=== PATIENT | female | born 1940 | race Caucasian/White ===

== ENCOUNTER → 2016-12-10 | Outpatient (CLI) | payer MEDICARE ==
--- NOTE | 2016-12-13 13:27 | MM ---
Reason for exam: screening (asymptomatic). Last mammogram was performed 1 year and 2 months ago. History: Patient is postmenopausal and has history of high-risk lesion on a previous biopsy at age 65. Family history of breast cancer in maternal aunt. Excisional biopsy of the left breast, February 06, 2006. High risk left mammotome panel of the left breast, January 15, 2006. Excisional biopsy of the left breast, April 08, 2000. Benign excisional biopsy of the left breast, 1981. Took estrogen for 4 years beginning at age 59. Took unspecified hormones for 20 years beginning at age 45. Physical Findings: A clinical breast exam by your physician is recommended on an annual basis and results should be correlated with mammographic findings. MG 3D Screening Mammo W/Cad Bilateral CC and MLO view(s) were taken. Prior study comparison: October 23, 2015, bilateral MG screening mammo w CAD. December 20, 2013, bilateral MG screening mammo w CAD. October 05, 2012, bilateral digital screening mammo w/CAD. September 06, 2011, bilateral digital screening mammo w/ CAD. There are scattered fibroglandular densities. There is chronic nodularity in the left breast. Diffuse round and punctate calcifications redemonstrated right greater than left breasts. No significant changes when compared with prior studies. ASSESSMENT: Benign, BI-RAD 2 RECOMMENDATION: Routine screening mammogram of both breasts in 1 year. AISLINN
== END | disposition home or self-care (01) ==
LOC: RADMAMWWP 10:04
PROVIDERS: ATTEND Family Medicine
DX: Z12.31 Encounter for screening mammogram for malignant neoplasm of breast (principal)
CPT/HCPCS: 77063; G0202

== ENCOUNTER → 2018-01-26 | Outpatient (CLI) | payer MEDICARE ==
--- NOTE | 2018-01-26 15:08 | BD ---
EXAMINATION TYPE: Axial Bone Density DATE OF EXAM: 01/26/2018 COMPARISON: NONE CLINICAL HISTORY: Height: 63 Weight: 165.8 FRAX RISK QUESTIONS: Alcohol (3 or more units per day): no Family History (Parent hip fracture): yes/ mother Glucocorticoids (More than 3mos): no (Ex: prednisone, prednisolone, methylprednisolone, dexamethasone, and hydrocortisone). History of Fracture in Adulthood: yes /elbow right/2008 Secondary Osteoporosis: 1. Type 1 Diabetes: no 2. Hyperthyroidism: no 3. Menopause before 45: no 4. Malnutrition: no 5. Chronic liver disease: no Rheumatoid Arthritis: no Current Tobacco Use: no RISK FACTORS HISTORY OF: Family History of Osteoporosis: yes Active: yes Diet low in dairy products/other sources of calcium: no Postmenopausal woman: age 56 Lost more than 2 inches in height since high school: yes Frequent falls: no MEDICATIONS: prevastatin, lisinopril, mirapex, iron, folic acid Additional History: EXAM MEASUREMENTS: Bone mineral densitometry was performed using the [employer] System. Bone mineral density as measured about the Lumbar spine is: ----- L1-L4(G/cm2): 1.117 T Score Values are as follows: ----- L2: -0.4 ----- L3: -0.3 ----- L4: -0.6 ----- L1-L4: -0.5 Bone mineral density has: increased1.5 % since study of: 10.23.2015 Bone mineral density about the R hip (g/cm2): 0.851 Bone mineral density about the L hip (g/cm2): 0.798 T Score values are as follows: -----R Neck: -1.3 -----L Neck: -1.7 -----R Total: -1.6 -----L Total: -2.0 Bone mineral density has: decreased -3.1 % since study of: 10.23.2015 IMPRESSION: Osteopenia (T Score between -2.5 and -1). There is slightly increased risk of fracture and the patient may be considered for treatment. Re-Screen 2-5 years. NOTE: T-SCORE=SD OF THE YOUNG ADULT MEAN.
--- NOTE | 2018-01-27 13:18 | MM ---
Reason for exam: screening (asymptomatic). Last mammogram was performed 1 year and 2 months ago. History: Patient is postmenopausal and has history of high-risk lesion on a previous biopsy at age 65. Family history of breast cancer in maternal aunt. Excisional biopsy of the left breast, February 06, 2006. High risk left mammotome panel of the left breast, January 15, 2006. Excisional biopsy of the left breast, April 08, 2000. Benign excisional biopsy of the left breast, 1981. Took estrogen for 4 years beginning at age 59. Took unspecified hormones for 20 years beginning at age 45. Physical Findings: A clinical breast exam by your physician is recommended on an annual basis and results should be correlated with mammographic findings. MG 3D Screening Mammo W/Cad Bilateral CC and MLO view(s) were taken. Prior study comparison: December 10, 2016, bilateral MG 3d screening mammo w/cad. October 23, 2015, bilateral MG screening mammo w CAD. The breast tissue is heterogeneously dense. This may lower the sensitivity of mammography. Finding #1: Stable architectural distortion in the upper outer quadrant of the left breast consistent with known excisional biopsy. Finding #2: There are typically benign dystrophic, round, regional and diffuse calcifications in both breasts. There is a chronic nodularity in the left breast. There is no discrete abnormality. ASSESSMENT: Benign, BI-RAD 2 RECOMMENDATION: Routine screening mammogram of both breasts in 1 year.
== END | disposition home or self-care (01) ==
LOC: RADMAMWWP 13:30
PROVIDERS: ATTEND Family Medicine
DX: Z12.31 Encounter for screening mammogram for malignant neoplasm of breast (principal); Z13.820 Encounter for screening for osteoporosis; M85.80 Other specified disorders of bone density and structure, unspecified site
CPT/HCPCS: 77063; 77067; 77080

== ENCOUNTER → 2019-01-28 | Outpatient (CLI) | payer MEDICARE ==
--- NOTE | 2019-01-29 09:56 | MM ---
Reason for exam: screening (asymptomatic). Last mammogram was performed 1 year ago. History: Patient is postmenopausal and has history of high-risk lesion on a previous biopsy at age 65. Family history of breast cancer in maternal aunt. Excisional biopsy of the left breast, February 06, 2006. High risk left mammotome panel of the left breast, January 15, 2006. Excisional biopsy of the left breast, April 08, 2000. Benign excisional biopsy of the left breast, 1981. Took estrogen for 4 years beginning at age 59. Took unspecified hormones for 20 years beginning at age 45. Physical Findings: A clinical breast exam by your physician is recommended on an annual basis and results should be correlated with mammographic findings. MG 3D Screening Mammo W/Cad Bilateral CC and MLO view(s) were taken. Prior study comparison: January 26, 2018, bilateral MG 3d screening mammo w/cad. December 10, 2016, bilateral MG 3d screening mammo w/cad. The breast tissue is heterogeneously dense. This may lower the sensitivity of mammography. Stable benign calcifications. There is chronic nodularity bilaterally. There is no dominant lesion. ASSESSMENT: Benign, BI-RAD 2 RECOMMENDATION: Routine screening mammogram of both breasts in 1 year.
== END | disposition home or self-care (01) ==
LOC: RADMAMWWP 13:15
PROVIDERS: ATTEND Family Medicine
DX: Z12.31 Encounter for screening mammogram for malignant neoplasm of breast (principal)
CPT/HCPCS: 77063; 77067

== ENCOUNTER → 2019-05-19 | Outpatient (CLI) | payer MEDICARE ==
[2019-05-19 08:29] LABS: T4, Free (Free Thyroxine) 1.23 ng/dL (0.78-2.19)
--- NOTE | 2019-05-19 09:28 | CT ---
EXAMINATION TYPE: CT orbits wo/w con DATE OF EXAM: 05/19/2019 COMPARISON: None. HISTORY: Double Vision for 2 months with history of thyroid disease. CT DLP: 601.6 mGycm Automated exposure control for dose reduction was used. CONTRAST: Performed without and with IV Contrast, patient injected with 100 mL of Isovue 300. FINDINGS: The orbital floors and michaud are intact. The globes are intact bilaterally. Neither lens well seen an d may be products of underlying cataracts. Rectus muscles show asymmetric enlargement of the left inf erior rectus muscle versus the opposite right side. There appears to be relative sparing of the tendi nous insertion or globe. Intraconal fat is preserved. Postcontrast images show no suspicious enhancem ent. Suprasellar cistern is maintained. Optic chiasm is not effaced. Suspected slight asymmetric left -sided proptosis. Mild diffuse cerebral atrophy and chronic small vessel ischemic changes thought present and visualize d brain parenchyma. Visualized paranasal sinuses are clear. Visualized mastoid air cells show no abno rmal opacification. Level of [place] of [place] there is thought within normal limits. IMPRESSION: Asymmetric thickening of the left inferior rectus muscle with suspected slight asymmetric left-sided proptosis. Differential would include lymphoma, sarcoidosis, thyroid orbitopathy, and pse udotumor although imaging findings and patient's symptoms do not classically fit any of the above. Th yroid would be favored given history but is usually bilateral and more symmetric in appearance.
== END | disposition home or self-care (01) ==
LOC: RADCTMAIN 07:39
PROVIDERS: ATTEND Ophthalmology
DX: H53.2 Diplopia (principal); Z86.39 Personal history of other endocrine, nutritional and metabolic disease
CPT/HCPCS: 84439; 83519; 84481; 82565; 84443; 84520; 70482; 36415; Q9967

== ENCOUNTER → 2020-03-07 | Outpatient (CLI) | payer MEDICARE ==
--- NOTE | 2020-03-13 10:37 | MM ---
Reason for exam: screening (asymptomatic). Last mammogram was performed 1 year and 1 month ago. History: Patient is postmenopausal and has history of high-risk lesion on a previous biopsy at age 65. Family history of breast cancer in maternal aunt. Excisional biopsy of the left breast, February 06, 2006. High risk left mammotome panel of the left breast, January 15, 2006. Excisional biopsy of the left breast, April 08, 2000. Benign excisional biopsy of the left breast, 1981. Took estrogen for 4 years beginning at age 59. Took unspecified hormones for 20 years beginning at age 45. Physical Findings: A clinical breast exam by your physician is recommended on an annual basis and results should be correlated with mammographic findings. MG 3D Screening Mammo W/Cad Bilateral CC and MLO view(s) were taken. Prior study comparison: January 28, 2019, bilateral MG 3d screening mammo w/cad. January 26, 2018, bilateral MG 3d screening mammo w/cad. The breast tissue is heterogeneously dense. This may lower the sensitivity of mammography. There is chronic nodularity bilaterally. No significant changes when compared with prior studies. ASSESSMENT: Benign, BI-RAD 2 RECOMMENDATION: Routine screening mammogram of both breasts in 1 year.
== END | disposition home or self-care (01) ==
LOC: RADMAMWWP 09:52
PROVIDERS: ATTEND Family Medicine
DX: Z12.31 Encounter for screening mammogram for malignant neoplasm of breast (principal)
CPT/HCPCS: 77063; 77067

== ENCOUNTER → 2021-04-13 | Outpatient (CLI) | payer MEDICARE ==
--- NOTE | 2021-04-16 11:17 | MM ---
Reason for exam: screening (asymptomatic). Last mammogram was performed 1 year and 1 month ago. History: Patient is postmenopausal and has history of high-risk lesion on a previous biopsy at age 65. Family history of breast cancer in maternal aunt. Excisional biopsy of the left breast, February 06, 2006. High risk left mammotome panel of the left breast, January 15, 2006. Excisional biopsy of the left breast, April 08, 2000. Benign excisional biopsy of the left breast, 1981. Took estrogen for 4 years beginning at age 59. Took unspecified hormones for 20 years beginning at age 45. Physical Findings: A clinical breast exam by your physician is recommended on an annual basis and results should be correlated with mammographic findings. MG 3D Screening Mammo W/Cad Bilateral CC and MLO view(s) were taken. Prior study comparison: March 07, 2020, bilateral MG 3d screening mammo w/cad. January 28, 2019, bilateral MG 3d screening mammo w/cad. January 26, 2018, bilateral MG 3d screening mammo w/cad. The breast tissue is heterogeneously dense. This may lower the sensitivity of mammography. Finding: There is stable architectural distortion in the upper quadrant of the left breast. There are typically benign round and vascular calcifications bilaterally. There is a chronic nodularity in the left breast. There is no discrete abnormality. ASSESSMENT: Benign, BI-RAD 2 RECOMMENDATION: Routine screening mammogram of both breasts in 1 year.
== END | disposition home or self-care (01) ==
LOC: RADMAMWWP 09:06
PROVIDERS: ATTEND Family Medicine
DX: Z12.31 Encounter for screening mammogram for malignant neoplasm of breast (principal); Z78.0 Asymptomatic menopausal state; Z80.3 Family history of malignant neoplasm of breast
CPT/HCPCS: 77063; 77067

== ENCOUNTER 2021-06-29 17:37 | Emergency (ER) | payer MEDICARE ==
[2021-06-29 18:15] VITALS: TEMP 99.8
[2021-06-29 20:01] VITALS: RESP 16
--- NOTE | 2021-06-29 20:13 | ED ---
General Adult HPI - General Chief complaint: Abdominal Pain Stated complaint: Nausea/dizzy/dehydrated Time Seen by Provider: 06/29/21 19:07 Source: patient Mode of arrival: ambulatory Limitations: no limitations - History of Present Illness Initial comments: Dictation was produced using [employer] dictation software. please excuse any grammatical, word or spelling errors. Chief Complaint: Patient is an 80-year-old female she has past medical history dyslipidemia and hypertension. She states she has history of constipation. She is here for constipation. History of Present Illness:-year-old female states that she has not had a good bowel movement in the last 2 weeks. She saw her primary care doctor a week ago was prescribed MiraLAX. She states that it helped initially but she still feels like she's not having a good bowel movement. She states she's been having these movements were she with past little pellets size stools. Patient has poor appetite. She does have very mild cramping down in her suprapubic area. Denies any fevers. The ROS documented in this emergency department record has been reviewed and confirmed by me. Those systems with pertinent positive or negative responses have been documented in the HPI. All other systems are other negative and/or noncontributory. PHYSICAL EXAM: General Impression: Alert and oriented x3, not in acute distress HEENT: Normocephalic atraumatic, extra-ocular movements intact, pupils equal and reactive to light bilaterally, mucous membranes moist. Cardiovascular: Heart regular rate and rhythm Chest: Able to complete full sentences, no retractions, no tachypnea Abdomen: abdomen soft, non-tender, non-distended, no organomegaly Musculoskeletal: Pulses present and equal in all extremities, no peripheral edema Motor: no focal deficits noted Neurological: CN II-XII grossly intact, no focal motor or sensory deficits noted Skin: Intact with no visualized rashes Psych: Normal affect and mood ED course: Patient is a 80-year-old female presents with crampy abdominal pain is suprapubic area. She has history of constipation and currently being treated by primary care doctor. She tried some MiraLAX at home with no significant improvement. She has been passing a small pellet size stools. Vital signs upon arrival shows findings within acceptable limits. Acute abdominal series shows hiatal hernia. No signs of obstruction or pneumoperitoneum. Physical pattern is normal. Laboratory evaluation. Rectal exam is normal. CBC and metabolic panel is unremarkable. No leukocytosis. White blood cell count of 7.9. Patient was told that she has a hiatal hernia. Given prescription for Protonix. Patient given referral to gastroenterology. - Related Data Previous Rx's Medication Instructions Recorded Pantoprazole [Protonix] 40 mg PO DAILY 24 Days #24 tab 06/29/21 Allergies Allergy/AdvReac Type Severity Reaction Status Date / Time codeine Allergy Itching Verified 06/29/21 18:15 Review of Systems ROS Statement: Those systems with pertinent positive or pertinent negative responses have been documented in the HPI. ROS Other: All systems not noted in ROS Statement are negative. Past Medical History Past Medical History: Hyperlipidemia, Hypertension Additional Past Medical History / Comment(s): Low Iron History of Any Multi-Drug Resistant Organisms: None Reported Past Surgical History: No Surgical Hx Reported Past Psychological History: No Psychological Hx Reported Smoking Status: Never smoker Past Alcohol Use History: Occasional Past Drug Use History: None Reported General Exam Limitations: no limitations Course Vital Signs 06/29/21 06/29/21 06/29/21 18:12 19:15 21:00 Temperature 99.8 F H Pulse Rate 101 H 103 H 91 Respiratory 24 16 16 Rate Blood Pressure 144/71 118/75 136/79 O2 Sat by Pulse 99 94 L 97 Oximetry Medical Decision Making - Lab Data Result diagrams: 06/29/21 20:51 06/29/21 20:51 Lab Results 06/29/21 06/29/21 06/29/21 Range/Units 19:55 20:51 20:51 WBC 7.9 (3.8-10.6) k/uL RBC 3.86 (3.80-5.40) m/uL Hgb 10.6 L (11.4-16.0) gm/dL Hct 32.1 L (34.0-46.0) % MCV 83.2 D (80.0-100.0) fL MCH 27.4 (25.0-35.0) pg MCHC 32.9 (31.0-37.0) g/dL RDW 13.5 (11.5-15.5) % Plt Count 399 (150-450) k/uL MPV 7.4 Neutrophils % 87 % Lymphocytes % 4 % Monocytes % 7 % Eosinophils % 0 % Basophils % 0 % Neutrophils # 6.9 (1.3-7.7) k/uL Lymphocytes # 0.3 L (1.0-4.8) k/uL Monocytes # 0.6 (0-1.0) k/uL Eosinophils # 0.0 (0-0.7) k/uL Basophils # 0.0 (0-0.2) k/uL Sodium 132 L (137-145) mmol/L Potassium 4.1 (3.5-5.1) mmol/L Chloride 96 L (98-107) mmol/L Carbon Dioxide 25 (22-30) mmol/L Anion Gap 11 mmol/L BUN 25 H (7-17) mg/dL Creatinine 0.70 (0.52-1.04) mg/dL Est GFR (CKD-EPI)AfAm >90 (>60 ml/min/1.73 sqM) Est GFR (CKD-EPI)NonAf 82 (>60 ml/min/1.73 sqM) Glucose 129 H (74-99) mg/dL Calcium 9.2 (8.4-10.2) mg/dL Total Bilirubin 0.6 (0.2-1.3) mg/dL AST 20 (14-36) U/L ALT 12 (4-34) U/L Alkaline Phosphatase 103 (38-126) U/L Total Protein 6.9 (6.3-8.2) g/dL Albumin 3.3 L (3.5-5.0) g/dL Coronavirus (PCR) Not Detected (Not Detectd) Disposition Clinical Impression: Hiatal hernia Disposition: HOME SELF-CARE Condition: Fair Instructions (If sedation given, give patient instructions): Constipation (ED), Hiatal Hernia (ED) Prescriptions: Pantoprazole [Protonix] 40 mg PO DAILY 24 Days #24 tab Is patient prescribed a controlled substance at d/c from ED?: No Referrals: Mary Faria DO [Primary Care Provider] - 1-2 days Ella Up MD [STAFF PHYSICIAN] - 1-2 days
--- NOTE | 2021-06-29 20:13 | XR ---
EXAMINATION TYPE: XR abdomen acute w cxr DATE OF EXAM: 06/29/2021 COMPARISON: NONE HISTORY: Constipation TECHNIQUE: 5 views FINDINGS: There is large hiatal hernia. There is no heart failure. There is atelectasis left lower lo be. Right lung is clear. There is no sign of intestinal obstruction or pneumoperitoneum. Fecal pattern is fairly normal. There is mild lumbar levoscoliosis. There is no sign of renal calculus. IMPRESSION: Large hiatal hernia. Nonacute abdomen.
[2021-06-29 21:15] LABS: Basophils % (A) 0 %; Eosinophils % (A) 0 %; HCT 32.1 % (34.0-46.0); HGB 10.6 gm/dL (11.4-16.0); Lymphocytes # (A) 0.3 k/uL (1.0-4.8); Lymphocytes % (A) 4 %; MCH 27.4 pg (25.0-35.0); MCHC 32.9 g/dL (31.0-37.0); Mean Platelet Volume 7.4; Monocytes # (A) 0.6 k/uL (0-1.0); Monocytes % (A) 7 %; Neutrophils # (A) 6.9 k/uL (1.3-7.7); Neutrophils % (A) 87 %; Platelet Count 399 k/uL (150-450); RBC 3.86 m/uL (3.80-5.40); RDW 13.5 % (11.5-15.5); WBC 7.9 k/uL (3.8-10.6)
[2021-06-29 21:30] LABS: MCV 83.2 fL (80.0-100.0)
[2021-06-29 21:34] LABS: ALT 12 U/L (4-34); AST 20 U/L (14-36); African American GFR (CKD) >90 (>60 ml/min/1.73 sqM); Albumin 3.3 g/dL (3.5-5.0); Alkaline Phosphatase 103 U/L (38-126); Anion Gap 11 mmol/L; Blood Urea Nitrogen 25 mg/dL (7-17); Calcium 9.2 mg/dL (8.4-10.2); Carbon Dioxide 25 mmol/L (22-30); Chloride 96 mmol/L (98-107); Glucose 129 mg/dL (74-99); Non-African American GFR(CKD) 82 (>60 ml/min/1.73 sqM); Potassium 4.1 mmol/L (3.5-5.1); Sodium 132 mmol/L (137-145); Total Bilirubin 0.6 mg/dL (0.2-1.3); Total Protein 6.9 g/dL (6.3-8.2)
[2021-06-29 21:56] VITALS: BP 131/73; PULSE 86
== END 2021-06-29 21:56 | disposition home or self-care (01) ==
LOC: EC 17:37
DX: K44.9 Diaphragmatic hernia without obstruction or gangrene (principal); E78.5 Hyperlipidemia, unspecified; I10 Essential (primary) hypertension; Z88.5 Allergy status to narcotic agent
CPT/HCPCS: 36415; 74022; 80053; 85025; 87635; 99284

== ENCOUNTER 2021-07-05 09:31 | Inpatient (IN) | payer MEDICARE ==
[2021-07-05] MEDS ORDERED: ONDANSETRON 4 MG/2 ML VIAL IVP STA (09:55)
[2021-07-05] MEDS ORDERED: SODIUM CHLORIDE 0.9% 1,000 ML IV STA (09:55)
[2021-07-05] MEDS ORDERED: KETOROLAC 30 MG/ML 1 ML VIAL IVP STA (10:13)
[2021-07-05 10:45] LABS: Basophils % (A) 0 %; Eosinophils % (A) 0 %; HCT 32.7 % (34.0-46.0); HGB 10.5 gm/dL (11.4-16.0); Lymphocytes # (A) 0.3 k/uL (1.0-4.8); Lymphocytes % (A) 4 %; MCH 26.9 pg (25.0-35.0); MCHC 32.2 g/dL (31.0-37.0); MCV 83.5 fL (80.0-100.0); Mean Platelet Volume 7.4; Monocytes # (A) 0.4 k/uL (0-1.0); Monocytes % (A) 5 %; Neutrophils # (A) 7.6 k/uL (1.3-7.7); Neutrophils % (A) 90 %; Platelet Count 412 k/uL (150-450); RBC 3.91 m/uL (3.80-5.40); RDW 13.7 % (11.5-15.5); WBC 8.4 k/uL (3.8-10.6)
[2021-07-05 10:54] LABS: Albumin 3.1 g/dL (3.5-5.0); Calcium 9.1 mg/dL (8.4-10.2); Potassium 3.8 mmol/L (3.5-5.1); Total Bilirubin 0.6 mg/dL (0.2-1.3); Total Protein 6.8 g/dL (6.3-8.2)
--- NOTE | 2021-07-05 11:12 | XR ---
EXAMINATION TYPE: XR abdomen 2V DATE OF EXAM: 07/05/2021 COMPARISON: NONE HISTORY: Pain TECHNIQUE: One view abdominal series FINDINGS: The osseous structures are intact. The bowel gas pattern is nonspecific. There is bibasilar consolid ation and small effusion there is a large intra-abdominal hiatal hernia suspected. Scoliosis with deg enerative change of the spine. As the face small bowel loops in the lower pelvis which could been the basis of an enteritis or ileus. Calcifications along the right paraspinal line could be related the right kidney. Diffuse osteopenia. IMPRESSION: 1. Nonspecific abdomen correlate for ileus or enteritis. 2. Possible right renal calculi. 3. Suspect a large hiatal hernia with cardiomegaly and basilar infiltrate correlate clinically.
[2021-07-05 12:28] LABS: Amorphous Sediment,Urine Occasional /hpf; Appearance,Urine Turbid (Clear); Bilirubin,Urine 1+ (Negative); Blood,Urine Moderate (Negative); Color,Urine Dark Yellow; Glucose,Urine (UA) Negative (Negative); Ketones,Urine 2+ (Negative); Leukocyte Esterase,Urine Negative (Negative); Mucus,Urine Many /hpf; Nitrite,Urine Negative (Negative); Protein,Urine 2+ (Negative); RBC,Urine 33 /hpf (0-5); Specific Gravity,Urine 1.034 (1.001-1.035); Squamous Epithelial Cell,Urine 8 /hpf (0-4); WBC,Urine 8 /hpf (0-5)
[2021-07-05] MEDS ORDERED: HYDROmorphone 0.5 MG/0.5 ML SYRINGE IVP STA (12:52)
--- NOTE | 2021-07-05 13:03 | CT ---
EXAMINATION TYPE: CT abdomen pelvis wo con DATE OF EXAM: 07/05/2021 HISTORY: Mid abdominal pain with burning sensation. CT DLP: 775.4 mGycm. Automated Exposure Control for Dose Reduction was Utilized. TECHNIQUE: CT scan of the abdomen and pelvis is performed without oral or IV contrast. COMPARISON: CT urogram November 08, 2010 FINDINGS: Within the limitations of a non-contrast study, the following observations are made. LUNG BASES: There is 12 mm calcified benign calcified nodule or granuloma left lower lobe posteriorly axial image 3 redemonstrated. LIVER/GB: Dependent calcified gallstones within gallbladder redemonstrated. 5. Stable prominent left hepatic lobe measuring upper limits of normal. Liver diffusely low dense con sistent with diffuse fatty infiltration. Few small calcifications in the right hepatic lobe redemonst rated. PANCREAS: No significant abnormality is seen. SPLEEN: No significant abnormality is seen. ADRENALS: No significant abnormality is seen. KIDNEYS: No significant abnormality is seen. BOWEL: Partial visualization of stomach which is poorly distended. No suspicious small or large bowel dilatation. Some scattered colonic diverticula most prominent in the left and sigmoid colon. Redunda nt sigmoid colon is identified. Mild fat stranding in the pelvis the level of the proximal to mid sig moid colon. No free air. No well-formed fluid collection or abscess. GENITAL ORGANS: Uterus surgically absent. LYMPH NODES: No greater than 1cm abdominal or pelvic lymph nodes are appreciated. OSSEOUS STRUCTURES: Marked underlying levoconvex scoliosis at L3 level. [id number] multilevel d isc space narrowing in the upper to mid lumbar spine. OTHER: Redemonstration of large diaphragmatic hernia containing portion of transverse colon and signi ficant portion of stomach along significant mesenteric fat and tiny vessels. IMPRESSION: Colonic diverticulosis with new mild uncomplicated acute diverticulitis proximal mid sigm oid colon in the left pelvis.
[2021-07-05] MEDS ORDERED: NALOXONE 0.4 MG/ML 1 ML VIAL IV PRN (13:30)
[2021-07-05] MEDS ORDERED: ONDANSETRON 4 MG/2 ML VIAL IVP PRN (13:30)
--- NOTE | 2021-07-05 13:30 | ED ---
Abdominal Pain HPI - General Chief Complaint: Abdominal Pain Stated Complaint: Hernia, unable to eat or drink, near syncope Time Seen by Provider: 07/05/21 09:43 Source: patient, RN notes reviewed Mode of arrival: ambulatory Limitations: no limitations - History of Present Illness Initial Comments: Patient is an 80-year-old female that presents to the emergency department complaining of abdominal discomfort. She was recently discharged from the [facility] with a large hiatal hernia and told to follow with GI specialist. Patient notes that since the discharge she's been having trouble eating having increased discomfort and has really or drinking. She was otherwise well-appearing. She denied any other symptoms or complaints. She denied chest pain shortness of breath headache nausea vomiting diarrhea constipation fever fatigue chills. - Related Data Home Medications Medication Instructions Recorded Confirmed Enalapril [Vasotec] 10 mg PO DAILY 07/05/21 07/05/21 Levothyroxine Sodium [Synthroid] 25 mcg PO DAILY 07/05/21 07/05/21 Meloxicam 15 mg PO DAILY 07/05/21 07/05/21 Pramipexole [Mirapex] 1 mg PO HS 07/05/21 07/05/21 Pravastatin Sodium [Pravachol] 80 mg PO HS 07/05/21 07/05/21 Vit C/E/Zn/Coppr/Lutein/Zeaxan 1 cap PO DAILY 07/05/21 07/05/21 [Preservision Areds 2 Softgel] Allergies Allergy/AdvReac Type Severity Reaction Status Date / Time codeine Allergy Itching Verified 07/05/21 10:15 Review of Systems ROS Statement: Those systems with pertinent positive or pertinent negative responses have been documented in the HPI. ROS Other: All systems not noted in ROS Statement are negative. Past Medical History Past Medical History: Hyperlipidemia, Hypertension Additional Past Medical History / Comment(s): Low Iron, Hernia History of Any Multi-Drug Resistant Organisms: None Reported Past Surgical History: No Surgical Hx Reported Past Psychological History: No Psychological Hx Reported Smoking Status: Never smoker Past Alcohol Use History: Occasional Past Drug Use History: None Reported General Exam Limitations: no limitations General appearance: alert, in no apparent distress Head exam: Present: atraumatic, normocephalic, normal inspection Eye exam: Present: normal appearance, PERRL, EOMI. Absent: scleral icterus, conjunctival injection, periorbital swelling ENT exam: Present: normal exam, mucous membranes moist Neck exam: Present: normal inspection Respiratory exam: Present: normal lung sounds bilaterally. Absent: respiratory distress, wheezes, rales, rhonchi, stridor Cardiovascular Exam: Present: regular rate, normal rhythm, normal heart sounds. Absent: systolic murmur, diastolic murmur, rubs, gallop, clicks GI/Abdominal exam: Present: soft, normal bowel sounds. Absent: distended, tenderness, guarding, rebound, rigid Extremities exam: Present: normal inspection, full ROM, normal capillary refill. Absent: tenderness, pedal edema, joint swelling, calf tenderness Neurological exam: Present: alert, oriented X3 Psychiatric exam: Present: normal affect, normal mood Skin exam: Present: warm, dry, intact, normal color. Absent: rash Course Vital Signs 07/05/21 07/05/21 09:32 13:00 Temperature 98.3 F Pulse Rate 103 H 101 H Respiratory 20 17 Rate Blood Pressure 138/70 138/78 O2 Sat by Pulse 100 99 Oximetry Medical Decision Making - Medical Decision Making 80-year-old female with hiatal hernia complaining of increased discomfort and pain. Labs, KUB, 15 mg of Toradol 4 mg of Zofran ordered. Labs unremarkable from previous studies. KUB shows large hiatal hernia. Dr. Caal was consulted and recommended a computed tomography scan Computed tomography scan shows a large hiatal hernia including most of the stomach and part of the transverse colon. 0.5 mg of Dilaudid for continuing pain. Case discussed with Dr. Nieves, patient will be admitted for surgical consult. Dr. Srivastava was consulted and will accept the admit with Dr. Ryan - Lab Data Result diagrams: 07/05/21 10:28 07/05/21 10:28 Lab Results 07/05/21 07/05/21 07/05/21 Range/Units 10:28 10:28 10:28 WBC 8.4 (3.8-10.6) k/uL RBC 3.91 (3.80-5.40) m/uL Hgb 10.5 L (11.4-16.0) gm/dL Hct 32.7 L (34.0-46.0) % MCV 83.5 (80.0-100.0) fL MCH 26.9 (25.0-35.0) pg MCHC 32.2 (31.0-37.0) g/dL RDW 13.7 (11.5-15.5) % Plt Count 412 (150-450) k/uL MPV 7.4 Neutrophils % 90 % Lymphocytes % 4 % Monocytes % 5 % Eosinophils % 0 % Basophils % 0 % Neutrophils # 7.6 (1.3-7.7) k/uL Lymphocytes # 0.3 L (1.0-4.8) k/uL Monocytes # 0.4 (0-1.0) k/uL Eosinophils # 0.0 (0-0.7) k/uL Basophils # 0.0 (0-0.2) k/uL Sodium 137 (137-145) mmol/L Potassium 3.8 (3.5-5.1) mmol/L Chloride 97 L (98-107) mmol/L Carbon Dioxide 30 (22-30) mmol/L Anion Gap 10 mmol/L BUN 28 H (7-17) mg/dL Creatinine 0.77 (0.52-1.04) mg/dL Est GFR (CKD-EPI)AfAm 84 (>60 ml/min/1.73 sqM) Est GFR (CKD-EPI)NonAf 73 (>60 ml/min/1.73 sqM) Glucose 143 H (74-99) mg/dL Calcium 9.1 (8.4-10.2) mg/dL Total Bilirubin 0.6 (0.2-1.3) mg/dL AST 20 (14-36) U/L ALT 15 (4-34) U/L Alkaline Phosphatase 100 (38-126) U/L Total Protein 6.8 (6.3-8.2) g/dL Albumin 3.1 L (3.5-5.0) g/dL Amylase 60 (30-110) U/L Lipase 44 (23-300) U/L Urine Color Dark Yellow Urine Appearance Turbid H (Clear) Urine pH 6.0 (5.0-8.0) Ur Specific Strawberry 1.034 (1.001-1.035) Urine Protein 2+ H (Negative) Urine Glucose (UA) Negative (Negative) Urine Ketones 2+ H (Negative) Urine Blood Moderate H (Negative) Urine Nitrite Negative (Negative) Urine Bilirubin 1+ H (Negative) Urine Urobilinogen 8.0 (<2.0) mg/dL Ur Leukocyte Esterase Negative (Negative) Urine RBC 33 H (0-5) /hpf Urine WBC 8 H (0-5) /hpf Ur Squamous Epith Cells 8 H (0-4) /hpf Amorphous Sediment Occasional H (None) /hpf Urine Mucus Many H (None) /hpf - Radiology Data Radiology results: report reviewed, image reviewed CT of the abdomen and pelvis: Redemonstration of large diaphragmatic hernia containing portion of transverse colon and significant portion of stomach along significant mesenteric fat and tiny vessels. Colonic diverticulosis with new mild uncomplicated acute diverticulitis proximal mid sigmoid colon in the left pelvis. Disposition Clinical Impression: Hiatal hernia Disposition: ADMITTED IP TO THIS HOSP Condition: Stable Is patient prescribed a controlled substance at d/c from ED?: No Referrals: Mary Faria DO [Primary Care Provider] - 1-2 days Time of Disposition: 13:30
[2021-07-05] MEDS: SODIUM CHLORIDE 0.9% 1,000 ML IV SCH (14:41)
[2021-07-05] MEDS: HYDROmorphone 0.5 MG/0.5 ML SYRINGE IVP PRN ×2 (15:39→19:34)
[2021-07-06] MEDS: ACETAMINOPHEN TAB 325 MG TAB PO PRN (00:05)
[2021-07-06] MEDS: SODIUM CHLORIDE 0.9% 1,000 ML IV SCH ×4 (04:40→23:18)
[2021-07-06] MEDS: HYDROmorphone 0.5 MG/0.5 ML SYRINGE IVP PRN ×4 (04:56→12:42)
[2021-07-06 11:56] LABS: Basophils % (A) 0 %; Eosinophils % (A) 0 %; HCT 31.8 % (34.0-46.0); HGB 9.9 gm/dL (11.4-16.0); Hypochromasia Moderate; Lymphocytes # (A) 0.3 k/uL (1.0-4.8); Lymphocytes % (A) 3 %; MCHC 31.2 g/dL (31.0-37.0); MCV 86.3 fL (80.0-100.0); Mean Platelet Volume 7.4; Monocytes # (A) 0.4 k/uL (0-1.0); Monocytes % (A) 4 %; Neutrophils # (A) 8.4 k/uL (1.3-7.7); Neutrophils % (A) 91 %; Platelet Count 379 k/uL (150-450); RBC 3.68 m/uL (3.80-5.40); RDW 13.8 % (11.5-15.5); WBC 9.2 k/uL (3.8-10.6)
[2021-07-06 12:10] LABS: African American GFR (CKD) >90 (>60 ml/min/1.73 sqM); Anion Gap 8 mmol/L; Blood Urea Nitrogen 26 mg/dL (7-17); Calcium 8.4 mg/dL (8.4-10.2); Carbon Dioxide 27 mmol/L (22-30); Chloride 104 mmol/L (98-107); Glucose 96 mg/dL (74-99); Non-African American GFR(CKD) 85 (>60 ml/min/1.73 sqM); Potassium 3.7 mmol/L (3.5-5.1); Sodium 139 mmol/L (137-145)
--- NOTE | 2021-07-06 13:10 | P.HPIM ---
History of Present Illness Patient is an 80-year-old female came in with the complaint of upper abdominal discomfort patient does have history of hernia and the pain is related to be secondary to anemia, Gen. surgery evaluated the patient is planning on doing hemorrhoidal hernia repair/Adis fundoplication on Friday. Patient will be started on Protonix patient was on naproxen at home which will be held. Patient doesn't have any fever chills vomiting diarrhea. Bit nauseous REVIEW OF SYSTEMS: CONSTITUTIONAL: No fever, no malaise, no fatigue. HEENT: No recent visual problems or hearing problems. Denied any sore throat. CARDIOVASCULAR: No chest pain, orthopnea, PND, no palpitations, no syncope. PULMONARY: No shortness of breath, no cough, no hemoptysis. GASTROINTESTINAL: No diarrhea, no vomiting, no abdominal pain. NEUROLOGICAL: No headaches, no weakness, no numbness. HEMATOLOGICAL: Denies any bleeding or petechiae. GENITOURINARY: Denies any burning micturition, frequency, or urgency. MUSCULOSKELETAL/RHEUMATOLOGICAL: Denies any joint pain, swelling, or any muscle pain. ENDOCRINE: Denies any polyuria or polydipsia. The rest of the 14-point review of systems is negative. PHYSICAL EXAMINATION: GENERAL: The patient is alert and oriented x3, not in any acute distress. Well developed, well nourished. HEENT: Pupils are round and equally reacting to light. EOMI. No scleral icterus. No conjunctival pallor. Normocephalic, atraumatic. No pharyngeal erythema. No thyromegaly. CARDIOVASCULAR: S1 and S2 present. No murmurs, rubs, or gallops. PULMONARY: Chest is clear to auscultation, no wheezing or crackles. ABDOMEN: Soft, nontender, nondistended, normoactive bowel sounds. No palpable organomegaly. MUSCULOSKELETAL: No joint swelling or deformity. EXTREMITIES: No cyanosis, clubbing, or pedal edema. NEUROLOGICAL: Gross neurological examination did not reveal any focal deficits. SKIN: No rashes. Assessment and plan -Epigastric abdominal pain: Secondary to gaseous reflux disease, possible peptic ulcer disease secondary to hiatal hernia, patient will undergo Adis fundoplication on Friday patient was started on Protonix hold off on naproxen -Hyperlipidemia: Resumed on statin -Hypertension hold off on anti-was medication patient blood pressure is low normal at -hypothyroidism continue with levothyroxine DVT prophylaxis: Lovenox Past Medical History Past Medical History: Hyperlipidemia, Hypertension, Osteoarthritis (OA), Thyroid Disorder Additional Past Medical History / Comment(s): Large hiatal hernia/was to follow with GI specialist, palpitations, anemia, goiter with radiation, hypothyroid, sinus allergies, diverticular disease. History of Any Multi-Drug Resistant Organisms: None Reported Past Surgical History: Joint Replacement, Tonsillectomy Additional Past Surgical History / Comment(s): Bilateral total knee arthroplasties, several L breast benign biopsies, colonoscopy, D&C. Past Anesthesia/Blood Transfusion Reactions: No Reported Reaction Additional Past Anesthesia/Blood Transfusion Reaction / Comment(s): Pt has clausterphobia. Smoking Status: Never smoker - Past Family History Father Family Medical History: Cancer Additional Family Medical History / Comment(s): Father of lung to brain cancer. Mother Additional Family Medical History / Comment(s): Mother had "heart problems" and was a "pre-diabetic" Medications and Allergies Home Medications Medication Instructions Recorded Confirmed Type Enalapril [Vasotec] 10 mg PO DAILY 07/05/21 07/05/21 History Levothyroxine Sodium [Synthroid] 25 mcg PO DAILY 07/05/21 07/05/21 History Meloxicam 15 mg PO DAILY 07/05/21 07/05/21 History Pramipexole [Mirapex] 1 mg PO HS 07/05/21 07/05/21 History Pravastatin Sodium [Pravachol] 80 mg PO HS 07/05/21 07/05/21 History Vit C/E/Zn/Coppr/Lutein/Zeaxan 1 cap PO DAILY 07/05/21 07/05/21 History [Preservision Areds 2 Softgel] Allergies Allergy/AdvReac Type Severity Reaction Status Date / Time codeine Allergy Itching Verified 07/05/21 10:15 Physical Exam Vitals: Vital Signs Temp Pulse Pulse Resp BP BP BP 07/06/21 04:30 99 F 94 20 110/56 07/05/21 22:50 102.7 F H 98 20 125/73 07/05/21 19:53 07/05/21 19:48 99.5 F 103 H 18 115/50 07/05/21 15:41 86 17 128/68 Pulse Ox 07/06/21 04:30 94 L 07/05/21 22:50 96 07/05/21 19:53 94 L 07/05/21 19:48 91 L 07/05/21 15:41 100 Intake and Output 07/05/21 07/06/21 07/06/21 22:59 06:59 14:59 Intake Total 1030 Balance 1030 Intake: Intake, IV Titration 780 Amount Sodium Chloride 0.9% 1, 780 000 ml @ 130 mls/hr IV . Q7H42M [facility] Rx#:[id number] Oral 250 Other: # Voids 3 # Bowel Movements 2 Weight 72.575 kg 72.575 kg Results CBC & Chem 7: 07/06/21 11:45 07/06/21 11:21 Labs: Abnormal Lab Results - Last 24 Hours (Table) 07/06/21 07/06/21 Range/Units 11:21 11:45 RBC 3.68 L (3.80-5.40) m/uL Hgb 9.9 L (11.4-16.0) gm/dL Hct 31.8 L (34.0-46.0) % Neutrophils # 8.4 H (1.3-7.7) k/uL Lymphocytes # 0.3 L (1.0-4.8) k/uL BUN 26 H (7-17) mg/dL Thrombosis Risk Factor Assmnt - Choose All That Apply Any of the Below Risk Factors Present?: Yes Each Factor Represents 1 point: Obesity (BMI >25) Other Risk Factors: Yes Each Risk Factor Represents 3 Points: Age 75 years or older Other congenital or acquired thrombophilia - If yes, enter type in comment: No Thrombosis Risk Factor Assessment Total Risk Factor Score: 4 Thrombosis Risk Factor Assessment Level: Moderate Risk
--- NOTE | 2021-07-06 13:36 | FL ---
EXAMINATION TYPE: FL UGI w esophagus DATE OF EXAM: 07/06/2021 COMPARISON: CT abdomen and pelvis 07/05/2021 HISTORY: Intrathoracic stomach TECHNIQUE: Double air contrast technique is performed. Examination however is limited due to patient' s debilitated state. The patient was unable to stand for the examination. Best possible exam was perf ormed with the cooperation of the patient. FINDINGS: The esophagus dilates to normal caliber and extends to the level of the diaphragm. On review of the C T examination a large Morgagni Hernia is present. This would account for the apparent elevation of th e diaphragm on the left. Esophagus has a normal caliber. Mild prominence of the distal esophagus may be present. A couple tert iary contractions may be present in the mid esophagus. Others persistence of a fold with a tiny protr usion. Distal esophageal ulceration may be present. Consider direct visualization. There is difficulty spelling contrast through the stomach to the antrum. Duodenal cap and sweep appea r to be in a normal position. Ligament of Treitz appears to be in normal position with elevation of t he stomach into the more getting the hernia. IMPRESSION: 1. 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 The stomach is within the posterio r thoracic cavity. There is elevation of the gastroesophageal junction with preservation of the locat ion of ligament of Treitz. 2. Some soft tissue swelling with central collection of contrast in the distal esophagus right latera l wall may be present. Underlying ulceration could be present. Consider direct visualization. 3. Mild presbyesophagus.
--- NOTE | 2021-07-06 14:24 | P.GSCN ---
History of Present Illness Consult date: 07/06/21 History of present illness: CHIEF COMPLAINT: Abdominal pain HISTORY OF PRESENT ILLNESS: This is a 80-year-old female who presented to the emergency room with complaints of abdominal pain. She reports that she's had pain for about a week and a half. Her pain is in 2 areas the epigastric and left lower quadrant. She reports that she is only able to eat small amount of food in the cause she gets very full. She reports that she feels that the food is sitting in the center of her chest. She has a lot of belching. And nausea. No vomiting. She's also complaining of left lower quadrant pain. And feeling feverish. She's had loose stools. Positive flatus. No blood in the stools. Reports that she had a colonoscopy several years ago with no abnormalities. [place] was febrile through the night with a temp of 102 she has had some mild tachycardia. White count has remained normal. She had a computed tomography scan of the abdomen completed that did reveal mild acute diverticulitis and a large hiatal hernia. She denies any urinary symptoms. Patient denies any prior surgical history. PAST MEDICAL HISTORY: Hyperlipidemia, Hypertension PAST SURGICAL HISTORY: See list. MEDICATIONS: See list. ALLERGIES: See list. SOCIAL HISTORY: No illicit drug use. REVIEW OF SYSTEMS: CONSTITUTIONAL: Denies fever or chills. HEENT: Denies blurred vision, vision changes, or eye pain. Denies hemoptysis CARDIOVASCULAR: Denies chest pain or pressure. RESPIRATORY: No shortness of breath. GASTROINTESTINAL: See HPI for pertinent findings HEMATOLOGIC: Denies bleeding disorders. GENITOURINARY: Denies any blood in urine or increased urinary frequency. SKIN: Denies pruitis. Denies rash. PHYSICAL EXAM: VITAL SIGNS: Reviewed GENERAL: Well-developed in no acute distress. HEENT: No sclera icterus. Extraocular movements grossly intact. Moist buccal mucosa. Head is atraumatic, normocephalic. No nasal drainage. ABDOMEN: Soft. Nondistended. Mild epigastric tenderness to palpation in left lower quadrant tenderness. NEUROLOGIC: Alert and oriented. Cranial nerves II through XII grossly intact. LABORATORY DATA: WBC is 9.2 hemoglobin 9.9 platelets 379 Sodium 139 potassium 3.7 BUN 26 creatinine 0.63 LFTs normal Lipase 44 IMAGING: Computed tomography scan abdomen and pelvis colonic diverticulosis with new mild uncomplicated acute diverticulitis proximal mid sigmoid colon in the left pelvis. Redemonstration of a large diaphragmatic hernia containing portion of transverse colon and significant portion of stomach along significant mesenteric fat and tiny vessels Upper GI findings compatible with a large Morgagni hernia. The stomach is with in the posterior thoracic cavity. There is elevation of the gastroesophageal junction with preservation of the location of the ligament of Treitz. Some soft tissue swelling with central collection of contrast in the distal esophagus right lateral wall may be present. Underlying ulceration could be present. Consider direct visualization. Mild presbyesophagus. ASSESSMENT: 1. Paraesophageal hernia with intermittent obstruction 2. Mild acute diverticulitis of the proximal mid sigmoid colon PLAN: -Patient scheduled for laparoscopic hiatal hernia repair on 07/09/[address] Ryan -Start full liquid diet -Start IV Zosyn for diverticulitis -Continue IV fluids -Continue supportive care -Continue pain medication as needed Thank you for this consultation Physician Vertical Mill Operator note has been reviewed by physician. Signing provider agrees with the documented findings, assessment, and plan of care. Past Medical History Past Medical History: Hyperlipidemia, Hypertension, Osteoarthritis (OA), Thyroid Disorder Additional Past Medical History / Comment(s): Large hiatal hernia/was to follow with GI specialist, palpitations, anemia, goiter with radiation, hypothyroid, sinus allergies, diverticular disease. History of Any Multi-Drug Resistant Organisms: None Reported Past Surgical History: Joint Replacement, Tonsillectomy Additional Past Surgical History / Comment(s): Bilateral total knee arthroplasties, several L breast benign biopsies, colonoscopy, D&C. Past Anesthesia/Blood Transfusion Reactions: No Reported Reaction Additional Past Anesthesia/Blood Transfusion Reaction / Comm: Pt has clausterphobia. Smoking Status: Never smoker - Past Family History Father Family Medical History: Cancer Additional Family Medical History / Comment(s): Father of lung to brain cancer. Mother Additional Family Medical History / Comment(s): Mother had "heart problems" and was a "pre-diabetic" Medications and Allergies Home Medications Medication Instructions Recorded Confirmed Type Enalapril [Vasotec] 10 mg PO DAILY 07/05/21 07/05/21 History Levothyroxine Sodium [Synthroid] 25 mcg PO DAILY 07/05/21 07/05/21 History Meloxicam 15 mg PO DAILY 07/05/21 07/05/21 History Pramipexole [Mirapex] 1 mg PO HS 07/05/21 07/05/21 History Pravastatin Sodium [Pravachol] 80 mg PO HS 07/05/21 07/05/21 History Vit C/E/Zn/Coppr/Lutein/Zeaxan 1 cap PO DAILY 07/05/21 07/05/21 History [Preservision Areds 2 Softgel] Allergies Allergy/AdvReac Type Severity Reaction Status Date / Time codeine Allergy Itching Verified 07/05/21 10:15 Surgical - Exam Vital Signs Temp Pulse Resp BP Pulse Ox 98.3 F 103 H 20 138/70 100 07/05/21 09:32 07/05/21 09:32 07/05/21 09:32 07/05/21 09:32 07/05/21 09:32 Results - Labs 07/06/21 11:45 07/06/21 11:21 Abnormal Lab Results - Last 24 Hours (Table) 07/06/21 07/06/21 Range/Units 11:21 11:45 RBC 3.68 L (3.80-5.40) m/uL Hgb 9.9 L (11.4-16.0) gm/dL Hct 31.8 L (34.0-46.0) % Neutrophils # 8.4 H (1.3-7.7) k/uL Lymphocytes # 0.3 L (1.0-4.8) k/uL BUN 26 H (7-17) mg/dL Diabetes panel 07/06/21 Range/Units 11:21 Sodium 139 (137-145) mmol/L Potassium 3.7 (3.5-5.1) mmol/L Chloride 104 (98-107) mmol/L Carbon Dioxide 27 (22-30) mmol/L BUN 26 H (7-17) mg/dL Creatinine 0.63 (0.52-1.04) mg/dL Glucose 96 (74-99) mg/dL Calcium 8.4 (8.4-10.2) mg/dL Calcium panel 07/06/21 Range/Units 11:21 Calcium 8.4 (8.4-10.2) mg/dL Pituitary panel 07/06/21 Range/Units 11:21 Sodium 139 (137-145) mmol/L Potassium 3.7 (3.5-5.1) mmol/L Chloride 104 (98-107) mmol/L Carbon Dioxide 27 (22-30) mmol/L BUN 26 H (7-17) mg/dL Creatinine 0.63 (0.52-1.04) mg/dL Glucose 96 (74-99) mg/dL Calcium 8.4 (8.4-10.2) mg/dL Adrenal panel 07/06/21 Range/Units 11:21 Sodium 139 (137-145) mmol/L Potassium 3.7 (3.5-5.1) mmol/L Chloride 104 (98-107) mmol/L Carbon Dioxide 27 (22-30) mmol/L BUN 26 H (7-17) mg/dL Creatinine 0.63 (0.52-1.04) mg/dL Glucose 96 (74-99) mg/dL Calcium 8.4 (8.4-10.2) mg/dL
[2021-07-06] MEDS: HYDROcodone/APAP 7.5-325MG 1 EACH TAB PO PRN ×2 (14:57→21:43)
[2021-07-06] MEDS: PIPERACILLIN-TAZOBACTAM 3.375 GM in SODIUM CHLORIDE 0.9% 100 ML IVPB SCH ×2 (16:11→23:24)
[2021-07-06] MEDS: PANTOPRAZOLE 40 MG TABLET PO SCH (20:21)
[2021-07-06] MEDS: PRAMIPEXOLE 1 MG TAB PO SCH (20:22)
[2021-07-06] MEDS: PRAVASTATIN SODIUM 80 MG TAB PO SCH (20:22)
[2021-07-07] MEDS: SODIUM CHLORIDE 0.9% 1,000 ML IV SCH ×3 (00:26→20:53)
[2021-07-07] MEDS: LEVOTHYROXINE 25 MCG TAB PO SCH (06:08)
[2021-07-07] MEDS: HYDROcodone/APAP 7.5-325MG 1 EACH TAB PO PRN ×3 (06:08→20:51)
[2021-07-07] MEDS: PANTOPRAZOLE 40 MG TABLET PO SCH (08:26)
[2021-07-07] MEDS: PIPERACILLIN-TAZOBACTAM 3.375 GM in SODIUM CHLORIDE 0.9% 100 ML IVPB SCH ×2 (08:26→16:40)
[2021-07-07] MEDS: VIT A,C & E-LUTEIN-MINERALS 1 EACH TAB PO SCH (08:26)
--- NOTE | 2021-07-07 09:26 | P.PN ---
Subjective Patient is an 80-year-old female came in with the complaint of upper abdominal discomfort patient does have history of hernia and the pain is related to be secondary to anemia, Gen. surgery evaluated the patient is planning on doing hemorrhoidal hernia repair/Adis fundoplication on Friday. Patient will be started on Protonix patient was on naproxen at home which will be held. Patient doesn't have any fever chills vomiting diarrhea. Bit nauseous 07/07/2021 Patient's abdominal pain significantly improved today. Constitutional: Denied any fatigue denied any fever. Cardio vascular: denied any chest pain, palpitations Gastrointestinal denied any nausea vomiting Pulmonary: Denied any shortness of breath cough Neurologic denied any new focal deficits All inpatient medications were reviewed and appropriate changes in these medications as dictated in the interval history and assessment and plan. PHYSICAL EXAMINATION: GENERAL: The patient is alert and oriented x3, not in any acute distress. Well developed, well nourished. HEENT: Pupils are round and equally reacting to light. EOMI. No scleral icterus. No conjunctival pallor. Normocephalic, atraumatic. No pharyngeal erythema. No thyromegaly. CARDIOVASCULAR: S1 and S2 present. No murmurs, rubs, or gallops. PULMONARY: Chest is clear to auscultation, no wheezing or crackles. ABDOMEN: Soft, nontender, nondistended, normoactive bowel sounds. No palpable organomegaly. MUSCULOSKELETAL: No joint swelling or deformity. EXTREMITIES: No cyanosis, clubbing, or pedal edema. NEUROLOGICAL: Gross neurological examination did not reveal any focal deficits. SKIN: No rashes. Assessment and plan -Epigastric abdominal pain: Secondary to gastoesophageal reflux disease, possibl e peptic ulcer disease secondary to hiatal hernia, patient will undergo Adis fundoplication on Friday patient was started on Protonix hold off on naproxen -Hyperlipidemia: Resumed on statin -Hypertension hold off on anti-was medication patient blood pressure is low normal -hypothyroidism continue with levothyroxine DVT prophylaxis: Lovenox Objective - Vital Signs Vital signs: Vital Signs Temp 98.2 F 07/07/21 05:00 Pulse 91 07/07/21 05:00 Resp 20 07/07/21 05:00 BP 117/61 07/07/21 05:00 Pulse Ox 94 L 07/07/21 05:00 Intake & Output 07/06/21 07/07/21 07/07/21 18:59 06:59 18:59 Intake Total 1060 250 Balance 1060 250 Weight 72.575 kg Intake: Intake, IV Titration 100 Amount Piperacillin-Tazobactam 3 100 .375 gm In Sodium Chloride 0.9% 100 ml @ 25 mls/hr IVPB Q8HR [facility] Rx# :[id number] Oral 960 250 Other: Voiding Method Toilet Toilet # Voids 3 4 1 # Bowel Movements 1 - Labs CBC & Chem 7: 07/06/21 11:45 07/06/21 11:21 Labs: Abnormal Lab Results - Last 24 Hours (Table) 07/06/21 07/06/21 Range/Units 11:21 11:45 RBC 3.68 L (3.80-5.40) m/uL Hgb 9.9 L (11.4-16.0) gm/dL Hct 31.8 L (34.0-46.0) % Neutrophils # 8.4 H (1.3-7.7) k/uL Lymphocytes # 0.3 L (1.0-4.8) k/uL BUN 26 H (7-17) mg/dL
--- NOTE | 2021-07-07 11:08 | P.PN ---
Progress Note - Text Progress Note Date: 07/07/21 Patient is stable. She is tolerating her diet. On exam her vital signs are stable. Abdomen soft. Patient has a large hiatal hernia intrathoracic hiatal hernia. Patient will be scheduled for operative repair on Friday.
[2021-07-07] MEDS: PRAVASTATIN SODIUM 80 MG TAB PO SCH (20:50)
[2021-07-07] MEDS: PRAMIPEXOLE 1 MG TAB PO SCH (20:52)
[2021-07-08] MEDS: PIPERACILLIN-TAZOBACTAM 3.375 GM in SODIUM CHLORIDE 0.9% 100 ML IVPB SCH ×4 (00:38→23:37)
[2021-07-08] MEDS: LEVOTHYROXINE 25 MCG TAB PO SCH (06:32)
[2021-07-08] MEDS: VIT A,C & E-LUTEIN-MINERALS 1 EACH TAB PO SCH (08:33)
[2021-07-08] MEDS: PANTOPRAZOLE 40 MG TABLET PO SCH (08:33)
[2021-07-08] MEDS: SODIUM CHLORIDE 0.9% 1,000 ML IV SCH ×3 (08:34→16:59)
[2021-07-08] MEDS: HYDROcodone/APAP 7.5-325MG 1 EACH TAB PO PRN ×2 (09:09→19:40)
--- NOTE | 2021-07-08 10:55 | P.PN ---
Progress Note - Text Progress Note Date: 07/08/21 Patient has some complaints of dysphagia. On exam vital signs are stable. Abdomen soft. There is no tenderness there is no rebound or guarding. Patient scheduled for repair of large diaphragmatic hernia in the a.m.
[2021-07-08] MEDS: POTASSIUM CHLORIDE ER 10 MEQ TAB.ER.PRT PO SCH ×2 (12:29→20:16)
[2021-07-08] MEDS ORDERED: POTASSIUM CHLORIDE ER 20 MEQ TAB.ER PO STA (16:25)
--- NOTE | 2021-07-08 16:27 | P.PN ---
Subjective Patient is an 80-year-old female came in with the complaint of upper abdominal discomfort patient does have history of hernia and the pain is related to be secondary to anemia, Gen. surgery evaluated the patient is planning on doing hemorrhoidal hernia repair/Adis fundoplication on Friday. Patient will be started on Protonix patient was on naproxen at home which will be held. Patient doesn't have any fever chills vomiting diarrhea. Bit nauseous 07/07/2021 Patient's abdominal pain significantly improved today. 07/08/2021 Patient was having diarrhea which resolved patient's abdominal pain is better. Patient will undergo Adis fundoplication tomorrow. Patient's serum potassium is extremely low because of the IV fluids and diarrhea this will be replaced and we'll repeat basic metabolic profile again tomorrow patient's IV fluids will be cut down to 75 mL per hour. Constitutional: Denied any fatigue denied any fever. Cardio vascular: denied any chest pain, palpitations Gastrointestinal denied any nausea vomiting Pulmonary: Denied any shortness of breath cough Neurologic denied any new focal deficits All inpatient medications were reviewed and appropriate changes in these medications as dictated in the interval history and assessment and plan. PHYSICAL EXAMINATION: GENERAL: The patient is alert and oriented x3, not in any acute distress. Well developed, well nourished. HEENT: Pupils are round and equally reacting to light. EOMI. No scleral icterus. No conjunctival pallor. Normocephalic, atraumatic. No pharyngeal erythema. No thyromegaly. CARDIOVASCULAR: S1 and S2 present. No murmurs, rubs, or gallops. PULMONARY: Chest is clear to auscultation, no wheezing or crackles. ABDOMEN: Soft, nontender, nondistended, normoactive bowel sounds. No palpable organomegaly. MUSCULOSKELETAL: No joint swelling or deformity. EXTREMITIES: No cyanosis, clubbing, or pedal edema. NEUROLOGICAL: Gross neurological examination did not reveal any focal deficits. SKIN: No rashes. Assessment and plan -Epigastric abdominal pain: Secondary to gastoesophageal reflux disease, possible peptic ulcer disease secondary to hiatal hernia, patient will undergo Adis fundoplication on Friday patient was started on Protonix hold off on naproxen -Hyperlipidemia: Resumed on statin -Hypertension hold off on anti-was medication patient blood pressure is low normal -hypothyroidism continue with levothyroxine DVT prophylaxis: Margienox Objective - Vital Signs Vital signs: Vital Signs Temp 97.9 F 07/08/21 11:16 Pulse 73 07/08/21 11:16 Resp 16 07/08/21 11:16 BP 113/66 07/08/21 11:16 Pulse Ox 94 L 07/08/21 11:16 Intake & Output 07/07/21 07/08/21 07/08/21 18:59 06:59 18:59 Intake Total 1660 400 Balance 1660 400 Intake: Intake, IV Titration 1660 Amount Piperacillin-Tazobactam 3 100 .375 gm In Sodium Chloride 0.9% 100 ml @ 25 mls/hr IVPB Q8HR [facility] Rx# :[id number] Sodium Chloride 0.9% 1, 1560 000 ml @ 130 mls/hr IV . [id number] [facility] Rx#:[id number] Oral 400 Other: Voiding Method Toilet # Voids 1 7 # Bowel Movements 1 3 - Labs CBC & Chem 7: 07/06/21 11:45 07/08/21 11:22 Labs: Abnormal Lab Results - Last 24 Hours (Table) 07/08/21 Range/Units 11:22 Potassium 2.8 L (3.5-5.1) mmol/L
[2021-07-08] MEDS ORDERED: DEXAMETHASONE SOD PHOSPHATE 4 MG/ML 1 ML VIAL IV ONE (17:20)
[2021-07-08] MEDS: LACTATED RINGERS 1,000 ML IV SCH (17:37)
[2021-07-08] MEDS: PRAVASTATIN SODIUM 80 MG TAB PO SCH (20:16)
[2021-07-08] MEDS: PRAMIPEXOLE 1 MG TAB PO SCH (20:16)
[2021-07-09] MEDS: HYDROcodone/APAP 7.5-325MG 1 EACH TAB PO PRN (03:37)
[2021-07-09 06:28] LABS: Basophils % (A) 0 %; Eosinophils % (A) 1 %; HCT 32.9 % (34.0-46.0); Hypochromasia Marked; Lymphocytes # (A) 0.4 k/uL (1.0-4.8); Lymphocytes % (A) 6 %; MCH 26.5 pg (25.0-35.0); MCHC 30.3 g/dL (31.0-37.0); MCV 87.2 fL (80.0-100.0); Mean Platelet Volume 7.7; Monocytes # (A) 0.4 k/uL (0-1.0); Monocytes % (A) 5 %; Neutrophils % (A) 87 %; Platelet Count 453 k/uL (150-450); RBC 3.77 m/uL (3.80-5.40); RDW 14.3 % (11.5-15.5); WBC 6.9 k/uL (3.8-10.6)
[2021-07-09 06:37] LABS: African American GFR (CKD) >90 (>60 ml/min/1.73 sqM); Anion Gap 13 mmol/L; Blood Urea Nitrogen 14 mg/dL (7-17); Calcium 8.4 mg/dL (8.4-10.2); Carbon Dioxide 20 mmol/L (22-30); Chloride 110 mmol/L (98-107); Glucose 74 mg/dL (74-99); Non-African American GFR(CKD) 85 (>60 ml/min/1.73 sqM); Potassium 3.5 mmol/L (3.5-5.1); Sodium 143 mmol/L (137-145)
[2021-07-09] MEDS ORDERED: HYDROmorphone 0.5 MG/0.5 ML SYRINGE IVP PRN (07:00)
[2021-07-09] MEDS: PANTOPRAZOLE 40 MG TABLET PO SCH (07:29)
[2021-07-09] MEDS: LEVOTHYROXINE 25 MCG TAB PO SCH (07:30)
[2021-07-09] MEDS: PIPERACILLIN-TAZOBACTAM 3.375 GM in SODIUM CHLORIDE 0.9% 100 ML IVPB SCH ×3 (07:30→22:18)
[2021-07-09] MEDS: POTASSIUM CHLORIDE ER 10 MEQ TAB.ER.PRT PO SCH ×2 (07:31→22:48)
[2021-07-09] MEDS: VIT A,C & E-LUTEIN-MINERALS 1 EACH TAB PO SCH (07:31)
[2021-07-09] MEDS: SODIUM CHLORIDE 0.9% 1,000 ML IV SCH ×2 (07:32→22:49)
--- NOTE | 2021-07-09 13:54 | P.PN ---
Subjective Progress Note Date: 07/09/21 Patient is an 80-year-old female came in with the complaint of upper abdominal discomfort patient does have history of hernia and the pain is related to be secondary to anemia, Gen. surgery evaluated the patient is planning on doing hemorrhoidal hernia repair/Adis fundoplication on Friday. Patient will be started on Protonix patient was on naproxen at home which will be held. Patient doesn't have any fever chills vomiting diarrhea. Bit nauseous 07/07/2021 Patient's abdominal pain significantly improved today. 07/08/2021 Patient was having diarrhea which resolved patient's abdominal pain is better. Patient will undergo Adis fundoplication tomorrow. Patient's serum potassium is extremely low because of the IV fluids and diarrhea this will be replaced and we'll repeat basic metabolic profile again tomorrow patient's IV fluids will be cut down to 75 mL per hour. 07/09/2021 Patient tolerated today resting in bed. She is having ongoing diarrhea, multiple episodes of the evening. Just complains of ever she eats because it clear that Her throat. She is scheduled today for a diaphragmatic hernia repair today. No other complaints, denies any chest pain, cough, shortness of breath. Labs today show white count of 6.9, hemoglobin 10, sodium 143, potassium 3.5, BUN 14, creatinine 0.64, chloride 110, CO2 20. Vital: temp of 97.5, heart rate 89, blood pressure 132/71 and she is 98% on room air. ROS Constitutional: Denied any fatigue denied any fever. Cardio vascular: denied any chest pain, palpitations Gastrointestinal denied any nausea vomiting, reports diarrhea, reports abdominal fullness Pulmonary: Denied any shortness of breath cough Neurologic denied any new focal deficits All inpatient medications were reviewed and appropriate changes in these medications as dictated in the interval history and assessment and plan. PHYSICAL EXAMINATION: GENERAL: The patient is alert and oriented x3, not in any acute distress. Well developed, well nourished. HEENT: Pupils are round and equally reacting to light. EOMI. No scleral icterus. No conjunctival pallor. Normocephalic, atraumatic. No pharyngeal erythema. No thyromegaly. CARDIOVASCULAR: S1 and S2 present. No murmurs, rubs, or gallops. PULMONARY: Chest is clear to auscultation, no wheezing or crackles. ABDOMEN: Soft, nontender, distended, normoactive bowel sounds. No palpable organomegaly. MUSCULOSKELETAL: No joint swelling or deformity. EXTREMITIES: No cyanosis, clubbing, or pedal edema. NEUROLOGICAL: Gross neurological examination did not reveal any focal deficits. SKIN: No rashes. Assessment and plan -Epigastric abdominal pain: Secondary to gastoesophageal reflux disease, possible peptic ulcer disease secondary to hiatal hernia, patient will undergo Adis fundoplication today -diarrhea, probably secondary to large hernia -metabolic acidosis, secondary to above -Hyperlipidemia: Resumed on statin -Hypertension hold off on anti-was medication patient blood pressure is low normal -hypothyroidism continue with levothyroxine DVT prophylaxis: Lovenox Objective - Vital Signs Vital signs: Vital Signs Temp 97.5 F L 07/09/21 12:56 Pulse 89 07/09/21 12:56 Resp 18 07/09/21 12:56 BP 132/71 07/09/21 12:56 Pulse Ox 98 07/09/21 12:56 Intake & Output 07/08/21 07/09/21 07/09/21 18:59 06:59 18:59 Intake Total 200 Balance 200 Intake: Intake, IV Titration 200 Amount Piperacillin-Tazobactam 3 200 .375 gm In Sodium Chloride 0.9% 100 ml @ 25 mls/hr IVPB Q8HR [facility] Rx# :[id number] Other: Voiding Method Toilet # Voids 3 - Labs CBC & Chem 7: 07/09/21 05:24 07/09/21 05:24 Labs: Abnormal Lab Results - Last 24 Hours (Table) 07/09/21 07/09/21 Range/Units 05:24 05:24 RBC 3.77 L (3.80-5.40) m/uL Hgb 10.0 L (11.4-16.0) gm/dL Hct 32.9 L (34.0-46.0) % MCHC 30.3 L (31.0-37.0) g/dL Plt Count 453 H (150-450) k/uL Lymphocytes # 0.4 L (1.0-4.8) k/uL Chloride 110 H (98-107) mmol/L Carbon Dioxide 20 L (22-30) mmol/L
[2021-07-09] MEDS ORDERED: IV FLUID CONTINUATION 1,000 ML IV ONE (15:08)
[2021-07-09 15:24] LABS: Glucose,Whole Blood 69 mg/dL (75-99)
[2021-07-09] MEDS ORDERED: DEXTROSE 50% SYRINGE 50 ML IVP ONE (15:32)
[2021-07-09] MEDS ORDERED: ONDANSETRON 4 MG/2 ML VIAL IVP ONE (15:40)
[2021-07-09] MEDS ORDERED: DEXAMETHASONE SOD PHOSPHATE 4 MG/ML 1 ML VIAL IVP ONE (15:40)
[2021-07-09 15:49] LABS: Glucose,Whole Blood 83 mg/dL (75-99)
[2021-07-09] MEDS ORDERED: HEPARIN SODIUM,PORCINE 5,000 UNIT/ML 1 ML VIAL SQ ONE (16:00)
[2021-07-09] MEDS ORDERED: SODIUM CHLORIDE 0.9% 100 ML BAG ONE (16:01)
[2021-07-09] MEDS ORDERED: ceFAZolin 1,000 MG VIAL ONE (16:01)
[2021-07-09] MEDS ORDERED: PROPOFOL 10 MG/ML 20 ML VIAL IV ONE (16:01)
[2021-07-09] MEDS ORDERED: HEPARIN SODIUM,PORCINE/PF 5,000 UNIT/0.5 ML SYRINGE SQ ONE (16:01)
[2021-07-09] MEDS ORDERED: PHENYLEPHRINE-0.9% NACL SYG 1,000 MCG/10 ML SYRINGE ONE (16:01)
[2021-07-09] MEDS ORDERED: LIDOCAINE 1% INJ 10MG/ML (20 ML MDV) ONE (16:01)
[2021-07-09] MEDS ORDERED: MIDAZOLAM 2 MG/2 ML VIAL ONE (16:01)
[2021-07-09] MEDS ORDERED: ROCURONIUM 10 MG/ML (5 ML VIAL) IV ONE (16:01)
[2021-07-09] MEDS ORDERED: ESMOLOL 100 MG/10 ML VIAL ONE (16:01)
[2021-07-09] MEDS ORDERED: SUGAMMADEX SODIUM 500 MG/5 ML SDV IV ONE (16:01)
[2021-07-09] MEDS ORDERED: NEOSTIGMINE 1 MG/ML 10 ML VIAL ONE (16:01)
[2021-07-09] MEDS ORDERED: SUCCINYLCHOLINE CHLORIDE 100 MG/5 ML SYR IV ONE (16:01)
[2021-07-09] MEDS ORDERED: fentaNYL (PF) 50 MCG/ML 2 ML AMP ONE (16:01)
[2021-07-09] MEDS ORDERED: GLYCOPYRROLATE 0.2 MG/ML 2 ML VIAL ONE (16:01)
[2021-07-09] MEDS ORDERED: BUPIVACAINE (PF) 0.25% 30 ML VIAL SQ ONE ×2 (16:34→16:40)
[2021-07-09] MEDS ORDERED: LACTATED RINGERS 1,000 ML IV ONE (17:00)
[2021-07-09 17:18] LABS: Glucose,Whole Blood 105 mg/dL (75-99)
[2021-07-09] MEDS ORDERED: ONDANSETRON 4 MG/2 ML VIAL IVP PRN (17:51)
--- NOTE | 2021-07-09 17:51 | P.OP ---
Date of Procedure: 07/09/21 Preoperative Diagnosis: Large paraesophageal hernia Postoperative Diagnosis: Large paraesophageal hernia containing colon and small bowel and stomach Procedure(s) Performed: Laparoscopic repair of paraesophageal hernia with mesh Anesthesia: YANNI Surgeon: Js Ryan Estimated Blood Loss (ml): 10 Pathology: none sent Condition: stable Disposition: PACU Description of Procedure: The patient was placed on the operating table in the supine position. The patient received general anesthesia. And was placed in dorsal lithotomy position. The patient was prepped and draped in the usual sterile fashion. The skin incision sites were anesthetized with 1% local Xylocaine. The skin was incised in the left periumbilical area and then using a blade less 5 mm trocar under direct visualization panel cavity was entered. After adequate insufflation the laparoscope was then placed into the peritoneal cavity. Next a 5 mm trochars placed in the right epigastric position. Another 5 millimeter trocar the right lateral position. Another 5 millimeter trocar in the left lat eral position a 5 mm trocar is placed in the left epigastric position. And then the initial 5 mm trocar was exchanged for a 10 mm trocar. The left lateral lobe liver was retracted. The hernia was seen. The hernia was quite large. There was stomach and small bowel and colon within the chest. The bowel contents were reduced. The crural defect was then dissected using the Harmonic scissors device. The hernia sac was reduced. A 360 crural dissection was performed the esophagus stomach was reduced back into the peritoneal Cavity. The crural defect was then closed using 2-0 Ethibond suture. Next the fundus of the stomach was mobilized using the Harmonic scissors device. and then a 58-Kazakh bougie dilator was placed oropharynx passed into the esophagus and stomach . At this point the ezequiel was reapproximated using 2-0 Ethibond suture. The diaphragmatic repair was then buttressed using the [place] [employer] a mesh. This was secured with 2-0 Ethibond.. There was no injury seen to the stomach or esophagus. The dilator was then withdrawn. The abdomen was irrigated there is no bleeding seen. The trochars were then withdrawn and then skin incision sites were closed using 3-0 Monocryl suture Steri-Strips are applied. Patient thought procedure well and sent to recovery room in stable condition.
[2021-07-09 18:39] LABS: Glucose,Whole Blood 110 mg/dL (75-99)
[2021-07-09] MEDS ORDERED: SIMETHICONE 40 MG/0.6 ML DROPS 2,000 MG/30 ML BOTTLE PO ONE (19:05)
[2021-07-09] MEDS ORDERED: ACETAMINOPHEN IV (For NPO) 1,000 MG/100 ML VIAL IVPB ONE (19:52)
[2021-07-09] MEDS: PRAMIPEXOLE 1 MG TAB PO SCH (22:17)
[2021-07-10] MEDS: D5-0.45% NACL WITH KCL 20MEQ/L 1,000 ML IV SCH ×2 (03:20→06:09)
[2021-07-10] MEDS: PRAVASTATIN SODIUM 80 MG TAB PO SCH ×2 (03:48→20:03)
[2021-07-10 05:59] LABS: Glucose,Whole Blood 154 mg/dL (75-99)
[2021-07-10] MEDS: LEVOTHYROXINE 25 MCG TAB PO SCH (06:08)
[2021-07-10] MEDS: SIMETHICONE 80 MG CHEWABLE PO PRN (06:09)
[2021-07-10 06:35] LABS: Calcium 8.2 mg/dL (8.4-10.2)
[2021-07-10 07:14] LABS: HCT 30.4 % (34.0-46.0); HGB 9.4 gm/dL (11.4-16.0); Hypochromasia Marked; MCH 27.1 pg (25.0-35.0); MCHC 30.9 g/dL (31.0-37.0); MCV 87.8 fL (80.0-100.0); Mean Platelet Volume 7.9; Platelet Count 432 k/uL (150-450); Poikilocytosis Slight; RBC 3.46 m/uL (3.80-5.40); RDW 14.8 % (11.5-15.5); WBC 7.4 k/uL (3.8-10.6)
[2021-07-10] MEDS: PIPERACILLIN-TAZOBACTAM 3.375 GM in SODIUM CHLORIDE 0.9% 100 ML IVPB SCH ×3 (07:46→20:03)
--- NOTE | 2021-07-10 09:21 | FL ---
EXAMINATION TYPE: FL esophagus cervic/pharynx DATE OF EXAM: 07/10/2021 ESOPHAGRAM: CLINICAL HISTORY: Hiatal hernia surgical repair performed yesterday. TECHNIQUE: Esophagram is performed utilizing 25 cc of Isovue-370. A total of of 42 seconds of fluoros copic time was utilized during procedure and 57 images obtained. Comparison: CT abdomen and pelvis 5 days ago. Fluoroscopic upper GI study performed 4 days ago. FINDINGS: The patient swallowed contrast without difficulty or delay. Esophageal peristalsis and mo tility are within normal limits. There is moderate delay in flow of contrast along the diaphragmatic hiatus into the stomach which is now been placed below diaphragm. Some contrast eventually passes thr ough the diaphragm without leak. No persistent hiatal hernia is seen. Patient remains asymptomatic. S ome retained contrast in colon from prior upper GI study noted. Delayed imaging shows residual contra st in distal esophagus. Reflux of contrast throughout the esophagus noted during real-time scanning. IMPRESSION: Moderate obstruction status post hiatal hernia repair surgery yesterday but patient remai ns asymptomatic. No fluoroscopic evidence for leak. Successful surgical reduction of the large hiatal hernia noted.
[2021-07-10 09:40] LABS: Band Neutrophils % 2 %; Lymphocytes # (M) 0.22 k/uL (1.0-4.8); Metamyelocytes # (M) 0.07 k/uL (0); Metamyelocytes % 1 %; Monocytes # (M) 0.44 k/uL (0-1.0); Neutrophils % (M) 90 %; Nucleated Red Blood Cells 0 /100 WBC (0-0); Total Cells Counted 200
[2021-07-10 09:44] LABS: Anisocytosis (M) Present
[2021-07-10] MEDS ORDERED: DEXAMETHASONE SOD PHOSPHATE 4 MG/ML 1 ML VIAL IVP PRN (10:31)
[2021-07-10] MEDS: PANTOPRAZOLE 40 MG TABLET PO SCH (11:12)
[2021-07-10] MEDS: VIT A,C & E-LUTEIN-MINERALS 1 EACH TAB PO SCH (11:12)
[2021-07-10] MEDS: POTASSIUM CHLORIDE ER 10 MEQ TAB.ER.PRT PO SCH ×2 (11:12→20:02)
[2021-07-10] MEDS: DEXAMETHASONE SOD PHOSPHATE 4 MG/ML 1 ML VIAL IVP SCH ×3 (11:13→20:03)
[2021-07-10] MEDS: DEXTROSE 5%-0.45% NACL 1,000 ML IV SCH ×2 (11:13→20:02)
[2021-07-10] MEDS: LACTATED RINGERS 1,000 ML IV SCH (11:16)
[2021-07-10] MEDS: HYDROcodone/APAP 7.5-325MG 1 EACH TAB PO PRN ×2 (11:19→22:49)
[2021-07-10 11:42] LABS: Glucose,Whole Blood 329 mg/dL (75-99)
--- NOTE | 2021-07-10 13:14 | P.PN ---
Subjective Progress Note Date: 07/10/21 CHIEF COMPLAINT: Large paraesophageal hernia HISTORY OF PRESENT ILLNESS: Patient is status post laparoscopic repair of paraesophageal hernia with mesh. Postop day #1. Upper GI shows evidence of moderate obstruction status post hiatal hernia repair surgery but remains asymptomatic. No evidence of leak. Successful surgical reduction of large hiatal hernia noted. Patient reports improvement in her swallow. Denies any nausea or vomiting. Her pain is controlled. Denies any flatus or BM. Afebrile. WBC is 7.4 PHYSICAL EXAM: VITAL SIGNS: Reviewed. GENERAL: Well-developed in no acute distress. HEENT: No sclera icterus. Extraocular movements grossly intact. Moist buccal mucosa. Head is atraumatic, normocephalic. ABDOMEN: Soft. Nondistended. Incision sites clean dry and intact minimal d ried blood NEUROLOGIC: Alert and oriented. Cranial nerves II through XII grossly intact. ASSESSMENT: 1. Large paraesophageal hernia containing colon, small bowel and stomach status post laparoscopic repair of paraesophageal hernia with mesh 2. Mild acute diverticulitis of the proximal mid sigmoid colon 3. Moderate obstruction status post hiatal hernia repair PLAN: -Start IV dexamethasone for moderate obstruction noted on upper GI -Start Adis clear liquid diet -Continue IV fluids -Discontinue Diego catheter -Encourage patient to ambulate -Patient can be transferred to a surgical floor. Initially transferred to a cardiac floor after surgery. Patient has been mildly hypoxic and tachycardic. These symptoms have resolved. Physician Webbing Weaver note has been reviewed by physician. Signing provider agrees with the documented findings, assessment, and plan of care. Objective - Vital Signs Vital signs: Vital Signs Temp 97.0 F L 07/10/21 11:35 Pulse 86 07/10/21 11:35 Resp 16 07/10/21 11:35 BP 125/61 07/10/21 11:35 Pulse Ox 96 07/10/21 11:35 Intake & Output 07/09/21 07/10/21 07/10/21 18:59 06:59 18:59 Intake Total 900 100 25 Output Total 160 100 Balance 740 0 25 Weight 72.575 kg 72.575 kg Intake: IV 900 100 Oral 25 Output: Urine 150 100 Estimated Blood Loss 10 Other: Voiding Method Toilet Indwelling Catheter - Labs CBC & Chem 7: 07/10/21 05:10 07/10/21 05:10 Labs: Abnormal Lab Results - Last 24 Hours (Table) 07/09/21 07/09/21 07/09/21 Range/Units 15:23 17:16 18:37 RBC (3.80-5.40) m/uL Hgb (11.4-16.0) gm/dL Hct (34.0-46.0) % MCHC (31.0-37.0) g/dL Lymphocytes # (Manual) (1.0-4.8) k/uL Metamyelocytes # (Man) (0) k/uL Chloride (98-107) mmol/L Carbon Dioxide (22-30) mmol/L Glucose (74-99) mg/dL POC Glucose (mg/dL) 69 L 105 H 110 H (75-99) mg/dL Calcium (8.4-10.2) mg/dL 07/10/21 07/10/21 07/10/21 Range/Units 05:10 05:10 05:57 RBC 3.46 L (3.80-5.40) m/uL Hgb 9.4 L (11.4-16.0) gm/dL Hct 30.4 L (34.0-46.0) % MCHC 30.9 L (31.0-37.0) g/dL Lymphocytes # (Manual) 0.22 L (1.0-4.8) k/uL Metamyelocytes # (Man) 0.07 H (0) k/uL Chloride 111 H (98-107) mmol/L Carbon Dioxide 21 L (22-30) mmol/L Glucose 158 H (74-99) mg/dL POC Glucose (mg/dL) 154 H (75-99) mg/dL Calcium 8.2 L (8.4-10.2) mg/dL 07/10/21 Range/Units 11:30 RBC (3.80-5.40) m/uL Hgb (11.4-16.0) gm/dL Hct (34.0-46.0) % MCHC (31.0-37.0) g/dL Lymphocytes # (Manual) (1.0-4.8) k/uL Metamyelocytes # (Man) (0) k/uL Chloride (98-107) mmol/L Carbon Dioxide (22-30) mmol/L Glucose (74-99) mg/dL POC Glucose (mg/dL) 329 H (75-99) mg/dL Calcium (8.4-10.2) mg/dL
--- NOTE | 2021-07-10 13:25 | P.PN ---
Subjective Progress Note Date: 07/10/21 Patient is an 80-year-old female came in with the complaint of upper abdominal discomfort patient does have history of hernia and the pain is related to be secondary to anemia, Gen. surgery evaluated the patient is planning on doing hemorrhoidal hernia repair/Adis fundoplication on Friday. Patient will be started on Protonix patient was on naproxen at home which will be held. Patient doesn't have any fever chills vomiting diarrhea. Bit nauseous 07/07/2021 Patient's abdominal pain significantly improved today. 07/08/2021 Patient was having diarrhea which resolved patient's abdominal pain is better. Patient will undergo Adis fundoplication tomorrow. Patient's serum potassium is extremely low because of the IV fluids and diarrhea this will be replaced and we'll repeat basic metabolic profile again tomorrow patient's IV fluids will be cut down to 75 mL per hour. 07/09/2021 Patient tolerated today resting in bed. She is having ongoing diarrhea, multiple episodes of the evening. Just complains of ever she eats because it clear that Her throat. She is scheduled today for a diaphragmatic hernia repair today. No other complaints, denies any chest pain, cough, shortness of breath. Labs today show white count of 6.9, hemoglobin 10, sodium 143, potassium 3.5, BUN 14, creatinine 0.64, chloride 110, CO2 20. Vital: temp of 97.5, heart rate 89, blood pressure 132/71 and she is 98% on room air. 07/10/2021 Patient underwent hernia repair yesterday and was transitioned to a high level of care postoperatively. Unsure why although patient states that she was experiencing some dizziness postoperatively. Upper GI today shows moderate obstruction status post hiatal hernia repair surgery yesterday but patient remains asymptomatic. No fluoroscopic evidence for leak. Successful reduction of the large hiatal hernia noted. Patient was evaluated today by surgical group recommended starting on a short course of IV Decadron. Continues on IV Zosyn. Labs today show a hemoglobin of 5.4, sodium 144, potassium 4, chloride 111, CO2 21, sugars are in the 150s. She was advanced to Adis clear liquid diet today. Vitals today; Temp of 97, heart rate 86, blood pressure 125/61, 96% on room air. Patient is experiencing hyperglycemia s/p decadron. ROS Constitutional: Denied any fatigue denied any fever. Cardio vascular: denied any chest pain, palpitations Gastrointestinal denied any nausea vomiting, reports passing gas, reports mild abdominal pain 10/11 Pulmonary: Denied any shortness of breath cough Neurologic denied any new focal deficits All inpatient medications were reviewed and appropriate changes in these medications as dictated in the interval history and assessment and plan. PHYSICAL EXAMINATION: GENERAL: The patient is alert and oriented x3, not in any acute distress. Well developed, well nourished. HEENT: Pupils are round and equally reacting to light. EOMI. No scleral icterus. No conjunctival pallor. Normocephalic, atraumatic. No pharyngeal erythema. No thyromegaly. CARDIOVASCULAR: S1 and S2 present. No murmurs, rubs, or gallops. PULMONARY: Chest is clear to auscultation, no wheezing or crackles. ABDOMEN: Soft, tender, distended, normoactive bowel sounds. No palpable organomegaly. MUSCULOSKELETAL: No joint swelling or deformity. EXTREMITIES: No cyanosis, clubbing, or pedal edema. NEUROLOGICAL: Gross neurological examination did not reveal any focal deficits. SKIN: No rashes. Assessment and plan Assessment -Epigastric abdominal pain: Secondary to gastoesophageal reflux disease, possible peptic ulcer disease secondary to hiatal hernia -POD #1 Adis fundoplication -diarrhea, probably secondary to large hernia, resolving -metabolic acidosis, secondary to above -Hyperlipidemia: Resumed on statin -Hypertension hold off on anti-was medication patient blood pressure is low normal -hypothyroidism continue with levothyroxine -Hyperglycemia due to IV steroids DVT prophylaxis: Lovenox GI Prophylaxis: Protonix FULL CODE Plan Encourage ambulation Encourage incentive spirometry Clear liquid Adis diet per surgical Novolog for glycemic control Labs in AM Objective - Vital Signs Vital signs: Vital Signs Temp 97.5 F L 07/10/21 05:31 Pulse 84 07/10/21 05:31 Resp 18 07/10/21 05:31 BP 123/67 07/10/21 05:31 Pulse Ox 97 07/10/21 05:31 Intake & Output 07/09/21 07/10/21 07/10/21 18:59 06:59 18:59 Intake Total 900 100 0 Output Total 160 100 Balance 740 0 0 Weight 72.575 kg Intake: IV 900 100 Oral 0 Output: Urine 150 100 Estimated Blood Loss 10 Other: Voiding Method Toilet - Labs CBC & Chem 7: 07/10/21 05:10 07/10/21 05:10 Labs: Abnormal Lab Results - Last 24 Hours (Table) 07/09/21 07/09/21 07/09/21 Range/Units 15:23 17:16 18:37 RBC (3.80-5.40) m/uL Hgb (11.4-16.0) gm/dL Hct (34.0-46.0) % MCHC (31.0-37.0) g/dL Chloride (98-107) mmol/L Carbon Dioxide (22-30) mmol/L Glucose (74-99) mg/dL POC Glucose (mg/dL) 69 L 105 H 110 H (75-99) mg/dL Calcium (8.4-10.2) mg/dL 07/10/21 07/10/21 07/10/21 Range/Units 05:10 05:10 05:57 RBC 3.46 L (3.80-5.40) m/uL Hgb 9.4 L (11.4-16.0) gm/dL Hct 30.4 L (34.0-46.0) % MCHC 30.9 L (31.0-37.0) g/dL Chloride 111 H (98-107) mmol/L Carbon Dioxide 21 L (22-30) mmol/L Glucose 158 H (74-99) mg/dL POC Glucose (mg/dL) 154 H (75-99) mg/dL Calcium 8.2 L (8.4-10.2) mg/dL
[2021-07-10 16:48] LABS: Glucose,Whole Blood 271 mg/dL (75-99)
[2021-07-10] MEDS: INSULIN ASPART (NovoLOG) 100 UNIT/ML VIAL SQ SCH ×2 (16:54→20:07)
[2021-07-10] MEDS: PRAMIPEXOLE 1 MG TAB PO SCH (20:03)
[2021-07-10 20:05] LABS: Glucose,Whole Blood 243 mg/dL (75-99)
[2021-07-11] MEDS: DEXTROSE 5%-0.45% NACL 1,000 ML IV SCH ×3 (03:11→21:18)
[2021-07-11 06:11] LABS: Glucose,Whole Blood 154 mg/dL (75-99)
[2021-07-11] MEDS: PANTOPRAZOLE 40 MG TABLET PO SCH (06:16)
[2021-07-11] MEDS: DEXAMETHASONE SOD PHOSPHATE 4 MG/ML 1 ML VIAL IVP SCH ×3 (06:16→16:49)
[2021-07-11] MEDS: LEVOTHYROXINE 25 MCG TAB PO SCH (06:16)
[2021-07-11] MEDS: INSULIN ASPART (NovoLOG) 100 UNIT/ML VIAL SQ SCH ×4 (07:29→21:14)
[2021-07-11] MEDS: VIT A,C & E-LUTEIN-MINERALS 1 EACH TAB PO SCH (07:30)
[2021-07-11] MEDS: PIPERACILLIN-TAZOBACTAM 3.375 GM in SODIUM CHLORIDE 0.9% 100 ML IVPB SCH ×2 (07:30→16:50)
[2021-07-11] MEDS: POTASSIUM CHLORIDE ER 10 MEQ TAB.ER.PRT PO SCH ×2 (07:30→21:15)
[2021-07-11 07:34] LABS: Basophils % (A) 0 %; Eosinophils % (A) 0 %; HCT 30.5 % (34.0-46.0); HGB 9.3 gm/dL (11.4-16.0); Hypochromasia Marked; Lymphocytes # (A) 0.4 k/uL (1.0-4.8); Lymphocytes % (A) 6 %; MCH 27.5 pg (25.0-35.0); MCHC 30.7 g/dL (31.0-37.0); MCV 89.8 fL (80.0-100.0); Mean Platelet Volume 7.8; Monocytes # (A) 0.4 k/uL (0-1.0); Monocytes % (A) 5 %; Neutrophils # (A) 6.3 k/uL (1.3-7.7); Neutrophils % (A) 88 %; Platelet Count 464 k/uL (150-450); RBC 3.39 m/uL (3.80-5.40); WBC 7.2 k/uL (3.8-10.6)
[2021-07-11] MEDS: HYDROcodone/APAP 7.5-325MG 1 EACH TAB PO PRN (07:35)
[2021-07-11 11:51] LABS: Glucose,Whole Blood 180 mg/dL (75-99)
--- NOTE | 2021-07-11 12:47 | P.PN ---
Subjective Progress Note Date: 07/11/21 CHIEF COMPLAINT: Large paraesophageal hernia HISTORY OF PRESENT ILLNESS: Patient is status post laparoscopic repair of paraesophageal hernia with mesh. Postop day #2. Patient reports that she is feeling better each day. She is tolerating bhavana clear liquid diet. She reports that it is easier to swallow today. She'll reports her pain is controlled. Denies any nausea or vomiting. She is having bowel movements and flatus. She refused to work with physical therapy yesterday. They're supposed to be in to see her again today. Patient has not been ambulating. Afebrile. WBC is 7.2 Hgb 9.3 platelets 464 stool for C. diff negative. Diego catheter scheduled to be removed today. Patient's left lower quadrant pain has resolved. PHYSICAL EXAM: VITAL SIGNS: Reviewed. GENERAL: Well-developed in no acute distress. HEENT: No sclera icterus. Extraocular movements grossly intact. Moist buccal mucosa. Head is atraumatic, normocephalic. ABDOMEN: Soft. Nondistended. Incision sites clean dry and intact minimal dried blood NEUROLOGIC: Alert and oriented. Cranial nerves II through XII grossly intact. ASSESSMENT: 1. Large paraesophageal hernia containing colon, small bowel and stomach status post laparoscopic repair of paraesophageal hernia with mesh 2. Mild acute diverticulitis of the proximal mid sigmoid colon improved 3. Moderate obstruction status post hiatal hernia repair PLAN: -Continue IV dexamethasone for moderate obstruction noted on upper GI -Continue Bhavana clear liquid diet -Continue IV fluids -Discontinue Diego catheter -Encouraged and educated patient that she needs to ambulate -Continue to work with PT OT -And DVT prophylaxis subcu heparin -GI prophylaxis Protonix Physician Induction Furnace Operator note has been reviewed by physician. Signing provider agrees with the documented findings, assessment, and plan of care. Objective - Vital Signs Vital signs: Vital Signs Temp 97.4 F L 07/11/21 12:09 Pulse 89 07/11/21 12:09 Resp 18 07/11/21 12:09 BP 100/65 07/11/21 12:09 Pulse Ox 95 07/11/21 12:09 Intake & Output 07/10/21 07/11/21 07/11/21 18:59 06:59 18:59 Intake Total 365 Output Total 250 325 400 Balance 115 -325 -400 Weight 72.575 kg Intake: Oral 365 Output: Urine 250 325 400 Other: Voiding Method Indwelling Catheter Indwelling Catheter Indwelling Catheter # Bowel Movements 1 1 - Labs CBC & Chem 7: 07/11/21 04:57 07/10/21 05:10 Labs: Abnormal Lab Results - Last 24 Hours (Table) 07/10/21 07/10/21 07/11/21 Range/Units 16:34 20:03 04:57 RBC 3.39 L (3.80-5.40) m/uL Hgb 9.3 L (11.4-16.0) gm/dL Hct 30.5 L (34.0-46.0) % MCHC 30.7 L (31.0-37.0) g/dL Plt Count 464 H (150-450) k/uL Lymphocytes # 0.4 L (1.0-4.8) k/uL POC Glucose (mg/dL) 271 H 243 H (75-99) mg/dL 07/11/21 07/11/21 Range/Units 06:10 11:50 RBC (3.80-5.40) m/uL Hgb (11.4-16.0) gm/dL Hct (34.0-46.0) % MCHC (31.0-37.0) g/dL Plt Count (150-450) k/uL Lymphocytes # (1.0-4.8) k/uL POC Glucose (mg/dL) 154 H 180 H (75-99) mg/dL
[2021-07-11] MEDS: HEPARIN SODIUM,PORCINE/PF 5,000 UNIT/0.5 ML SYRINGE SQ SCH ×2 (13:33→21:15)
[2021-07-11 16:14] LABS: Glucose,Whole Blood 146 mg/dL (75-99)
--- NOTE | 2021-07-11 18:36 | P.PN ---
Subjective Progress Note Date: 07/11/21 Principal diagnosis: GERD/hiatal hernia; status post Adis fundoplication; POD #2 Metabolic acidosis Diarrhea related to large hiatal hernia Hyperglycemia related to IV steroids Patient is an 80-year-old female came in with the complaint of upper abdominal discomfort patient does have history of hernia and the pain is related to be secondary to anemia, Gen. surgery evaluated the patient is planning on doing hemorrhoidal hernia repair/Adis fundoplication on Friday. Patient will be started on Protonix patient was on naproxen at home which will be held. Patient doesn't have any fever chills vomiting diarrhea. Bit nauseous 07/11/2021 Patient is seen and evaluated in room at bedside; status post repair of paraesophageal hernia with mesh; POD #2 Patient reports improvement this morning; does complain of pain; tolerating clear liquid diet well Vital signs are reviewed and reveal temperature of 97.4, pulse 89, respiration 18 and blood pressure 100/65 Lab review shows WBC 7.2, hemoglobin 9.3, platelet count of 464, sodium 144, potassium 4.0, BUN/creatinine of 13/0.80 and blood glucose of 158 Surgery on board and recommending to continue with IV dexamethasone for moderate obstruction noted on upper GI; patient will remain on IV fluids and a clear liquid diet Increase activity and PT/OT recommended Objective - Vital Signs Vital signs: Vital Signs Temp 97.5 F L 07/11/21 07:36 Pulse 92 07/11/21 07:39 Resp 18 07/11/21 07:39 BP 117/72 07/11/21 07:36 Pulse Ox 94 L 07/11/21 07:36 Intake & Output 07/10/21 07/11/21 07/11/21 18:59 06:59 18:59 Intake Total 365 Output Total 250 325 400 Balance 115 -325 -400 Weight 72.575 kg Intake: Oral 365 Output: Urine 250 325 400 Other: Voiding Method Indwelling Catheter Indwelling Catheter Indwelling Catheter # Bowel Movements 1 1 - Exam GENERAL: The patient is alert and oriented x3, not in any acute distress. Well developed, well nourished. HEENT: Pupils are round and equally reacting to light. EOMI. No scleral icterus. No conjunctival pallor. Normocephalic, atraumatic. No pharyngeal erythema. No thyromegaly. CARDIOVASCULAR: S1 and S2 present. No murmurs, rubs, or gallops. PULMONARY: Chest is clear to auscultation, no wheezing or crackles. ABDOMEN: Soft, tender, distended, normoactive bowel sounds. No palpable organomegaly. MUSCULOSKELETAL: No joint swelling or deformity. EXTREMITIES: No cyanosis, clubbing, or pedal edema. NEUROLOGICAL: Gross neurological examination did not reveal any focal deficits. SKIN: No rashes. - Labs CBC & Chem 7: 07/11/21 04:57 07/10/21 05:10 Labs: Abnormal Lab Results - Last 24 Hours (Table) 07/10/21 07/10/21 07/11/21 Range/Units 16:34 20:03 04:57 RBC 3.39 L (3.80-5.40) m/uL Hgb 9.3 L (11.4-16.0) gm/dL Hct 30.5 L (34.0-46.0) % MCHC 30.7 L (31.0-37.0) g/dL Plt Count 464 H (150-450) k/uL Lymphocytes # 0.4 L (1.0-4.8) k/uL POC Glucose (mg/dL) 271 H 243 H (75-99) mg/dL 07/11/21 Range/Units 06:10 RBC (3.80-5.40) m/uL Hgb (11.4-16.0) gm/dL Hct (34.0-46.0) % MCHC (31.0-37.0) g/dL Plt Count (150-450) k/uL Lymphocytes # (1.0-4.8) k/uL POC Glucose (mg/dL) 154 H (75-99) mg/dL Assessment and Plan Assessment: Assessment -Epigastric abdominal pain: Secondary to gastoesophageal reflux disease, possible peptic ulcer disease secondary to hiatal hernia -POD #2 Adis fundoplication -diarrhea, probably secondary to large hernia, resolving -metabolic acidosis, secondary to above -Hyperlipidemia: Resumed on statin -Hypertension hold off on anti-was medication patient blood pressure is low normal -hypothyroidism continue with levothyroxine -Hyperglycemia due to IV steroids DVT prophylaxis: Lovenox GI Prophylaxis: Protonix FULL CODE Plan Encourage ambulation Encourage incentive spirometry Clear liquid Adis diet per surgical Novolog for glycemic control Labs in AM
[2021-07-11 19:50] LABS: Glucose,Whole Blood 217 mg/dL (75-99)
[2021-07-11] MEDS: PRAVASTATIN SODIUM 80 MG TAB PO SCH (21:15)
[2021-07-11] MEDS: PRAMIPEXOLE 1 MG TAB PO SCH (21:16)
[2021-07-12] MEDS: DEXAMETHASONE SOD PHOSPHATE 4 MG/ML 1 ML VIAL IVP SCH ×5 (01:47→22:51)
[2021-07-12] MEDS: PIPERACILLIN-TAZOBACTAM 3.375 GM in SODIUM CHLORIDE 0.9% 100 ML IVPB SCH ×3 (01:48→16:59)
[2021-07-12] MEDS: HYDROcodone/APAP 7.5-325MG 1 EACH TAB PO PRN (03:21)
[2021-07-12 06:21] LABS: Glucose,Whole Blood 164 mg/dL (75-99)
[2021-07-12] MEDS: DEXTROSE 5%-0.45% NACL 1,000 ML IV SCH ×2 (06:30→17:01)
[2021-07-12] MEDS: PANTOPRAZOLE 40 MG TABLET PO SCH (06:33)
[2021-07-12] MEDS: LEVOTHYROXINE 25 MCG TAB PO SCH (06:33)
[2021-07-12] MEDS: INSULIN ASPART (NovoLOG) 100 UNIT/ML VIAL SQ SCH ×4 (06:33→22:50)
[2021-07-12] MEDS: VIT A,C & E-LUTEIN-MINERALS 1 EACH TAB PO SCH (08:22)
[2021-07-12] MEDS: HEPARIN SODIUM,PORCINE/PF 5,000 UNIT/0.5 ML SYRINGE SQ SCH ×2 (08:22→22:50)
[2021-07-12] MEDS: POTASSIUM CHLORIDE ER 10 MEQ TAB.ER.PRT PO SCH ×2 (08:22→22:52)
[2021-07-12 11:42] LABS: Glucose,Whole Blood 170 mg/dL (75-99)
--- NOTE | 2021-07-12 13:48 | P.PN ---
Subjective Progress Note Date: 07/12/21 CHIEF COMPLAINT: Large paraesophageal hernia HISTORY OF PRESENT ILLNESS: Patient is status post laparoscopic repair of paraesophageal hernia with mesh. Postop day #3. Patient is tolerating full liquid diet. Her pain is controlled. Denies any nausea or vomiting. She is having bowel movements and flatus. Apparently this morning she was getting up to ambulate to the bathroom and became dizzy and her legs gave out. Patient reports that the nursing staff helped bring her to the floor. She denies i njuring herself. Denies any loss service. Denies any chest pain or shortness of breath. Afebrile. PHYSICAL EXAM: VITAL SIGNS: Reviewed. GENERAL: Well-developed in no acute distress. HEENT: No sclera icterus. Extraocular movements grossly intact. Moist buccal mucosa. Head is atraumatic, normocephalic. ABDOMEN: Soft. Nondistended. Incision sites clean dry and intact minimal dried blood NEUROLOGIC: Alert and oriented. Cranial nerves II through XII grossly intact. ASSESSMENT: 1. Large paraesophageal hernia containing colon, small bowel and stomach status post laparoscopic repair of paraesophageal hernia with mesh 2. Mild acute diverticulitis of the proximal mid sigmoid colon improved 3. Moderate obstruction status post hiatal hernia repair PLAN: -Patient can be discharge from surgical standpoint when medically cleared -Continue IV dexamethasone for moderate obstruction noted on upper GI while hospitalized -Continue full liquids -Encouraged patient to ambulate -Encouraged patient to use incentive spirometer -GI prophylaxis Protonix and DVT prophylaxis subcu heparin Physician Claims Consultant note has been reviewed by physician. Signing provider agrees with the documented findings, assessment, and plan of care. Objective - Vital Signs Vital signs: Vital Signs Temp 97.5 F L 07/12/21 13:00 Pulse 88 07/12/21 13:00 Resp 28 H 07/12/21 13:00 BP 117/61 07/12/21 13:00 Pulse Ox 96 07/12/21 13:00 Intake & Output 07/11/21 07/12/21 07/12/21 18:59 06:59 18:59 Intake Total 236 480 Output Total 400 Balance -164 480 Weight 72.575 kg Intake: Oral 236 480 Output: Urine 400 Other: Voiding Method Indwelling Catheter Toilet # Voids 1 # Bowel Movements 1 3 - Labs CBC & Chem 7: 07/11/21 04:57 07/10/21 05:10 Labs: Abnormal Lab Results - Last 24 Hours (Table) 07/11/21 07/11/21 07/12/21 Range/Units 16:13 19:47 06:20 POC Glucose (mg/dL) 146 H 217 H 164 H (75-99) mg/dL 07/12/21 Range/Units 11:41 POC Glucose (mg/dL) 170 H (75-99) mg/dL
--- NOTE | 2021-07-12 16:06 | P.PN ---
Subjective Progress Note Date: 07/12/21 Principal diagnosis: GERD/hiatal hernia; status post Adis fundoplication; POD #2 Metabolic acidosis Diarrhea related to large hiatal hernia Hyperglycemia related to IV steroids Patient is an 80-year-old female came in with the complaint of upper abdominal discomfort patient does have history of hernia and the pain is related to be secondary to anemia, Gen. surgery evaluated the patient is planning on doing hemorrhoidal hernia repair/Adis fundoplication on Friday. Patient will be started on Protonix patient was on naproxen at home which will be held. Patient doesn't have any fever chills vomiting diarrhea. Bit nauseous 07/11/2021 Patient is seen and evaluated in room at bedside; status post repair of paraesophageal hernia with mesh; POD #2 Patient reports improvement this morning; does complain of pain; tolerating clear liquid diet well Vital signs are reviewed and reveal temperature of 97.4, pulse 89, respiration 18 and blood pressure 100/65 Lab review shows WBC 7.2, hemoglobin 9.3, platelet count of 464, sodium 144, potassium 4.0, BUN/creatinine of 13/0.80 and blood glucose of 158 Surgery on board and recommending to continue with IV dexamethasone for moderate obstruction noted on upper GI; patient will remain on IV fluids and a clear liquid diet Increase activity and PT/OT recommended 07/12/2021 Patient is seen and evaluated sitting up in bed; patient reports shortness of breath earlier in the day; was placed on O2 2-3 L per nasal cannula which improved breathing Does complain of chest congestion; we will hold off on IV fluids and order Lasix 40 mg IV 1 and order a chest x-ray We will signs are reviewed and reveal temperature of 97.5, pulse 88, respiration 28 and blood pressure 117/61. O2 saturation 96% on 2 L Patient is tolerating clear liquid diet fairly well and has been advanced to a full liquid diet; remains on IV dexamethasone for moderate obstruction on upper GI Objective - Vital Signs Vital signs: Vital Signs Temp 97.6 F 07/12/21 08:21 Pulse 95 07/12/21 08:21 Resp 18 07/12/21 08:21 BP 122/56 07/12/21 08:21 Pulse Ox 97 07/12/21 08:21 Intake & Output 07/11/21 07/12/21 07/12/21 18:59 06:59 18:59 Intake Total 236 240 Output Total 400 Balance -164 240 Weight 72.575 kg Intake: Oral 236 240 Output: Urine 400 Other: Voiding Method Indwelling Catheter Toilet # Voids 1 # Bowel Movements 1 3 - Exam GENERAL: The patient is alert and oriented x3, not in any acute distress. Well developed, well nourished. HEENT: Pupils are round and equally reacting to light. EOMI. No scleral icterus. No conjunctival pallor. Normocephalic, atraumatic. No pharyngeal erythema. No thyromegaly. CARDIOVASCULAR: S1 and S2 present. No murmurs, rubs, or gallops. PULMONARY: Chest is clear to auscultation, no wheezing or crackles. ABDOMEN: Soft, tender, distended, normoactive bowel sounds. No palpable organomegaly. MUSCULOSKELETAL: No joint swelling or deformity. EXTREMITIES: No cyanosis, clubbing, or pedal edema. NEUROLOGICAL: Gross neurological examination did not reveal any focal deficits. SKIN: No rashes. - Labs CBC & Chem 7: 07/11/21 04:57 07/10/21 05:10 Labs: Abnormal Lab Results - Last 24 Hours (Table) 07/11/21 07/11/21 07/12/21 Range/Units 16:13 19:47 06:20 POC Glucose (mg/dL) 146 H 217 H 164 H (75-99) mg/dL 07/12/21 Range/Units 11:41 POC Glucose (mg/dL) 170 H (75-99) mg/dL Assessment and Plan Assessment: Assessment -Epigastric abdominal pain: Secondary to gastoesophageal reflux disease, possible peptic ulcer disease secondary to hiatal hernia -POD #2 Adis fundoplication -diarrhea, probably secondary to large hernia, resolving -metabolic acidosis, secondary to above -Hyperlipidemia: Resumed on statin -Hypertension hold off on anti-was medication patient blood pressure is low normal -hypothyroidism continue with levothyroxine -Hyperglycemia due to IV steroids DVT prophylaxis: Lovenox GI Prophylaxis: Protonix FULL CODE Plan Encourage ambulation Encourage incentive spirometry Clear liquid Adis diet per surgical Novolog for glycemic control Labs in AM
--- NOTE | 2021-07-12 16:33 | XR ---
EXAMINATION TYPE: XR chest 1V DATE OF EXAM: 07/12/2021 COMPARISON: Exam 06/29/2021 HISTORY: Constipation TECHNIQUE: Single frontal view of the chest is obtained. FINDINGS: Bibasilar increased attenuation is present, the hemidiaphragms are obscured. Heart is thou ght likely to be enlarged but is obscured. Patient is rotated, there is no evident pneumothorax. Thor acic spondylosis is present. There is high density material within the colon likely due to prior GI e xam. There is marked arthropathy noted shoulders. Aorta is dense. Large hiatal hernia seen on prior e xams is no longer seen IMPRESSION: Suspect cardiomegaly with basilar effusions and associated atelectasis. Correlate for co ngestive heart failure, pneumonia or edema
[2021-07-12 17:01] LABS: Glucose,Whole Blood 184 mg/dL (75-99)
[2021-07-12] MEDS ORDERED: FUROSEMIDE 10 MG/ML 2 ML VIAL IV ONE (20:53)
[2021-07-12 21:19] LABS: Glucose,Whole Blood 154 mg/dL (75-99)
[2021-07-12] MEDS: PRAMIPEXOLE 1 MG TAB PO SCH (22:54)
[2021-07-13] MEDS: PIPERACILLIN-TAZOBACTAM 3.375 GM in SODIUM CHLORIDE 0.9% 100 ML IVPB SCH ×3 (00:15→16:40)
[2021-07-13 05:59] LABS: Glucose,Whole Blood 171 mg/dL (75-99)
[2021-07-13] MEDS: DEXAMETHASONE SOD PHOSPHATE 4 MG/ML 1 ML VIAL IVP SCH ×4 (06:37→23:44)
[2021-07-13] MEDS: LEVOTHYROXINE 25 MCG TAB PO SCH (06:38)
[2021-07-13] MEDS: PANTOPRAZOLE 40 MG TABLET PO SCH (06:38)
[2021-07-13] MEDS: INSULIN ASPART (NovoLOG) 100 UNIT/ML VIAL SQ SCH ×4 (06:39→20:43)
[2021-07-13 07:54] LABS: Anion Gap 4 mmol/L; Blood Urea Nitrogen 21 mg/dL (7-17); Calcium 7.8 mg/dL (8.4-10.2); Carbon Dioxide 25 mmol/L (22-30); Chloride 107 mmol/L (98-107); Glucose 148 mg/dL (74-99); Sodium 136 mmol/L (137-145)
[2021-07-13 07:55] LABS: African American GFR (CKD) >90 (>60 ml/min/1.73 sqM); Non-African American GFR(CKD) 86 (>60 ml/min/1.73 sqM)
[2021-07-13] MEDS: FUROSEMIDE 10 MG/ML 2 ML VIAL IV SCH (08:27)
[2021-07-13] MEDS: POTASSIUM CHLORIDE ER 10 MEQ TAB.ER.PRT PO SCH ×2 (08:27→20:44)
[2021-07-13] MEDS: VIT A,C & E-LUTEIN-MINERALS 1 EACH TAB PO SCH (08:28)
[2021-07-13] MEDS: HEPARIN SODIUM,PORCINE/PF 5,000 UNIT/0.5 ML SYRINGE SQ SCH (08:28)
[2021-07-13 08:38] LABS: HCT 24.9 % (34.0-46.0); Hypochromasia Marked; MCH 26.9 pg (25.0-35.0); MCHC 30.6 g/dL (31.0-37.0); MCV 87.8 fL (80.0-100.0); Mean Platelet Volume 8.1; Platelet Count 461 k/uL (150-450); RBC 2.84 m/uL (3.80-5.40); WBC 13.7 k/uL (3.8-10.6)
[2021-07-13 08:44] LABS: HGB 7.6 gm/dL (11.4-16.0)
[2021-07-13] MEDS: HYDROcodone/APAP 7.5-325MG 1 EACH TAB PO PRN ×3 (10:17→23:10)
--- NOTE | 2021-07-13 11:02 | P.PN ---
<Ginny Kay - Last Filed: 07/13/21 10:56> Subjective Progress Note Date: 07/13/21 CHIEF COMPLAINT: Large paraesophageal hernia HISTORY OF PRESENT ILLNESS: Patient is status post laparoscopic repair of paraesophageal hernia with mesh. Postop day #4. Patient had watery maroon- colored stools through the night. There was a drop of hemoglobin from 9.3-7.6. Last night she was having some abdominal cramping. This has resolved. She did require dose of IV Lasix for some fluid overload. And IV fluids were hep-lock ed. Stool this morning is loose but appeared brown in color. Her heparin is currently on hold. Repeat CBCs ordered for noon. Afebrile. Heart rate 90 respiratory rate 28 on 2 L satting at 96% BP 101/68 PHYSICAL EXAM: VITAL SIGNS: Reviewed. GENERAL: Well-developed in no acute distress. HEENT: No sclera icterus. Extraocular movements grossly intact. Moist buccal mucosa. Head is atraumatic, normocephalic. ABDOMEN: Soft. Nondistended. Incision sites clean dry and intact minimal dried blood NEUROLOGIC: Alert and oriented. Cranial nerves II through XII grossly intact. ASSESSMENT: 1. Large paraesophageal hernia containing colon, small bowel and stomach status post laparoscopic repair of paraesophageal hernia with mesh 2. Mild acute diverticulitis of the proximal mid sigmoid colon improved 3. Moderate obstruction status post hiatal hernia repair 4. Anemia and maroon-colored stools PLAN: -Repeat CBC at noon -Continue to monitor for signs or symptoms of bleeding -Check stool for occult blood -Hold subcu heparin -Continue IV dexamethasone for moderate obstruction noted on upper GI while hospitalized -Continue full liquids -Encouraged patient to ambulate -Encouraged patient to use incentive spirometer -GI prophylaxis Protonix and DVT prophylaxis subcu heparin Physician Fisher note has been reviewed by physician. Signing provider agrees with the documented findings, assessment, and plan of care. Objective - Vital Signs Vital signs: Vital Signs Temp 97.5 F L 07/13/21 08:24 Pulse 90 07/13/21 08:24 Resp 28 H 07/13/21 08:24 BP 101/68 07/13/21 08:24 Pulse Ox 96 07/13/21 08:24 Intake & Output 07/12/21 07/13/21 07/13/21 18:59 06:59 18:59 Intake Total 480 240 Output Total 1000 Balance 480 -1000 240 Weight 72.575 kg Intake: Oral 480 240 Output: Urine 1000 Other: Voiding Method Toilet # Voids 2 1 # Bowel Movements 3 - Labs CBC & Chem 7: 07/13/21 07:37 07/13/21 07:29 Labs: Abnormal Lab Results - Last 24 Hours (Table) 07/12/21 07/12/21 07/12/21 Range/Units 11:41 16:59 21:18 WBC (3.8-10.6) k/uL RBC (3.80-5.40) m/uL Hgb (11.4-16.0) gm/dL Hct (34.0-46.0) % MCHC (31.0-37.0) g/dL Plt Count (150-450) k/uL Sodium (137-145) mmol/L BUN (7-17) mg/dL Glucose (74-99) mg/dL POC Glucose (mg/dL) 170 H 184 H 154 H (75-99) mg/dL Calcium (8.4-10.2) mg/dL 07/13/21 07/13/21 07/13/21 Range/Units 05:48 07:29 07:37 WBC 13.7 H (3.8-10.6) k/uL RBC 2.84 L (3.80-5.40) m/uL Hgb 7.6 L D (11.4-16.0) gm/dL Hct 24.9 L (34.0-46.0) % MCHC 30.6 L (31.0-37.0) g/dL Plt Count 461 H (150-450) k/uL Sodium 136 L (137-145) mmol/L BUN 21 H (7-17) mg/dL Glucose 148 H (74-99) mg/dL POC Glucose (mg/dL) 171 H (75-99) mg/dL Calcium 7.8 L (8.4-10.2) mg/dL <Mahad Quiros - Last Filed: 07/13/21 15:02> Subjective As above. Patient with maroon colored stools with clots today. Patient was hypotensive and tachycardic. We'll proceed with EGD at this time. Objective - Vital Signs Vital signs: Vital Signs Temp 97.6 F 07/13/21 11:45 Pulse 100 07/13/21 11:45 Resp 26 H 07/13/21 11:45 BP 93/62 07/13/21 11:45 Pulse Ox 96 07/13/21 11:45 Intake & Output 07/12/21 07/13/21 07/13/21 18:59 06:59 18:59 Intake Total 480 440 Output Total 1000 Balance 480 -1000 440 Weight 72.575 kg Intake: IV 200 Oral 480 240 Output: Urine 1000 Other: Voiding Method Toilet # Voids 2 1 # Bowel Movements 3 - Labs CBC & Chem 7: 07/13/21 11:34 07/13/21 07:29 Labs: Abnormal Lab Results - Last 24 Hours (Table) 07/12/21 07/12/21 07/13/21 Range/Units 16:59 21:18 05:48 WBC (3.8-10.6) k/uL RBC (3.80-5.40) m/uL Hgb (11.4-16.0) gm/dL Hct (34.0-46.0) % MCHC (31.0-37.0) g/dL Plt Count (150-450) k/uL Sodium (137-145) mmol/L BUN (7-17) mg/dL Glucose (74-99) mg/dL POC Glucose (mg/dL) 184 H 154 H 171 H (75-99) mg/dL Calcium (8.4-10.2) mg/dL Stool Occult Blood (Negative) Crossmatch 07/13/21 07/13/21 07/13/21 Range/Units 07:29 07:37 11:34 WBC 13.7 H 11.7 H (3.8-10.6) k/uL RBC 2.84 L 2.78 L (3.80-5.40) m/uL Hgb 7.6 L D 7.5 L (11.4-16.0) gm/dL Hct 24.9 L 24.3 L (34.0-46.0) % MCHC 30.6 L 30.9 L (31.0-37.0) g/dL Plt Count 461 H 458 H (150-450) k/uL Sodium 136 L (137-145) mmol/L BUN 21 H (7-17) mg/dL Glucose 148 H (74-99) mg/dL POC Glucose (mg/dL) (75-99) mg/dL Calcium 7.8 L (8.4-10.2) mg/dL Stool Occult Blood (Negative) Crossmatch 07/13/21 07/13/21 07/13/21 Range/Units 11:41 12:30 13:21 WBC (3.8-10.6) k/uL RBC (3.80-5.40) m/uL Hgb (11.4-16.0) gm/dL Hct (34.0-46.0) % MCHC (31.0-37.0) g/dL Plt Count (150-450) k/uL Sodium (137-145) mmol/L BUN (7-17) mg/dL Glucose (74-99) mg/dL POC Glucose (mg/dL) 167 H (75-99) mg/dL Calcium (8.4-10.2) mg/dL Stool Occult Blood Positive H (Negative) Crossmatch See Detail
[2021-07-13 11:43] LABS: Glucose,Whole Blood 167 mg/dL (75-99)
[2021-07-13 13:02] LABS: HCT 24.3 % (34.0-46.0); HGB 7.5 gm/dL (11.4-16.0); Hypochromasia Marked; MCHC 30.9 g/dL (31.0-37.0); MCV 87.4 fL (80.0-100.0); Mean Platelet Volume 8.2; Platelet Count 458 k/uL (150-450); RBC 2.78 m/uL (3.80-5.40); RDW 15.1 % (11.5-15.5); WBC 11.7 k/uL (3.8-10.6)
[2021-07-13] MEDS ORDERED: SODIUM CHLORIDE 0.9% 1,000 ML IV ONE (14:00)
[2021-07-13] MEDS ORDERED: PROPOFOL 10 MG/ML 20 ML VIAL IV ONE (14:03)
[2021-07-13] MEDS ORDERED: PHENYLEPHRINE-0.9% NACL SYG 1,000 MCG/10 ML SYRINGE ONE (14:03)
[2021-07-13] MEDS ORDERED: LIDOCAINE 1% INJ 10MG/ML (20 ML MDV) ONE (14:03)
--- NOTE | 2021-07-13 15:05 | P.PCN ---
Date of Procedure: 07/13/21 Procedure(s) Performed: Preoperative Dx: GI bleed Postoperative Dx: Mild gastritis, some retained food within stomach, small hiatal hernia Procedure: EGD Anesthesia: Sedation Endoscopist: Dr. Quiros Specimens: None Endoscopic Procedure: The patient was on the endoscopy table in the left decubitus position. The Olympus gastroscope was inserted into the oropharynx and passed under direct visualization to the region of the third portion of the duodenum. From that point the scope was slowly withdrawn inspecting all surfaces carefully. There were no neoplastic inflammatory or polypoid lesions throughout the duodenum. The pylorus was widely patent. The stomach was carefully inspected. There was mild gastritis present. The patient had retained food within the stomach. Overall volume relatively light. Patient did have evidence of persistent hiatal hernia that was small in size. Certainly not nilesh like the previous CAT scan reports. The esophagus was then carefully examined. There were no neoplastic inflammatory or polypoid lesions throughout the visualized esophagus. Again no bleeding seen throughout the upper GI tract. The patient was then taken to the recovery room in stable condition per anesthesia guidelines. Recommendations: Suspect lower GI bleed or small bowel bleeding. Begin clear liquid diet. Recheck labs tomorrow. Proceed with 1 unit transfusion as previously ordered. Case discussed with the patient's daughter Yoly by phone.
[2021-07-13 16:41] LABS: Glucose,Whole Blood 157 mg/dL (75-99)
[2021-07-13] MEDS: SIMETHICONE 80 MG CHEWABLE PO PRN (17:59)
[2021-07-13 20:34] LABS: Glucose,Whole Blood 152 mg/dL (75-99)
[2021-07-13] MEDS: PRAVASTATIN SODIUM 40 MG TAB PO SCH (20:43)
[2021-07-13] MEDS: PRAMIPEXOLE 1 MG TAB PO SCH (20:44)
[2021-07-14 00:51] LABS: HGB 8.5 gm/dL (11.4-16.0); Hypochromasia Slight; MCH 29.4 pg (25.0-35.0); MCHC 32.9 g/dL (31.0-37.0); MCV 89.5 fL (80.0-100.0); Platelet Count 400 k/uL (150-450); Poikilocytosis Slight; RBC 2.91 m/uL (3.80-5.40); RDW 15.7 % (11.5-15.5); WBC 21.7 k/uL (3.8-10.6)
[2021-07-14 05:59] LABS: Glucose,Whole Blood 132 mg/dL (75-99)
[2021-07-14] MEDS: PANTOPRAZOLE 40 MG TABLET PO SCH (06:22)
[2021-07-14] MEDS: HYDROcodone/APAP 7.5-325MG 1 EACH TAB PO PRN ×2 (06:23→23:02)
[2021-07-14] MEDS: DEXAMETHASONE SOD PHOSPHATE 4 MG/ML 1 ML VIAL IVP SCH ×3 (06:24→17:21)
[2021-07-14] MEDS: LEVOTHYROXINE 25 MCG TAB PO SCH (06:24)
[2021-07-14] MEDS: INSULIN ASPART (NovoLOG) 100 UNIT/ML VIAL SQ SCH ×4 (06:25→23:03)
[2021-07-14] MEDS: PIPERACILLIN-TAZOBACTAM 3.375 GM in SODIUM CHLORIDE 0.9% 100 ML IVPB SCH ×3 (07:33→17:21)
[2021-07-14] MEDS: POTASSIUM CHLORIDE ER 10 MEQ TAB.ER.PRT PO SCH ×2 (08:15→23:01)
[2021-07-14] MEDS: FUROSEMIDE 10 MG/ML 2 ML VIAL IV SCH (08:15)
[2021-07-14] MEDS: VIT A,C & E-LUTEIN-MINERALS 1 EACH TAB PO SCH (08:15)
[2021-07-14 11:48] LABS: Glucose,Whole Blood 130 mg/dL (75-99)
[2021-07-14] MEDS ORDERED: IOPAMIDOL CONTRAST (ORAL USE) VIAL PO PRN (12:02)
--- NOTE | 2021-07-14 12:04 | P.PN ---
Subjective Progress Note Date: 07/14/21 Principal diagnosis: Hiatal hernia Patient apparently having increased abdominal pain today compared to yesterday. Describes the pain as being diffuse. Yesterday was primarily on the left side. She has had no further bloody stools. Hemodynamically she appears stable. White blood cell count however increased significantly at 21,000 today. She is afebrile. No nausea or vomiting. Objective - Vital Signs Vital signs: Vital Signs Temp 97.7 F 07/14/21 05:00 Pulse 85 07/14/21 05:00 Resp 22 07/14/21 05:00 BP 111/67 07/14/21 05:00 Pulse Ox 95 07/14/21 05:00 Intake & Output 07/13/21 07/14/21 07/14/21 18:59 06:59 18:59 Intake Total 440 310 118 Balance 440 310 118 Intake: IV 200 Oral 240 118 Blood Product 0 310 Rc As-1 Unit 0 310 [id number] Other: Voiding Method Toilet # Voids 1 1 - Exam Abdomen: Soft, mild distention, mild to moderate diffuse tenderness, incisions clean and dry - Labs CBC & Chem 7: 07/13/21 23:40 07/13/21 07:29 Labs: Abnormal Lab Results - Last 24 Hours (Table) 07/13/21 07/13/21 07/13/21 Range/Units 11:34 12:30 13:21 WBC 11.7 H (3.8-10.6) k/uL RBC 2.78 L (3.80-5.40) m/uL Hgb 7.5 L (11.4-16.0) gm/dL Hct 24.3 L (34.0-46.0) % MCHC 30.9 L (31.0-37.0) g/dL RDW (11.5-15.5) % Plt Count 458 H (150-450) k/uL POC Glucose (mg/dL) (75-99) mg/dL Stool Occult Blood Positive H (Negative) Crossmatch See Detail 07/13/21 07/13/21 07/13/21 Range/Units 16:39 20:33 23:40 WBC 21.7 H (3.8-10.6) k/uL RBC 2.91 L (3.80-5.40) m/uL Hgb 8.5 L (11.4-16.0) gm/dL Hct 26.0 L (34.0-46.0) % MCHC (31.0-37.0) g/dL RDW 15.7 H (11.5-15.5) % Plt Count (150-450) k/uL POC Glucose (mg/dL) 157 H 152 H (75-99) mg/dL Stool Occult Blood (Negative) Crossmatch 07/14/21 07/14/21 Range/Units 05:49 11:47 WBC (3.8-10.6) k/uL RBC (3.80-5.40) m/uL Hgb (11.4-16.0) gm/dL Hct (34.0-46.0) % MCHC (31.0-37.0) g/dL RDW (11.5-15.5) % Plt Count (150-450) k/uL POC Glucose (mg/dL) 132 H 130 H (75-99) mg/dL Stool Occult Blood (Negative) Crossmatch Assessment and Plan (1) Abdominal pain Narrative/Plan: 80-year-old female with increased abdominal pain with leukocytosis today. Keep nothing by mouth for now. Will check CT abdomen and pelvis. Current Visit: Yes Status: Acute Code(s): R10.9 - UNSPECIFIED ABDOMINAL PAIN SNOMED Code(s): 86403715
[2021-07-14] MEDS: PRAVASTATIN SODIUM 80 MG TAB PO SCH (13:00)
[2021-07-14] MEDS: MORPHINE SULFATE 4 MG/ML SYRINGE IVP PRN (14:01)
[2021-07-14 16:24] LABS: Glucose,Whole Blood 169 mg/dL (75-99)
--- NOTE | 2021-07-14 17:45 | CT ---
EXAMINATION TYPE: CT abdomen pelvis w con DATE OF EXAM: 07/14/2021 COMPARISON: 07/05/2021 HISTORY: hiatal hernia CT DLP: 1421.4 mGycm Automated exposure control for dose reduction was used. CONTRAST: Performed with IV Contrast, patient injected with 100 mL of Isovue 300. Images obtained from the diaphragm to the floor the pelvis with oral and IV contrast. There are moderately large bilateral pleural effusions. There is lower lobe pulmonary infiltrate and atelectasis. Liver has normal size. Spleen is intact. There is some free air in the anterior peritoneal cavity. Th ere is also air on the anterior aspect of the gastric fundus and possible full-thickness defect in th e anterior wall of the gastric fundus. There is no oral contrast extravasation identified. There is o ral contrast seen in the small bowel and large bowel down to the rectum. There is no adrenal mass. Kidneys show satisfactory contrast opacification. There is no hydronephrosi s. There are bilateral renal parapelvic cysts. There are renal cortical cysts. There is no retroperit dias adenopathy. The bile ducts are not dilated. Gallbladder is dilated and measures 6 cm. There are calcified gallsto juliane. Bladder distends smoothly. There are numerous sigmoid diverticula. There is some presacral edema. The lumbar spine is intact. There is degenerative disc space narrowing. There is no compression fracture . The bony pelvis is intact. There is mild lumbar levoscoliosis. IMPRESSION: Large pneumoperitoneum appears new compared to old exam. Possible anterior gastric fundal defect. Air collection anterior to the gastric fundus suspicious for source of a leak. This exam was discussed w seth Quiros at 5:45 PM. Size of the pneumoperitoneum is larger than I would expect for a patient 1 week postop. Extensive bilateral pleural effusions and basilar infiltrate and atelectasis appear new compared to p reoperative exam. There is reduction of the large hiatal hernia compared to previous exam. Dilated gallbladder suggestive of gallbladder dysfunction. Cholelithiasis.
[2021-07-14] MEDS ORDERED: SUGAMMADEX SODIUM 500 MG/5 ML SDV IV ONE (19:01)
[2021-07-14] MEDS ORDERED: SUCCINYLCHOLINE CHLORIDE 100 MG/5 ML SYR IV ONE (19:01)
[2021-07-14] MEDS ORDERED: GLYCOPYRROLATE 0.2 MG/ML 2 ML VIAL ONE (19:01)
[2021-07-14] MEDS ORDERED: PROPOFOL 10 MG/ML 20 ML VIAL IV ONE (19:01)
[2021-07-14] MEDS ORDERED: NEOSTIGMINE 1 MG/ML 10 ML VIAL ONE (19:01)
[2021-07-14] MEDS ORDERED: fentaNYL (PF) 50 MCG/ML 2 ML AMP ONE (19:01)
[2021-07-14] MEDS ORDERED: LACTATED RINGERS 1,000 ML IV ONE (19:01)
[2021-07-14] MEDS ORDERED: ROCURONIUM 10 MG/ML (5 ML VIAL) IV ONE (19:01)
[2021-07-14] MEDS ORDERED: LIDOCAINE 1% INJ 10MG/ML (20 ML MDV) ONE (19:01)
--- NOTE | 2021-07-14 19:05 | P.PN ---
Progress Note - Text Progress Note Date: 07/14/21 Patient's CAT scan was reviewed shortly after was performed. The case was discussed with the radiologist and also Dr. Ryan. The patient has an impressive volume of pneumoperitoneum. There is no evidence of contrast extravasation however. There are 2 suspicious areas one involving the anterior wall of the lesser curvature of the body of the stomach and the other area involves some air bubbles seen emanating from the sigmoid colon. Difficult to say at this time which site is responsible for the pneumoperitoneum, abdominal pain, and leukocytosis. Case discussed with the patient and her daughter. We'll proceed with exploratory laparotomy. They understand that bowel resection and/or ostomy may be needed. Risks of bleeding, infection, hernia, abscess, persistent leak, inability to identify perforation site, progressive sepsis, possible need for additional procedures, respiratory failure, AL, DVT, were discussed with them. They understand and wish to proceed.
[2021-07-14] MEDS ORDERED: SODIUM CHLORIDE 0.9% 50 ML with ceFAZolin 2,000 MG IV ONE ×2 (19:29)
--- NOTE | 2021-07-14 20:58 | P.OP ---
Date of Procedure: 07/14/21 Procedure(s) Performed: PREOPERATIVE DIAGNOSIS: Pneumoperitoneum POSTOPERATIVE DIAGNOSIS: Perforated sigmoid diverticulitis PROCEDURE: Sigmoid colectomy with end colostomy SURGEON: Chula EBL: 50 mL ANESTHESIA: General COMPLICATIONS: None OPERATIVE PROCEDURE: Patient place in the operative table in the supine position. The patient was placed under general anesthesia. The abdomen was prepped and draped in usual sterile fashion. A vertical incision was made from the infraumbilical to supraumbilical location. This was later lengthened inferiorly. The fascia was divided as well. Upon entrance into the peritoneal cavity purulent fluid was identified. Cultures were taken. The Fenton retractor was utilized. As I mobilized the small bowel superiorly I immediately identified stool present adjacent to the sigmoid colon. There was a 1 cm perforation seen along the mesenteric border of the sigmoid colon with surrounding inflammation. I was able to visualize the stomach and what I could see of the stomach and palpated of the stomach no abnormalities were noted. The proximal colon was significantly distended with air but there was no evidence of ischemia. I divided the sigmoid colon proximal to the site of perforation using a linear 75 stapler. The mesentery was divided at that time using the LigaSure device. Beyond the inflamed segment I divided the distal sigmoid colon using a additional 75 stapler. The sigmoid colon was then mobilized further by dividing a portion of mesentery proximally and also dividing the white line of [place]. Once I had enough length on the colon the abdomen was copiously irrigated with 3 L of saline. No further purulence was encountered at that time. A circular incision was made in the left midabdomen. Dissection through the subcutaneous fat and fascia took place using electrocautery. I bluntly entered the perineal cavity and this was further bluntly opened. The bowel was brought out through this defect in the left midabdomen. The midline fascia was then reapproximated using 2 separate double-stranded #1 PDS sutures. The saphenous tissues were irrigated. The subcutaneous tissues were closed using 3-0 Vicryl sutures. The skin was then closed using era. 3 separate sites were left open along the midline incision for Aquacel silver wick placement. The ostomy was then addressed. A portion of the pericolonic fat was removed using the LigaSure device. The staple line was then removed using electrocautery. The ostomy was then matured in a sleetmute fashion using interrupted 3-0 Vicryl sutures. An ostomy appliance was then applied. Sterile dressings were then applied to the midline incision. DISPOSITION: Stable to recovery room
[2021-07-14] MEDS ORDERED: KETOROLAC 30 MG/ML 1 ML VIAL ONE (21:06)
[2021-07-14] MEDS ORDERED: KETOROLAC 15 MG/ML 1 ML VIAL IVP ONE (21:08)
[2021-07-14] MEDS ORDERED: ONDANSETRON 4 MG/2 ML VIAL IVP ONE (21:14)
[2021-07-14] MEDS ORDERED: HYDROmorphone 0.5 MG/0.5 ML SYRINGE IVP ONE (21:26)
[2021-07-14 22:45] LABS: Glucose,Whole Blood 151 mg/dL (75-99)
[2021-07-14] MEDS: FLUCONAZOLE IN NACL,ISO-OSM 100 MG in SALINE 1 50ML.BAG IVPB SCH (23:01)
[2021-07-14] MEDS: PRAVASTATIN SODIUM 40 MG TAB PO SCH (23:02)
[2021-07-14] MEDS: PRAMIPEXOLE 1 MG TAB PO SCH (23:03)
[2021-07-15] MEDS: DEXAMETHASONE SOD PHOSPHATE 4 MG/ML 1 ML VIAL IVP SCH ×4 (01:02→16:51)
[2021-07-15] MEDS: metroNIDAZOLE-NS PMX 500 MG in SALINE 1 100ML.BAG IVPB SCH ×3 (01:29→15:14)
[2021-07-15] MEDS: PIPERACILLIN-TAZOBACTAM 3.375 GM in SODIUM CHLORIDE 0.9% 100 ML IVPB SCH ×3 (01:40→16:12)
[2021-07-15 06:04] LABS: Glucose,Whole Blood 129 mg/dL (75-99)
[2021-07-15] MEDS: INSULIN ASPART (NovoLOG) 100 UNIT/ML VIAL SQ SCH ×4 (06:34→20:34)
[2021-07-15] MEDS: LEVOTHYROXINE 25 MCG TAB PO SCH (06:35)
[2021-07-15] MEDS: PANTOPRAZOLE 40 MG TABLET PO SCH (06:35)
[2021-07-15 07:46] LABS: Albumin 1.9 g/dL (3.5-5.0); Calcium 7.6 mg/dL (8.4-10.2); Potassium 5.4 mmol/L (3.5-5.1); Total Bilirubin 0.4 mg/dL (0.2-1.3); Total Protein 4.3 g/dL (6.3-8.2)
[2021-07-15] MEDS: FUROSEMIDE 10 MG/ML 2 ML VIAL IV SCH (08:04)
[2021-07-15] MEDS: POTASSIUM CHLORIDE ER 10 MEQ TAB.ER.PRT PO SCH (08:04)
[2021-07-15] MEDS: VIT A,C & E-LUTEIN-MINERALS 1 EACH TAB PO SCH (08:05)
[2021-07-15] MEDS: HYDROcodone/APAP 7.5-325MG 1 EACH TAB PO PRN ×3 (08:05→23:30)
[2021-07-15 08:19] LABS: Anisocytosis Slight; Basophils # (A) 0.1 k/uL (0-0.2); Basophils % (A) 0 %; Eosinophils % (A) 0 %; HCT 27.1 % (34.0-46.0); HGB 8.4 gm/dL (11.4-16.0); Hypochromasia Marked; Lymphocytes # (A) 0.3 k/uL (1.0-4.8); Lymphocytes % (A) 1 %; MCH 29.1 pg (25.0-35.0); MCHC 30.9 g/dL (31.0-37.0); MCV 94.2 fL (80.0-100.0); Mean Platelet Volume 8.6; Monocytes # (A) 0.5 k/uL (0-1.0); Monocytes % (A) 2 %; Neutrophils # (A) 26.7 k/uL (1.3-7.7); Neutrophils % (A) 96 %; Platelet Count 369 k/uL (150-450); Poikilocytosis Slight; RBC 2.87 m/uL (3.80-5.40); RDW 16.9 % (11.5-15.5)
[2021-07-15 08:20] LABS: WBC 27.7 k/uL (3.8-10.6)
[2021-07-15] MEDS: FLUCONAZOLE IN NACL,ISO-OSM 100 MG in SALINE 1 50ML.BAG IVPB SCH (09:08)
[2021-07-15 09:09] LABS: Polychromasia Present
--- NOTE | 2021-07-15 10:05 | P.CONS ---
History of Present Illness - Reason for Consult Consult date: 07/14/21 elevated WBC Requesting physician: René Guerrero - Chief Complaint abd pain x few days - History of Present Illness History of present illness : Patient is 80-year-old female who is in hospital for almost 10 days, presented to the hospital abdominal discomfort pa kristofer complaining of difficulty eating and increased discomfort patient did have a CT of abdominal pelvis which was colonic diverticulosis with new mild uncomplicated acute diverticulitis proximal and mid sigmoid colon in the left pelvis patient has been treated by general surgery and medical services with IV Zosyn patient was also noticed to have a large morganii hernia, and this patient who is status post laparoscopic repair of the paraesophageal hernia with mesh that was done on 07/09/2021 by surgery's patient did have a fever on admission of 112 F however the patient has been afebrile since then patient did have worsening of the white count over the last 3 days and is up to 21.7, that has prompted this infectious disease consultation patient be complaining of abdominal discomfort currently more of a sharp pain to dull aching 6-7 out of 10 patient complain of some nausea but no vomiting and denies having any diarrhea infectious disease was consulted because of worsening white count, patient denies having any chest pain or shortness of breath or cough no urinary symptoms Review of system: CONSTITUTIONAL: Positive for weakness no fever since admission EYES: No complaint. ENT: No complaint. RESPIRATORY: No complaint. CARDIOVASCULAR: No complaint. GENITOURINARY: No complaint. GASTROINTESTINAL: As per history of present illness. MUSCULOSKELETAL: No complaint. INTEGUMENTARY: No complaint. PSYCHOLOGIC: No complaint. ENDOCRINE: No complaint. NEUROLOGIC: No complaint. Past medical history : Reviewed, documented below Past surgical history : Reviewed, documented below Social history: Reviewed, documented below Medications: Reviewed, as documented below EXAMINATION: Vital sigans= Reviewed and documented below GENERAL DESCRIPTION: Elderly female lying in bed, no distress. No tachypnea or accessory muscle of respiration use. HEENT: Shows Pallor , no scleral icterus. Oral mucous membrane is dry. NECK: Trachea central, no thyromegaly. LUNGS: Unlabored breathing. Clear to auscultation anteriorly. No wheeze or crackle. HEART: S1, S2, regular rate and rhythm. ABDOMEN: Soft, mild distention and tenderness , no guarding or rigidity EXTREMITIES: No edema of feet. SKIN: No rash, no masses palpable. NEUROLOGICAL: The patient is awake, alert, oriented x3, mood and affect normal. LABS AND RADIOLOGY: Reviewed results see below Assessment : Patient with worsening white count in this patient admitted to hospital about 10 days ago for abdominal pain she did have a mild diverticulitis and did have evidence of paraesophageal hernia status post repair of that hernia now the patient is complaining of abdominal pain with worsening white count likely abdominal source with a question of possible worsening diverticulitis or related to esophageal site Plan: 1-we will wait for the CT abdominal pelvis that has been ordered for this evening 2-continue with Zosyn and Diflucan has been added 3-gentle IV fluid We will follow on clinical condition and cultures to further adjust medication if needed Thank you for this consultation we will follow the patient along with you Past Medical History Past Medical History: Hyperlipidemia, Hypertension, Osteoarthritis (OA), Thyroid Disorder Additional Past Medical History / Comment(s): Large hiatal hernia/was to follow with GI specialist, palpitations, anemia, goiter with radiation, hypothyroid, sinus allergies, diverticular disease. History of Any Multi-Drug Resistant Organisms: None Reported Past Surgical History: Joint Replacement, Tonsillectomy Additional Past Surgical History / Comment(s): Bilateral total knee arthroplasties, several L breast benign biopsies, colonoscopy, D&C. Past Anesthesia/Blood Transfusion Reactions: No Reported Reaction Additional Past Anesthesia/Blood Transfusion Reaction / Comm: Pt has ora terphobia. Smoking Status: Never smoker - Past Family History Father Family Medical History: Cancer Additional Family Medical History / Comment(s): Father of lung to brain cancer. Mother Additional Family Medical History / Comment(s): Mother had "heart problems" and was a "pre-diabetic" Medications and Allergies Home Medications Medication Instructions Recorded Confirmed Type Enalapril [Vasotec] 10 mg PO DAILY 07/05/21 07/05/21 History Levothyroxine Sodium [Synthroid] 25 mcg PO DAILY 07/05/21 07/05/21 History Meloxicam 15 mg PO DAILY 07/05/21 07/05/21 History Pramipexole [Mirapex] 1 mg PO HS 07/05/21 07/05/21 History Pravastatin Sodium [Pravachol] 80 mg PO HS 07/05/21 07/05/21 History Vit C/E/Zn/Coppr/Lutein/Zeaxan 1 cap PO DAILY 07/05/21 07/05/21 History [Preservision Areds 2 Softgel] Allergies Allergy/AdvReac Type Severity Reaction Status Date / Time codeine Allergy Itching Verified 07/09/21 15:45 Physical Exam Vitals: Vital Signs Temp Pulse Pulse Pulse Resp BP BP 07/14/21 16:01 98.2 F 99 29 H 97/50 07/14/21 12:32 98 F 105 H 20 102/58 07/14/21 05:00 97.7 F 85 22 111/67 07/13/21 21:45 97.6 F 85 22 113/72 07/13/21 21:00 97.9 F 82 22 95/61 07/13/21 20:00 82 24 07/13/21 19:01 97.7 F 89 26 H 119/72 07/13/21 18:48 97.7 F 91 18 105/68 07/13/21 18:31 97.9 F 95 16 99/66 07/13/21 18:21 97.7 F 93 16 94/64 07/13/21 16:47 97.9 F 88 26 H 108/66 Pulse Ox 07/14/21 16:01 93 L 07/14/21 12:32 96 07/14/21 05:00 95 07/13/21 21:45 07/13/21 21:00 98 07/13/21 20:00 07/13/21 19:01 98 07/13/21 18:48 98 07/13/21 18:31 98 07/13/21 18:21 96 07/13/21 16:47 98 Intake and Output 07/14/21 07/14/21 07/14/21 06:59 14:59 22:59 Intake Total 118 Balance 118 Intake: Oral 118 Other: # Voids 1 Results CBC & Chem 7: 07/15/21 06:16 07/15/21 06:16 Labs: Abnormal Lab Results - Last 24 Hours (Table) 07/13/21 07/13/21 07/13/21 Range/Units 13:21 16:39 20:33 WBC (3.8-10.6) k/uL RBC (3.80-5.40) m/uL Hgb (11.4-16.0) gm/dL Hct (34.0-46.0) % RDW (11.5-15.5) % POC Glucose (mg/dL) 157 H 152 H (75-99) mg/dL Crossmatch See Detail 07/13/21 07/14/21 07/14/21 Range/Units 23:40 05:49 11:47 WBC 21.7 H (3.8-10.6) k/uL RBC 2.91 L (3.80-5.40) m/uL Hgb 8.5 L (11.4-16.0) gm/dL Hct 26.0 L (34.0-46.0) % RDW 15.7 H (11.5-15.5) % POC Glucose (mg/dL) 132 H 130 H (75-99) mg/dL Crossmatch 07/14/21 Range/Units 16:23 WBC (3.8-10.6) k/uL RBC (3.80-5.40) m/uL Hgb (11.4-16.0) gm/dL Hct (34.0-46.0) % RDW (11.5-15.5) % POC Glucose (mg/dL) 169 H (75-99) mg/dL Crossmatch
[2021-07-15] MEDS: SODIUM CHLORIDE 0.9% 1,000 ML IV SCH ×2 (10:11→20:50)
--- NOTE | 2021-07-15 10:19 | P.PN ---
Subjective Progress Note Date: 07/15/21 Principal diagnosis: Hiatal hernia Patient says her pain is improved today. Surprisingly her pain is fairly well controlled with [place]. No nausea or vomiting. No ostomy function thus far. White blood cell count 27.7, hemoglobin 8.4. Patient's potassium 5.4 today. Objective - Vital Signs Vital signs: Vital Signs Temp 98.1 F 07/15/21 04:55 Pulse 72 07/15/21 04:55 Resp 20 07/15/21 04:55 BP 111/71 07/15/21 04:55 Pulse Ox 93 L 07/15/21 08:35 Intake & Output 07/14/21 07/15/21 07/15/21 18:59 06:59 18:59 Intake Total 118 780 Output Total 450 200 Balance 118 330 -200 Weight 78.5 kg Intake: IV 750 Oral 118 30 Output: Urine 400 200 Estimated Blood Loss 50 Other: Voiding Method Toilet Indwelling Catheter # Bowel Movements 0 - Exam Abdomen: Soft, mild distention, dressing clean and dry, ostomy pink - Labs CBC & Chem 7: 07/15/21 06:16 07/15/21 06:16 Labs: Abnormal Lab Results - Last 24 Hours (Table) 07/14/21 07/14/21 07/14/21 Range/Units 11:47 16:23 22:43 WBC (3.8-10.6) k/uL RBC (3.80-5.40) m/uL Hgb (11.4-16.0) gm/dL Hct (34.0-46.0) % MCHC (31.0-37.0) g/dL RDW (11.5-15.5) % Neutrophils # (1.3-7.7) k/uL Lymphocytes # (1.0-4.8) k/uL Sodium (137-145) mmol/L Potassium (3.5-5.1) mmol/L BUN (7-17) mg/dL Glucose (74-99) mg/dL POC Glucose (mg/dL) 130 H 169 H 151 H (75-99) mg/dL Calcium (8.4-10.2) mg/dL Total Protein (6.3-8.2) g/dL Albumin (3.5-5.0) g/dL 12/07/2407/15/21 07/15/21 Range/Units 06:02 06:16 06:16 WBC 27.7 H (3.8-10.6) k/uL RBC 2.87 L (3.80-5.40) m/uL Hgb 8.4 L (11.4-16.0) gm/dL Hct 27.1 L (34.0-46.0) % MCHC 30.9 L (31.0-37.0) g/dL RDW 16.9 H (11.5-15.5) % Neutrophils # 26.7 H (1.3-7.7) k/uL Lymphocytes # 0.3 L (1.0-4.8) k/uL Sodium 136 L (137-145) mmol/L Potassium 5.4 H (3.5-5.1) mmol/L BUN 46 H (7-17) mg/dL Glucose 107 H (74-99) mg/dL POC Glucose (mg/dL) 129 H (75-99) mg/dL Calcium 7.6 L (8.4-10.2) mg/dL Total Protein 4.3 L (6.3-8.2) g/dL Albumin 1.9 L (3.5-5.0) g/dL Assessment and Plan (1) Abdominal pain Narrative/Plan: Patient doing better than expected after yesterday's Oscar's procedure for perforated sigmoid diverticulitis. Continue nothing by mouth except for ice chips and oral medication sparingly. Keep Diego in place today. Monitor hyperkalemia and leukocytosis. Continue [place] for pain. Continue antibiotics. Current Visit: Yes Status: Acute Code(s): R10.9 - UNSPECIFIED ABDOMINAL PAIN SNOMED Code(s): 52584632
[2021-07-15 11:25] LABS: Glucose,Whole Blood 154 mg/dL (75-99)
[2021-07-15 16:32] LABS: Glucose,Whole Blood 140 mg/dL (75-99)
--- NOTE | 2021-07-15 19:15 | P.PN ---
Subjective Progress Note Date: 07/13/21 Principal diagnosis: GERD/hiatal hernia; status post Adis fundoplication; POD #2 Metabolic acidosis Diarrhea related to large hiatal hernia Hyperglycemia related to IV steroids Patient is an 80-year-old female came in with the complaint of upper abdominal discomfort patient does have history of hernia and the pain is related to be secondary to anemia, Gen. surgery evaluated the patient is planning on doing hemorrhoidal hernia repair/Adis fundoplication on Friday. Patient will be started on Protonix patient was on naproxen at home which will be held. Patient doesn't have any fever chills vomiting diarrhea. Bit nauseous 07/11/2021 Patient is seen and evaluated in room at bedside; status post repair of paraesophageal hernia with mesh; POD #2 Patient reports improvement this morning; does complain of pain; tolerating clear liquid diet well Vital signs are reviewed and reveal temperature of 97.4, pulse 89, respiration 18 and blood pressure 100/65 Lab review shows WBC 7.2, hemoglobin 9.3, platelet count of 464, sodium 144, potassium 4.0, BUN/creatinine of 13/0.80 and blood glucose of 158 Surgery on board and recommending to continue with IV dexamethasone for moderate obstruction noted on upper GI; patient will remain on IV fluids and a clear liquid diet Increase activity and PT/OT recommended 07/12/2021 Patient is seen and evaluated sitting up in bed; patient reports shortness of breath earlier in the day; was placed on O2 2-3 L per nasal cannula which improved breathing Does complain of chest congestion; we will hold off on IV fluids and order Lasix 40 mg IV 1 and order a chest x-ray We will signs are reviewed and reveal temperature of 97.5, pulse 88, respiration 28 and blood pressure 117/61. O2 saturation 96% on 2 L Patient is tolerating clear liquid diet fairly well and has been advanced to a full liquid diet; remains on IV dexamethasone for moderate obstruction on upper GI 07/13/2021 Patient is seen and evaluated; lying in bed; patient is status post laparoscopic repair of paraesophageal hernia with mesh; POD #4; episode of maroon-colored stool at night Vital signs reviewed reveal patient to be afebrile, blood pressure of 101/68, respiration 18 and heart rate of 19 with O2 saturation of 96% on 2 L Laboratory review shows a drop in hemoglobin from 9.3 down to 7.6 this morning; patient underwent EGD which reveals mild gastritis; no active bleeding; general surgery on board and recommending to continue to monitor labs closely. Possibility of colonoscopy if hemoglobin continues to drop; patient is status post transfusion with 1 unit of packed RBCs Objective - Vital Signs Vital signs: Vital Signs Temp 97.6 F 07/13/21 11:45 Pulse 100 07/13/21 11:45 Resp 26 H 07/13/21 11:45 BP 93/62 07/13/21 11:45 Pulse Ox 96 07/13/21 11:45 Intake & Output 07/12/21 07/13/21 07/13/21 18:59 06:59 18:59 Intake Total 480 440 Output Total 1000 Balance 480 -1000 440 Weight 72.575 kg Intake: IV 200 Oral 480 240 Output: Urine 1000 Other: Voiding Method Toilet # Voids 2 1 # Bowel Movements 3 - Exam GENERAL: The patient is alert and oriented x3, not in any acute distress. Well developed, well nourished. HEENT: Pupils are round and equally reacting to light. EOMI. No scleral icterus. No conjunctival pallor. Normocephalic, atraumatic. No pharyngeal erythema. No thyromegaly. CARDIOVASCULAR: S1 and S2 present. No murmurs, rubs, or gallops. PULMONARY: Chest is clear to auscultation, no wheezing or crackles. ABDOMEN: Soft, tender, distended, normoactive bowel sounds. No palpable organomegaly. MUSCULOSKELETAL: No joint swelling or deformity. EXTREMITIES: No cyanosis, clubbing, or pedal edema. NEUROLOGICAL: Gross neurological examination did not reveal any focal deficits. SKIN: No rashes. - Labs CBC & Chem 7: 07/15/21 06:16 07/15/21 06:16 Labs: Abnormal Lab Results - Last 24 Hours (Table) 07/12/21 07/12/21 07/13/21 Range/Units 16:59 21:18 05:48 WBC (3.8-10.6) k/uL RBC (3.80-5.40) m/uL Hgb (11.4-16.0) gm/dL Hct (34.0-46.0) % MCHC (31.0-37.0) g/dL Plt Count (150-450) k/uL Sodium (137-145) mmol/L BUN (7-17) mg/dL Glucose (74-99) mg/dL POC Glucose (mg/dL) 184 H 154 H 171 H (75-99) mg/dL Calcium (8.4-10.2) mg/dL Stool Occult Blood (Negative) Crossmatch 07/13/21 07/13/21 07/13/21 Range/Units 07:29 07:37 11:34 WBC 13.7 H 11.7 H (3.8-10.6) k/uL RBC 2.84 L 2.78 L (3.80-5.40) m/uL Hgb 7.6 L D 7.5 L (11.4-16.0) gm/dL Hct 24.9 L 24.3 L (34.0-46.0) % MCHC 30.6 L 30.9 L (31.0-37.0) g/dL Plt Count 461 H 458 H (150-450) k/uL Sodium 136 L (137-145) mmol/L BUN 21 H (7-17) mg/dL Glucose 148 H (74-99) mg/dL POC Glucose (mg/dL) (75-99) mg/dL Calcium 7.8 L (8.4-10.2) mg/dL Stool Occult Blood (Negative) Crossmatch 07/13/21 07/13/21 07/13/21 Range/Units 11:41 12:30 13:21 WBC (3.8-10.6) k/uL RBC (3.80-5.40) m/uL Hgb (11.4-16.0) gm/dL Hct (34.0-46.0) % MCHC (31.0-37.0) g/dL Plt Count (150-450) k/uL Sodium (137-145) mmol/L BUN (7-17) mg/dL Glucose (74-99) mg/dL POC Glucose (mg/dL) 167 H (75-99) mg/dL Calcium (8.4-10.2) mg/dL Stool Occult Blood Positive H (Negative) Crossmatch See Detail Assessment and Plan Assessment: Assessment -Epigastric abdominal pain: Secondary to gastoesophageal reflux disease, possible peptic ulcer disease secondary to hiatal hernia -POD #2 Adis fundoplication -diarrhea, probably secondary to large hernia, resolving -metabolic acidosis, secondary to above -Hyperlipidemia: Resumed on statin -Hypertension hold off on anti-was medication patient blood pressure is low normal -hypothyroidism continue with levothyroxine -Hyperglycemia due to IV steroids DVT prophylaxis: Lovenox GI Prophylaxis: Protonix FULL CODE Plan Encourage ambulation Encourage incentive spirometry Clear liquid Adis diet per surgical Novolog for glycemic control Labs in AM
--- NOTE | 2021-07-15 19:20 | P.PN ---
Subjective Progress Note Date: 07/14/21 Principal diagnosis: GERD/hiatal hernia; status post Adis fundoplication; POD #2 Metabolic acidosis Diarrhea related to large hiatal hernia Hyperglycemia related to IV steroids Patient is an 80-year-old female came in with the complaint of upper abdominal discomfort patient does have history of hernia and the pain is related to be secondary to anemia, Gen. surgery evaluated the patient is planning on doing hemorrhoidal hernia repair/Adis fundoplication on Friday. Patient will be started on Protonix patient was on naproxen at home which will be held. Patient doesn't have any fever chills vomiting diarrhea. Bit nauseous 07/11/2021 Patient is seen and evaluated in room at bedside; status post repair of paraesophageal hernia with mesh; POD #2 Patient reports improvement this morning; does complain of pain; tolerating clear liquid diet well Vital signs are reviewed and reveal temperature of 97.4, pulse 89, respiration 18 and blood pressure 100/65 Lab review shows WBC 7.2, hemoglobin 9.3, platelet count of 464, sodium 144, potassium 4.0, BUN/creatinine of 13/0.80 and blood glucose of 158 Surgery on board and recommending to continue with IV dexamethasone for moderate obstruction noted on upper GI; patient will remain on IV fluids and a clear liquid diet Increase activity and PT/OT recommended 07/12/2021 Patient is seen and evaluated sitting up in bed; patient reports shortness of breath earlier in the day; was placed on O2 2-3 L per nasal cannula which improved breathing Does complain of chest congestion; we will hold off on IV fluids and order Lasix 40 mg IV 1 and order a chest x-ray We will signs are reviewed and reveal temperature of 97.5, pulse 88, respiration 28 and blood pressure 117/61. O2 saturation 96% on 2 L Patient is tolerating clear liquid diet fairly well and has been advanced to a full liquid diet; remains on IV dexamethasone for moderate obstruction on upper GI 07/13/2021 Patient is seen and evaluated; lying in bed; patient is status post laparoscopic repair of paraesophageal hernia with mesh; POD #4; episode of maroon-colored stool at night Vital signs reviewed reveal patient to be afebrile, blood pressure of 101/68, respiration 18 and heart rate of 19 with O2 saturation of 96% on 2 L Laboratory review shows a drop in hemoglobin from 9.3 down to 7.6 this morning; patient underwent EGD which reveals mild gastritis; no active bleeding; general surgery on board and recommending to continue to monitor labs closely. Possibility of colonoscopy if hemoglobin continues to drop; patient is status post transfusion with 1 unit of packed RBCs 07/14/2021 Patient is seen and evaluated; reports increasing abdominal pain; has been evaluated by surgery and is recommended CT of abdomen for further evaluation Vital signs temperature 97.7, pulse 85, respiration 22 and blood pressure 110/67 Lab review reveals an elevated white blood count of 21.7, hemoglobin of 8.5, platelets of 400, sodium 136, potassium 5.0, BUN/creatinine of 21/0.61 Patient is currently on IV antibiotics in form of Zosyn 3.375 g IV every 8 hours along with metronidazole 500 mg every 8 hours We will proceed with stat CT of the abdomen and consult ID for further recommendations Objective - Vital Signs Vital signs: Vital Signs Temp 98.2 F 07/14/21 16:01 Pulse 99 07/14/21 16:01 Resp 29 H 07/14/21 16:01 BP 97/50 07/14/21 16:01 Pulse Ox 93 L 07/14/21 16:01 Intake & Output 07/13/21 07/14/21 07/14/21 18:59 06:59 18:59 Intake Total 440 310 118 Balance 440 310 118 Intake: IV 200 Oral 240 118 Blood Product 0 310 Rc As-1 Unit 0 310 [id number] Other: Voiding Method Toilet # Voids 1 1 - Exam GENERAL: The patient is alert and oriented x3, not in any acute distress. Well developed, well nourished. HEENT: Pupils are round and equally reacting to light. EOMI. No scleral icterus. No conjunctival pallor. Normocephalic, atraumatic. No pharyngeal erythema. No thyromegaly. CARDIOVASCULAR: S1 and S2 present. No murmurs, rubs, or gallops. PULMONARY: Chest is clear to auscultation, no wheezing or crackles. ABDOMEN: Soft, tender, distended, normoactive bowel sounds. No palpable organomegaly. MUSCULOSKELETAL: No joint swelling or deformity. EXTREMITIES: No cyanosis, clubbing, or pedal edema. NEUROLOGICAL: Gross neurological examination did not reveal any focal deficits. SKIN: No rashes. - Labs CBC & Chem 7: 07/15/21 06:16 07/15/21 06:16 Labs: Abnormal Lab Results - Last 24 Hours (Table) 07/13/21 07/13/21 07/13/21 Range/Units 13:21 16:39 20:33 WBC (3.8-10.6) k/uL RBC (3.80-5.40) m/uL Hgb (11.4-16.0) gm/dL Hct (34.0-46.0) % RDW (11.5-15.5) % POC Glucose (mg/dL) 157 H 152 H (75-99) mg/dL Crossmatch See Detail 07/13/21 07/14/21 07/14/21 Range/Units 23:40 05:49 11:47 WBC 21.7 H (3.8-10.6) k/uL RBC 2.91 L (3.80-5.40) m/uL Hgb 8.5 L (11.4-16.0) gm/dL Hct 26.0 L (34.0-46.0) % RDW 15.7 H (11.5-15.5) % POC Glucose (mg/dL) 132 H 130 H (75-99) mg/dL Crossmatch 07/14/21 Range/Units 16:23 WBC (3.8-10.6) k/uL RBC (3.80-5.40) m/uL Hgb (11.4-16.0) gm/dL Hct (34.0-46.0) % RDW (11.5-15.5) % POC Glucose (mg/dL) 169 H (75-99) mg/dL Crossmatch Assessment and Plan Assessment: Assessment -Epigastric abdominal pain: Secondary to gastoesophageal reflux disease, possible peptic ulcer disease secondary to hiatal hernia -POD #2 Adis fundoplication -diarrhea, probably secondary to large hernia, resolving -metabolic acidosis, secondary to above -Hyperlipidemia: Resumed on statin -Hypertension hold off on anti-was medication patient blood pressure is low nor mal -hypothyroidism continue with levothyroxine -Hyperglycemia due to IV steroids DVT prophylaxis: Lovenox GI Prophylaxis: Protonix FULL CODE Plan Encourage ambulation Encourage incentive spirometry Clear liquid Adis diet per surgical Novolog for glycemic control Labs in AM
--- NOTE | 2021-07-15 19:22 | P.PN ---
Subjective Progress Note Date: 07/15/21 Principal diagnosis: GERD/hiatal hernia; status post Adis fundoplication; POD #2 Metabolic acidosis Diarrhea related to large hiatal hernia Hyperglycemia related to IV steroids Patient is an 80-year-old female came in with the complaint of upper abdominal discomfort patient does have history of hernia and the pain is related to be secondary to anemia, Gen. surgery evaluated the patient is planning on doing hemorrhoidal hernia repair/Adis fundoplication on Friday. Patient will be started on Protonix patient was on naproxen at home which will be held. Patient doesn't have any fever chills vomiting diarrhea. Bit nauseous 07/11/2021 Patient is seen and evaluated in room at bedside; status post repair of paraesophageal hernia with mesh; POD #2 Patient reports improvement this morning; does complain of pain; tolerating clear liquid diet well Vital signs are reviewed and reveal temperature of 97.4, pulse 89, respiration 18 and blood pressure 100/65 Lab review shows WBC 7.2, hemoglobin 9.3, platelet count of 464, sodium 144, potassium 4.0, BUN/creatinine of 13/0.80 and blood glucose of 158 Surgery on board and recommending to continue with IV dexamethasone for moderate obstruction noted on upper GI; patient will remain on IV fluids and a clear liquid diet Increase activity and PT/OT recommended 07/12/2021 Patient is seen and evaluated sitting up in bed; patient reports shortness of breath earlier in the day; was placed on O2 2-3 L per nasal cannula which improved breathing Does complain of chest congestion; we will hold off on IV fluids and order Lasix 40 mg IV 1 and order a chest x-ray We will signs are reviewed and reveal temperature of 97.5, pulse 88, respiration 28 and blood pressure 117/61. O2 saturation 96% on 2 L Patient is tolerating clear liquid diet fairly well and has been advanced to a full liquid diet; remains on IV dexamethasone for moderate obstruction on upper GI 07/13/2021 Patient is seen and evaluated; lying in bed; patient is status post laparoscopic repair of paraesophageal hernia with mesh; POD #4; episode of maroon-colored stool at night Vital signs reviewed reveal patient to be afebrile, blood pressure of 101/68, respiration 18 and heart rate of 19 with O2 saturation of 96% on 2 L Laboratory review shows a drop in hemoglobin from 9.3 down to 7.6 this morning; patient underwent EGD which reveals mild gastritis; no active bleeding; general surgery on board and recommending to continue to monitor labs closely. Possibility of colonoscopy if hemoglobin continues to drop; patient is status post transfusion with 1 unit of packed RBCs 07/14/2021 Patient is seen and evaluated; reports increasing abdominal pain; has been evaluated by surgery and is recommended CT of abdomen for further evaluation Vital signs temperature 97.7, pulse 85, respiration 22 and blood pressure 110/67 Lab review reveals an elevated white blood count of 21.7, hemoglobin of 8.5, platelets of 400, sodium 136, potassium 5.0, BUN/creatinine of 21/0.61 Patient is currently on IV antibiotics in form of Zosyn 3.375 g IV every 8 hours along with metronidazole 500 mg every 8 hours We will proceed with stat CT of the abdomen and consult ID for further recommendations Objective - Vital Signs Vital signs: Vital Signs Temp 98.1 F 07/15/21 18:13 Pulse 92 07/15/21 18:13 Resp 19 07/15/21 18:13 BP 132/68 07/15/21 18:13 Pulse Ox 93 L 07/15/21 18:13 Intake & Output 07/15/21 07/15/21 07/16/21 06:59 18:59 06:59 Intake Total 780 Output Total 450 1050 Balance 330 -1050 Weight 78.5 kg Intake: IV 750 Oral 30 Output: Urine 400 1050 Estimated Blood Loss 50 Other: Voiding Method Toilet Indwelling Catheter # Bowel Movements 0 - Exam GENERAL: The patient is alert and oriented x3, not in any acute distress. Well developed, well nourished. HEENT: Pupils are round and equally reacting to light. EOMI. No scleral icterus. No conjunctival pallor. Normocephalic, atraumatic. No pharyngeal erythema. No thyromegaly. CARDIOVASCULAR: S1 and S2 present. No murmurs, rubs, or gallops. PULMONARY: Chest is clear to auscultation, no wheezing or crackles. ABDOMEN: Soft, tender, distended, normoactive bowel sounds. No palpable organom egaly. MUSCULOSKELETAL: No joint swelling or deformity. EXTREMITIES: No cyanosis, clubbing, or pedal edema. NEUROLOGICAL: Gross neurological examination did not reveal any focal deficits. SKIN: No rashes. - Labs CBC & Chem 7: 07/15/21 06:16 07/15/21 06:16 Labs: Abnormal Lab Results - Last 24 Hours (Table) 07/14/21 07/15/21 07/15/21 Range/Units 22:43 06:02 06:16 WBC 27.7 H (3.8-10.6) k/uL RBC 2.87 L (3.80-5.40) m/uL Hgb 8.4 L (11.4-16.0) gm/dL Hct 27.1 L (34.0-46.0) % MCHC 30.9 L (31.0-37.0) g/dL RDW 16.9 H (11.5-15.5) % Neutrophils # 26.7 H (1.3-7.7) k/uL Lymphocytes # 0.3 L (1.0-4.8) k/uL Sodium (137-145) mmol/L Potassium (3.5-5.1) mmol/L BUN (7-17) mg/dL Glucose (74-99) mg/dL POC Glucose (mg/dL) 151 H 129 H (75-99) mg/dL Calcium (8.4-10.2) mg/dL Total Protein (6.3-8.2) g/dL Albumin (3.5-5.0) g/dL 07/15/21 07/15/21 07/15/21 Range/Units 06:16 11:25 16:31 WBC (3.8-10.6) k/uL RBC (3.80-5.40) m/uL Hgb (11.4-16.0) gm/dL Hct (34.0-46.0) % MCHC (31.0-37.0) g/dL RDW (11.5-15.5) % Neutrophils # (1.3-7.7) k/uL Lymphocytes # (1.0-4.8) k/uL Sodium 136 L (137-145) mmol/L Potassium 5.4 H (3.5-5.1) mmol/L BUN 46 H (7-17) mg/dL Glucose 107 H (74-99) mg/dL POC Glucose (mg/dL) 154 H 140 H (75-99) mg/dL Calcium 7.6 L (8.4-10.2) mg/dL Total Protein 4.3 L (6.3-8.2) g/dL Albumin 1.9 L (3.5-5.0) g/dL Microbiology - Last 24 Hours (Table) 07/14/21 20:50 Anaerobic Culture - Preliminary Other - Other 07/14/21 20:50 Wound Culture - Preliminary Other - Other Assessment and Plan Assessment: Assessment -Epigastric abdominal pain: Secondary to gastoesophageal reflux disease, possible peptic ulcer disease secondary to hiatal hernia -POD #2 Adis fundoplication -diarrhea, probably secondary to large hernia, resolving -metabolic acidosis, secondary to above -Hyperlipidemia: Resumed on statin -Hypertension hold off on anti-was medication patient blood pressure is low normal -hypothyroidism continue with levothyroxine -Hyperglycemia due to IV steroids DVT prophylaxis: Lovenox GI Prophylaxis: Protonix FULL CODE Plan Encourage ambulation Encourage incentive spirometry Clear liquid Adis diet per surgical Novolog for glycemic control Labs in AM
[2021-07-15 19:51] LABS: Glucose,Whole Blood 137 mg/dL (75-99)
[2021-07-15] MEDS: PRAMIPEXOLE 1 MG TAB PO SCH (20:53)
[2021-07-15] MEDS: PRAVASTATIN SODIUM 40 MG TAB PO SCH (21:01)
--- NOTE | 2021-07-15 23:40 | PN ---
PROGRESS NOTE DATE OF SERVICE: 07/15/2021 REASON FOR FOLLOWUP: Leukocytosis from perforated sigmoid diverticulitis. INTERVAL HISTORY: The patient is afebrile. The patient is currently breathing comfortably. The patient did mention abdominal pain has slightly decreased in intensity. No chest pain, shortness of breath or cough. No nausea or vomiting. PHYSICAL EXAMINATION: Blood pressure 91/55 with a pulse of 53, temperature 97.8. She is 91% on 3 L nasal cannula. General description is an elderly female lying in bed in no distress. Respiratory system: Unlabored breathing, clear to auscultation anteriorly. Heart S1, S2. Regular rate and rhythm. Abdomen soft. No guarding or rigidity. LABS: Hemoglobin 8.4, white count 7.7, creatinine 0.85. DIAGNOSTIC IMPRESSION AND PLAN: Patient with leukocytosis, likely related to perforated diverticulitis in this patient status post diverting colostomy. Abdominal culture pending. Patient is covered with Diflucan and Zosyn; to continue, adjusting it further on the basis of the culture report. Continue supportive care. MMODL / IJN: [id number] /
[2021-07-16] MEDS: metroNIDAZOLE-NS PMX 500 MG in SALINE 1 100ML.BAG IVPB SCH ×4 (00:03→23:40)
[2021-07-16] MEDS: DEXAMETHASONE SOD PHOSPHATE 4 MG/ML 1 ML VIAL IVP SCH ×5 (00:03→23:40)
[2021-07-16] MEDS: PIPERACILLIN-TAZOBACTAM 3.375 GM in SODIUM CHLORIDE 0.9% 100 ML IVPB SCH ×3 (00:03→18:12)
[2021-07-16] MEDS: LEVOTHYROXINE 25 MCG TAB PO SCH (05:09)
[2021-07-16] MEDS: HYDROcodone/APAP 7.5-325MG 1 EACH TAB PO PRN (05:09)
[2021-07-16] MEDS: SODIUM CHLORIDE 0.9% 1,000 ML IV SCH ×2 (05:13→18:12)
[2021-07-16 06:48] LABS: Anisocytosis Slight; Basophils % (A) 0 %; Eosinophils % (A) 0 %; HCT 24.6 % (34.0-46.0); HGB 7.4 gm/dL (11.4-16.0); Hypochromasia Marked; Lymphocytes # (A) 0.3 k/uL (1.0-4.8); Lymphocytes % (A) 2 %; MCH 28.8 pg (25.0-35.0); MCHC 30.2 g/dL (31.0-37.0); MCV 95.2 fL (80.0-100.0); Mean Platelet Volume 8.1; Monocytes # (A) 0.3 k/uL (0-1.0); Monocytes % (A) 2 %; Neutrophils # (A) 16.1 k/uL (1.3-7.7); Neutrophils % (A) 96 %; Platelet Count 364 k/uL (150-450); RBC 2.58 m/uL (3.80-5.40); RDW 17.3 % (11.5-15.5); WBC 16.8 k/uL (3.8-10.6)
[2021-07-16 07:22] LABS: Glucose,Whole Blood 144 mg/dL (75-99)
[2021-07-16] MEDS: INSULIN ASPART (NovoLOG) 100 UNIT/ML VIAL SQ SCH ×4 (08:34→22:43)
[2021-07-16] MEDS: FLUCONAZOLE IN NACL,ISO-OSM 100 MG in SALINE 1 50ML.BAG IVPB SCH (08:35)
[2021-07-16] MEDS: FUROSEMIDE 10 MG/ML 2 ML VIAL IV SCH (08:39)
[2021-07-16] MEDS: VIT A,C & E-LUTEIN-MINERALS 1 EACH TAB PO SCH (08:39)
[2021-07-16] MEDS: PANTOPRAZOLE 40 MG TABLET PO SCH (08:39)
[2021-07-16 09:23] LABS: African American GFR (CKD) 94.8 (60.0-200.0); Anion Gap 11.8 mmol/L (10.00-18.00); BUN/Creat Ratio 53.71 Ratio (12.00-20.00); Blood Urea Nitrogen 37.6 mg/dL (9.0-27.0); Calcium 7.5 mg/dL (8.7-10.3); Carbon Dioxide 21.2 mmol/L (20.0-27.5); Non-African American GFR(CKD) 81.8 (60.0-200.0); Potassium 5.7 mmol/L (3.5-5.5)
--- NOTE | 2021-07-16 11:26 | P.PN ---
<Ginny Kay - Last Filed: 07/16/21 11:21> Subjective Progress Note Date: 07/16/21 CHIEF COMPLAINT: Large paraesophageal hernia HISTORY OF PRESENT ILLNESS: Patient is postop day #2 status post sigmoid colectomy with end colostomy for perforated sigmoid diverticulitis. She is status post laparoscopic repair of paraesophageal hernia with mesh on 07/09/21. Patient reports that her her pain is controlled. Denies any nausea or vomiting. Her ostomy is beginning to function. She's had some air in her bag as well as a liquidy brown stool. Afebrile. WBC is trending downwards to 16.8 hemoglobin 7.4 patient is emotional today after going through 2 surgeries. PHYSICAL EXAM: VITAL SIGNS: Reviewed. GENERAL: Well-developed in no acute distress. HEENT: No sclera icterus. Extraocular movements grossly intact. Moist buccal mucosa. Head is atraumatic, normocephalic. ABDOMEN: Soft. Nondistended. Incisional dressing clean dry and intact. Ostomy bag on the left with small amount of liquidy stool and air NEUROLOGIC: Alert and oriented. Cranial nerves II through XII grossly intact. ASSESSMENT: 1. Perforated sigmoid diverticulitis status post sigmoid colectomy with end colostomy 2. Large paraesophageal hernia containing colon, small bowel and stomach status post laparoscopic repair of paraesophageal hernia with mesh 3. Moderate obstruction status post hiatal hernia repair PLAN: -Advance diet to clear liquids -Continue supportive care -Encouraged patient to ambulate -Encouraged patient to use incentive spirometer -Continue antibiotics -Continue pain medication as needed Physician Spray Dyer note has been reviewed by physician. Signing provider agrees with the documented findings, assessment, and plan of care. Objective - Vital Signs Vital signs: Vital Signs Temp 97.5 F L 07/16/21 05:00 Pulse 72 07/16/21 08:44 Resp 18 07/16/21 05:00 BP 114/68 07/16/21 08:44 Pulse Ox 94 L 07/16/21 08:44 Intake & Output 07/15/21 07/16/21 07/16/21 18:59 06:59 18:59 Output Total 1050 600 Balance -1050 -600 Weight 80 kg Output: Urine 1050 600 Other: Voiding Method Indwelling Catheter Indwelling Catheter # Bowel Movements 0 0 - Labs CBC & Chem 7: 07/16/21 05:56 12/13/21 05:49 Labs: Abnormal Lab Results - Last 24 Hours (Table) 07/15/21 07/15/21 07/15/21 Range/Units 11:25 16:31 19:50 WBC (3.8-10.6) k/uL RBC (3.80-5.40) m/uL Hgb (11.4-16.0) gm/dL Hct (34.0-46.0) % MCHC (31.0-37.0) g/dL RDW (11.5-15.5) % Neutrophils # (1.3-7.7) k/uL Lymphocytes # (1.0-4.8) k/uL Potassium (3.5-5.5) mmol/L BUN (9.0-27.0) mg/dL BUN/Creatinine Ratio (12.00-20.00) Ratio Glucose (70-110) mg/dL POC Glucose (mg/dL) 154 H 140 H 137 H (75-99) mg/dL Calcium (8.7-10.3) mg/dL 07/16/21 07/16/21 07/16/21 Range/Units 05:49 05:56 07:12 WBC 16.8 H (3.8-10.6) k/uL RBC 2.58 L (3.80-5.40) m/uL Hgb 7.4 L (11.4-16.0) gm/dL Hct 24.6 L (34.0-46.0) % MCHC 30.2 L (31.0-37.0) g/dL RDW 17.3 H (11.5-15.5) % Neutrophils # 16.1 H (1.3-7.7) k/uL Lymphocytes # 0.3 L (1.0-4.8) k/uL Potassium 5.7 H (3.5-5.5) mmol/L BUN 37.6 H (9.0-27.0) mg/dL BUN/Creatinine Ratio 53.71 H (12.00-20.00) Ratio Glucose 121 H (70-110) mg/dL POC Glucose (mg/dL) 144 H (75-99) mg/dL Calcium 7.5 L (8.7-10.3) mg/dL Microbiology - Last 24 Hours (Table) 07/14/21 20:50 Gram Stain - Preliminary Other - Other Wound Culture - Preliminary Gram Neg Bacilli 07/14/21 23:20 Blood Culture - Preliminary Blood No Growth after 24 hours 07/14/21 20:50 Anaerobic Culture - Preliminary Other - Other <Mahad Quiros - Last Filed: 07/16/21 18:03> Subjective As above. Patient seems to be doing better than this morning. Denies pain. Tolerating liquid diet thus far. Gradually increase activity as tolerated. Continue broad-spectrum antibiotics. Begin wick dressing changes tomorrow. Objective - Vital Signs Vital signs: Vital Signs Temp 97.9 F 07/16/21 11:23 Pulse 79 07/16/21 11:23 Resp 16 07/16/21 11:23 BP 120/76 07/16/21 11:23 Pulse Ox 95 07/16/21 11:23 Intake & Output 07/15/21 07/16/21 07/16/21 18:59 06:59 18:59 Output Total 2411 488 5195 Balance -1050 -600 -1700 Weight 80 kg Output: Urine 8163 849 8623 Stool 100 Other: Voiding Method Indwelling Catheter Indwelling Catheter Indwelling Catheter # Bowel Movements 0 0 - Labs CBC & Chem 7: 07/16/21 05:56 07/16/21 05:49 Labs: Abnormal Lab Results - Last 24 Hours (Table) 07/15/21 07/16/21 07/16/21 Range/Units 19:50 05:49 05:56 WBC 16.8 H (3.8-10.6) k/uL RBC 2.58 L (3.80-5.40) m/uL Hgb 7.4 L (11.4-16.0) gm/dL Hct 24.6 L (34.0-46.0) % MCHC 30.2 L (31.0-37.0) g/dL RDW 17.3 H (11.5-15.5) % Neutrophils # 16.1 H (1.3-7.7) k/uL Lymphocytes # 0.3 L (1.0-4.8) k/uL Potassium 5.7 H (3.5-5.5) mmol/L BUN 37.6 H (9.0-27.0) mg/dL BUN/Creatinine Ratio 53.71 H (12.00-20.00) Ratio Glucose 121 H (70-110) mg/dL POC Glucose (mg/dL) 137 H (75-99) mg/dL Calcium 7.5 L (8.7-10.3) mg/dL 07/16/21 07/16/21 07/16/21 Range/Units 07:12 11:26 17:01 WBC (3.8-10.6) k/uL RBC (3.80-5.40) m/uL Hgb (11.4-16.0) gm/dL Hct (34.0-46.0) % MCHC (31.0-37.0) g/dL RDW (11.5-15.5) % Neutrophils # (1.3-7.7) k/uL Lymphocytes # (1.0-4.8) k/uL Potassium (3.5-5.5) mmol/L BUN (9.0-27.0) mg/dL BUN/Creatinine Ratio (12.00-20.00) Ratio Glucose (70-110) mg/dL POC Glucose (mg/dL) 144 H 141 H 197 H (75-99) mg/dL Calcium (8.7-10.3) mg/dL Microbiology - Last 24 Hours (Table) 07/14/21 20:50 Gram Stain - Preliminary Other - Other Wound Culture - Preliminary Gram Neg Bacilli 07/14/21 23:20 Blood Culture - Preliminary Blood No Growth after 24 hours Assessment and Plan (1) Abdominal pain Current Visit: Yes Status: Acute Code(s): R10.9 - UNSPECIFIED ABDOMINAL PAIN SNOMED Code(s): 54047600
[2021-07-16 11:36] LABS: Glucose,Whole Blood 141 mg/dL (75-99)
[2021-07-16] MEDS ORDERED: INSULIN REGULAR 100 UNIT/ML VIAL (IV) IV ONE (12:00)
[2021-07-16] MEDS ORDERED: DEXTROSE 50% SYRINGE 50 ML IVP STA (12:00)
[2021-07-16 17:04] LABS: Glucose,Whole Blood 197 mg/dL (75-99)
[2021-07-16 20:49] LABS: Glucose,Whole Blood 228 mg/dL (75-99)
--- NOTE | 2021-07-16 22:23 | PN ---
PROGRESS NOTE DATE OF SERVICE: 07/16/2021 REASON FOR FOLLOW UP: Secondary peritonitis from perforated diverticulitis. INTERVAL HISTORY: Patient is afebrile. The patient is breathing comfortably. Patient denies having any chest pain, shortness of breath or cough. Abdominal pain has decreased in intensity. No vomiting or diarrhea. PHYSICAL EXAMINATION: Blood pressure is 126/62, pulse of 74, temperature is 98.7. She is 94% on room air. General description is an elderly female lying in bed in no distress. Respiratory system: Unlabored breathing, coarse breath sounds bilaterally. No wheeze. Heart S1, S2. Regular rate and rhythm. Abdomen soft, no tenderness. LABS: Hemoglobin 7.4, white count 16.8, creatinine 0.71. Abdominal cultures with Gram- negative bacilli. DIAGNOSTIC IMPRESSION AND PLAN: Patient with secondary peritonitis from a perforated diverticulitis status post diverting colostomy and drainage of the abscess. Patient is covered with Zosyn and Diflucan that will be continued. Antibiotic adjusted further on the basis of the culture report. Continue supportive care. MMODL / IJN: [id number] /
[2021-07-16] MEDS: PRAMIPEXOLE 1 MG TAB PO SCH (22:43)
[2021-07-16] MEDS: ACETAMINOPHEN TAB 325 MG TAB PO PRN (22:43)
[2021-07-16] MEDS: PRAVASTATIN SODIUM 40 MG TAB PO SCH (23:39)
[2021-07-17] MEDS: PIPERACILLIN-TAZOBACTAM 3.375 GM in SODIUM CHLORIDE 0.9% 100 ML IVPB SCH ×4 (00:07→23:33)
[2021-07-17] MEDS: SODIUM CHLORIDE 0.9% 1,000 ML IV SCH ×2 (06:20→09:26)
[2021-07-17] MEDS: LEVOTHYROXINE 25 MCG TAB PO SCH (06:24)
[2021-07-17] MEDS: DEXAMETHASONE SOD PHOSPHATE 4 MG/ML 1 ML VIAL IVP SCH ×2 (06:24→11:15)
[2021-07-17 07:07] LABS: Glucose,Whole Blood 197 mg/dL (75-99)
[2021-07-17] MEDS: INSULIN ASPART (NovoLOG) 100 UNIT/ML VIAL SQ SCH ×4 (07:45→21:44)
[2021-07-17] MEDS: metroNIDAZOLE-NS PMX 500 MG in SALINE 1 100ML.BAG IVPB SCH ×3 (07:45→23:33)
[2021-07-17] MEDS: PANTOPRAZOLE 40 MG TABLET PO SCH (07:45)
[2021-07-17] MEDS: FUROSEMIDE 10 MG/ML 2 ML VIAL IV SCH (08:04)
[2021-07-17] MEDS: VIT A,C & E-LUTEIN-MINERALS 1 EACH TAB PO SCH (08:04)
--- NOTE | 2021-07-17 08:26 | P.PN ---
Subjective Progress Note Date: 07/16/21 Patient is an 80-year-old female came in with the complaint of upper abdominal discomfort patient does have history of hernia and the pain is related to be secondary to anemia, Gen. surgery evaluated the patient is planning on doing hemorrhoidal hernia repair/Adis fundoplication on Friday. Patient will be started on Protonix patient was on naproxen at home which will be held. Patient doesn't have any fever chills vomiting diarrhea. Bit nauseous 07/11/2021 Patient is seen and evaluated in room at bedside; status post repair of paraesophageal hernia with mesh; POD #2 Patient reports improvement this morning; does complain of pain; tolerating clear liquid diet well Vital signs are reviewed and reveal temperature of 97.4, pulse 89, respiration 18 and blood pressure 100/65 Lab review shows WBC 7.2, hemoglobin 9.3, platelet count of 464, sodium 144, potassium 4.0, BUN/creatinine of 13/0.80 and blood glucose of 158 Surgery on board and recommending to continue with IV dexamethasone for moderate obstruction noted on upper GI; patient will remain on IV fluids and a clear liquid diet Increase activity and PT/OT recommended 07/12/2021 Patient is seen and evaluated sitting up in bed; patient reports shortness of breath earlier in the day; was placed on O2 2-3 L per nasal cannula which improved breathing Does complain of chest congestion; we will hold off on IV fluids and order Lasix 40 mg IV 1 and order a chest x-ray We will signs are reviewed and reveal temperature of 97.5, pulse 88, respiration 28 and blood pressure 117/61. O2 saturation 96% on 2 L Patient is tolerating clear liquid diet fairly well and has been advanced to a full liquid diet; remains on IV dexamethasone for moderate obstruction on upper GI 07/13/2021 Patient is seen and evaluated; lying in bed; patient is status post laparoscopic repair of paraesophageal hernia with mesh; POD #4; episode of maroon-colored stool at night Vital signs reviewed reveal patient to be afebrile, blood pressure of 101/68, respiration 18 and heart rate of 19 with O2 saturation of 96% on 2 L Laboratory review shows a drop in hemoglobin from 9.3 down to 7.6 this morning; patient underwent EGD which reveals mild gastritis; no active bleeding; general surgery on board and recommending to continue to monitor labs closely. Possibility of colonoscopy if hemoglobin continues to drop; patient is status post transfusion with 1 unit of packed RBCs 07/14/2021 Patient is seen and evaluated; reports increasing abdominal pain; has been evaluated by surgery and is recommended CT of abdomen for further evaluation Vital signs temperature 97.7, pulse 85, respiration 22 and blood pressure 110/67 Lab review reveals an elevated white blood count of 21.7, hemoglobin of 8.5, platelets of 400, sodium 136, potassium 5.0, BUN/creatinine of 21/0.61 Patient is currently on IV antibiotics in form of Zosyn 3.375 g IV every 8 hours along with metronidazole 500 mg every 8 hours We will proceed with stat CT of the abdomen and consult ID for further recommendations 07/15/2021 Patient is seen and evaluated resting in bed; reports improved abdominal pain with oral [place] Vital signs are reviewed and stable with temperature of 98, pulse 72, respiration 20 and blood pressure 111/71 Lab review reveals WBC that remains elevated at 27.7, hemoglobin of 8.4 and platelet count of 369, sodium 136, potassium 5.4, BUN/creatinine of 46/0.85 CT of the abdomen completed reveals normal. Continue related to perforated si gmoid diverticulitis; patient underwent sigmoid colectomy with end colostomy; POD #1 Patient remains nothing by mouth or surgery recommendations; potassium elevated at 5.4; we will repeat stat potassium level and treat as needed; continue with IV antibiotics as ordered We will monitor CBC, CRP and pro-calcitonin 07/16/2021 Patient is seen in follow up this morning with family at the bedside. Ostomy nurse at the bedside educating as well. Patient reports to passing gas in the ostomy and general surgery following closely. Patient diet is being advanced as tolerated. Patient has some generalized pain although reports to feeling nauseated and dizzy with narcotics. Will continue with tylenol and lower dose of norco and discuss with nursing staff of avoiding narcotics if possible. PT/OT to evaluate as patient will likely need rehab for strength and mobility. social wo rk consulted for possible placement. Patient is continued on flagyl and Zosyn with infectious disease also following closely. Diflucan as well. Potassium elevated and will correct and repeat am labs. Encouraged increased activity as tolerated. Labs: WBC is 16.8, hemoglobin is 7.4, platelets are 364, sodium is 140, potassium 5.7, creatinine 0.7, calcium 7.5 Review of systems: Constitutional: No reports of fatigue, fever, or chills Cardiovascular: No reports of chest pain or palpitations Respiratory: No reports of shortness of breath or cough GI: No reports of nausea, vomiting, reports gas in ostomy, no stool yet : No reports of dysuria or retention, currently indwelling thapa catheter Neurovascular: reports of generalized weakness Physical exam: GENERAL: The patient is alert and oriented x3, Well developed, well nourished. Temp is 97.5F, pulse is 68, respirations are 18, blood pressure is 107/67, oxygen saturation is 91% on 2 L via nasal cannula HEENT: Pupils are round and equally reacting to light. EOMI. No scleral icterus. No conjunctival pallor. Normocephalic, atraumatic. No pharyngeal erythema. No thyromegaly. CARDIOVASCULAR: S1 and S2 muffled PULMONARY: Diminished breath sounds bilaterally with no wheezing or crackles. ABDOMEN: Soft, tender, normoactive bowel sounds. No palpable organomegaly. Ostomy noted MUSCULOSKELETAL: No joint swelling or deformity. EXTREMITIES: No cyanosis, clubbing, or pedal edema. NEUROLOGICAL: Gross neurological examination did not reveal any focal deficits. Diffuse weakness SKIN: No rashes. Assessment: -Epigastric abdominal pain: Secondary to gastoesophageal reflux disease, possible peptic ulcer disease secondary to hiatal hernia -Status post sigmoid colectomy with end colostomy secondary to perforated sigmoid diverticulitis -Status post laparoscopic repair of paraesophageal hernia with mesh -diarrhea, probably secondary to large hernia, resolving -metabolic acidosis, secondary to above -hyperkalemia -Hyperlipidemia -Hypertension -hypothyroidism -Hyperglycemia due to IV steroids -DVT prophylaxis -GI Prophylaxis -FULL CODE Plan: Recommend to continue with current medications and management. Surgery and i nfectious disease following closely secondary to peritonitis from a perforated diverticulitis resulting in diverting colostomy. Patient continues on IV Zosyn and Diflucan and awaiting for finalized cultures. Preliminary culture showing gram-negative bacilli. Encouraged increase activity as tolerated and will have PT evaluate the patient for possible ECF. Social work is consulted and family is at the bedside with questions and concerns answered. Patient is receiving ostomy education and care. Patient reports to having gas in the ostomy with no stool as of yet. Diet is being advanced per surgical recommendations. White blood count was trending down and patient is afebrile and will repeat labs. Recommend discontinuing indwelling Thapa catheter monitor for retention. Recommend continue Accu-Cheks before meals and at bedtime. Due to multiple complex medical issues, prognosis is guarded. Further recommendations to follow based on the clinical course of the patient. Objective - Vital Signs Vital signs: Vital Signs Temp 97.9 F 07/16/21 11:23 Pulse 79 07/16/21 11:23 Resp 16 07/16/21 11:23 BP 120/76 07/16/21 11:23 Pulse Ox 95 07/16/21 11:23 Intake & Output 07/15/21 07/16/21 07/16/21 18:59 06:59 18:59 Output Total 8387 820 1860 Balance -1050 -600 -1300 Weight 80 kg Output: Urine 4443 541 0244 Other: Voiding Method Indwelling Catheter Indwelling Catheter Indwelling Catheter # Bowel Movements 0 0 - Labs CBC & Chem 7: 07/16/21 05:56 07/16/21 05:49 Labs: Abnormal Lab Results - Last 24 Hours (Table) 07/15/21 07/15/21 07/16/21 Range/Units 16:31 19:50 05:49 WBC (3.8-10.6) k/uL RBC (3.80-5.40) m/uL Hgb (11.4-16.0) gm/dL Hct (34.0-46.0) % MCHC (31.0-37.0) g/dL RDW (11.5-15.5) % Neutrophils # (1.3-7.7) k/uL Lymphocytes # (1.0-4.8) k/uL Potassium 5.7 H (3.5-5.5) mmol/L BUN 37.6 H (9.0-27.0) mg/dL BUN/Creatinine Ratio 53.71 H (12.00-20.00) Ratio Glucose 121 H (70-110) mg/dL POC Glucose (mg/dL) 140 H 137 H (75-99) mg/dL Calcium 7.5 L (8.7-10.3) mg/dL 07/16/21 07/16/21 07/16/21 Range/Units 05:56 07:12 11:26 WBC 16.8 H (3.8-10.6) k/uL RBC 2.58 L (3.80-5.40) m/uL Hgb 7.4 L (11.4-16.0) gm/dL Hct 24.6 L (34.0-46.0) % MCHC 30.2 L (31.0-37.0) g/dL RDW 17.3 H (11.5-15.5) % Neutrophils # 16.1 H (1.3-7.7) k/uL Lymphocytes # 0.3 L (1.0-4.8) k/uL Potassium (3.5-5.5) mmol/L BUN (9.0-27.0) mg/dL BUN/Creatinine Ratio (12.00-20.00) Ratio Glucose (70-110) mg/dL POC Glucose (mg/dL) 144 H 141 H (75-99) mg/dL Calcium (8.7-10.3) mg/dL Microbiology - Last 24 Hours (Table) 07/14/21 20:50 Gram Stain - Preliminary Other - Other Wound Culture - Preliminary Gram Neg Bacilli 07/14/21 23:20 Blood Culture - Preliminary Blood No Growth after 24 hours 07/14/21 20:50 Anaerobic Culture - Preliminary Other - Other
[2021-07-17 09:03] LABS: Anisocytosis Slight; Basophils % (A) 0 %; Eosinophils % (A) 0 %; HCT 21.9 % (34.0-46.0); Hypochromasia Marked; Lymphocytes # (A) 0.3 k/uL (1.0-4.8); Lymphocytes % (A) 2 %; MCH 28.6 pg (25.0-35.0); MCHC 30.5 g/dL (31.0-37.0); MCV 93.6 fL (80.0-100.0); Macrocytosis Slight; Mean Platelet Volume 7.8; Monocytes # (A) 0.4 k/uL (0-1.0); Monocytes % (A) 3 %; Neutrophils # (A) 16.1 k/uL (1.3-7.7); Neutrophils % (A) 95 %; Platelet Count 451 k/uL (150-450); Poikilocytosis Slight; RBC 2.34 m/uL (3.80-5.40); RDW 19.1 % (11.5-15.5); WBC 16.9 k/uL (3.8-10.6)
[2021-07-17 09:07] LABS: HGB 6.7 gm/dL (11.4-16.0)
[2021-07-17 09:15] LABS: African American GFR (CKD) >90 (>60 ml/min/1.73 sqM); Anion Gap 4 mmol/L; Blood Urea Nitrogen 34 mg/dL (7-17); Calcium 7.6 mg/dL (8.4-10.2); Carbon Dioxide 28 mmol/L (22-30); Chloride 106 mmol/L (98-107); Glucose 183 mg/dL (74-99); Non-African American GFR(CKD) 85 (>60 ml/min/1.73 sqM); Potassium 4.4 mmol/L (3.5-5.1); Sodium 138 mmol/L (137-145)
[2021-07-17] MEDS: FLUCONAZOLE IN NACL,ISO-OSM 100 MG in SALINE 1 50ML.BAG IVPB SCH (09:22)
[2021-07-17] MEDS: TAMSULOSIN 0.4 MG CAP.ER.24H PO SCH (09:22)
[2021-07-17] MEDS: METOCLOPRAMIDE 5 MG/ML 2 ML VIAL IVP PRN (10:58)
[2021-07-17] MEDS: MORPHINE SULFATE 4 MG/ML SYRINGE IVP PRN (11:13)
[2021-07-17 11:40] LABS: Glucose,Whole Blood 231 mg/dL (75-99)
--- NOTE | 2021-07-17 12:19 | P.PN ---
<Ginny Kay - Last Filed: 07/17/21 12:13> Subjective Progress Note Date: 07/17/21 CHIEF COMPLAINT: Large paraesophageal hernia HISTORY OF PRESENT ILLNESS: Patient is postop day #3 status post sigmoid colectomy with end colostomy for perforated sigmoid diverticulitis. She is status post laparoscopic repair of paraesophageal hernia with mesh on 07/09/21. Patient reports that her her pain is controlled with Tylenol. [place] made her feel ill. She denies any nausea or vomiting. She is tolerating a clear liquid diet. She wants to move more today. Her ostomy is functioning with stool and air. Afebrile. Hemoglobin did drop to 6.7 and she is going to receive a unit of blood today. WBC 16.9 potassium down from 5.7-4.40 PHYSICAL EXAM: VITAL SIGNS: Reviewed. GENERAL: Well-developed in no acute distress. HEENT: No sclera icterus. Extraocular movements grossly intact. Moist buccal mucosa. Head is atraumatic, normocephalic. ABDOMEN: Soft. Nondistended. Incisional dressing clean dry and intact. Os yony bag on the left with small amount of liquidy stool and air NEUROLOGIC: Alert and oriented. Cranial nerves II through XII grossly intact. ASSESSMENT: 1. Perforated sigmoid diverticulitis status post sigmoid colectomy with end colostomy 2. Large paraesophageal hernia containing colon, small bowel and stomach status post laparoscopic repair of paraesophageal hernia with mesh 3. Moderate obstruction status post hiatal hernia repair PLAN: -Patient receiving 1 unit of blood today -Continue clear liquids -add ultram for pain -Continue supportive care -Encouraged patient to ambulate -Encouraged patient to use incentive spirometer -Continue antibiotics Physician Supplier Relationship Director note has been reviewed by physician. Signing provider agrees with the documented findings, assessment, and plan of care. Objective - Vital Signs Vital signs: Vital Signs Temp 97.8 F 07/17/21 11:04 Pulse 118 H 07/17/21 11:04 Resp 18 07/17/21 11:04 BP 125/74 07/17/21 11:04 Pulse Ox 97 07/17/21 11:04 Intake & Output 07/16/21 07/17/21 07/17/21 18:59 06:59 18:59 Output Total 6686 743 8770 Balance -1700 -600 -1200 Weight 81.5 kg Output: Urine 7018 283 5941 Uretheral (Diego) 600 Stool 100 200 Other: Voiding Method Indwelling Catheter Indwelling Catheter Indwelling Catheter - Labs CBC & Chem 7: 07/17/21 08:38 07/17/21 08:38 Labs: Abnormal Lab Results - Last 24 Hours (Table) 07/16/21 07/16/21 07/17/21 Range/Units 17:01 20:48 07:03 WBC (3.8-10.6) k/uL RBC (3.80-5.40) m/uL Hgb (11.4-16.0) gm/dL Hct (34.0-46.0) % MCHC (31.0-37.0) g/dL RDW (11.5-15.5) % Plt Count (150-450) k/uL Neutrophils # (1.3-7.7) k/uL Lymphocytes # (1.0-4.8) k/uL BUN (7-17) mg/dL Glucose (74-99) mg/dL POC Glucose (mg/dL) 197 H 228 H 197 H (75-99) mg/dL Calcium (8.4-10.2) mg/dL Crossmatch 07/17/21 07/17/21 07/17/21 Range/Units 08:38 08:38 09:41 WBC 16.9 H (3.8-10.6) k/uL RBC 2.34 L (3.80-5.40) m/uL Hgb 6.7 L* (11.4-16.0) gm/dL Hct 21.9 L (34.0-46.0) % MCHC 30.5 L (31.0-37.0) g/dL RDW 19.1 H (11.5-15.5) % Plt Count 451 H (150-450) k/uL Neutrophils # 16.1 H (1.3-7.7) k/uL Lymphocytes # 0.3 L (1.0-4.8) k/uL BUN 34 H (7-17) mg/dL Glucose 183 H (74-99) mg/dL POC Glucose (mg/dL) (75-99) mg/dL Calcium 7.6 L (8.4-10.2) mg/dL Crossmatch See Detail 07/17/21 Range/Units 11:38 WBC (3.8-10.6) k/uL RBC (3.80-5.40) m/uL Hgb (11.4-16.0) gm/dL Hct (34.0-46.0) % MCHC (31.0-37.0) g/dL RDW (11.5-15.5) % Plt Count (150-450) k/uL Neutrophils # (1.3-7.7) k/uL Lymphocytes # (1.0-4.8) k/uL BUN (7-17) mg/dL Glucose (74-99) mg/dL POC Glucose (mg/dL) 231 H (75-99) mg/dL Calcium (8.4-10.2) mg/dL Crossmatch Microbiology - Last 24 Hours (Table) 07/14/21 23:20 Blood Culture - Preliminary Blood No Growth after 48 hours 07/14/21 20:50 Gram Stain - Preliminary Other - Other Wound Culture - Preliminary Gram Neg Bacilli <Mahad Quiros - Last Filed: 07/17/21 16:09> Subjective patient had some anxiety earlier today. Hemoglobin 6.7. Having improved bowel function. Advance diet to full liquids. Ambulate. Objective - Vital Signs Vital signs: Vital Signs Temp 97.5 F L 07/17/21 15:34 Pulse 103 H 07/17/21 15:34 Resp 18 07/17/21 15:34 BP 112/73 07/17/21 15:34 Pulse Ox 96 07/17/21 15:34 Intake & Output 07/16/21 07/17/21 07/17/21 18:59 06:59 18:59 Intake Total 310 Output Total 4158 847 4164 Balance -1700 -600 -890 Weight 81.5 kg Intake: Blood Product 310 Rc As-1 Unit 310 [id number] Output: Urine 9916 500 5682 Uretheral (Diego) 600 Stool 100 200 Other: Voiding Method Indwelling Catheter Indwelling Catheter Indwelling Catheter - Labs CBC & Chem 7: 07/17/21 08:38 07/17/21 08:38 Labs: Abnormal Lab Results - Last 24 Hours (Table) 07/16/21 07/16/21 07/17/21 Range/Units 17:01 20:48 07:03 WBC (3.8-10.6) k/uL RBC (3.80-5.40) m/uL Hgb (11.4-16.0) gm/dL Hct (34.0-46.0) % MCHC (31.0-37.0) g/dL RDW (11.5-15.5) % Plt Count (150-450) k/uL Neutrophils # (1.3-7.7) k/uL Lymphocytes # (1.0-4.8) k/uL BUN (7-17) mg/dL Glucose (74-99) mg/dL POC Glucose (mg/dL) 197 H 228 H 197 H (75-99) mg/dL Calcium (8.4-10.2) mg/dL Crossmatch 07/17/21 07/17/21 07/17/21 Range/Units 08:38 08:38 09:41 WBC 16.9 H (3.8-10.6) k/uL RBC 2.34 L (3.80-5.40) m/uL Hgb 6.7 L* (11.4-16.0) gm/dL Hct 21.9 L (34.0-46.0) % MCHC 30.5 L (31.0-37.0) g/dL RDW 19.1 H (11.5-15.5) % Plt Count 451 H (150-450) k/uL Neutrophils # 16.1 H (1.3-7.7) k/uL Lymphocytes # 0.3 L (1.0-4.8) k/uL BUN 34 H (7-17) mg/dL Glucose 183 H (74-99) mg/dL POC Glucose (mg/dL) (75-99) mg/dL Calcium 7.6 L (8.4-10.2) mg/dL Crossmatch See Detail 07/17/21 Range/Units 11:38 WBC (3.8-10.6) k/uL RBC (3.80-5.40) m/uL Hgb (11.4-16.0) gm/dL Hct (34.0-46.0) % MCHC (31.0-37.0) g/dL RDW (11.5-15.5) % Plt Count (150-450) k/uL Neutrophils # (1.3-7.7) k/uL Lymphocytes # (1.0-4.8) k/uL BUN (7-17) mg/dL Glucose (74-99) mg/dL POC Glucose (mg/dL) 231 H (75-99) mg/dL Calcium (8.4-10.2) mg/dL Crossmatch Microbiology - Last 24 Hours (Table) 07/14/21 20:50 Gram Stain - Preliminary Other - Other Wound Culture - Preliminary Escherichia coli Gram Neg Bacilli 07/14/21 23:20 Blood Culture - Preliminary Blood No Growth after 48 hours Assessment and Plan (1) Abdominal pain Current Visit: Yes Status: Acute Code(s): R10.9 - UNSPECIFIED ABDOMINAL PAIN SNOMED Code(s): 17211942
--- NOTE | 2021-07-17 12:38 | XR ---
EXAMINATION TYPE: XR chest 1V portable DATE OF EXAM: 07/17/2021 COMPARISON: Chest x-ray 07/12/2021, CT 07/14/2021 HISTORY: Shortness of breath TECHNIQUE: Single frontal view of the chest is obtained. FINDINGS: Patient is rotated. There is no evident pneumothorax. Bibasilar attenuation is increased, the hemidiaphragms are obscured similar to prior exam, the heart is obscured. Arthropathy is present within the shoulders. IMPRESSION: Findings similar to prior exam, correlate for basilar effusions and associated atelectas is versus pneumonia, heart is obscured.
[2021-07-17] MEDS: traMADol 50 MG TAB PO PRN (12:48)
[2021-07-17] MEDS ORDERED: FUROSEMIDE 10 MG/ML 2 ML VIAL IV ONE (13:00)
--- NOTE | 2021-07-17 13:24 | PN ---
PROGRESS NOTE DATE OF SERVICE: 07/17/2021. REASON FOR FOLLOWUP: Secondary peritonitis from perforated diverticulitis. INTERVAL HISTORY: The patient is afebrile. The patient mentioned not feeling well. Still complaining of nausea and some reflux. No shortness of breath. No chest pain or cough. PHYSICAL EXAMINATION: Her blood pressure is 125/74 with a pulse of 118, temperature 97.8. She is 97% on 3 L nasal cannula. General description is an elderly female up in the bed in no distress. Respiratory system: Unlabored breathing, decreased intensity of breath sounds. No wheeze. Heart S1, S2. Regular rate and rhythm. Abdomen soft, mildly distended. No guarding or rigidity. LABS: Hemoglobin is 6, white count 16.9, creatinine 0.64. Abdominal cultures with a Gram- negative with ID and sensitivities pending. DIAGNOSTIC IMPRESSION AND PLAN: Patient with secondary peritonitis from perforated diverticulitis, status post diverting colostomy. Abdominal culture showing Gram-negative. The patient is covered with . Antibiotic will be adjusted further based on the culture. Continue supportive care. MMODL / IJN: [id number] /
[2021-07-17 16:51] LABS: Glucose,Whole Blood 227 mg/dL (75-99)
[2021-07-17 20:15] LABS: Glucose,Whole Blood 221 mg/dL (75-99)
[2021-07-17] MEDS: PRAVASTATIN SODIUM 40 MG TAB PO SCH (21:44)
[2021-07-17] MEDS: PRAMIPEXOLE 1 MG TAB PO SCH (21:44)
[2021-07-17] MEDS: HYDROcodone/APAP 5-325MG 1 EACH TAB PO PRN (21:46)
--- NOTE | 2021-07-18 01:46 | P.PN ---
Subjective Progress Note Date: 07/17/21 Patient is an 80-year-old female came in with the complaint of upper abdominal discomfort patient does have history of hernia and the pain is related to be secondary to anemia, Gen. surgery evaluated the patient is planning on doing hemorrhoidal hernia repair/Adis fundoplication on Friday. Patient will be started on Protonix patient was on naproxen at home which will be held. Patient doesn't have any fever chills vomiting diarrhea. Bit nauseous 07/11/2021 Patient is seen and evaluated in room at bedside; status post repair of paraesophageal hernia with mesh; POD #2 Patient reports improvement this morning; does complain of pain; tolerating clear liquid diet well Vital signs are reviewed and reveal temperature of 97.4, pulse 89, respiration 18 and blood pressure 100/65 Lab review shows WBC 7.2, hemoglobin 9.3, platelet count of 464, sodium 144, potassium 4.0, BUN/creatinine of 13/0.80 and blood glucose of 158 Surgery on board and recommending to continue with IV dexamethasone for moderate obstruction noted on upper GI; patient will remain on IV fluids and a clear liquid diet Increase activity and PT/OT recommended 07/12/2021 Patient is seen and evaluated sitting up in bed; patient reports shortness of breath earlier in the day; was placed on O2 2-3 L per nasal cannula which improved breathing Does complain of chest congestion; we will hold off on IV fluids and order Lasix 40 mg IV 1 and order a chest x-ray We will signs are reviewed and reveal temperature of 97.5, pulse 88, respiration 28 and blood pressure 117/61. O2 saturation 96% on 2 L Patient is tolerating clear liquid diet fairly well and has been advanced to a full liquid diet; remains on IV dexamethasone for moderate obstruction on upper GI 07/13/2021 Patient is seen and evaluated; lying in bed; patient is status post laparoscopic repair of paraesophageal hernia with mesh; POD #4; episode of maroon-colored stool at night Vital signs reviewed reveal patient to be afebrile, blood pressure of 101/68, respiration 18 and heart rate of 19 with O2 saturation of 96% on 2 L Laboratory review shows a drop in hemoglobin from 9.3 down to 7.6 this morning; patient underwent EGD which reveals mild gastritis; no active bleeding; general surgery on board and recommending to continue to monitor labs closely. Possibility of colonoscopy if hemoglobin continues to drop; patient is status post transfusion with 1 unit of packed RBCs 07/14/2021 Patient is seen and evaluated; reports increasing abdominal pain; has been evaluated by surgery and is recommended CT of abdomen for further evaluation Vital signs temperature 97.7, pulse 85, respiration 22 and blood pressure 110/67 Lab review reveals an elevated white blood count of 21.7, hemoglobin of 8.5, platelets of 400, sodium 136, potassium 5.0, BUN/creatinine of 21/0.61 Patient is currently on IV antibiotics in form of Zosyn 3.375 g IV every 8 hours along with metronidazole 500 mg every 8 hours We will proceed with stat CT of the abdomen and consult ID for further recommendations 07/15/2021 Patient is seen and evaluated resting in bed; reports improved abdominal pain with oral [place] Vital signs are reviewed and stable with temperature of 98, pulse 72, respiration 20 and blood pressure 111/71 Lab review reveals WBC that remains elevated at 27.7, hemoglobin of 8.4 and platelet count of 369, sodium 136, potassium 5.4, BUN/creatinine of 46/0.85 CT of the abdomen completed reveals normal. Continue related to perforated si gmoid diverticulitis; patient underwent sigmoid colectomy with end colostomy; POD #1 Patient remains nothing by mouth or surgery recommendations; potassium elevated at 5.4; we will repeat stat potassium level and treat as needed; continue with IV antibiotics as ordered We will monitor CBC, CRP and pro-calcitonin 07/16/2021 Patient is seen in follow up this morning with family at the bedside. Ostomy nurse at the bedside educating as well. Patient reports to passing gas in the ostomy and general surgery following closely. Patient diet is being advanced as tolerated. Patient has some generalized pain although reports to feeling nauseated and dizzy with narcotics. Will continue with tylenol and lower dose of norco and discuss with nursing staff of avoiding narcotics if possible. PT/OT to evaluate as patient will likely need rehab for strength and mobility. social wo rk consulted for possible placement. Patient is continued on flagyl and Zosyn with infectious disease also following closely. Diflucan as well. Potassium elevated and will correct and repeat am labs. Encouraged increased activity as tolerated. 07/17/2021 She is seen in follow-up today states she is not feeling well and feels more short of breath. Hemoglobin was found to be 6.7 and will order a unit of PRBC. Surgery and ID following. Patient is having stool and gas noted in the ostomy. Patient states she is tired and having anxiety and wants to go home. Patient continued on full liquid diet and not eating much. Patient states she has no real appetite and feels worse today. Will transfuse 1 unit of PRBC and repeat am labs. Give one dose of IV lasix after transfusion. Patient continues on flagyl along with diflucan and zosyn and will continue. Preliminary showing ecoli and gram negative and awaiting finalized culture with sensitivities. Social work also following and working on possible ECF placement once stabilized. No active bleeding noted. Patient denies any previous transfusions. Labs: WBC is 16.9, hemoglobin is 6.7, platelets are 451, sodium is 138, potassium 4.4, BUN 34, creatinine 0.64, calcium 7.6 Review of systems: Constitutional: reports of fatigue, fever, or chills Cardiovascular: No reports of chest pain or palpitations Respiratory: reports of worsening shortness of breath this morning GI: No reports of nausea, vomiting, reports gas in ostomy, as well as stool : No reports of dysuria or retention, currently indwelling thapa catheter Neurovascular: reports of generalized weakness Physical exam: GENERAL: The patient is alert and oriented x3, Well developed, well nourished. Temp is 97.4F, pulse is 58, respirations are 18, blood pressure is 111/68, oxygen saturation is 93% on 2 L via nasal cannula HEENT: Pupils are round and equally reacting to light. EOMI. No scleral icterus. No conjunctival pallor. Normocephalic, atraumatic. No pharyngeal erythema. No thyromegaly. CARDIOVASCULAR: S1 and S2 muffled PULMONARY: Diminished breath sounds bilaterally with no wheezing or crackles. ABDOMEN: Soft, tender, normoactive bowel sounds. No palpable organomegaly. Ostomy noted MUSCULOSKELETAL: No joint swelling or deformity. EXTREMITIES: No cyanosis, clubbing, or pedal edema. NEUROLOGICAL: Gross neurological examination did not reveal any focal deficits. Diffuse weakness SKIN: No rashes. Assessment: -Epigastric abdominal pain: Secondary to gastoesophageal reflux disease, possible peptic ulcer disease secondary to hiatal hernia -Status post sigmoid colectomy with end colostomy secondary to perforated sigmoid diverticulitis -anemia, possible anemia of chronic disease -Status post laparoscopic repair of paraesophageal hernia with mesh -diarrhea, probably secondary to large hernia, resolving -metabolic acidosis, secondary to above -hyperkalemia -Hyperlipidemia -Hypertension -hypothyroidism -Hyperglycemia due to IV steroids -DVT prophylaxis -GI Prophylaxis -FULL CODE Plan: Recommend to continue with current medications and management. Surgery and infectious disease following closely secondary to peritonitis from a perforated diverticulitis resulting in diverting colostomy. Patient continues on IV Zosyn and Diflucan and flagyl and awaiting for finalized cultures. Preliminary culture showing gram-negative bacilli and ecoli and awaiting sensitivities. Encouraged increase activity as tolerated and will have PT evaluate the patient for possible ECF. Social work is following. Patient is receiving ostomy education and care. Patient reports to having gas and also stool in the ostomy with no active bleeding noted. Hemoglobin is 6.7 today and will give one unit of prbc and repeat am labs. Diet is being advanced per surgical recommendations. Recommend discontinuing indwelling Thapa catheter monitor for retention. Recommend continuing Accu-Cheks before meals and at bedtime. Due to multiple complex medical issues, prognosis is guarded. Further recommendations to follow based on the clinical course of the patient. Objective - Vital Signs Vital signs: Vital Signs Temp 97.4 F L 07/17/21 05:00 Pulse 58 L 07/17/21 05:00 Resp 18 07/17/21 05:00 BP 111/68 07/17/21 05:00 Pulse Ox 93 L 07/17/21 05:00 Intake & Output 07/16/21 07/17/21 07/17/21 18:59 06:59 18:59 Output Total 1700 600 200 Balance -1700 -600 -200 Weight 81.5 kg Output: Urine 1600 600 Uretheral (Thapa) 600 Stool 100 200 Other: Voiding Method Indwelling Catheter Indwelling Catheter Indwelling Catheter - Labs CBC & Chem 7: 07/17/21 08:38 07/17/21 08:38 Labs: Abnormal Lab Results - Last 24 Hours (Table) 07/16/21 07/16/21 07/16/21 Range/Units 05:49 11:26 17:01 Potassium 5.7 H (3.5-5.5) mmol/L BUN 37.6 H (9.0-27.0) mg/dL BUN/Creatinine Ratio 53.71 H (12.00-20.00) Ratio Glucose 121 H (70-110) mg/dL POC Glucose (mg/dL) 141 H 197 H (75-99) mg/dL Calcium 7.5 L (8.7-10.3) mg/dL 07/16/21 07/17/21 Range/Units 20:48 07:03 Potassium (3.5-5.5) mmol/L BUN (9.0-27.0) mg/dL BUN/Creatinine Ratio (12.00-20.00) Ratio Glucose (70-110) mg/dL POC Glucose (mg/dL) 228 H 197 H (75-99) mg/dL Calcium (8.7-10.3) mg/dL Microbiology - Last 24 Hours (Table) 07/14/21 23:20 Blood Culture - Preliminary Blood No Growth after 48 hours 07/14/21 20:50 Gram Stain - Preliminary Other - Other Wound Culture - Preliminary Gram Neg Bacilli
[2021-07-18] MEDS: SODIUM CHLORIDE 0.9% 1,000 ML IV SCH ×3 (05:35→17:52)
[2021-07-18] MEDS: LEVOTHYROXINE 25 MCG TAB PO SCH (05:40)
[2021-07-18] MEDS: traMADol 50 MG TAB PO PRN ×2 (05:42→22:14)
[2021-07-18 05:57] LABS: Anisocytosis Slight; Basophils % (A) 0 %; Eosinophils % (A) 0 %; HCT 23.5 % (34.0-46.0); HGB 7.3 gm/dL (11.4-16.0); Hypochromasia Marked; Lymphocytes # (A) 0.4 k/uL (1.0-4.8); Lymphocytes % (A) 2 %; MCV 96.6 fL (80.0-100.0); Macrocytosis Slight; Mean Platelet Volume 7.8; Monocytes % (A) 5 %; Neutrophils # (A) 18.1 k/uL (1.3-7.7); Neutrophils % (A) 92 %; Platelet Count 333 k/uL (150-450); Poikilocytosis Slight; RBC 2.43 m/uL (3.80-5.40); RDW 17.3 % (11.5-15.5); WBC 19.8 k/uL (3.8-10.6)
[2021-07-18 07:06] LABS: Glucose,Whole Blood 207 mg/dL (75-99)
[2021-07-18] MEDS: FUROSEMIDE 10 MG/ML 2 ML VIAL IV SCH (07:56)
[2021-07-18] MEDS: HYDROcodone/APAP 5-325MG 1 EACH TAB PO PRN (07:57)
[2021-07-18] MEDS: INSULIN ASPART (NovoLOG) 100 UNIT/ML VIAL SQ SCH ×4 (07:57→22:10)
[2021-07-18] MEDS: TAMSULOSIN 0.4 MG CAP.ER.24H PO SCH (07:58)
[2021-07-18] MEDS: VIT A,C & E-LUTEIN-MINERALS 1 EACH TAB PO SCH (07:59)
[2021-07-18] MEDS: PIPERACILLIN-TAZOBACTAM 3.375 GM in SODIUM CHLORIDE 0.9% 100 ML IVPB SCH ×2 (07:59→17:52)
[2021-07-18] MEDS: metroNIDAZOLE-NS PMX 500 MG in SALINE 1 100ML.BAG IVPB SCH (08:00)
[2021-07-18] MEDS ORDERED: PANTOPRAZOLE 40 MG/10 ML VIAL IVP SCH (09:00)
[2021-07-18] MEDS ORDERED: SODIUM CHLORIDE 0.9% 500 ML 500 ML IV ONE ×2 (09:10→09:44)
[2021-07-18 10:11] LABS: Anisocytosis Slight; Basophils # (A) 0.1 k/uL (0-0.2); Basophils % (A) 0 %; Eosinophils % (A) 0 %; Hypochromasia Marked; Lymphocytes # (A) 0.7 k/uL (1.0-4.8); Lymphocytes % (A) 3 %; MCHC 30.9 g/dL (31.0-37.0); MCV 96.9 fL (80.0-100.0); Macrocytosis Slight; Mean Platelet Volume 8.1; Monocytes # (A) 1.3 k/uL (0-1.0); Monocytes % (A) 4 %; Neutrophils # (A) 27.2 k/uL (1.3-7.7); Neutrophils % (A) 92 %; Platelet Count 367 k/uL (150-450); Poikilocytosis Slight; RBC 2.03 m/uL (3.80-5.40); RDW 17.7 % (11.5-15.5); WBC 29.5 k/uL (3.8-10.6)
[2021-07-18 10:19] LABS: HCT 19.7 % (34.0-46.0); HGB 6.1 gm/dL (11.4-16.0)
[2021-07-18 10:44] LABS: Rouleaux Present
--- NOTE | 2021-07-18 11:41 | P.PN ---
<Ginny Kay - Last Filed: 07/18/21 11:33> Subjective Progress Note Date: 07/18/21 CHIEF COMPLAINT: Large paraesophageal hernia HISTORY OF PRESENT ILLNESS: Patient is postop day #4 status post sigmoid colectomy with end colostomy for perforated sigmoid diverticulitis. She is status post laparoscopic repair of paraesophageal hernia with mesh on 07/09/21. Patient has been having maroon-colored stools through the evening. Nursing staff reports 900 mL output of maroon stool through the night and then 200 this morning. Patient became dizzy, hypotensive and tachycardic after sitting up in bed with physical therapy. Her hemoglobin this morning was 7.3. Repeat hemoglobin is 6.1. Patient is scheduled to receive 2 units of blood. She's received 1 L fluid bolus. She did receive Lasix this morning this has now been discontinued. Patient had pain at her incision site did receive 2.5 mg of [place]. Patient had stated yesterday at the [place] and made her feel ill. Patient currently just has pressure at the incision site. Afebrile. Systolic blood pressure have been in the 80s. Heart rate 130 on 3 L of oxygen satting at 91%. WBC up at 29.5 Hgb 6.1 and platelets 367 PHYSICAL EXAM: VITAL SIGNS: Reviewed. GENERAL: Well-developed in no acute distress. HEENT: No sclera icterus. Extraocular movements grossly intact. Moist buccal mucosa. Head is atraumatic, normocephalic. ABDOMEN: Soft. Nondistended. Nontender. Incision sites with serosanguineous drainage. Ana are in place. Otherwise clean dry and intact. Ostomy with maroon stools. NEUROLOGIC: Alert and oriented. Cranial nerves II through XII grossly intact. ASSESSMENT: 1. Perforated sigmoid diverticulitis status post sigmoid colectomy with end colostomy 2. Large paraesophageal hernia containing colon, small bowel and stomach status post laparoscopic repair of paraesophageal hernia with mesh 3. Moderate obstruction status post hiatal hernia repair PLAN: -Make patient nothing by mouth -Tagged RBC scan ordered -Continue IV fluids -Patient scheduled to receive 2 units of blood -Continue antibiotics Physician Reliability Engineer note has been reviewed by physician. Signing provider agrees with the documented findings, assessment, and plan of care. Objective - Vital Signs Vital signs: Vital Signs Temp 97.9 F 07/18/21 04:49 Pulse 78 07/18/21 04:49 Resp 16 07/18/21 04:49 BP 135/53 07/18/21 04:49 Pulse Ox 91 L 07/18/21 04:50 Intake & Output 07/17/21 07/18/21 07/18/21 18:59 06:59 18:59 Intake Total 310 Output Total 2900 1250 200 Balance -2590 -1250 -200 Weight 75.5 kg Intake: Blood Product 310 Rc As-1 Unit 310 [id number] Output: Urine 2400 350 Uretheral (Diego) 350 Stool 500 900 200 Other: Voiding Method Indwelling Catheter Indwelling Catheter # Voids 1 - Labs CBC & Chem 7: 07/18/21 09:32 07/17/21 08:38 Labs: Abnormal Lab Results - Last 24 Hours (Table) 07/17/21 07/17/21 07/17/21 Range/Units 09:41 11:38 16:49 WBC (3.8-10.6) k/uL RBC (3.80-5.40) m/uL Hgb (11.4-16.0) gm/dL Hct (34.0-46.0) % MCHC (31.0-37.0) g/dL RDW (11.5-15.5) % Neutrophils # (1.3-7.7) k/uL Lymphocytes # (1.0-4.8) k/uL Monocytes # (0-1.0) k/uL POC Glucose (mg/dL) 231 H 227 H (75-99) mg/dL Crossmatch See Detail 07/17/21 07/18/21 07/18/21 Range/Units 20:14 05:30 07:04 WBC 19.8 H (3.8-10.6) k/uL RBC 2.43 L (3.80-5.40) m/uL Hgb 7.3 L (11.4-16.0) gm/dL Hct 23.5 L (34.0-46.0) % MCHC (31.0-37.0) g/dL RDW 17.3 H (11.5-15.5) % Neutrophils # 18.1 H (1.3-7.7) k/uL Lymphocytes # 0.4 L (1.0-4.8) k/uL Monocytes # (0-1.0) k/uL POC Glucose (mg/dL) 221 H 207 H (75-99) mg/dL Crossmatch 07/18/21 Range/Units 09:32 WBC 29.5 H (3.8-10.6) k/uL RBC 2.03 L (3.80-5.40) m/uL Hgb 6.1 L* (11.4-16.0) gm/dL Hct 19.7 L* (34.0-46.0) % MCHC 30.9 L (31.0-37.0) g/dL RDW 17.7 H (11.5-15.5) % Neutrophils # 27.2 H (1.3-7.7) k/uL Lymphocytes # 0.7 L (1.0-4.8) k/uL Monocytes # 1.3 H (0-1.0) k/uL POC Glucose (mg/dL) (75-99) mg/dL Crossmatch Microbiology - Last 24 Hours (Table) 07/14/21 20:50 Gram Stain - Final Other - Other Wound Culture - Final Escherichia coli Escherichia coli#2 07/14/21 23:20 Blood Culture - Preliminary Blood No Growth after 72 hours <Mahad Quiros - Last Filed: 07/18/21 12:43> Subjective As above. Patient with maroon colored stools starting last night. Had a syncopal episode. Labs noted. Patient denies any significant abdominal pain. Minimal tenderness. Etiology for GI bleed unclear. Will order a tagged red blood cell scan. Continue nothing by mouth. Transfuse to hemoglobin over 8. Case discussed with patient and her daughter by phone in detail. Objective - Vital Signs Vital signs: Vital Signs Temp 97.9 F 07/18/21 04:49 Pulse 78 07/18/21 04:49 Resp 16 07/18/21 04:49 BP 135/53 07/18/21 04:49 Pulse Ox 91 L 07/18/21 04:50 Intake & Output 07/17/21 07/18/21 07/18/21 18:59 06:59 18:59 Intake Total 310 Output Total 2900 1250 200 Balance -2590 -1250 -200 Weight 75.5 kg Intake: Blood Product 310 Rc As-1 Unit 310 [id number] Output: Urine 2400 350 Uretheral (Diego) 350 Stool 500 900 200 Other: Voiding Method Indwelling Catheter Indwelling Catheter # Voids 1 - Labs CBC & Chem 7: 07/18/21 09:32 07/17/21 08:38 Labs: Abnormal Lab Results - Last 24 Hours (Table) 07/17/21 07/17/21 07/17/21 Range/Units 09:41 16:49 20:14 WBC (3.8-10.6) k/uL RBC (3.80-5.40) m/uL Hgb (11.4-16.0) gm/dL Hct (34.0-46.0) % MCHC (31.0-37.0) g/dL RDW (11.5-15.5) % Neutrophils # (1.3-7.7) k/uL Lymphocytes # (1.0-4.8) k/uL Monocytes # (0-1.0) k/uL POC Glucose (mg/dL) 227 H 221 H (75-99) mg/dL Crossmatch See Detail 07/18/21 07/18/21 07/18/21 Range/Units 05:30 07:04 09:32 WBC 19.8 H 29.5 H (3.8-10.6) k/uL RBC 2.43 L 2.03 L (3.80-5.40) m/uL Hgb 7.3 L 6.1 L* (11.4-16.0) gm/dL Hct 23.5 L 19.7 L* (34.0-46.0) % MCHC 30.9 L (31.0-37.0) g/dL RDW 17.3 H 17.7 H (11.5-15.5) % Neutrophils # 18.1 H 27.2 H (1.3-7.7) k/uL Lymphocytes # 0.4 L 0.7 L (1.0-4.8) k/uL Monocytes # 1.3 H (0-1.0) k/uL POC Glucose (mg/dL) 207 H (75-99) mg/dL Crossmatch Microbiology - Last 24 Hours (Table) 07/14/21 20:50 Gram Stain - Final Other - Other Wound Culture - Final Escherichia coli Escherichia coli#2 07/14/21 23:20 Blood Culture - Preliminary Blood No Growth after 72 hours Assessment and Plan (1) Abdominal pain Current Visit: Yes Status: Acute Code(s): R10.9 - UNSPECIFIED ABDOMINAL PAIN SNOMED Code(s): 16445687
[2021-07-18] MEDS: FLUCONAZOLE IN NACL,ISO-OSM 100 MG in SALINE 1 50ML.BAG IVPB SCH (12:57)
[2021-07-18 13:01] LABS: Glucose,Whole Blood 222 mg/dL (75-99)
[2021-07-18 14:03] LABS: Glucose,Whole Blood 211 mg/dL (75-99)
[2021-07-18] MEDS: PANTOPRAZOLE 40 MG TABLET PO SCH (14:47)
--- NOTE | 2021-07-18 15:56 | PN ---
PROGRESS NOTE DATE OF SERVICE: 07/18/2021 REASON FOR FOLLOWUP: Intraabdominal abscess and perforated diverticulitis. INTERVAL HISTORY: The patient did have an episode of hypertension this afternoon for which the A-Team was called in. The patient is feeling weak and lethargic. Denies any worsening abdominal pain. Some nausea but no vomiting. No chest pain, shortness of breath or cough. PHYSICAL EXAMINATION: Blood pressure with a pulse of 80. Temperature 97.6. She is 97% on 3 L nasal cannula. General description is an elderly female lying in bed in no distress. Respiratory system: Unlabored breathing. Decreased intensity of breath sounds. No wheeze. Heart S1, S2. Regular rate and rhythm. Abdomen soft, no guarding. No rigidity. LABS: Hemoglobin 6.1, 29.5. DIAGNOSTIC IMPRESSION AND PLAN: Patient with intraabdominal abscess from perforated diverticulitis, abdominal culture positive for E coli, two strands sensitive to also anaerobes. The patient now with significant hypertension and low hemoglobin, possible GI source. on the case. Blood has been transfused. Continue with Zosyn. Prognosis remains to be guarded. MMODL / IJN: [id number] /
--- NOTE | 2021-07-18 16:40 | P.CONS ---
History of Present Illness - Reason for Consult Consult date: 07/18/21 cold agglutins, needing transfusion Requesting physician: Mahad Quiros - Chief Complaint s/p surgery - History of Present Illness We have been asked to see pt acutely because of history of cold agglutinate. She is s/p hernia repair and bowel resection. Hgb is 6.1 and she is needing transfusion. Pt denies Hx of blood transfusion, she could not tell me if she had a history of any blood conditions. Review of Systems Focused ROS is neg except Past Medical History Past Medical History: Hyperlipidemia, Hypertension, Osteoarthritis (OA), Thyroid Disorder Additional Past Medical History / Comment(s): Large hiatal hernia/was to follow with GI specialist, palpitations, anemia, goiter with radiation, hypothyroid, sinus allergies, diverticular disease. History of Any Multi-Drug Resistant Organisms: None Reported Past Surgical History: Joint Replacement, Tonsillectomy Additional Past Surgical History / Comment(s): Bilateral total knee arthroplasties, several L breast benign biopsies, colonoscopy, D&C. Past Anesthesia/Blood Transfusion Reactions: No Reported Reaction Additional Past Anesthesia/Blood Transfusion Reaction / Comm: Pt has clauster phobia. Smoking Status: Never smoker - Past Family History Father Family Medical History: Cancer Additional Family Medical History / Comment(s): Father of lung to brain cancer. Mother Additional Family Medical History / Comment(s): Mother had "heart problems" and was a "pre-diabetic" Medications and Allergies Home Medications Medication Instructions Recorded Confirmed Type Enalapril [Vasotec] 10 mg PO DAILY 07/05/21 07/05/21 History Levothyroxine Sodium [Synthroid] 25 mcg PO DAILY 07/05/21 07/05/21 History Meloxicam 15 mg PO DAILY 07/05/21 07/05/21 History Pramipexole [Mirapex] 1 mg PO HS 07/05/21 07/05/21 History Pravastatin Sodium [Pravachol] 80 mg PO HS 07/05/21 07/05/21 History Vit C/E/Zn/Coppr/Lutein/Zeaxan 1 cap PO DAILY 07/05/21 07/05/21 History [Preservision Areds 2 Softgel] Allergies Allergy/AdvReac Type Severity Reaction Status Date / Time codeine Allergy Itching Verified 07/09/21 15:45 Physical Exam Vitals: Vital Signs Temp Pulse Pulse Pulse Resp BP BP 07/18/21 13:38 97.6 F 90 14 69/42 07/18/21 13:01 97.6 F 87 16 72/43 07/18/21 12:51 97.5 F L 90 16 80/51 07/18/21 04:50 07/18/21 04:49 97.9 F 78 16 135/53 07/17/21 21:00 97.7 F 104 H 16 111/68 07/17/21 20:00 118 H 104 H 16 07/17/21 15:34 97.5 F L 103 H 18 112/73 Pulse Ox 07/18/21 13:38 07/18/21 13:01 97 07/18/21 12:51 96 07/18/21 04:50 91 L 07/18/21 04:49 84 L 07/17/21 21:00 94 L 07/17/21 20:00 07/17/21 15:34 96 Intake and Output 07/17/21 07/18/21 07/18/21 22:59 06:59 14:59 Intake Total 310 0 Output Total 1700 1250 200 Balance -1390 -1250 -200 Intake: Blood Product 310 0 Rc As-1 Unit 310 [id number] Rc As-1 Unit 0 [id number] Output: Urine 1400 350 Uretheral (Diego) 350 Stool 300 900 200 Other: Voiding Method Indwelling Catheter # Voids 1 Weight 75.5 kg - Constitutional General appearance: average body habitus, cooperative, mild distress - EENT Eyes: anicteric sclerae, EOMI ENT: hearing grossly normal - Respiratory Respiratory: bilateral: diminished - Cardiovascular Rhythm: regular (2+ radial pulse) - Gastrointestinal surgical dressings - Integumentary Integumentary: pale - Neurologic Neurologic: CNII-XII intact - Musculoskeletal Musculoskeletal: generalized weakness - Psychiatric Psychiatric: A&O x's 3, appropriate affect, intact judgment & insight Results CBC & Chem 7: 07/18/21 09:32 07/17/21 08:38 Labs: Abnormal Lab Results - Last 24 Hours (Table) 07/17/21 07/17/21 07/17/21 Range/Units 09:41 16:49 20:14 WBC (3.8-10.6) k/uL RBC (3.80-5.40) m/uL Hgb (11.4-16.0) gm/dL Hct (34.0-46.0) % MCHC (31.0-37.0) g/dL RDW (11.5-15.5) % Neutrophils # (1.3-7.7) k/uL Lymphocytes # (1.0-4.8) k/uL Monocytes # (0-1.0) k/uL POC Glucose (mg/dL) 227 H 221 H (75-99) mg/dL Crossmatch See Detail 07/18/21 07/18/21 07/18/21 Range/Units 05:30 07:04 09:32 WBC 19.8 H 29.5 H (3.8-10.6) k/uL RBC 2.43 L 2.03 L (3.80-5.40) m/uL Hgb 7.3 L 6.1 L* (11.4-16.0) gm/dL Hct 23.5 L 19.7 L* (34.0-46.0) % MCHC 30.9 L (31.0-37.0) g/dL RDW 17.3 H 17.7 H (11.5-15.5) % Neutrophils # 18.1 H 27.2 H (1.3-7.7) k/uL Lymphocytes # 0.4 L 0.7 L (1.0-4.8) k/uL Monocytes # 1.3 H (0-1.0) k/uL POC Glucose (mg/dL) 207 H (75-99) mg/dL Crossmatch 07/18/21 07/18/21 Range/Units 12:59 13:43 WBC (3.8-10.6) k/uL RBC (3.80-5.40) m/uL Hgb (11.4-16.0) gm/dL Hct (34.0-46.0) % MCHC (31.0-37.0) g/dL RDW (11.5-15.5) % Neutrophils # (1.3-7.7) k/uL Lymphocytes # (1.0-4.8) k/uL Monocytes # (0-1.0) k/uL POC Glucose (mg/dL) 222 H 211 H (75-99) mg/dL Crossmatch Microbiology - Last 24 Hours (Table) 07/14/21 20:50 Anaerobic Culture - Final Other - Other Anaerobic Gm Negative Bacilli Anaerobic Gm Positive Bacill Anaerobic Gm Negative Bacilli#2 07/14/21 20:50 Gram Stain - Final Other - Other Wound Culture - Final Escherichia coli Escherichia coli#2 07/14/21 23:20 Blood Culture - Preliminary Blood No Growth after 72 hours Assessment and Plan (1) Cold agglutinin disease Narrative/Plan: Blood warming device in use for transfusions. Cont Hgb monitoring and transfuse for Hgb<7 or if pt is symptomatic. Cold agglutinins ordered Labs in AM Current Visit: Yes Status: Acute Priority: High Code(s): D59.12 - COLD AUTOIMMUNE HEMOLYTIC ANEMIA SNOMED Code(s): 648365492
[2021-07-18 17:05] LABS: Glucose,Whole Blood 184 mg/dL (75-99)
[2021-07-18] MEDS: metroNIDAZOLE 500 MG TAB PO SCH (17:52)
[2021-07-18 20:58] LABS: Glucose,Whole Blood 168 mg/dL (75-99)
[2021-07-18] MEDS: PRAMIPEXOLE 1 MG TAB PO SCH (22:10)
[2021-07-18] MEDS: PRAVASTATIN SODIUM 40 MG TAB PO SCH (22:10)
[2021-07-18] MEDS: SIMETHICONE 80 MG CHEWABLE PO PRN (22:10)
[2021-07-19] MEDS: PIPERACILLIN-TAZOBACTAM 3.375 GM in SODIUM CHLORIDE 0.9% 100 ML IVPB SCH ×4 (00:11→23:57)
[2021-07-19] MEDS: metroNIDAZOLE 500 MG TAB PO SCH ×4 (00:12→22:24)
--- NOTE | 2021-07-19 03:35 | P.PN ---
Subjective Progress Note Date: 07/18/21 Patient is an 80-year-old female came in with the complaint of upper abdominal discomfort patient does have history of hernia and the pain is related to be secondary to anemia, Gen. surgery evaluated the patient is planning on doing hemorrhoidal hernia repair/Adis fundoplication on Friday. Patient will be started on Protonix patient was on naproxen at home which will be held. Patient doesn't have any fever chills vomiting diarrhea. Bit nauseous 07/11/2021 Patient is seen and evaluated in room at bedside; status post repair of paraesophageal hernia with mesh; POD #2 Patient reports improvement this morning; does complain of pain; tolerating clear liquid diet well Vital signs are reviewed and reveal temperature of 97.4, pulse 89, respiration 18 and blood pressure 100/65 Lab review shows WBC 7.2, hemoglobin 9.3, platelet count of 464, sodium 144, potassium 4.0, BUN/creatinine of 13/0.80 and blood glucose of 158 Surgery on board and recommending to continue with IV dexamethasone for moderate obstruction noted on upper GI; patient will remain on IV fluids and a clear liquid diet Increase activity and PT/OT recommended 07/12/2021 Patient is seen and evaluated sitting up in bed; patient reports shortness of breath earlier in the day; was placed on O2 2-3 L per nasal cannula which improved breathing Does complain of chest congestion; we will hold off on IV fluids and order Lasix 40 mg IV 1 and order a chest x-ray We will signs are reviewed and reveal temperature of 97.5, pulse 88, respiration 28 and blood pressure 117/61. O2 saturation 96% on 2 L Patient is tolerating clear liquid diet fairly well and has been advanced to a full liquid diet; remains on IV dexamethasone for moderate obstruction on upper GI 07/13/2021 Patient is seen and evaluated; lying in bed; patient is status post laparoscopic repair of paraesophageal hernia with mesh; POD #4; episode of maroon-colored stool at night Vital signs reviewed reveal patient to be afebrile, blood pressure of 101/68, respiration 18 and heart rate of 19 with O2 saturation of 96% on 2 L Laboratory review shows a drop in hemoglobin from 9.3 down to 7.6 this morning; patient underwent EGD which reveals mild gastritis; no active bleeding; general surgery on board and recommending to continue to monitor labs closely. Possibility of colonoscopy if hemoglobin continues to drop; patient is status post transfusion with 1 unit of packed RBCs 07/14/2021 Patient is seen and evaluated; reports increasing abdominal pain; has been evaluated by surgery and is recommended CT of abdomen for further evaluation Vital signs temperature 97.7, pulse 85, respiration 22 and blood pressure 110/67 Lab review reveals an elevated white blood count of 21.7, hemoglobin of 8.5, platelets of 400, sodium 136, potassium 5.0, BUN/creatinine of 21/0.61 Patient is currently on IV antibiotics in form of Zosyn 3.375 g IV every 8 hours along with metronidazole 500 mg every 8 hours We will proceed with stat CT of the abdomen and consult ID for further recommendations 07/15/2021 Patient is seen and evaluated resting in bed; reports improved abdominal pain with oral [place] Vital signs are reviewed and stable with temperature of 98, pulse 72, respiration 20 and blood pressure 111/71 Lab review reveals WBC that remains elevated at 27.7, hemoglobin of 8.4 and platelet count of 369, sodium 136, potassium 5.4, BUN/creatinine of 46/0.85 CT of the abdomen completed reveals normal. Continue related to perforated si gmoid diverticulitis; patient underwent sigmoid colectomy with end colostomy; POD #1 Patient remains nothing by mouth or surgery recommendations; potassium elevated at 5.4; we will repeat stat potassium level and treat as needed; continue with IV antibiotics as ordered We will monitor CBC, CRP and pro-calcitonin 07/16/2021 Patient is seen in follow up this morning with family at the bedside. Ostomy nurse at the bedside educating as well. Patient reports to passing gas in the ostomy and general surgery following closely. Patient diet is being advanced as tolerated. Patient has some generalized pain although reports to feeling nauseated and dizzy with narcotics. Will continue with tylenol and lower dose of norco and discuss with nursing staff of avoiding narcotics if possible. PT/OT to evaluate as patient will likely need rehab for strength and mobility. social wo rk consulted for possible placement. Patient is continued on flagyl and Zosyn with infectious disease also following closely. Diflucan as well. Potassium elevated and will correct and repeat am labs. Encouraged increased activity as tolerated. 07/17/2021 She is seen in follow-up today states she is not feeling well and feels more short of breath. Hemoglobin was found to be 6.7 and will order a unit of PRBC. Surgery and ID following. Patient is having stool and gas noted in the ostomy. Patient states she is tired and having anxiety and wants to go home. Patient continued on full liquid diet and not eating much. Patient states she has no real appetite and feels worse today. Will transfuse 1 unit of PRBC and repeat am labs. Give one dose of IV lasix after transfusion. Patient continues on flagyl along with diflucan and zosyn and will continue. Preliminary showing ecoli and gram negative and awaiting finalized culture with sensitivities. Social work also following and working on possible ECF placement once stabilized. No active bleeding noted. Patient denies any previous transfusions. 07/18/2021 Patient is seen and evaluated this morning and is ill appearing, nauseated, lethargic, and is being closely monitored. Patient hemoglobin was 7.3 this morning and is noted to have maroon colored stools in the ostomy and is s/p transfusion of 1 unit of PRBC. Patient is found to be hypotensive and an A-team is being called as patient was briefly unresponsive and appears to have possibly had a syncopal event. Patient is bed bound currently as she has been extremely weak for PT/OT therapy. Patient is actively receiving another unit of PRBC as well. Patient given a bolus of IV normal saline and blood pressure slightly improved. Will continue to monitor bleeding and transfuse if 7. General surgery following and small bowel capsule study ordered although minimal staff to be able to go sit with patient for the 2 hour study and patient is currently receiving blood product. 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 Ateam ordered 2 additional units of PRBC today. WBC elevated today at 19.8 and ID following and patient continues of IV flagyl and zosyn. Labs: WBC is 19.8, hemoglobin is 7.3, platelets are 333, and repeat hemoglobin is 6.1 with hematocrit of 19.7 and white blood count elevated to 29.5 with active maroon colored stool noted in the ostomy Review of systems: Constitutional: reports of fatigue, fever, or chills Cardiovascular: No reports of chest pain or palpitations Respiratory: reports of worsening shortness of breath this morning GI: reports of nausea and dark stool in the ostomy : No reports of dysuria or retention, currently indwelling thapa catheter Neurovascular: reports of generalized weakness Active Medications Acetaminophen (Acetaminophen Tab 325 Mg Tab) 650 mg PO Q6HR PRN PRN Reason: Fever and/ or Pain Last Admin: 07/16/21 22:43 Dose: 650 mg Documented by: Hydrocodone Bitart/Acetaminophen (Hydrocodone/Apap 5-325mg 1 Each Tab) 0.5 each PO Q6HR PRN PRN Reason: Pain Last Admin: 07/18/21 07:57 Dose: 0.5 each Documented by: Piperacillin Sod/Tazobactam (Sod 3.375 gm/ Sodium Chloride) 100 mls @ 25 mls/hr IVPB Q8HR DEBRA Last Admin: 07/19/21 00:11 Dose: 25 mls/hr Documented by: Fluconazole/Sodium Chloride (100 mg/ IV Solution) 50 mls @ 50 mls/hr IVPB DAILY [facility] Last Admin: 07/18/21 12:57 Dose: 50 mls/hr Documented by: Sodium Chloride (Saline 0.9%) 1,000 mls @ 100 mls/hr IV .Q10H [facility] Last Admin: 07/18/21 17:52 Dose: Not Given Documented by: Insulin Aspart (Insulin Aspart (Novolog) 100 Unit/Ml Vial) 0 unit SQ ACHS [facility]; Protocol Last Admin: 07/18/21 22:10 Dose: 2 unit Documented by: Levothyroxine Sodium (Levothyroxine 25 Mcg Tab) 25 mcg PO DAILY@0630 [facility] Last Admin: 07/18/21 05:40 Dose: 25 mcg Documented by: Metoclopramide HCl (Metoclopramide 5 Mg/Ml 2 Ml Vial) 5 mg IVP Q6HR PRN PRN Reason: Nausea And Vomiting Last Admin: 07/17/21 10:58 Dose: 5 mg Documented by: Metronidazole (Metronidazole 500 Mg Tab) 500 mg PO Q8HR DEBRA Last Admin: 07/19/21 00:12 Dose: 500 mg Documented by: Morphine Sulfate (Morphine Sulfate 4 Mg/Ml Syringe) 3 mg IVP Q4HR PRN PRN Reason: Pain Last Admin: 07/17/21 11:13 Dose: 3 mg Documented by: Multivitamins/Minerals (Vit A,C & S-[place]-Kxruggry 1 Each Tab) 1 each PO DAILY [facility] Last Admin: 07/18/21 07:59 Dose: 1 each Documented by: Naloxone HCl (Naloxone 0.4 Mg/Ml 1 Ml Vial) 0.2 mg IV Q2M PRN PRN Reason: Opioid Reversal Pantoprazole Sodium (Pantoprazole 40 Mg/10 Ml Vial) 40 mg IVP BID [facility] Pramipexole Dihydrochloride (Pramipexole 1 Mg Tab) 1 mg PO HS [facility] Last Admin: 07/18/21 22:10 Dose: 1 mg Documented by: Pravastatin Sodium (Pravastatin Sodium 40 Mg Tab) [address] [facility] Last Admin: 07/18/21 22:10 Dose: 80 mg Documented by: Simethicone (Simethicone 80 Mg Chewable) 80 mg PO TID PRN PRN Reason: Abdominal Distention Last Admin: 07/18/21 22:10 Dose: 80 mg Documented by: Tamsulosin HCl (Tamsulosin 0.4 Mg Cap.Er.24h) 0.4 mg PO PC-BRKFST [facility] Last Admin: 07/18/21 07:58 Dose: 0.4 mg Documented by: Tramadol HCl (Tramadol 50 Mg Tab) 50 mg PO QID PRN PRN Reason: Pain Last Admin: 07/18/21 22:14 Dose: 50 mg Documented by: Physical exam: GENERAL: The patient is alert and oriented x3, Well developed, well nourished. Temp is 97.9F, pulse is 78, respirations are 16, blood pressure is 135/53, oxygen saturation is 91% on 3 L via nasal cannula HEENT: Pupils are round and equally reacting to light. EOMI. No scleral icterus. No conjunctival pallor. Normocephalic, atraumatic. No pharyngeal erythema. No thyromegaly. CARDIOVASCULAR: S1 and S2 muffled PULMONARY: Diminished breath sounds bilaterally with no wheezing or crackles. ABDOMEN: Soft, tender, normoactive bowel sounds. No palpable organomegaly. Ostomy noted with dark maroon stools MUSCULOSKELETAL: No joint swelling or deformity. EXTREMITIES: No cyanosis, clubbing, or pedal edema. NEUROLOGICAL: Gross neurological examination did not reveal any focal deficits. Diffuse weakness SKIN: No rashes. Assessment: -Epigastric abdominal pain: Secondary to gastoesophageal reflux disease, possible peptic ulcer disease secondary to hiatal hernia -Status post sigmoid colectomy with end colostomy secondary to perforated sigmoid diverticulitis -Acute GI bleed with acute blood loss anemia -Status post laparoscopic repair of paraesophageal hernia with mesh -diarrhea, probably secondary to large hernia, resolving -metabolic acidosis, secondary to above -hyperkalemia -history of cold agglutin disease -Hyperlipidemia -Hypertension, currently hypotensive -hypothyroidism -Hyperglycemia due to IV steroids -DVT prophylaxis -GI Prophylaxis -FULL CODE Plan: Recommend to continue with current medications and management. Surgery and infectious disease following closely secondary to peritonitis from a perforated diverticulitis resulting in diverting colostomy. Patient continues on IV Zosyn and Diflucan and flagyl and awaiting for finalized cultures. Preliminary culture showing gram-negative bacilli and ecoli and awaiting sensitivities. Encouraged increase activity as tolerated and will have PT evaluate the patient for possible ECF. Social work is following. Patient is receiving ostomy education and care. Patient is having gas and also stool in the ostomy with now maroon colored stools and large output noted overnight. Hemoglobin is 7.3 today status post one unit of prbc and will transfuse another unit given the active bleeding noted in the ostomy. Surgery ordered small bowel capsule study and currently unstable to travel down to get the testing done given the active bleeding, syncope, dizziness, and hypotension. Ateam was called and recommend additional 2 units of PRBCs. Possible ICU transfer although no beds available. Diet is back to NPO per surgical recommendations. Patient received a liter bolus for hypotension with some minimal improvement. Will repeat am labs and monitor closely. Hematology consulted for cold agglutin disease. Patient to receive warm blood products. Due to multiple complex medical issues, prognosis is guarded. Further recommendations to follow based on the clinical course of the patient. Objective - Vital Signs Vital signs: Vital Signs Temp 97.9 F 07/18/21 04:49 Pulse 78 07/18/21 04:49 Resp 16 07/18/21 04:49 BP 135/53 07/18/21 04:49 Pulse Ox 91 L 07/18/21 04:50 Intake & Output 07/17/21 07/18/21 07/18/21 18:59 06:59 18:59 Intake Total 310 Output Total 2900 1250 Balance -2590 -1250 Weight 75.5 kg Intake: Blood Product 310 Rc As-1 Unit 310 [id number] Output: Urine 2400 350 Uretheral (Thapa) 350 Stool 500 900 Other: Voiding Method Indwelling Catheter Indwelling Catheter - Labs CBC & Chem 7: 07/18/21 09:32 07/17/21 08:38 Labs: Abnormal Lab Results - Last 24 Hours (Table) 07/17/21 07/17/21 07/17/21 Range/Units 08:38 08:38 09:41 WBC 16.9 H (3.8-10.6) k/uL RBC 2.34 L (3.80-5.40) m/uL Hgb 6.7 L* (11.4-16.0) gm/dL Hct 21.9 L (34.0-46.0) % MCHC 30.5 L (31.0-37.0) g/dL RDW 19.1 H (11.5-15.5) % Plt Count 451 H (150-450) k/uL Neutrophils # 16.1 H (1.3-7.7) k/uL Lymphocytes # 0.3 L (1.0-4.8) k/uL BUN 34 H (7-17) mg/dL Glucose 183 H (74-99) mg/dL POC Glucose (mg/dL) (75-99) mg/dL Calcium 7.6 L (8.4-10.2) mg/dL Crossmatch See Detail 07/17/21 07/17/21 07/17/21 Range/Units 11:38 16:49 20:14 WBC (3.8-10.6) k/uL RBC (3.80-5.40) m/uL Hgb (11.4-16.0) gm/dL Hct (34.0-46.0) % MCHC (31.0-37.0) g/dL RDW (11.5-15.5) % Plt Count (150-450) k/uL Neutrophils # (1.3-7.7) k/uL Lymphocytes # (1.0-4.8) k/uL BUN (7-17) mg/dL Glucose (74-99) mg/dL POC Glucose (mg/dL) 231 H 227 H 221 H (75-99) mg/dL Calcium (8.4-10.2) mg/dL Crossmatch 07/18/21 07/18/21 Range/Units 05:30 07:04 WBC 19.8 H (3.8-10.6) k/uL RBC 2.43 L (3.80-5.40) m/uL Hgb 7.3 L (11.4-16.0) gm/dL Hct 23.5 L (34.0-46.0) % MCHC (31.0-37.0) g/dL RDW 17.3 H (11.5-15.5) % Plt Count (150-450) k/uL Neutrophils # 18.1 H (1.3-7.7) k/uL Lymphocytes # 0.4 L (1.0-4.8) k/uL BUN (7-17) mg/dL Glucose (74-99) mg/dL POC Glucose (mg/dL) 207 H (75-99) mg/dL Calcium (8.4-10.2) mg/dL Crossmatch Microbiology - Last 24 Hours (Table) 07/14/21 23:20 Blood Culture - Preliminary Blood No Growth after 72 hours 07/14/21 20:50 Gram Stain - Preliminary Other - Other Wound Culture - Preliminary Escherichia coli Gram Neg Bacilli
[2021-07-19] MEDS: LEVOTHYROXINE 25 MCG TAB PO SCH (05:12)
[2021-07-19] MEDS: HYDROcodone/APAP 5-325MG 1 EACH TAB PO PRN ×2 (05:12→18:20)
[2021-07-19] MEDS: SODIUM CHLORIDE 0.9% 1,000 ML IV SCH ×2 (06:30→17:05)
[2021-07-19 06:41] LABS: African American GFR (CKD) >90 (>60 ml/min/1.73 sqM); Anion Gap 3 mmol/L; Anisocytosis Slight; Basophils # (A) 0.1 k/uL (0-0.2); Basophils % (A) 0 %; Blood Urea Nitrogen 31 mg/dL (7-17); Calcium 7.3 mg/dL (8.4-10.2); Carbon Dioxide 27 mmol/L (22-30); Chloride 108 mmol/L (98-107); Eosinophils # (A) 0.1 k/uL (0-0.7); Eosinophils % (A) 0 %; Glucose 117 mg/dL (74-99); HCT 31.8 % (34.0-46.0); Hypochromasia Slight; Lymphocytes # (A) 0.5 k/uL (1.0-4.8); Lymphocytes % (A) 2 %; MCH 31.3 pg (25.0-35.0); MCHC 32.9 g/dL (31.0-37.0); MCV 95.1 fL (80.0-100.0); Mean Platelet Volume 8.3; Monocytes # (A) 1.1 k/uL (0-1.0); Monocytes % (A) 4 %; Neutrophils # (A) 25.2 k/uL (1.3-7.7); Neutrophils % (A) 93 %; Non-African American GFR(CKD) 85 (>60 ml/min/1.73 sqM); Platelet Count 234 k/uL (150-450); Poikilocytosis Moderate; Potassium 3.7 mmol/L (3.5-5.1); RBC 3.34 m/uL (3.80-5.40); RDW 16.1 % (11.5-15.5); Sodium 138 mmol/L (137-145); WBC 27.1 k/uL (3.8-10.6)
[2021-07-19 06:49] LABS: HGB 10.5 gm/dL (11.4-16.0)
[2021-07-19 07:31] LABS: Glucose,Whole Blood 135 mg/dL (75-99)
[2021-07-19] MEDS: INSULIN ASPART (NovoLOG) 100 UNIT/ML VIAL SQ SCH ×4 (07:43→22:23)
[2021-07-19 09:59] LABS: Reticulocyte % 3.8 % (0.5-2.0)
[2021-07-19 11:30] LABS: Glucose,Whole Blood 127 mg/dL (75-99)
--- NOTE | 2021-07-19 11:51 | NM ---
EXAMINATION TYPE: NM GI bleeding DATE OF EXAM: 07/19/2021 HISTORY: GI bleed COMPARISON: NONE Following administration of 3 ml PYP 25.9 mCi Tc 99m Sodium Pertechnete. Immediate images post inject ion. FINDINGS: Normal tracer activity is seen in the blood pool of the abdominal aorta, common iliac arteries, femor al arteries, liver, and spleen on all of the interval images. Later images show accumulation of trace r in the urinary bladder, which is consistent with excreted tracer. A faint uptake is seen was believ ed in the left colon and transverse colon. IMPRESSION: No definitive area of abnormal uptake. Questionable area within the transverse colon and splenic flex ure could be correlated with colonoscopy as clinically warranted.
[2021-07-19 12:16] LABS: Anisocytosis Slight; Basophils # (A) 0.1 k/uL (0-0.2); Basophils % (A) 0 %; Eosinophils % (A) 0 %; HCT 29.5 % (34.0-46.0); Hypochromasia Slight; Lymphocytes # (A) 0.6 k/uL (1.0-4.8); Lymphocytes % (A) 3 %; MCH 31.6 pg (25.0-35.0); MCHC 33.9 g/dL (31.0-37.0); MCV 93.1 fL (80.0-100.0); Mean Platelet Volume 8.3; Monocytes # (A) 0.9 k/uL (0-1.0); Monocytes % (A) 4 %; Neutrophils % (A) 93 %; Platelet Count 228 k/uL (150-450); Poikilocytosis Moderate; RBC 3.17 m/uL (3.80-5.40); RDW 16.5 % (11.5-15.5); WBC 23.7 k/uL (3.8-10.6)
[2021-07-19] MEDS: PANTOPRAZOLE 40 MG/10 ML VIAL IVP SCH ×2 (12:49→22:23)
[2021-07-19] MEDS: VIT A,C & E-LUTEIN-MINERALS 1 EACH TAB PO SCH (12:49)
[2021-07-19] MEDS: FLUCONAZOLE IN NACL,ISO-OSM 100 MG in SALINE 1 50ML.BAG IVPB SCH (12:53)
[2021-07-19] MEDS: TAMSULOSIN 0.4 MG CAP.ER.24H PO SCH (12:53)
[2021-07-19] MEDS ORDERED: PEG 3350-NA SULF,BICARB,CL/KCL 4,000 ML BOTTLE PO ONE (13:00)
--- NOTE | 2021-07-19 14:29 | P.PN ---
<Ginny Kay - Last Filed: 07/19/21 14:24> Subjective Progress Note Date: 07/19/21 CHIEF COMPLAINT: Large paraesophageal hernia HISTORY OF PRESENT ILLNESS: Patient is postop day #5 status post sigmoid colectomy with end colostomy for perforated sigmoid diverticulitis. She is status post laparoscopic repair of paraesophageal hernia with mesh on 07/09/21. Patient continues to have maroon-colored stools and starting to have clots as well. Patient did receive 3 units of blood yesterday hemoglobin did go from 6.1 up to 10.5. She had a repeat hemoglobin at noon which was 10. White count elevated at 23.7. Patient had tagged RBC scan showing no definitive area of abnormal uptake. Questionable area within the transverse colon and splenic flexure could be correlated with colonoscopy. Patient appears very weak and tired. Afebrile. Blood pressure and heart rate have improved. Sent 2 L satting at 94%. Patient transferred to cardiac floor today. PHYSICAL EXAM: VITAL SIGNS: Reviewed. GENERAL: Well-developed in no acute distress. HEENT: No sclera icterus. Extraocular movements grossly intact. Moist buccal mucosa. Head is atraumatic, normocephalic. ABDOMEN: Soft. Nondistended. Nontender. Incision sites with serosanguineous drainage. Ana are in place. Otherwise clean dry and intact. Ostomy with maroon stools. NEUROLOGIC: Alert and oriented. Cranial nerves II through XII grossly intact. ASSESSMENT: 1. Perforated sigmoid diverticulitis status post sigmoid colectomy with end colostomy 2. Large paraesophageal hernia containing colon, small bowel and stomach status post laparoscopic repair of paraesophageal hernia with mesh 3. Moderate obstruction status post hiatal hernia repair PLAN: -Colonoscopy recommended for further evaluation of the transverse colon and splenic flexure. However patient is currently not stable to tolerate colonoscopy prep. -Continue to observe patient -Continue to monitor for bleeding -Continue to monitor hemoglobin -Continue IV fluids -Continue antibiotics Physician El Teacher note has been reviewed by physician. Signing provider agrees with the documented findings, assessment, and plan of care. Objective - Vital Signs Vital signs: Vital Signs Temp 97.7 F 07/19/21 11:58 Pulse 90 07/19/21 11:58 Resp 20 07/19/21 11:58 BP 116/56 07/19/21 11:58 Pulse Ox 94 L 07/19/21 11:58 Intake & Output 07/18/21 07/19/21 07/19/21 18:59 06:59 18:59 Intake Total 310 620 20 Output Total 200 100 280 Balance 110 520 -260 Weight 76 kg 76 kg Intake: Oral 20 Blood Product 310 620 Rc As-1 Unit 310 [id number] Rc As-1 Unit 310 [id number] Rc Pheresis 2 As3 Unit 0 310 [id number] Output: Stool 200 100 280 Other: Voiding Method Indwelling Catheter # Voids 1 1 # Bowel Movements 1 - Labs CBC & Chem 7: 07/19/21 11:24 07/19/21 05:45 Labs: Abnormal Lab Results - Last 24 Hours (Table) 07/17/21 07/18/21 07/18/21 Range/Units 09:41 17:03 20:48 WBC (3.8-10.6) k/uL RBC (3.80-5.40) m/uL Hgb (11.4-16.0) gm/dL Hct (34.0-46.0) % RDW (11.5-15.5) % Neutrophils # (1.3-7.7) k/uL Lymphocytes # (1.0-4.8) k/uL Monocytes # (0-1.0) k/uL Retic Count (0.5-2.0) % Chloride (98-107) mmol/L BUN (7-17) mg/dL Glucose (74-99) mg/dL POC Glucose (mg/dL) 184 H 168 H (75-99) mg/dL Calcium (8.4-10.2) mg/dL Crossmatch See Detail 07/19/21 07/19/21 07/19/21 Range/Units 05:45 05:45 05:45 WBC 27.1 H (3.8-10.6) k/uL RBC 3.34 L (3.80-5.40) m/uL Hgb 10.5 L D (11.4-16.0) gm/dL Hct 31.8 L (34.0-46.0) % RDW 16.1 H (11.5-15.5) % Neutrophils # 25.2 H (1.3-7.7) k/uL Lymphocytes # 0.5 L (1.0-4.8) k/uL Monocytes # 1.1 H (0-1.0) k/uL Retic Count 3.8 H (0.5-2.0) % Chloride 108 H (98-107) mmol/L BUN 31 H (7-17) mg/dL Glucose 117 H (74-99) mg/dL POC Glucose (mg/dL) (75-99) mg/dL Calcium 7.3 L (8.4-10.2) mg/dL Crossmatch 07/19/21 07/19/21 07/19/21 Range/Units 07:30 11:24 11:28 WBC 23.7 H (3.8-10.6) k/uL RBC 3.17 L (3.80-5.40) m/uL Hgb 10.0 L (11.4-16.0) gm/dL Hct 29.5 L (34.0-46.0) % RDW 16.5 H (11.5-15.5) % Neutrophils # 22.0 H (1.3-7.7) k/uL Lymphocytes # 0.6 L (1.0-4.8) k/uL Monocytes # (0-1.0) k/uL Retic Count (0.5-2.0) % Chloride (98-107) mmol/L BUN (7-17) mg/dL Glucose (74-99) mg/dL POC Glucose (mg/dL) 135 H 127 H (75-99) mg/dL Calcium (8.4-10.2) mg/dL Crossmatch Microbiology - Last 24 Hours (Table) 07/14/21 23:20 Blood Culture - Preliminary Blood No Growth after 96 hours 07/14/21 20:50 Anaerobic Culture - Final Other - Other Anaerobic Gm Negative Bacilli Anaerobic Gm Positive Bacill Anaerobic Gm Negative Bacilli#2 07/14/21 20:50 Gram Stain - Final Other - Other Wound Culture - Final Escherichia coli Escherichia coli#2 <Mahad Quiros - Last Filed: 07/19/21 14:39> Subjective As above. Patient still having some dark stools that appear to have some blood present. Hemoglobin over 10. She feels better. Tagged red blood cell scan shows possible bleeding from the distal transverse colon. Patient will be scheduled for colonoscopy by either myself or Dr. Ryan tomorrow. Patient's daughter Yoly updated. Objective - Vital Signs Vital signs: Vital Signs Temp 97.7 F 07/19/21 11:58 Pulse 90 07/19/21 11:58 Resp 20 07/19/21 11:58 BP 116/56 07/19/21 11:58 Pulse Ox 94 L 07/19/21 11:58 Intake & Output 07/18/21 07/19/21 07/19/21 18:59 06:59 18:59 Intake Total 310 620 20 Output Total 200 100 280 Balance 110 520 -260 Weight 76 kg 76 kg Intake: Oral 20 Blood Product 310 620 Rc As-1 Unit 310 [id number] Rc As-1 Unit 310 [id number] Rc Pheresis 2 As3 Unit 0 310 [id number] Output: Stool 200 100 280 Other: Voiding Method Indwelling Catheter # Voids 1 1 # Bowel Movements 1 - Labs CBC & Chem 7: 07/19/21 11:24 07/19/21 05:45 Labs: Abnormal Lab Results - Last 24 Hours (Table) 07/17/21 07/18/21 07/18/21 Range/Units 09:41 17:03 20:48 WBC (3.8-10.6) k/uL RBC (3.80-5.40) m/uL Hgb (11.4-16.0) gm/dL Hct (34.0-46.0) % RDW (11.5-15.5) % Neutrophils # (1.3-7.7) k/uL Lymphocytes # (1.0-4.8) k/uL Monocytes # (0-1.0) k/uL Retic Count (0.5-2.0) % Chloride (98-107) mmol/L BUN (7-17) mg/dL Glucose (74-99) mg/dL POC Glucose (mg/dL) 184 H 168 H (75-99) mg/dL Calcium (8.4-10.2) mg/dL Crossmatch See Detail 07/19/21 07/19/21 07/19/21 Range/Units 05:45 05:45 05:45 WBC 27.1 H (3.8-10.6) k/uL RBC 3.34 L (3.80-5.40) m/uL Hgb 10.5 L D (11.4-16.0) gm/dL Hct 31.8 L (34.0-46.0) % RDW 16.1 H (11.5-15.5) % Neutrophils # 25.2 H (1.3-7.7) k/uL Lymphocytes # 0.5 L (1.0-4.8) k/uL Monocytes # 1.1 H (0-1.0) k/uL Retic Count 3.8 H (0.5-2.0) % Chloride 108 H (98-107) mmol/L BUN 31 H (7-17) mg/dL Glucose 117 H (74-99) mg/dL POC Glucose (mg/dL) (75-99) mg/dL Calcium 7.3 L (8.4-10.2) mg/dL Crossmatch 07/19/21 07/19/21 07/19/21 Range/Units 07:30 11:24 11:28 WBC 23.7 H (3.8-10.6) k/uL RBC 3.17 L (3.80-5.40) m/uL Hgb 10.0 L (11.4-16.0) gm/dL Hct 29.5 L (34.0-46.0) % RDW 16.5 H (11.5-15.5) % Neutrophils # 22.0 H (1.3-7.7) k/uL Lymphocytes # 0.6 L (1.0-4.8) k/uL Monocytes # (0-1.0) k/uL Retic Count (0.5-2.0) % Chloride (98-107) mmol/L BUN (7-17) mg/dL Glucose (74-99) mg/dL POC Glucose (mg/dL) 135 H 127 H (75-99) mg/dL Calcium (8.4-10.2) mg/dL Crossmatch Microbiology - Last 24 Hours (Table) 07/14/21 23:20 Blood Culture - Preliminary Blood No Growth after 96 hours 07/14/21 20:50 Anaerobic Culture - Final Other - Other Anaerobic Gm Negative Bacilli Anaerobic Gm Positive Bacill Anaerobic Gm Negative Bacilli#2 07/14/21 20:50 Gram Stain - Final Other - Other Wound Culture - Final Escherichia coli Escherichia coli#2 Assessment and Plan (1) Abdominal pain Current Visit: Yes Status: Acute Code(s): R10.9 - UNSPECIFIED ABDOMINAL PAIN SNOMED Code(s): 26771197
[2021-07-19 16:44] LABS: Glucose,Whole Blood 117 mg/dL (75-99)
--- NOTE | 2021-07-19 17:31 | P.PN ---
Subjective Progress Note Date: 07/19/21 Patient is an 80-year-old female came in with the complaint of upper abdominal discomfort patient does have history of hernia and the pain is related to be secondary to anemia, Gen. surgery evaluated the patient is planning on doing hemorrhoidal hernia repair/Adis fundoplication on Friday. Patient will be started on Protonix patient was on naproxen at home which will be held. Patient doesn't have any fever chills vomiting diarrhea. Bit nauseous 07/11/2021 Patient is seen and evaluated in room at bedside; status post repair of paraesophageal hernia with mesh; POD #2 Patient reports improvement this morning; does complain of pain; tolerating clear liquid diet well Vital signs are reviewed and reveal temperature of 97.4, pulse 89, respiration 18 and blood pressure 100/65 Lab review shows WBC 7.2, hemoglobin 9.3, platelet count of 464, sodium 144, potassium 4.0, BUN/creatinine of 13/0.80 and blood glucose of 158 Surgery on board and recommending to continue with IV dexamethasone for moderate obstruction noted on upper GI; patient will remain on IV fluids and a clear liquid diet Increase activity and PT/OT recommended 07/12/2021 Patient is seen and evaluated sitting up in bed; patient reports shortness of breath earlier in the day; was placed on O2 2-3 L per nasal cannula which improved breathing Does complain of chest congestion; we will hold off on IV fluids and order Lasix 40 mg IV 1 and order a chest x-ray We will signs are reviewed and reveal temperature of 97.5, pulse 88, respiration 28 and blood pressure 117/61. O2 saturation 96% on 2 L Patient is tolerating clear liquid diet fairly well and has been advanced to a full liquid diet; remains on IV dexamethasone for moderate obstruction on upper GI 07/13/2021 Patient is seen and evaluated; lying in bed; patient is status post laparoscopic repair of paraesophageal hernia with mesh; POD #4; episode of maroon-colored stool at night Vital signs reviewed reveal patient to be afebrile, blood pressure of 101/68, respiration 18 and heart rate of 19 with O2 saturation of 96% on 2 L Laboratory review shows a drop in hemoglobin from 9.3 down to 7.6 this morning; patient underwent EGD which reveals mild gastritis; no active bleeding; general surgery on board and recommending to continue to monitor labs closely. Possibility of colonoscopy if hemoglobin continues to drop; patient is status post transfusion with 1 unit of packed RBCs 07/14/2021 Patient is seen and evaluated; reports increasing abdominal pain; has been evaluated by surgery and is recommended CT of abdomen for further evaluation Vital signs temperature 97.7, pulse 85, respiration 22 and blood pressure 110/67 Lab review reveals an elevated white blood count of 21.7, hemoglobin of 8.5, platelets of 400, sodium 136, potassium 5.0, BUN/creatinine of 21/0.61 Patient is currently on IV antibiotics in form of Zosyn 3.375 g IV every 8 hours along with metronidazole 500 mg every 8 hours We will proceed with stat CT of the abdomen and consult ID for further recommendations 07/15/2021 Patient is seen and evaluated resting in bed; reports improved abdominal pain with oral [place] Vital signs are reviewed and stable with temperature of 98, pulse 72, respiration 20 and blood pressure 111/71 Lab review reveals WBC that remains elevated at 27.7, hemoglobin of 8.4 and platelet count of 369, sodium 136, potassium 5.4, BUN/creatinine of 46/0.85 CT of the abdomen completed reveals normal. Continue related to perforated si gmoid diverticulitis; patient underwent sigmoid colectomy with end colostomy; POD #1 Patient remains nothing by mouth or surgery recommendations; potassium elevated at 5.4; we will repeat stat potassium level and treat as needed; continue with IV antibiotics as ordered We will monitor CBC, CRP and pro-calcitonin 07/16/2021 Patient is seen in follow up this morning with family at the bedside. Ostomy nurse at the bedside educating as well. Patient reports to passing gas in the ostomy and general surgery following closely. Patient diet is being advanced as tolerated. Patient has some generalized pain although reports to feeling nauseated and dizzy with narcotics. Will continue with tylenol and lower dose of norco and discuss with nursing staff of avoiding narcotics if possible. PT/OT to evaluate as patient will likely need rehab for strength and mobility. social wo rk consulted for possible placement. Patient is continued on flagyl and Zosyn with infectious disease also following closely. Diflucan as well. Potassium elevated and will correct and repeat am labs. Encouraged increased activity as tolerated. 07/17/2021 She is seen in follow-up today states she is not feeling well and feels more short of breath. Hemoglobin was found to be 6.7 and will order a unit of PRBC. Surgery and ID following. Patient is having stool and gas noted in the ostomy. Patient states she is tired and having anxiety and wants to go home. Patient continued on full liquid diet and not eating much. Patient states she has no real appetite and feels worse today. Will transfuse 1 unit of PRBC and repeat am labs. Give one dose of IV lasix after transfusion. Patient continues on flagyl along with diflucan and zosyn and will continue. Preliminary showing ecoli and gram negative and awaiting finalized culture with sensitivities. Social work also following and working on possible ECF placement once stabilized. No active bleeding noted. Patient denies any previous transfusions. 07/18/2021 Patient is seen and evaluated this morning and is ill appearing, nauseated, lethargic, and is being closely monitored. Patient hemoglobin was 7.3 this morning and is noted to have maroon colored stools in the ostomy and is s/p transfusion of 1 unit of PRBC. Patient is found to be hypotensive and an A-team is being called as patient was briefly unresponsive and appears to have possibly had a syncopal event. Patient is bed bound currently as she has been extremely weak for PT/OT therapy. Patient is actively receiving another unit of PRBC as well. Patient given a bolus of IV normal saline and blood pressure slightly improved. Will continue to monitor bleeding and transfuse if 7. General surgery following and small bowel capsule study ordered although minimal staff to be able to go sit with patient for the 2 hour study and patient is currently receiving blood product. 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 Ateam ordered 2 additional units of PRBC today. WBC elevated today at 19.8 and ID following and patient continues of IV flagyl and zosyn. 07/19/2021 Patient is seen in follow-up this morning continues to be bleeding to the ostomy and has received multiple blood transfusions with multiple medical consultations including surgery, infectious disease, hematology following closely. Patient is being transferred to the selected unit for close monitoring as she continues to bleed. Patient is extremely lethargic and states she feels she is passing out frequently with position changes and movements. Hemoglobin is improved at 1.5 status 3 units of PRBCs. White blood count is elevated and again infectious disease is following. Patient underwent packed RBC this morning showing no definite areas of abnormal uptake with a questionable area within the transverse colon and splenic flexure that could be correlated with colonoscopy. Surgery is following closely and plans for colonoscopy once patient is more stable. Recommend H&H every 12 and transfuse if less than 7. Continue with IV fluids as well as patient is symptomatically hypotensive. Labs: WBC is 27.1, hemoglobin is 10.5, platelets are 234, sodium is 138, potassium 3.7 , BUN 31, creatinine 0.63, calcium 7.3, total bilirubin 0.3 Review of systems: Constitutional: reports of fatigue, fever, or chills Cardiovascular: No reports of chest pain or palpitations Respiratory: reports of worsening shortness of breath GI: reports of nausea and dark stool in the ostomy : No reports of dysuria or retention, currently indwelling thapa catheter Neurovascular: reports of generalized weakness, fatigue and overall unwell Active Medications Acetaminophen (Acetaminophen Tab 325 Mg Tab) 650 mg PO Q6HR PRN PRN Reason: Fever and/ or Pain Last Admin: 07/16/21 22:43 Dose: 650 mg Documented by: Hydrocodone Bitart/Acetaminophen (Hydrocodone/Apap 5-325mg 1 Each Tab) 0.5 each PO Q6HR PRN PRN Reason: Pain Last Admin: 07/19/21 05:12 Dose: 0.5 each Documented by: Piperacillin Sod/Tazobactam (Sod 3.375 gm/ Sodium Chloride) 100 mls @ 25 mls/hr IVPB Q8HR [facility] Last Admin: 07/19/21 17:03 Dose: 25 mls/hr Documented by: Fluconazole/Sodium Chloride (100 mg/ IV Solution) 50 mls @ 50 mls/hr IVPB DAILY [facility] Last Admin: 07/19/21 12:53 Dose: Not Given Documented by: Sodium Chloride (Saline 0.9%) 1,000 mls @ 100 mls/hr IV .Q10H [facility] Last Admin: 07/19/21 17:05 Dose: 100 mls/hr Documented by: Insulin Aspart (Insulin Aspart (Novolog) 100 Unit/Ml Vial) 0 unit SQ ACHS [facility]; Protocol Last Admin: 07/19/21 17:03 Dose: Not Given Documented by: Levothyroxine Sodium (Levothyroxine 25 Mcg Tab) 25 mcg PO DAILY@0630 [facility] Last Admin: 07/19/21 05:12 Dose: 25 mcg Documented by: Metoclopramide HCl (Metoclopramide 5 Mg/Ml 2 Ml Vial) 5 mg IVP Q6HR PRN PRN Reason: Nausea And Vomiting Last Admin: 07/17/21 10:58 Dose: 5 mg Documented by: Metronidazole (Metronidazole 500 Mg Tab) 500 mg PO Q8HR [facility] Last Admin: 07/19/21 17:03 Dose: 500 mg Documented by: Morphine Sulfate (Morphine Sulfate 4 Mg/Ml Syringe) 3 mg IVP Q4HR PRN PRN Reason: Pain Last Admin: 07/17/21 11:13 Dose: 3 mg Documented by: Multivitamins/Minerals (Vit A,C & R-Yuflfq-Wubmzfbt 1 Each Tab) 1 each PO DAILY [facility] Last Admin: 07/19/21 12:49 Dose: Not Given Documented by: Naloxone HCl (Naloxone 0.4 Mg/Ml 1 Ml Vial) 0.2 mg IV Q2M PRN PRN Reason: Opioid Reversal Pantoprazole Sodium (Pantoprazole 40 Mg/10 Ml Vial) 40 mg IVP BID [facility] Last Admin: 07/19/21 12:49 Dose: Not Given Documented by: Pramipexole Dihydrochloride (Pramipexole 1 Mg Tab) 1 mg PO HS [facility] Last Admin: 07/18/21 22:10 Dose: 1 mg Documented by: Pravastatin Sodium (Pravastatin Sodium 40 Mg Tab) 80 mg PO HS [facility] Last Admin: 07/18/21 22:10 Dose: 80 mg Documented by: Simethicone (Simethicone 80 Mg Chewable) 80 mg PO TID PRN PRN Reason: Abdominal Distention Last Admin: 07/18/21 22:10 Dose: 80 mg Documented by: Tamsulosin HCl (Tamsulosin 0.4 Mg Cap.Er.24h) 0.4 mg PO -BRKFST [facility] Last Admin: 07/19/21 12:53 Dose: Not Given Documented by: Physical exam: GENERAL: The patient is alert and oriented x3, Well developed, well nourished. Temp is 97.5F, pulse is 86, respirations are 18, blood pressure is 117/71, oxygen saturation is 94% on 4 L via nasal cannula HEENT: Pupils are round and equally reacting to light. EOMI. No scleral icterus. No conjunctival pallor. Normocephalic, atraumatic. No pharyngeal erythema. No thyromegaly. CARDIOVASCULAR: S1 and S2 muffled PULMONARY: Diminished breath sounds bilaterally with no wheezing or crackles. ABDOMEN: Soft, tender, normoactive bowel sounds. No palpable organomegaly. Ostomy noted with dark maroon stools MUSCULOSKELETAL: No joint swelling or deformity. EXTREMITIES: No cyanosis, clubbing, or pedal edema. NEUROLOGICAL: Gross neurological examination did not reveal any focal deficits. Diffuse weakness SKIN: No rashes. Assessment: -Epigastric abdominal pain: Secondary to gastoesophageal reflux disease, possible peptic ulcer disease secondary to hiatal hernia -Status post sigmoid colectomy with end colostomy secondary to perforated sigmoid diverticulitis -Acute GI bleed with acute blood loss anemia -Status post laparoscopic repair of paraesophageal hernia with mesh -diarrhea, probably secondary to large hernia, resolved -metabolic acidosis, secondary to above -hyperkalemia -Hyperlipidemia -Hypertension, currently hypotensive -hypothyroidism -Hyperglycemia due to IV steroids -DVT prophylaxis -GI Prophylaxis -FULL CODE Plan: Recommend to continue with current medications and management. Surgery and infectious disease following closely secondary to peritonitis from a perforated diverticulitis resulting in diverting colostomy. Patient continues on IV Zosyn and Diflucan and flagyl and awaiting for finalized cultures. Preliminary culture showing gram-negative bacilli and ecoli and awaiting sensitivities. Patient underwent GI bleeding study and surgery following with plans for colonoscopy once more stable. Patient continues to be symptomatic of this acute blood loss anemia continues to have dark maroon stools noted in the ostomy. Patient's hemoglobin is 10.5 this morning and will continue to monitor H&H's every 12. Patient received 3 units of PRBCs yesterday. Patient was started on clear liquids although not much of an appetite. Patient is extremely lethargic and hypotensive and maintained on IV fluids which will continue. Will repeat am labs and monitor closely. Hematology consulted and following for possible cold agglutin disease although unsure of this diagnosis and will discuss further with daughter about this. Patient to receive warm blood products. Due to multiple complex medical issues, prognosis is guarded. Further recommendations to follow based on the clinical course of the patient. Objective - Vital Signs Vital signs: Vital Signs Temp 97.5 F L 07/19/21 03:46 Pulse 86 07/19/21 03:46 Resp 18 07/19/21 03:46 BP 117/71 07/19/21 03:46 Pulse Ox 94 L 07/19/21 03:46 Intake & Output 07/18/21 07/19/21 07/19/21 18:59 06:59 18:59 Intake Total 310 620 Output Total 200 100 Balance 110 520 Weight 76 kg Intake: Blood Product 310 620 Rc As-1 Unit 310 [id number] Rc As-1 Unit 310 [id number] Rc Pheresis 2 As3 Unit 0 310 [id number] Output: Stool 200 100 Other: Voiding Method Indwelling Catheter # Voids 1 - Labs CBC & Chem 7: 07/19/21 11:24 07/19/21 05:45 Labs: Abnormal Lab Results - Last 24 Hours (Table) 07/17/21 07/18/21 07/18/21 Range/Units 09:41 09:32 12:59 WBC 29.5 H (3.8-10.6) k/uL RBC 2.03 L (3.80-5.40) m/uL Hgb 6.1 L* (11.4-16.0) gm/dL Hct 19.7 L* (34.0-46.0) % MCHC 30.9 L (31.0-37.0) g/dL RDW 17.7 H (11.5-15.5) % Neutrophils # 27.2 H (1.3-7.7) k/uL Lymphocytes # 0.7 L (1.0-4.8) k/uL Monocytes # 1.3 H (0-1.0) k/uL Chloride (98-107) mmol/L BUN (7-17) mg/dL Glucose (74-99) mg/dL POC Glucose (mg/dL) 222 H (75-99) mg/dL Calcium (8.4-10.2) mg/dL Crossmatch See Detail 07/18/21 07/18/21 07/18/21 Range/Units 13:43 17:03 20:48 WBC (3.8-10.6) k/uL RBC (3.80-5.40) m/uL Hgb (11.4-16.0) gm/dL Hct (34.0-46.0) % MCHC (31.0-37.0) g/dL RDW (11.5-15.5) % Neutrophils # (1.3-7.7) k/uL Lymphocytes # (1.0-4.8) k/uL Monocytes # (0-1.0) k/uL Chloride (98-107) mmol/L BUN (7-17) mg/dL Glucose (74-99) mg/dL POC Glucose (mg/dL) 211 H 184 H 168 H (75-99) mg/dL Calcium (8.4-10.2) mg/dL Crossmatch 07/19/21 07/19/21 07/19/21 Range/Units 05:45 05:45 07:30 WBC 27.1 H (3.8-10.6) k/uL RBC 3.34 L (3.80-5.40) m/uL Hgb 10.5 L D (11.4-16.0) gm/dL Hct 31.8 L (34.0-46.0) % MCHC (31.0-37.0) g/dL RDW 16.1 H (11.5-15.5) % Neutrophils # 25.2 H (1.3-7.7) k/uL Lymphocytes # 0.5 L (1.0-4.8) k/uL Monocytes # 1.1 H (0-1.0) k/uL Chloride 108 H (98-107) mmol/L BUN 31 H (7-17) mg/dL Glucose 117 H (74-99) mg/dL POC Glucose (mg/dL) 135 H (75-99) mg/dL Calcium 7.3 L (8.4-10.2) mg/dL Crossmatch Microbiology - Last 24 Hours (Table) 07/14/21 23:20 Blood Culture - Preliminary Blood No Growth after 96 hours 07/14/21 20:50 Anaerobic Culture - Final Other - Other Anaerobic Gm Negative Bacilli Anaerobic Gm Positive Bacill Anaerobic Gm Negative Bacilli#2 07/14/21 20:50 Gram Stain - Final Other - Other Wound Culture - Final Escherichia coli Escherichia coli#2
[2021-07-19 20:21] LABS: Glucose,Whole Blood 239 mg/dL (75-99)
[2021-07-19] MEDS: METOCLOPRAMIDE 5 MG/ML 2 ML VIAL IVP PRN (22:23)
[2021-07-19] MEDS: PRAVASTATIN SODIUM 40 MG TAB PO SCH (22:23)
[2021-07-19] MEDS: PRAMIPEXOLE 1 MG TAB PO SCH (22:35)
--- NOTE | 2021-07-19 22:57 | PN ---
PROGRESS NOTE DATE OF SERVICE: 07/19/2021 REASON FOR FOLLOWUP: Intraabdominal abscess from perforated diverticulitis. INTERVAL HISTORY: The patient is afebrile. She is feeling slightly better, breathing comfortably. No chest pain or shortness of breath or cough. Abdominal pain is currently controlled. No vomiting. Did have output in her colostomy bag; it is mostly bloody. PHYSICAL EXAMINATION: Blood pressure 107/65, pulse of 94, temperature 97.6. She is 98% on 3 L nasal cannula. General description is an elderly female up in the bed in no distress. Respiratory system: Unlabored breathing, decreased intensity of breath sounds. No wheeze. Heart S1, S2. Regular rate and rhythm. Abdomen soft, mildly tender. No guarding or rigidity. LABS: Hemoglobin is 10, white count of 23.7. Creatinine 0.63. DIAGNOSTIC IMPRESSION AND PLAN: Patient with intraabdominal abscess from perforated diverticulitis, status post diverting colostomy. Abdominal culture with multiple pathogens. Patient is covered with Zosyn; to continue. Now with problem with GI bleed, being monitored closely by surgical team. Continue supportive care. MMODL / IJN: [id number] /
[2021-07-19] MEDS: MORPHINE SULFATE 4 MG/ML SYRINGE IVP PRN (23:56)
[2021-07-20] MEDS: SODIUM CHLORIDE 0.9% 1,000 ML IV SCH ×3 (00:54→20:51)
[2021-07-20] MEDS: MORPHINE SULFATE 4 MG/ML SYRINGE IVP PRN (05:32)
[2021-07-20] MEDS: METOCLOPRAMIDE 5 MG/ML 2 ML VIAL IVP PRN (05:33)
[2021-07-20] MEDS: LEVOTHYROXINE 25 MCG TAB PO SCH (05:34)
[2021-07-20 05:49] LABS: Glucose,Whole Blood 90 mg/dL (75-99)
[2021-07-20] MEDS: INSULIN ASPART (NovoLOG) 100 UNIT/ML VIAL SQ SCH ×4 (05:59→20:51)
[2021-07-20] MEDS: PANTOPRAZOLE 40 MG/10 ML VIAL IVP SCH ×2 (08:38→20:51)
[2021-07-20] MEDS: FLUCONAZOLE IN NACL,ISO-OSM 100 MG in SALINE 1 50ML.BAG IVPB SCH (08:38)
[2021-07-20] MEDS: metroNIDAZOLE 500 MG TAB PO SCH ×3 (09:15→22:54)
[2021-07-20] MEDS: TAMSULOSIN 0.4 MG CAP.ER.24H PO SCH (09:15)
[2021-07-20] MEDS: VIT A,C & E-LUTEIN-MINERALS 1 EACH TAB PO SCH (09:15)
--- NOTE | 2021-07-20 10:24 | US ---
EXAMINATION TYPE: US venous doppler duplex UE LT DATE OF EXAM: 07/20/2021 COMPARISON: Thyroid ultrasound 2015 CLINICAL HISTORY: rule out DVT. Left arm swelling SIDE PERFORMED: Left Limited visualization due to scanning immobile in-patient portable Left Arm: Limited views show no evidence of DVT- unable to visualize IJV due to enlarged thyroid- sub clavian vein appeared small in caliber, extensive soft tissue edema Grayscale, color doppler, spectral doppler imaging performed of the deep veins of the left upper extr emity. Initial images show portion of heterogeneous enlarged thyroid. Findings correlate with 2015 ul trasound. Suboptimal study with moderate to severe subcutaneous throughout the left upper extremity. Visualized portion shows no acute DVT. IMPRESSION: Suboptimal study without acute deep or superficial venous thrombosis. Persistent markedly heterogeneous enlarged left thyroid, cannot exclude neoplasm or abnormal given the asymmetry and val picious echogenic foci. Local mass effect is present. Correlate clinically.
[2021-07-20] MEDS: PIPERACILLIN-TAZOBACTAM 3.375 GM in SODIUM CHLORIDE 0.9% 100 ML IVPB SCH ×3 (10:30→22:54)
--- NOTE | 2021-07-20 11:05 | P.PN ---
<Ginny Kay - Last Filed: 07/20/21 11:01> Subjective Progress Note Date: 07/20/21 CHIEF COMPLAINT: Large paraesophageal hernia HISTORY OF PRESENT ILLNESS: Patient is postop day #6 status post sigmoid colectomy with end colostomy for perforated sigmoid diverticulitis. She is status post laparoscopic repair of paraesophageal hernia with mesh on 07/09/21. Patient still has maroon stools through her ostomy but the amount is less. She has minimal abdominal pain. Denies any nausea vomiting. She reports feeling we ak and tired. She does have more swelling in the left arm. Denies any pain in the arm. Afebrile. Vitals stable. Labs for today pending. PHYSICAL EXAM: VITAL SIGNS: Reviewed. GENERAL: Well-developed in no acute distress. HEENT: No sclera icterus. Extraocular movements grossly intact. Moist buccal mucosa. Head is atraumatic, normocephalic. ABDOMEN: Soft. Nondistended. Nontender. Incision sites with serosanguineous drainage. Ana are in place. Otherwise clean dry and intact. Ostomy with maroon stools. NEUROLOGIC: Alert and oriented. Cranial nerves II through XII grossly intact. Extremities left arm swelling ASSESSMENT: 1. Perforated sigmoid diverticulitis status post sigmoid colectomy with end colostomy 2. Large paraesophageal hernia containing colon, small bowel and stomach status post laparoscopic repair of paraesophageal hernia with mesh 3. Moderate obstruction status post hiatal hernia repair status post dexamethasone treatment. PLAN: -Colonoscopy recommended for further evaluation of the transverse colon and splenic flexure crushable area noted on tagged RBC. However, patient is currently not stable to tolerate colonoscopy prep. -Continue to observe patient -Continue to monitor for bleeding -Continue to monitor hemoglobin -Continue IV fluids -Continue antibiotics -Check venous Doppler of the left upper extremity to rule out DVT -reorder patient's incentive spirometer -SCDs to lower extremities Physician [employer] note has been reviewed by physician. Signing provider agrees with the documented findings, assessment, and plan of care. Objective - Vital Signs Vital signs: Vital Signs Temp 98.3 F 07/20/21 08:35 Pulse 81 07/20/21 08:35 Resp 20 07/20/21 08:35 BP 115/65 07/20/21 08:35 Pulse Ox 96 07/20/21 08:35 Intake & Output 07/19/21 07/20/21 07/20/21 18:59 06:59 18:59 Intake Total 1060 450 Output Total 330 430 Balance 730 -430 450 Weight 76 kg 78.5 kg Intake: Intake, IV Titration 800 450 Amount Fluconazole in NaCl,Iso- 50 Osm 100 mg In Saline 1 50ml.bag @ 50 mls/hr IVPB DAILY [facility] Rx#:[id number] Sodium Chloride 0.9% 1, 800 400 000 ml @ 100 mls/hr IV . Q10H [facility] Rx#:[id number] Oral 260 Output: Stool 330 430 Other: Voiding Method Bedpan # Voids 2 # Bowel Movements 1 - Labs CBC & Chem 7: 07/19/21 11:24 07/19/21 05:45 Labs: Abnormal Lab Results - Last 24 Hours (Table) 07/19/21 07/19/21 07/19/21 Range/Units 05:45 11:24 11:28 WBC 23.7 H (3.8-10.6) k/uL RBC 3.17 L (3.80-5.40) m/uL Hgb 10.0 L (11.4-16.0) gm/dL Hct 29.5 L (34.0-46.0) % RDW 16.5 H (11.5-15.5) % Neutrophils # 22.0 H (1.3-7.7) k/uL Lymphocytes # 0.6 L (1.0-4.8) k/uL Haptoglobin 230.0 H (31.2-198.0) mg/dL POC Glucose (mg/dL) 127 H (75-99) mg/dL 07/19/21 07/19/21 Range/Units 16:42 20:19 WBC (3.8-10.6) k/uL RBC (3.80-5.40) m/uL Hgb (11.4-16.0) gm/dL Hct (34.0-46.0) % RDW (11.5-15.5) % Neutrophils # (1.3-7.7) k/uL Lymphocytes # (1.0-4.8) k/uL Haptoglobin (31.2-198.0) mg/dL POC Glucose (mg/dL) 117 H 239 H (75-99) mg/dL Microbiology - Last 24 Hours (Table) 07/14/21 23:20 Blood Culture - Preliminary Blood No Growth after 120 hours <Mahad Quiros - Last Filed: 07/20/21 13:27> Subjective As above. Patient complains of fatigue. Going PICC line to begin TPN today. Continue clear liquids. Continue to monitor for bleeding. Volume of maroon colored stools has decreased significantly. Hemodynamically she is stable. Objective - Vital Signs Vital signs: Vital Signs Temp 98.2 F 07/20/21 12:00 Pulse 81 07/20/21 08:35 Resp 20 07/20/21 12:00 BP 130/79 07/20/21 12:00 Pulse Ox 94 L 07/20/21 12:00 Intake & Output 07/19/21 07/20/21 07/20/21 18:59 06:59 18:59 Intake Total 1060 450 Output Total 330 430 Balance 730 -430 450 Weight 76 kg 78.5 kg 78.5 kg Intake: Intake, IV Titration 800 450 Amount Fluconazole in NaCl,Iso- 50 Osm 100 mg In Saline 1 50ml.bag @ 50 mls/hr IVPB DAILY [facility] Rx#:[id number] Sodium Chloride 0.9% 1, 800 400 000 ml @ 100 mls/hr IV . Q10H [facility] Rx#:[id number] Oral 260 Output: Stool 330 430 Other: Voiding Method Bedpan # Voids 2 # Bowel Movements 1 - Labs CBC & Chem 7: 07/19/21 11:24 07/19/21 05:45 Labs: Abnormal Lab Results - Last 24 Hours (Table) 07/19/21 07/19/21 07/19/21 Range/Units 05:45 16:42 20:19 Haptoglobin 230.0 H (31.2-198.0) mg/dL POC Glucose (mg/dL) 117 H 239 H (75-99) mg/dL Microbiology - Last 24 Hours (Table) 07/14/21 23:20 Blood Culture - Preliminary Blood No Growth after 120 hours Assessment and Plan (1) Abdominal pain Current Visit: Yes Status: Acute Code(s): R10.9 - UNSPECIFIED ABDOMINAL PAIN SNOMED Code(s): 45781654
[2021-07-20 11:51] LABS: Glucose,Whole Blood 94 mg/dL (75-99)
[2021-07-20] MEDS ORDERED: LIDOCAINE 1% INJ 10MG/ML (20 ML MDV) SQ ONE (13:27)
--- NOTE | 2021-07-20 14:12 | IR ---
PICC LINE PLACEMENT: HISTORY: TPN PROCEDURE: Ultrasound and fluoroscopic guidance of PICC line placement. COMPLICATIONS: None ANESTHESIA: 1. 1% Lidocaine locally. FINDINGS/TECHNIQUE: The procedure was explained to the patient. The risks, complications, benefits and alternatives were discussed and any questions were answered. Informed consent was obtained. The patient was placed supine on the fluoroscopic table and prepped and draped in the usual sterile fash ion. Utilizing a 21 gauge needle and sonographic and fluoroscopic guidance, access in the left brac hial vein was achieved and there is placement of a 0.018 guidewire. The vein is patent. A 4-F sheat h was placed over the guidewire. The guidewire and dilator were removed and a 4-F. PICC line was adrian raisa through the sheath with the tip at the level of the SVC. The sheath was removed, the catheter wa s flushed and sutured into position. The patient was stable throughout the procedure and remained st able upon discharge from the Department of Radiology. The vein puncture was patent under ultrasound. A lantigua scale image was obtained to document patency of the vein punctured. All elements of the maximal barrier technique were utilized. FLUOROSCOPY TIME: 0.3 minutes and one image submitted IMPRESSION: Successful PICC line placement under ultrasound and fluoroscopic guidance.
[2021-07-20 14:15] LABS: Anisocytosis Slight; Basophils % (A) 0 %; Eosinophils # (A) 0.1 k/uL (0-0.7); Eosinophils % (A) 0 %; HCT 27.7 % (34.0-46.0); HGB 9.4 gm/dL (11.4-16.0); Hypochromasia Slight; Lymphocytes # (A) 0.2 k/uL (1.0-4.8); Lymphocytes % (A) 2 %; MCH 32.1 pg (25.0-35.0); MCV 94.3 fL (80.0-100.0); Mean Platelet Volume 8.3; Monocytes # (A) 0.5 k/uL (0-1.0); Monocytes % (A) 3 %; Neutrophils # (A) 13.8 k/uL (1.3-7.7); Neutrophils % (A) 94 %; Platelet Count 186 k/uL (150-450); Poikilocytosis Moderate; RBC 2.94 m/uL (3.80-5.40); RDW 16.5 % (11.5-15.5); WBC 14.6 k/uL (3.8-10.6)
[2021-07-20 14:33] LABS: ALT 11 U/L (4-34); AST 19 U/L (14-36); African American GFR (CKD) >90 (>60 ml/min/1.73 sqM); Albumin 1.9 g/dL (3.5-5.0); Alkaline Phosphatase 86 U/L (38-126); Anion Gap 7 mmol/L; Blood Urea Nitrogen 22 mg/dL (7-17); Calcium 7.5 mg/dL (8.4-10.2); Carbon Dioxide 26 mmol/L (22-30); Chloride 108 mmol/L (98-107); Glucose 112 mg/dL (74-99); Magnesium 1.9 mg/dL (1.6-2.3); Non-African American GFR(CKD) 89 (>60 ml/min/1.73 sqM); Sodium 141 mmol/L (137-145); Total Bilirubin 0.4 mg/dL (0.2-1.3)
--- NOTE | 2021-07-20 15:20 | US ---
EXAMINATION TYPE: US thyroid st tissue head/neck DATE OF EXAM: 07/20/2021 COMPARISON: US CLINICAL HISTORY: enlarged left thyroid. Enlarged left thyroid on recent scan GLAND SIZE: Right Lobe: 7.1 x 5.3 x 3.6 cm Overall Parenchyma: heterogenous Left Lobe: 8.7 x 5.8 x 5.5 cm Overall Parenchyma: heterogeneous Isthmus Thickness: Unable to visualize isthmus due to grossly enlarged thyroid Bilateral neck scanned, no evidence of lymphadenopathy. Thyroid enlarged, heterogeneous, difficult t o visualize. IMPRESSION: Thyromegaly correlate for thyroiditis. No discrete thyroid nodules be seen with certainty. 2017 ACR TI-RADS LEVEL: TR-RADS 1 - BENIGN: No FNA *Highest TI-RADS level nodule reported
[2021-07-20] MEDS ORDERED: MVI, ADULT NO.4 WITH VIT K 10 ML, TRACE (CONC-1ML/DOSE) 1 ML in AMINO ACID 5%-D20W+LYTE... IV ONE ×3 (16:00)
[2021-07-20 16:55] LABS: Glucose,Whole Blood 99 mg/dL (75-99)
[2021-07-20] MEDS: POTASSIUM PHOSPHATE 10 MMOL in SODIUM CHLORIDE 0.9% 100 ML IV SCH ×2 (16:58→20:50)
[2021-07-20] MEDS ORDERED: FAT EMULSION 20% 500 ML in EMPTY BAG 1 BAG IV SCH (18:00)
--- NOTE | 2021-07-20 19:46 | P.PN ---
Subjective Progress Note Date: 07/20/21 Principal diagnosis: Cold Agglutin Antibodies. Blood Loss anemia Review of Tameka's bloodwork today without hemolysis, anemia secondary to blood loss. Objective - Vital Signs Vital signs: Vital Signs Temp 97.5 F L 07/20/21 16:18 Pulse 81 07/20/21 08:35 Resp 20 07/20/21 16:18 BP 125/68 07/20/21 16:18 Pulse Ox 97 07/20/21 16:18 Intake & Output 07/20/21 07/20/21 07/21/21 06:59 18:59 06:59 Intake Total 1170 Output Total 430 Balance -430 1170 Weight 78.5 kg 78.5 kg Intake: Intake, IV Titration 750 Amount Fluconazole in NaCl,Iso- 50 Osm 100 mg In Saline 1 50ml.bag @ 50 mls/hr IVPB DAILY [facility] Rx#:[id number] Piperacillin-Tazobactam 3 100 .375 gm In Sodium Chloride 0.9% 100 ml @ 25 mls/hr IVPB Q8HR [facility] Rx# :[id number] Sodium Chloride 0.9% 1, 600 000 ml @ 100 mls/hr IV . Q10H [facility] Rx#:[id number] Oral 420 Output: Stool 430 Other: Voiding Method Bedpan - Constitutional General appearance: Present: cooperative - EENT Eyes: Present: EOMI ENT: Present: hard of hearing, NA/AT - Respiratory Respiratory: bilateral: diminished - Cardiovascular Rhythm: regularly irregular - Gastrointestinal General gastrointestinal: Present: distended, tenderness - Integumentary Integumentary: Present: pale - Neurologic Neurologic Comment(s): non focal - Musculoskeletal Musculoskeletal: Present: generalized weakness - Psychiatric Psychiatric Comment(s): Alert - Labs CBC & Chem 7: 07/20/21 14:00 07/20/21 14:00 Labs: Abnormal Lab Results - Last 24 Hours (Table) 07/19/21 07/20/21 07/20/21 Range/Units 20:19 14:00 14:00 WBC 14.6 H (3.8-10.6) k/uL RBC 2.94 L (3.80-5.40) m/uL Hgb 9.4 L (11.4-16.0) gm/dL Hct 27.7 L (34.0-46.0) % RDW 16.5 H (11.5-15.5) % Neutrophils # 13.8 H (1.3-7.7) k/uL Lymphocytes # 0.2 L (1.0-4.8) k/uL Potassium 3.0 L (3.5-5.1) mmol/L Chloride 108 H (98-107) mmol/L BUN 22 H (7-17) mg/dL Glucose 112 H (74-99) mg/dL POC Glucose (mg/dL) 239 H (75-99) mg/dL Calcium 7.5 L (8.4-10.2) mg/dL Phosphorus 2.0 L (2.5-4.5) mg/dL Total Protein 4.0 L (6.3-8.2) g/dL Albumin 1.9 L (3.5-5.0) g/dL Microbiology - Last 24 Hours (Table) 07/14/21 23:20 Blood Culture - Preliminary Blood No Growth after 120 hours Assessment and Plan (1) Normocytic anemia due to blood loss Current Visit: Yes Status: Acute Code(s): D50.0 - IRON DEFICIENCY ANEMIA SECONDARY TO BLOOD LOSS (CHRONIC) SNOMED Code(s): 051286273 Plan: Patient has no evidence of hemolysis at this time, per patient and family they are unaware of where the cold agglutin diagnosis came from. At this time transfusion support as long as no signs of hemolysis <7 All other medical problems per primary and other specialties Physician Attest: I have completed the full history and physical and agree with above dictation, dictated as a scribe.
[2021-07-20 20:02] LABS: Glucose,Whole Blood 139 mg/dL (75-99)
[2021-07-20] MEDS: PRAVASTATIN SODIUM 40 MG TAB PO SCH (20:51)
[2021-07-20] MEDS: PRAMIPEXOLE 1 MG TAB PO SCH (22:05)
[2021-07-20] MEDS: HYDROcodone/APAP 5-325MG 1 EACH TAB PO PRN (22:45)
--- NOTE | 2021-07-21 01:46 | PN ---
PROGRESS NOTE DATE OF SERVICE: 07/20/2021 REASON FOR FOLLOWUP: Secondary peritonitis from perforated diverticulitis. INTERVAL HISTORY: The patient is afebrile. The patient is breathing comfortably. Some abdominal discomfort, seems to be controlled with pain medication. Denies any chest pain, shortness of breath or cough and no vomiting. PHYSICAL EXAMINATION: Blood pressure 125/68 with a pulse of 62, temperature 97.5. She is 97% on 3 L nasal cannula. General description is an elderly female lying in bed in no distress. Respiratory system: Unlabored breathing, clear to auscultation anteriorly. Heart S1, S2. Regular rate and rhythm. Abdomen soft, mildly tender. LABS: White count down to 14.6, creatinine 0.55. DIAGNOSTIC IMPRESSION AND PLAN: Patient with abdominal abscess from a perforated diverticulitis status post drainage. Culture positive for E coli and anaerobes. Patient is covered with Zosyn. White count is trending down. Continue supportive care. MMODL / IJN: [id number] /
--- NOTE | 2021-07-21 01:52 | P.PN ---
Subjective Progress Note Date: 07/20/21 Patient is an 80-year-old female came in with the complaint of upper abdominal discomfort patient does have history of hernia and the pain is related to be secondary to anemia, Gen. surgery evaluated the patient is planning on doing hemorrhoidal hernia repair/Adis fundoplication on Friday. Patient will be started on Protonix patient was on naproxen at home which will be held. Patient doesn't have any fever chills vomiting diarrhea. Bit nauseous 07/11/2021 Patient is seen and evaluated in room at bedside; status post repair of paraesophageal hernia with mesh; POD #2 Patient reports improvement this morning; does complain of pain; tolerating clear liquid diet well Vital signs are reviewed and reveal temperature of 97.4, pulse 89, respiration 18 and blood pressure 100/65 Lab review shows WBC 7.2, hemoglobin 9.3, platelet count of 464, sodium 144, potassium 4.0, BUN/creatinine of 13/0.80 and blood glucose of 158 Surgery on board and recommending to continue with IV dexamethasone for moderate obstruction noted on upper GI; patient will remain on IV fluids and a clear liquid diet Increase activity and PT/OT recommended 07/12/2021 Patient is seen and evaluated sitting up in bed; patient reports shortness of breath earlier in the day; was placed on O2 2-3 L per nasal cannula which improved breathing Does complain of chest congestion; we will hold off on IV fluids and order Lasix 40 mg IV 1 and order a chest x-ray We will signs are reviewed and reveal temperature of 97.5, pulse 88, respiration 28 and blood pressure 117/61. O2 saturation 96% on 2 L Patient is tolerating clear liquid diet fairly well and has been advanced to a full liquid diet; remains on IV dexamethasone for moderate obstruction on upper GI 07/13/2021 Patient is seen and evaluated; lying in bed; patient is status post laparoscopic repair of paraesophageal hernia with mesh; POD #4; episode of maroon-colored stool at night Vital signs reviewed reveal patient to be afebrile, blood pressure of 101/68, respiration 18 and heart rate of 19 with O2 saturation of 96% on 2 L Laboratory review shows a drop in hemoglobin from 9.3 down to 7.6 this morning; patient underwent EGD which reveals mild gastritis; no active bleeding; general surgery on board and recommending to continue to monitor labs closely. Possibility of colonoscopy if hemoglobin continues to drop; patient is status post transfusion with 1 unit of packed RBCs 07/14/2021 Patient is seen and evaluated; reports increasing abdominal pain; has been evaluated by surgery and is recommended CT of abdomen for further evaluation Vital signs temperature 97.7, pulse 85, respiration 22 and blood pressure 110/67 Lab review reveals an elevated white blood count of 21.7, hemoglobin of 8.5, platelets of 400, sodium 136, potassium 5.0, BUN/creatinine of 21/0.61 Patient is currently on IV antibiotics in form of Zosyn 3.375 g IV every 8 hours along with metronidazole 500 mg every 8 hours We will proceed with stat CT of the abdomen and consult ID for further recommendations 07/15/2021 Patient is seen and evaluated resting in bed; reports improved abdominal pain with oral [place] Vital signs are reviewed and stable with temperature of 98, pulse 72, respiration 20 and blood pressure 111/71 Lab review reveals WBC that remains elevated at 27.7, hemoglobin of 8.4 and platelet count of 369, sodium 136, potassium 5.4, BUN/creatinine of 46/0.85 CT of the abdomen completed reveals normal. Continue related to perforated si gmoid diverticulitis; patient underwent sigmoid colectomy with end colostomy; POD #1 Patient remains nothing by mouth or surgery recommendations; potassium elevated at 5.4; we will repeat stat potassium level and treat as needed; continue with IV antibiotics as ordered We will monitor CBC, CRP and pro-calcitonin 07/16/2021 Patient is seen in follow up this morning with family at the bedside. Ostomy nurse at the bedside educating as well. Patient reports to passing gas in the ostomy and general surgery following closely. Patient diet is being advanced as tolerated. Patient has some generalized pain although reports to feeling nauseated and dizzy with narcotics. Will continue with tylenol and lower dose of norco and discuss with nursing staff of avoiding narcotics if possible. PT/OT to evaluate as patient will likely need rehab for strength and mobility. social wo rk consulted for possible placement. Patient is continued on flagyl and Zosyn with infectious disease also following closely. Diflucan as well. Potassium elevated and will correct and repeat am labs. Encouraged increased activity as tolerated. 07/17/2021 She is seen in follow-up today states she is not feeling well and feels more short of breath. Hemoglobin was found to be 6.7 and will order a unit of PRBC. Surgery and ID following. Patient is having stool and gas noted in the ostomy. Patient states she is tired and having anxiety and wants to go home. Patient continued on full liquid diet and not eating much. Patient states she has no real appetite and feels worse today. Will transfuse 1 unit of PRBC and repeat am labs. Give one dose of IV lasix after transfusion. Patient continues on flagyl along with diflucan and zosyn and will continue. Preliminary showing ecoli and gram negative and awaiting finalized culture with sensitivities. Social work also following and working on possible ECF placement once stabilized. No active bleeding noted. Patient denies any previous transfusions. 07/18/2021 Patient is seen and evaluated this morning and is ill appearing, nauseated, lethargic, and is being closely monitored. Patient hemoglobin was 7.3 this morning and is noted to have maroon colored stools in the ostomy and is s/p transfusion of 1 unit of PRBC. Patient is found to be hypotensive and an A-team is being called as patient was briefly unresponsive and appears to have possibly had a syncopal event. Patient is bed bound currently as she has been extremely weak for PT/OT therapy. Patient is actively receiving another unit of PRBC as well. Patient given a bolus of IV normal saline and blood pressure slightly improved. Will continue to monitor bleeding and transfuse if 7. General surgery following and small bowel capsule study ordered although minimal staff to be able to go sit with patient for the 2 hour study and patient is currently receiving blood product. 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 Ateam ordered 2 additional units of PRBC today. WBC elevated today at 19.8 and ID following and patient continues of IV flagyl and zosyn. 07/19/2021 Patient is seen in follow-up this morning continues to be bleeding to the ostomy and has received multiple blood transfusions with multiple medical consultations including surgery, infectious disease, hematology following closely. Patient is being transferred to the selected unit for close monitoring as she continues to bleed. Patient is extremely lethargic and states she feels she is passing out frequently with position changes and movements. Hemoglobin is improved at 1.5 status 3 units of PRBCs. White blood count is elevated and again infectious disease is following. Patient underwent packed RBC this morning showing no definite areas of abnormal uptake with a questionable area within the transverse colon and splenic flexure that could be correlated with colonoscopy. Surgery is following closely and plans for colonoscopy once patient is more stable. Recommend H&H every 12 and transfuse if less than 7. Continue with IV fluids as well as patient is symptomatically hypotensive. 07/20/2021 Patient is seen this morning and is currently sitting up in the chair. Patient being followed closely by surgery and hematology. Patient has received PICC line and will initiate TPN. Monitor closely for further bleeding and transfuse if less than 7. Possible colonoscopy once stable. Blood pressure better controlled today. Patient current potassium is 3.0 and will replace per protocol. Patient also continues on gentle IV hydration along with IV antibiotics in the form of zosyn, fluconazole, and flagyl with ID following closely. Wound cultures show ecoli. Labs: WbC is 14.6, hemoglobin is 9.4, platelets are 186, potassium is 3.0, sodium is 141, cr is 0.55, calcium is 7.5, mag is 1.9 Review of systems: Constitutional: reports of fatigue, fever, or chills Cardiovascular: No reports of chest pain or palpitations Respiratory: reports of worsening shortness of breath GI: reports of nausea and dark stool in the ostomy : No reports of dysuria or retention, currently indwelling thapa catheter Neurovascular: reports of generalized weakness Active Medications Acetaminophen (Acetaminophen Tab 325 Mg Tab) 650 mg PO Q6HR PRN PRN Reason: Fever and/ or Pain Last Admin: 07/16/21 22:43 Dose: 650 mg Documented by: Hydrocodone Bitart/Acetaminophen (Hydrocodone/Apap 5-325mg 1 Each Tab) 0.5 each PO Q6HR PRN PRN Reason: Pain Last Admin: 07/19/21 18:20 Dose: 0.5 each Documented by: Piperacillin Sod/Tazobactam (Sod 3.375 gm/ Sodium Chloride) 100 mls @ 25 mls/hr IVPB Q8HR [facility] Last Admin: 07/19/21 23:57 Dose: 25 mls/hr Documented by: Fluconazole/Sodium Chloride (100 mg/ IV Solution) 50 mls @ 50 mls/hr IVPB DAILY [facility] Last Admin: 07/20/21 08:38 Dose: 50 mls/hr Documented by: Sodium Chloride (Saline 0.9%) 1,000 mls @ 100 mls/hr IV .Q10H [facility] Last Admin: 07/20/21 00:54 Dose: Not Given Documented by: Insulin Aspart (Insulin Aspart (Novolog) 100 Unit/Ml Vial) 0 unit SQ ACHS [facility]; Protocol Last Admin: 07/20/21 05:59 Dose: Not Given Documented by: Levothyroxine Sodium (Levothyroxine 25 Mcg Tab) 25 mcg PO DAILY@0630 [facility] Last Admin: 07/20/21 05:34 Dose: 25 mcg Documented by: Metoclopramide HCl (Metoclopramide 5 Mg/Ml 2 Ml Vial) 5 mg IVP Q6HR PRN PRN Reason: Nausea And Vomiting Last Admin: 07/20/21 05:33 Dose: 5 mg Documented by: Metronidazole (Metronidazole 500 Mg Tab) 500 mg PO Q8HR [facility] Last Admin: 07/20/21 09:15 Dose: 500 mg Documented by: Morphine Sulfate (Morphine Sulfate 4 Mg/Ml Syringe) 3 mg IVP Q4HR PRN PRN Reason: Pain Last Admin: 07/20/21 05:32 Dose: 3 mg Documented by: Multivitamins/Minerals (Vit A,C & G-Nqnczj-Xxixmmee 1 Each Tab) 1 each PO DAILY [facility] Last Admin: 07/20/21 09:15 Dose: 1 each Documented by: Naloxone HCl (Naloxone 0.4 Mg/Ml 1 Ml Vial) 0.2 mg IV Q2M PRN PRN Reason: Opioid Reversal Pantoprazole Sodium (Pantoprazole 40 Mg/10 Ml Vial) 40 mg IVP BID [facility] Last Admin: 07/20/21 08:38 Dose: 40 mg Documented by: Pramipexole Dihydrochloride (Pramipexole 1 Mg Tab) 1 mg PO [facility] Last Admin: 07/19/21 22:35 Dose: 1 mg Documented by: Pravastatin Sodium (Pravastatin Sodium 40 Mg Tab) 80 mg PO [facility] Last Admin: 07/19/21 22:23 Dose: 80 mg Documented by: Simethicone (Simethicone 80 Mg Chewable) 80 mg PO TID PRN PRN Reason: Abdominal Distention Last Admin: 07/18/21 22:10 Dose: 80 mg Documented by: Tamsulosin HCl (Tamsulosin 0.4 Mg Cap.Er.24h) 0.4 mg PO PC-BRKFST [facility] Last Admin: 07/20/21 09:15 Dose: 0.4 mg Documented by: Physical exam: GENERAL: The patient is alert and oriented x3, Well developed, well nourished. Temp is 98.3F, pulse is 80, respirations are 20, blood pressure is 117/69, oxygen saturation is 96% on 3 L via nasal cannula HEENT: Pupils are round and equally reacting to light. EOMI. No scleral icterus. No conjunctival pallor. Normocephalic, atraumatic. No pharyngeal erythema. No thyromegaly. CARDIOVASCULAR: S1 and S2 muffled PULMONARY: Diminished breath sounds bilaterally with no wheezing or crackles. ABDOMEN: Soft, tender, normoactive bowel sounds. No palpable organomegaly. Ostomy noted with dark maroon stools MUSCULOSKELETAL: No joint swelling or deformity. EXTREMITIES: No cyanosis, clubbing, or pedal edema. NEUROLOGICAL: Gross neurological examination did not reveal any focal deficits. Diffuse weakness SKIN: No rashes. Assessment: -Epigastric abdominal pain: Secondary to gastoesophageal reflux disease, possible peptic ulcer disease secondary to hiatal hernia -Status post sigmoid colectomy with end colostomy secondary to perforated sigmoid diverticulitis -Acute GI bleed with acute blood loss anemia -Status post laparoscopic repair of paraesophageal hernia with mesh -diarrhea, probably secondary to large hernia, resolved -metabolic acidosis, secondary to above -hyperkalemia, currently hypokalemic -Hyperlipidemia -Hypertension, currently hypotensive -hypothyroidism -Hyperglycemia due to IV steroids -DVT prophylaxis -GI Prophylaxis -FULL CODE Plan: Recommend to continue with current medications and management. Surgery and infectious disease following closely secondary to peritonitis from a perforated diverticulitis resulting in diverting colostomy. Patient continues on IV Zosyn and Diflucan and flagyl. Patient was started on clear liquids and has received her PICC and TPN being initiated. Patient is awake and sitting up in the chair at this time. Will repeat am labs and monitor closely. No hemolysis noted on the agglutin labs and indicating no cold agglutin diagnosis. Discussed with Hematology. Recommend to continue close monitoring of bleeding and hemoglobin. Transfuse if 7. Due to multiple complex medical issues, prognosis is guarded. Further recommendations to follow based on the clinical course of the patient. Objective - Vital Signs Vital signs: Vital Signs Temp 98.3 F 07/20/21 04:00 Pulse 80 07/20/21 04:00 Resp 20 07/20/21 04:00 BP 117/69 07/20/21 04:00 Pulse Ox 96 07/20/21 07:21 Intake & Output 07/19/21 07/20/21 07/20/21 18:59 06:59 18:59 Intake Total 1060 Output Total 330 430 Balance 730 -430 Weight 76 kg 78.5 kg Intake: Intake, IV Titration 800 Amount Sodium Chloride 0.9% 1, 800 000 ml @ 100 mls/hr IV . Q10H [facility] Rx#:[id number] Oral 260 Output: Stool 330 430 Other: Voiding Method Bedpan # Voids 2 # Bowel Movements 1 - Labs CBC & Chem 7: 07/20/21 14:00 07/20/21 14:00 Labs: Abnormal Lab Results - Last 24 Hours (Table) 07/19/21 07/19/21 07/19/21 Range/Units 05:45 05:45 11:24 WBC 23.7 H (3.8-10.6) k/uL RBC 3.17 L (3.80-5.40) m/uL Hgb 10.0 L (11.4-16.0) gm/dL Hct 29.5 L (34.0-46.0) % RDW 16.5 H (11.5-15.5) % Neutrophils # 22.0 H (1.3-7.7) k/uL Lymphocytes # 0.6 L (1.0-4.8) k/uL Retic Count 3.8 H (0.5-2.0) % Haptoglobin 230.0 H (31.2-198.0) mg/dL POC Glucose (mg/dL) (75-99) mg/dL 07/19/21 07/19/21 07/19/21 Range/Units 11:28 16:42 20:19 WBC (3.8-10.6) k/uL RBC (3.80-5.40) m/uL Hgb (11.4-16.0) gm/dL Hct (34.0-46.0) % RDW (11.5-15.5) % Neutrophils # (1.3-7.7) k/uL Lymphocytes # (1.0-4.8) k/uL Retic Count (0.5-2.0) % Haptoglobin (31.2-198.0) mg/dL POC Glucose (mg/dL) 127 H 117 H 239 H (75-99) mg/dL Microbiology - Last 24 Hours (Table) 07/14/21 23:20 Blood Culture - Preliminary Blood No Growth after 120 hours
[2021-07-21 06:11] LABS: Glucose,Whole Blood 261 mg/dL (75-99)
[2021-07-21] MEDS: SODIUM CHLORIDE 0.9% 1,000 ML IV SCH ×3 (06:25→20:21)
[2021-07-21] MEDS: INSULIN ASPART (NovoLOG) 100 UNIT/ML VIAL SQ SCH ×4 (06:25→20:22)
[2021-07-21] MEDS: LEVOTHYROXINE 25 MCG TAB PO SCH (06:25)
[2021-07-21 07:36] LABS: Anisocytosis Slight; Basophils % (A) 0 %; Eosinophils # (A) 0.1 k/uL (0-0.7); Eosinophils % (A) 1 %; HCT 26.6 % (34.0-46.0); HGB 8.7 gm/dL (11.4-16.0); Hypochromasia Slight; Lymphocytes # (A) 0.3 k/uL (1.0-4.8); Lymphocytes % (A) 2 %; MCH 31.5 pg (25.0-35.0); MCHC 32.8 g/dL (31.0-37.0); MCV 96.2 fL (80.0-100.0); Macrocytosis Slight; Monocytes # (A) 0.3 k/uL (0-1.0); Monocytes % (A) 2 %; Neutrophils # (A) 12.9 k/uL (1.3-7.7); Neutrophils % (A) 94 %; Platelet Count 152 k/uL (150-450); Poikilocytosis Moderate; RBC 2.76 m/uL (3.80-5.40); RDW 17.8 % (11.5-15.5); WBC 13.7 k/uL (3.8-10.6)
[2021-07-21 07:49] LABS: African American GFR (CKD) >90 (>60 ml/min/1.73 sqM); Anion Gap 1 mmol/L; Blood Urea Nitrogen 18 mg/dL (7-17); Calcium 7.3 mg/dL (8.4-10.2); Carbon Dioxide 29 mmol/L (22-30); Chloride 109 mmol/L (98-107); Glucose 199 mg/dL (74-99); Magnesium 1.9 mg/dL (1.6-2.3); Non-African American GFR(CKD) >90 (>60 ml/min/1.73 sqM); Phosphorus 2.2 mg/dL (2.5-4.5); Potassium 2.9 mmol/L (3.5-5.1); Sodium 139 mmol/L (137-145)
[2021-07-21] MEDS ORDERED: Potassium Replacement Protocol 1 EACH MISC MISCELLANE PRN (08:46)
[2021-07-21] MEDS: TAMSULOSIN 0.4 MG CAP.ER.24H PO SCH (09:35)
[2021-07-21] MEDS: metroNIDAZOLE 500 MG TAB PO SCH ×3 (09:35→23:05)
[2021-07-21] MEDS: VIT A,C & E-LUTEIN-MINERALS 1 EACH TAB PO SCH (09:36)
[2021-07-21] MEDS: PANTOPRAZOLE 40 MG/10 ML VIAL IVP SCH ×2 (09:36→20:22)
[2021-07-21] MEDS: HYDROcodone/APAP 5-325MG 1 EACH TAB PO PRN ×2 (09:36→20:22)
[2021-07-21] MEDS: FLUCONAZOLE IN NACL,ISO-OSM 100 MG in SALINE 1 50ML.BAG IVPB SCH (10:42)
[2021-07-21 12:05] LABS: Glucose,Whole Blood 172 mg/dL (75-99)
[2021-07-21] MEDS: PIPERACILLIN-TAZOBACTAM 3.375 GM in SODIUM CHLORIDE 0.9% 100 ML IVPB SCH ×3 (12:26→23:05)
--- NOTE | 2021-07-21 14:27 | P.PN ---
Subjective Progress Note Date: 07/21/21 CHIEF COMPLAINT: Abdominal pain HISTORY OF PRESENT ILLNESS: The patient is a 80-year-old female s/p pa raesophageal hiatal hernia repair followed by perforated diverticulitis who reports appropriated generalized weakness. She has difficulty getting out of bed. "They couldn't get the bedpan quick enough, now its too late." She reports nausea with sitting up. ROS: No fevers or chills. No new chest pain. PHYSICAL EXAM: VITAL SIGNS: Reviewed CONSTITUTIONAL: Well developed and in no acute distress. EYES: Conjuctivae without sclera icterus. Extraocular movements grossly intact. HEAD, EARS, NOSE, THROAT: Moist buccal mucosa. Head is atraumatic, normocephalic. Hears conversational speech. No nasal drainage. RESPIRATORY: Non-labored respirations and equal bilateral excursions. Has mild purse lipped breathing. CARDIOVASCULAR: Palpable 2+ radial pulses. ABDOMEN: Dressing intact. MUSCULOSKELETAL: No gross deformity of the lower extremities noted. No clubbing. No cyanosis. SKIN: Good skin turgor. Well perfused. NEUROLOGIC: Cranial nerves II through XII grossly intact. No focal or lateralizing signs. PSYCH: Appropriate affect. Alert and oriented to person, place and time. CLINICAL LABS: Reviewed. WBC down 14.6 to 13.7. with leukocytosis. Hgb 9.4 to 8.7 ASSESSMENT: 1. Perforated diverticulitis 2. Paraesophageal hiatal hernia repair 3. Leukocytosis 4. Anemia, acute blood loss PLAN: 1. PT/OT 2. Antibiotics for leukocytosis 3. DVT prophylaxis with mechanical SCDs 4. Pulmonary toilet. Objective - Vital Signs Vital signs: Vital Signs Temp 97.5 F L 07/21/21 04:00 Pulse 63 07/21/21 04:00 Resp 18 07/21/21 04:00 BP 122/73 07/21/21 04:00 Pulse Ox 96 07/21/21 04:00 Intake & Output 07/20/21 07/21/21 07/21/21 18:59 06:59 18:59 Intake Total 1170 240 200 Balance 1170 240 200 Weight 78.5 kg 83 kg Intake: Intake, IV Titration 750 Amount Fluconazole in NaCl,Iso- 50 Osm 100 mg In Saline 1 50ml.bag @ 50 mls/hr IVPB DAILY [facility] Rx#:[id number] Piperacillin-Tazobactam 3 100 .375 gm In Sodium Chloride 0.9% 100 ml @ 25 mls/hr IVPB Q8HR [facility] Rx# :[id number] Sodium Chloride 0.9% 1, 600 000 ml @ 100 mls/hr IV . Q10H [facility] Rx#:[id number] Oral 420 240 200 Other: Voiding Method Bedpan # Voids 1 # Bowel Movements 1 - Labs CBC & Chem 7: 07/21/21 07:14 07/21/21 07:14 Labs: Abnormal Lab Results - Last 24 Hours (Table) 07/20/21 07/20/21 07/20/21 Range/Units 14:00 14:00 20:01 WBC 14.6 H (3.8-10.6) k/uL RBC 2.94 L (3.80-5.40) m/uL Hgb 9.4 L (11.4-16.0) gm/dL Hct 27.7 L (34.0-46.0) % RDW 16.5 H (11.5-15.5) % Neutrophils # 13.8 H (1.3-7.7) k/uL Lymphocytes # 0.2 L (1.0-4.8) k/uL Potassium 3.0 L (3.5-5.1) mmol/L Chloride 108 H (98-107) mmol/L BUN 22 H (7-17) mg/dL Glucose 112 H (74-99) mg/dL POC Glucose (mg/dL) 139 H (75-99) mg/dL Calcium 7.5 L (8.4-10.2) mg/dL Phosphorus 2.0 L (2.5-4.5) mg/dL Total Protein 4.0 L (6.3-8.2) g/dL Albumin 1.9 L (3.5-5.0) g/dL 07/21/21 07/21/21 07/21/21 Range/Units 06:08 07:14 07:14 WBC 13.7 H (3.8-10.6) k/uL RBC 2.76 L (3.80-5.40) m/uL Hgb 8.7 L (11.4-16.0) gm/dL Hct 26.6 L (34.0-46.0) % RDW 17.8 H (11.5-15.5) % Neutrophils # 12.9 H (1.3-7.7) k/uL Lymphocytes # 0.3 L (1.0-4.8) k/uL Potassium 2.9 L (3.5-5.1) mmol/L Chloride 109 H (98-107) mmol/L BUN 18 H (7-17) mg/dL Glucose 199 H (74-99) mg/dL POC Glucose (mg/dL) 261 H (75-99) mg/dL Calcium 7.3 L (8.4-10.2) mg/dL Phosphorus 2.2 L (2.5-4.5) mg/dL Total Protein (6.3-8.2) g/dL Albumin (3.5-5.0) g/dL Microbiology - Last 24 Hours (Table) 07/14/21 23:20 Blood Culture - Final Blood No Growth after 144 hours Assessment and Plan (1) Acute blood loss anemia Current Visit: Yes Status: Acute Code(s): D62 - ACUTE POSTHEMORRHAGIC ANEMIA SNOMED Code(s): 364707110 (2) Paraesophageal hiatal hernia Current Visit: Yes Status: Acute Code(s): K44.9 - DIAPHRAGMATIC HERNIA WITHOUT OBSTRUCTION OR GANGRENE SNOMED Code(s): 2439303 (3) Diverticulitis of colon with perforation Current Visit: Yes Status: Acute Code(s): K57.20 - DVTRCLI OF LG INT W PERFORATION AND ABSCESS W/O BLEEDING SNOMED Code(s): 32203830 (4) Leukocytosis Current Visit: Yes Status: Acute Code(s): D72.829 - ELEVATED WHITE BLOOD CELL COUNT, UNSPECIFIED SNOMED Code(s): 200328827
[2021-07-21 17:00] LABS: Glucose,Whole Blood 189 mg/dL (75-99)
[2021-07-21] MEDS: POTASSIUM CHLORIDE 10 MEQ in WATER FOR INJECTION 1 100ML.BAG IVPB SCH ×4 (18:54→23:05)
[2021-07-21 19:58] LABS: Glucose,Whole Blood 199 mg/dL (75-99)
[2021-07-21] MEDS: 1: MVI, ADULT NO.4 WITH VIT K 10 ML, TRACE (CONC-1ML/DOSE) 1 ML in AMINO ACID 5%-D20W+LY IV SCH ×3 (20:21)
[2021-07-21] MEDS: PRAVASTATIN SODIUM 40 MG TAB PO SCH (20:22)
[2021-07-21] MEDS: PRAMIPEXOLE 1 MG TAB PO SCH (20:22)
--- NOTE | 2021-07-21 22:46 | P.PN ---
Subjective Progress Note Date: 07/21/21 Patient is an 80-year-old female came in with the complaint of upper abdominal discomfort patient does have history of hernia and the pain is related to be secondary to anemia, Gen. surgery evaluated the patient is planning on doing hemorrhoidal hernia repair/Adis fundoplication on Friday. Patient will be started on Protonix patient was on naproxen at home which will be held. Patient doesn't have any fever chills vomiting diarrhea. Bit nauseous 07/11/2021 Patient is seen and evaluated in room at bedside; status post repair of paraesophageal hernia with mesh; POD #2 Patient reports improvement this morning; does complain of pain; tolerating clear liquid diet well Vital signs are reviewed and reveal temperature of 97.4, pulse 89, respiration 18 and blood pressure 100/65 Lab review shows WBC 7.2, hemoglobin 9.3, platelet count of 464, sodium 144, potassium 4.0, BUN/creatinine of 13/0.80 and blood glucose of 158 Surgery on board and recommending to continue with IV dexamethasone for moderate obstruction noted on upper GI; patient will remain on IV fluids and a clear liquid diet Increase activity and PT/OT recommended 07/12/2021 Patient is seen and evaluated sitting up in bed; patient reports shortness of breath earlier in the day; was placed on O2 2-3 L per nasal cannula which improved breathing Does complain of chest congestion; we will hold off on IV fluids and order Lasix 40 mg IV 1 and order a chest x-ray We will signs are reviewed and reveal temperature of 97.5, pulse 88, respiration 28 and blood pressure 117/61. O2 saturation 96% on 2 L Patient is tolerating clear liquid diet fairly well and has been advanced to a full liquid diet; remains on IV dexamethasone for moderate obstruction on upper GI 07/13/2021 Patient is seen and evaluated; lying in bed; patient is status post laparoscopic repair of paraesophageal hernia with mesh; POD #4; episode of maroon-colored stool at night Vital signs reviewed reveal patient to be afebrile, blood pressure of 101/68, respiration 18 and heart rate of 19 with O2 saturation of 96% on 2 L Laboratory review shows a drop in hemoglobin from 9.3 down to 7.6 this morning; patient underwent EGD which reveals mild gastritis; no active bleeding; general surgery on board and recommending to continue to monitor labs closely. Possibility of colonoscopy if hemoglobin continues to drop; patient is status post transfusion with 1 unit of packed RBCs 07/14/2021 Patient is seen and evaluated; reports increasing abdominal pain; has been evaluated by surgery and is recommended CT of abdomen for further evaluation Vital signs temperature 97.7, pulse 85, respiration 22 and blood pressure 110/67 Lab review reveals an elevated white blood count of 21.7, hemoglobin of 8.5, platelets of 400, sodium 136, potassium 5.0, BUN/creatinine of 21/0.61 Patient is currently on IV antibiotics in form of Zosyn 3.375 g IV every 8 hours along with metronidazole 500 mg every 8 hours We will proceed with stat CT of the abdomen and consult ID for further recommendations 07/15/2021 Patient is seen and evaluated resting in bed; reports improved abdominal pain with oral [place] Vital signs are reviewed and stable with temperature of 98, pulse 72, respiration 20 and blood pressure 111/71 Lab review reveals WBC that remains elevated at 27.7, hemoglobin of 8.4 and platelet count of 369, sodium 136, potassium 5.4, BUN/creatinine of 46/0.85 CT of the abdomen completed reveals normal. Continue related to perforated si gmoid diverticulitis; patient underwent sigmoid colectomy with end colostomy; POD #1 Patient remains nothing by mouth or surgery recommendations; potassium elevated at 5.4; we will repeat stat potassium level and treat as needed; continue with IV antibiotics as ordered We will monitor CBC, CRP and pro-calcitonin 07/16/2021 Patient is seen in follow up this morning with family at the bedside. Ostomy nurse at the bedside educating as well. Patient reports to passing gas in the ostomy and general surgery following closely. Patient diet is being advanced as tolerated. Patient has some generalized pain although reports to feeling nauseated and dizzy with narcotics. Will continue with tylenol and lower dose of norco and discuss with nursing staff of avoiding narcotics if possible. PT/OT to evaluate as patient will likely need rehab for strength and mobility. social wo rk consulted for possible placement. Patient is continued on flagyl and Zosyn with infectious disease also following closely. Diflucan as well. Potassium elevated and will correct and repeat am labs. Encouraged increased activity as tolerated. 07/17/2021 She is seen in follow-up today states she is not feeling well and feels more short of breath. Hemoglobin was found to be 6.7 and will order a unit of PRBC. Surgery and ID following. Patient is having stool and gas noted in the ostomy. Patient states she is tired and having anxiety and wants to go home. Patient continued on full liquid diet and not eating much. Patient states she has no real appetite and feels worse today. Will transfuse 1 unit of PRBC and repeat am labs. Give one dose of IV lasix after transfusion. Patient continues on flagyl along with diflucan and zosyn and will continue. Preliminary showing ecoli and gram negative and awaiting finalized culture with sensitivities. Social work also following and working on possible ECF placement once stabilized. No active bleeding noted. Patient denies any previous transfusions. 07/18/2021 Patient is seen and evaluated this morning and is ill appearing, nauseated, lethargic, and is being closely monitored. Patient hemoglobin was 7.3 this morning and is noted to have maroon colored stools in the ostomy and is s/p transfusion of 1 unit of PRBC. Patient is found to be hypotensive and an A-team is being called as patient was briefly unresponsive and appears to have possibly had a syncopal event. Patient is bed bound currently as she has been extremely weak for PT/OT therapy. Patient is actively receiving another unit of PRBC as well. Patient given a bolus of IV normal saline and blood pressure slightly improved. Will continue to monitor bleeding and transfuse if 7. General surgery following and small bowel capsule study ordered although minimal staff to be able to go sit with patient for the 2 hour study and patient is currently receiving blood product. 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 Ateam ordered 2 additional units of PRBC today. WBC elevated today at 19.8 and ID following and patient continues of IV flagyl and zosyn. 07/19/2021 Patient is seen in follow-up this morning continues to be bleeding to the ostomy and has received multiple blood transfusions with multiple medical consultations including surgery, infectious disease, hematology following closely. Patient is being transferred to the selected unit for close monitoring as she continues to bleed. Patient is extremely lethargic and states she feels she is passing out frequently with position changes and movements. Hemoglobin is improved at 1.5 status 3 units of PRBCs. White blood count is elevated and again infectious disease is following. Patient underwent packed RBC this morning showing no definite areas of abnormal uptake with a questionable area within the transverse colon and splenic flexure that could be correlated with colonoscopy. Surgery is following closely and plans for colonoscopy once patient is more stable. Recommend H&H every 12 and transfuse if less than 7. Continue with IV fluids as well as patient is symptomatically hypotensive. 07/20/2021 Patient is seen this morning and is currently sitting up in the chair. Patient being followed closely by surgery and hematology. Patient has received PICC line and will initiate TPN. Monitor closely for further bleeding and transfuse if less than 7. Possible colonoscopy once stable. Blood pressure better controlled today. Patient current potassium is 3.0 and will replace per protocol. Patient also continues on gentle IV hydration along with IV antibiotics in the form of zosyn, fluconazole, and flagyl with ID following closely. Wound cultures show ecoli. 07/21/2021 Patient is seen and evaluated today and continues to be monitored by multiple medical consultations including infectious disease. Patient continues on IV fluconazole along with Flagyl and Zosyn wound cultures have finalized showing E. coli along with anaerobic gram-negative bacilli. Patient's hemoglobin Today is 8.7 and platelets are 152. Potassium found to be 2.9 and will replace per protocol and monitor closely. Patient is extremely weak and is working with physical therapy and states she has increased pain and pressure when attempting to sit up in the abdomen. Patient also has dizziness with position changes. Patient continues on 3 [address] NC and will decrease IV fluids to 75Ml per hour and will obtain chest xray and orthostatic vital signs. Labs: WBC is 13.7, hemoglobin is 8.7, platelets are 152, sodium is 139, potassium is 2.9, BUN is 18, creatinine is 0.53, phosphorus is 2.2, calcium is 7.3, magnesium is 1.9 Review of systems: Constitutional: reports of fatigue, fever, or chills Cardiovascular: No reports of chest pain or palpitations Respiratory: reports of worsening shortness of breath GI: reports of nausea on occasion and dark stool in the ostomy : No reports of dysuria or retention, currently indwelling thapa catheter Neurovascular: reports of generalized weakness and dizziness with position changes. Active Medications Acetaminophen (Acetaminophen Tab 325 Mg Tab) 650 mg PO Q6HR PRN PRN Reason: Fever and/ or Pain Last Admin: 07/16/21 22:43 Dose: 650 mg Documented by: Hydrocodone Bitart/Acetaminophen (Hydrocodone/Apap 5-325mg 1 Each Tab) 0.5 each PO Q6HR PRN PRN Reason: Pain Last Admin: 07/21/21 09:36 Dose: 0.5 each Documented by: Piperacillin Sod/Tazobactam (Sod 3.375 gm/ Sodium Chloride) 100 mls @ 25 mls/hr IVPB Q8HR [facility] Last Admin: 07/20/21 22:54 Dose: 25 mls/hr Documented by: Fluconazole/Sodium Chloride (100 mg/ IV Solution) 50 mls @ 50 mls/hr IVPB DAILY [facility] Last Admin: 07/20/21 08:38 Dose: 50 mls/hr Documented by: Sodium Chloride (Saline 0.9%) 1,000 mls @ 100 mls/hr IV .Q10H [facility] Last Admin: 07/21/21 06:25 Dose: Not Given Documented by: Parenteral Vitamin Supplement 10 ml/ Zinc/Copper/Manganese/Selenium 1 ml/ Amino Ac/Electrol/Dextrose/Calcium 1,011 mls @ 30 mls/hr IV .Q24H ONE Stop: 07/21/21 15:59 Last Admin: 07/20/21 16:55 Dose: 30 mls/hr Documented by: Parenteral Vitamin Supplement 10 ml/ Zinc/Copper/Manganese/Selenium 1 ml/ Amino Ac/Electrol/Dextrose/Calcium 1,011 mls @ 55 mls/hr IV .BY DURATION [facility] Amino Ac/Electrol/Dextrose/Calcium (Clinimix E 5%-20% Solution) 1,000 mls @ 55 mls/hr IV .BY DURATION [facility] Amino Ac/Electrol/Dextrose/Calcium (Clinimix E 5%-20% Solution) 1,000 mls @ 55 mls/hr IV .BY DURATION [facility] Fat Emulsion Intravenous 500 (ml/ IV Solution) 500 mls @ 42 mls/hr IV Q7D [facility] Last Admin: 07/20/21 17:10 Dose: 42 mls/hr Documented by: Potassium Chloride 10 meq/ IV (Solution) 100 mls @ 100 mls/hr IVPB Q1HR [facility]; Protocol Stop: 07/21/21 14:59 Insulin Aspart (Insulin Aspart (Novolog) 100 Unit/Ml Vial) 0 unit SQ ACHS [facility]; Protocol Last Admin: 07/21/21 06:25 Dose: 4 unit Documented by: Levothyroxine Sodium (Levothyroxine 25 Mcg Tab) 25 mcg PO DAILY@0630 [facility] Last Admin: 07/21/21 06:25 Dose: 25 mcg Documented by: Metoclopramide HCl (Metoclopramide 5 Mg/Ml 2 Ml Vial) 5 mg IVP Q6HR PRN PRN Reason: Nausea And Vomiting Last Admin: 07/20/21 05:33 Dose: 5 mg Documented by: Metronidazole (Metronidazole 500 Mg Tab) 500 mg PO Q8HR [facility] Last Admin: 07/21/21 09:35 Dose: 500 mg Documented by: Miscellaneous Information (Potassium Replacement Protocol 1 Each Misc) 1 each MISCELLANE DAILY PRN; Protocol PRN Reason: Per Protocol Morphine Sulfate (Morphine Sulfate 4 Mg/Ml Syringe) 3 mg IVP Q4HR PRN PRN Reason: Pain Last Admin: 07/20/21 05:32 Dose: 3 mg Documented by: Multivitamins/Minerals (Vit A,C & Y-Znpewl-Tmfbgokm 1 Each Tab) 1 each PO DAILY [facility] Last Admin: 07/21/21 09:36 Dose: 1 each Documented by: Naloxone HCl (Naloxone 0.4 Mg/Ml 1 Ml Vial) 0.2 mg IV Q2M PRN PRN Reason: Opioid Reversal Pantoprazole Sodium (Pantoprazole 40 Mg/10 Ml Vial) 40 mg IVP BID [facility] Last Admin: 07/21/21 09:36 Dose: 40 mg Documented by: Pramipexole Dihydrochloride (Pramipexole 1 Mg Tab) 1 mg PO [facility] Last Admin: 07/20/21 22:05 Dose: 1 mg Documented by: Pravastatin Sodium (Pravastatin Sodium 40 Mg Tab) 80 mg PO [facility] Last Admin: 07/20/21 20:51 Dose: 80 mg Documented by: Simethicone (Simethicone 80 Mg Chewable) 80 mg PO TID PRN PRN Reason: Abdominal Distention Last Admin: 07/18/21 22:10 Dose: 80 mg Documented by: Tamsulosin HCl (Tamsulosin 0.4 Mg Cap.Er.24h) 0.4 mg PO -BRKFST [facility] Last Admin: 07/21/21 09:35 Dose: 0.4 mg Documented by: Physical exam: GENERAL: The patient is alert and oriented x3, Well developed, well nourished. Temp is 97.5 F, pulse is 63, respirations are 18, blood pressure is 122/73, oxygen saturation is 96% on 3 L via nasal cannula HEENT: Pupils are round and equally reacting to light. EOMI. No scleral icterus. No conjunctival pallor. Normocephalic, atraumatic. No pharyngeal erythema. No thyromegaly. CARDIOVASCULAR: S1 and S2 muffled PULMONARY: Diminished breath sounds bilaterally with no wheezing or crackles. ABDOMEN: Soft, tender, normoactive bowel sounds. No palpable organomegaly. Ostomy noted with dark stools MUSCULOSKELETAL: No joint swelling or deformity. EXTREMITIES: No cyanosis, clubbing, or pedal edema. NEUROLOGICAL: Gross neurological examination did not reveal any focal deficits. Diffuse weakness SKIN: No rashes. Assessment: -Epigastric abdominal pain: Secondary to gastoesophageal reflux disease, possible peptic ulcer disease secondary to hiatal hernia -Status post sigmoid colectomy with end colostomy secondary to perforated sigmoid diverticulitis -Acute GI bleed with acute blood loss anemia -Status post laparoscopic repair of paraesophageal hernia with mesh -diarrhea, probably secondary to large hernia, resolved -metabolic acidosis, secondary to above -hyperkalemia, currently hypokalemic -Hyperlipidemia -Hypertension, currently hypotensive -hypothyroidism -Hyperglycemia due to IV steroids -DVT prophylaxis -GI Prophylaxis -FULL CODE Plan: Recommend to continue with current medications and management. Surgery and infectious disease following closely secondary to peritonitis from a perforated diverticulitis resulting in diverting colostomy. Patient continues on IV Zosyn and Diflucan and flagyl. Patient was started on clear liquids and has received her PICC and TPN infusing. Patient is extremely weak and states she has dizziness with position changes and sitting increasing her abdominal pain. Will continue with PT/OT daily. Hemoglobin stable today. Will repeat am labs and monitor closely. Patient continues on 3L of 02 and will obtain chest xray and decrease IV saline to 75ml/Hr. Recommend to continue close monitoring of bleeding and hemoglobin. Transfuse if 7 or less. Due to multiple complex medical issues, prognosis is guarded. Further recommendations to follow based on the clinical course of the patient. Objective - Vital Signs Vital signs: Vital Signs Temp 97.5 F L 07/21/21 04:00 Pulse 63 07/21/21 04:00 Resp 18 07/21/21 04:00 BP 122/73 07/21/21 04:00 Pulse Ox 96 07/21/21 04:00 Intake & Output 07/20/21 07/21/21 07/21/21 18:59 06:59 18:59 Intake Total 1170 240 200 Balance 1170 240 200 Weight 78.5 kg 83 kg Intake: Intake, IV Titration 750 Amount Fluconazole in NaCl,Iso- 50 Osm 100 mg In Saline 1 50ml.bag @ 50 mls/hr IVPB DAILY [facility] Rx#:[id number] Piperacillin-Tazobactam 3 100 .375 gm In Sodium Chloride 0.9% 100 ml @ 25 mls/hr IVPB Q8HR [facility] Rx# :[id number] Sodium Chloride 0.9% 1, 600 000 ml @ 100 mls/hr IV . Q10H [facility] Rx#:[id number] Oral 420 240 200 Other: Voiding Method Bedpan # Voids 1 # Bowel Movements 1 - Labs CBC & Chem 7: 07/21/21 07:14 07/21/21 07:14 Labs: Abnormal Lab Results - Last 24 Hours (Table) 07/20/21 07/20/21 07/20/21 Range/Units 14:00 14:00 20:01 WBC 14.6 H (3.8-10.6) k/uL RBC 2.94 L (3.80-5.40) m/uL Hgb 9.4 L (11.4-16.0) gm/dL Hct 27.7 L (34.0-46.0) % RDW 16.5 H (11.5-15.5) % Neutrophils # 13.8 H (1.3-7.7) k/uL Lymphocytes # 0.2 L (1.0-4.8) k/uL Potassium 3.0 L (3.5-5.1) mmol/L Chloride 108 H (98-107) mmol/L BUN 22 H (7-17) mg/dL Glucose 112 H (74-99) mg/dL POC Glucose (mg/dL) 139 H (75-99) mg/dL Calcium 7.5 L (8.4-10.2) mg/dL Phosphorus 2.0 L (2.5-4.5) mg/dL Total Protein 4.0 L (6.3-8.2) g/dL Albumin 1.9 L (3.5-5.0) g/dL 07/21/21 07/21/21 07/21/21 Range/Units 06:08 07:14 07:14 WBC 13.7 H (3.8-10.6) k/uL RBC 2.76 L (3.80-5.40) m/uL Hgb 8.7 L (11.4-16.0) gm/dL Hct 26.6 L (34.0-46.0) % RDW 17.8 H (11.5-15.5) % Neutrophils # 12.9 H (1.3-7.7) k/uL Lymphocytes # 0.3 L (1.0-4.8) k/uL Potassium 2.9 L (3.5-5.1) mmol/L Chloride 109 H (98-107) mmol/L BUN 18 H (7-17) mg/dL Glucose 199 H (74-99) mg/dL POC Glucose (mg/dL) 261 H (75-99) mg/dL Calcium 7.3 L (8.4-10.2) mg/dL Phosphorus 2.2 L (2.5-4.5) mg/dL Total Protein (6.3-8.2) g/dL Albumin (3.5-5.0) g/dL Microbiology - Last 24 Hours (Table) 07/14/21 23:20 Blood Culture - Final Blood No Growth after 144 hours
--- NOTE | 2021-07-21 23:32 | PN ---
PROGRESS NOTE DATE OF SERVICE: 07/21/2021 REASON FOR FOLLOWUP: Abdominal abscess from perforated diverticulitis. INTERVAL HISTORY: The patient is afebrile. The patient is breathing comfortably. The patient's abdominal pain is currently controlled with pain medication. Patient denies having any chest pain. No shortness of breath, cough. No nausea, vomiting or diarrhea. PHYSICAL EXAMINATION: Blood pressure 126/72 with a pulse of 76, temperature is 97.4. She is 98% on 3 L nasal cannula. General description is an elderly female lying in bed in no distress. Respiratory system: Unlabored breathing, clear to auscultation anteriorly. Heart S1, S2. Regular rate and rhythm. Abdomen: Soft, mildly tender. No guarding. No rigidity. LABS: Hemoglobin 8.7, white count 13.7, creatinine 0.53. DIAGNOSTIC IMPRESSION AND PLAN: Patient with abdominal abscess from perforated diverticulitis. Culture with E coli and anaerobes. Patient is covered with Rocephin to continue. White count is trending down. Monitor clinical course closely. Continue supportive care. MMODL / IJN: [id number] /
[2021-07-22] MEDS: POTASSIUM CHLORIDE 10 MEQ in WATER FOR INJECTION 1 100ML.BAG IVPB SCH ×2 (00:12→01:39)
[2021-07-22] MEDS: ACETAMINOPHEN TAB 325 MG TAB PO PRN (01:42)
[2021-07-22 06:08] LABS: Glucose,Whole Blood 268 mg/dL (75-99)
[2021-07-22] MEDS: INSULIN ASPART (NovoLOG) 100 UNIT/ML VIAL SQ SCH ×4 (06:30→21:37)
[2021-07-22] MEDS: LEVOTHYROXINE 25 MCG TAB PO SCH (06:30)
--- NOTE | 2021-07-22 07:57 | XR ---
EXAMINATION TYPE: XR chest 1V portable DATE OF EXAM: 07/22/2021 COMPARISON: 07/17/2021 HISTORY: Shortness of breath TECHNIQUE: Single frontal view of the chest is obtained. FINDINGS: There are moderate bilateral pleural effusions unchanged compared to previous. The upper l carol zones are clear. The pulmonary vasculature is not congested. There is severe degenerative change of the right glenohumeral joint and mild to moderate degenerative change left glenohumeral joint. IMPRESSION: No change in the moderate bilateral pleural effusions.
[2021-07-22 08:26] LABS: Anisocytosis Slight; Basophils % (A) 0 %; Eosinophils # (A) 0.2 k/uL (0-0.7); Eosinophils % (A) 2 %; HGB 8.1 gm/dL (11.4-16.0); Hypochromasia Slight; Lymphocytes # (A) 0.2 k/uL (1.0-4.8); Lymphocytes % (A) 2 %; MCH 31.7 pg (25.0-35.0); MCHC 32.5 g/dL (31.0-37.0); MCV 97.4 fL (80.0-100.0); Macrocytosis Slight; Mean Platelet Volume 8.6; Monocytes # (A) 0.4 k/uL (0-1.0); Monocytes % (A) 4 %; Neutrophils # (A) 8.9 k/uL (1.3-7.7); Neutrophils % (A) 91 %; Platelet Count 137 k/uL (150-450); Poikilocytosis Slight; RBC 2.56 m/uL (3.80-5.40); RDW 17.4 % (11.5-15.5); WBC 9.8 k/uL (3.8-10.6)
[2021-07-22 08:36] LABS: ALT 10 U/L (4-34); AST 16 U/L (14-36); African American GFR (CKD) >90 (>60 ml/min/1.73 sqM); Albumin 1.6 g/dL (3.5-5.0); Alkaline Phosphatase 67 U/L (38-126); Anion Gap 4 mmol/L; Blood Urea Nitrogen 16 mg/dL (7-17); Calcium 7.2 mg/dL (8.4-10.2); Carbon Dioxide 27 mmol/L (22-30); Chloride 106 mmol/L (98-107); Glucose 212 mg/dL (74-99); Magnesium 1.8 mg/dL (1.6-2.3); Non-African American GFR(CKD) >90 (>60 ml/min/1.73 sqM); Potassium 3.5 mmol/L (3.5-5.1); Sodium 137 mmol/L (137-145); Total Bilirubin 0.2 mg/dL (0.2-1.3); Total Protein 3.5 g/dL (6.3-8.2)
[2021-07-22] MEDS: FLUCONAZOLE IN NACL,ISO-OSM 100 MG in SALINE 1 50ML.BAG IVPB SCH (09:05)
[2021-07-22] MEDS: PANTOPRAZOLE 40 MG/10 ML VIAL IVP SCH ×2 (09:05→21:37)
[2021-07-22] MEDS: metroNIDAZOLE 500 MG TAB PO SCH ×3 (09:05→23:20)
[2021-07-22] MEDS: TAMSULOSIN 0.4 MG CAP.ER.24H PO SCH (09:06)
[2021-07-22] MEDS: VIT A,C & E-LUTEIN-MINERALS 1 EACH TAB PO SCH (09:07)
[2021-07-22] MEDS ORDERED: POTASSIUM CHLORIDE 20 MEQ in WATER FOR INJECTION 1 100ML.BAG IVPB SCH (10:30)
[2021-07-22] MEDS ORDERED: MAGNESIUM SULFATE-D5W PMX 1 GM in DEXTROSE/WATER 1 100ML.BAG IVPB SCH (10:30)
[2021-07-22] MEDS: PIPERACILLIN-TAZOBACTAM 3.375 GM in SODIUM CHLORIDE 0.9% 100 ML IVPB SCH ×3 (12:05→23:20)
--- NOTE | 2021-07-22 15:40 | P.PN ---
Subjective Progress Note Date: 07/22/21 CHIEF COMPLAINT: Abdominal pain HISTORY OF PRESENT ILLNESS: The patient is a 80-year-old female s/p pa raesophageal hiatal hernia repair followed by perforated diverticulitis. She is being changed at bedside. No new acute abdominal pain. ROS: No fevers or chills. No new chest pain. PHYSICAL EXAM: VITAL SIGNS: Reviewed CONSTITUTIONAL: Well developed and in no acute distress. EYES: Conjuctivae without sclera icterus. Extraocular movements grossly intact. HEAD, EARS, NOSE, THROAT: Moist buccal mucosa. Head is atraumatic, normocephalic. Hears conversational speech. No nasal drainage. RESPIRATORY: Non-labored respirations and equal bilateral excursions. Has mild purse lipped breathing. CARDIOVASCULAR: Palpable 2+ radial pulses. ABDOMEN: Dressing intact. No peritonitis. MUSCULOSKELETAL: No gross deformity of the lower extremities noted. No clubbing. No cyanosis. SKIN: Good skin turgor. Well perfused. NEUROLOGIC: Cranial nerves II through XII grossly intact. No focal or late ralizing signs. PSYCH: Appropriate affect. Alert and oriented to person, place and time. CLINICAL LABS: Reviewed. WBC down 14.6 to 13.7, now normal 9.8. Hgb down 8.1. ASSESSMENT: 1. Perforated diverticulitis 2. Paraesophageal hiatal hernia repair 3. Leukocytosis 4. Anemia, acute blood loss PLAN: 1. Continue IV antibiotics 2. PT/OT. Objective - Vital Signs Vital signs: Vital Signs Temp 97.2 F L 07/22/21 04:00 Pulse 79 07/22/21 04:00 Resp 18 07/22/21 04:00 BP 136/71 07/22/21 04:00 Pulse Ox 98 07/22/21 04:00 Intake & Output 07/21/21 07/22/21 07/22/21 18:59 06:59 18:59 Intake Total 300 240 Balance 300 240 Weight 83.5 kg Intake: Oral 300 240 Other: Voiding Method Bedpan Bedpan # Voids 1 3 0 # Bowel Movements 0 1 - Labs CBC & Chem 7: 07/22/21 07:01 07/22/21 07:01 Labs: Abnormal Lab Results - Last 24 Hours (Table) 07/21/21 07/21/21 07/22/21 Range/Units 16:59 19:55 06:06 RBC (3.80-5.40) m/uL Hgb (11.4-16.0) gm/dL Hct (34.0-46.0) % RDW (11.5-15.5) % Plt Count (150-450) k/uL Neutrophils # (1.3-7.7) k/uL Lymphocytes # (1.0-4.8) k/uL Creatinine (0.52-1.04) mg/dL Glucose (74-99) mg/dL POC Glucose (mg/dL) 189 H 199 H 268 H (75-99) mg/dL Calcium (8.4-10.2) mg/dL Phosphorus (2.5-4.5) mg/dL Total Protein (6.3-8.2) g/dL Albumin (3.5-5.0) g/dL 07/22/21 07/22/21 Range/Units 07:01 07:01 RBC 2.56 L (3.80-5.40) m/uL Hgb 8.1 L (11.4-16.0) gm/dL Hct 25.0 L (34.0-46.0) % RDW 17.4 H (11.5-15.5) % Plt Count 137 L (150-450) k/uL Neutrophils # 8.9 H (1.3-7.7) k/uL Lymphocytes # 0.2 L (1.0-4.8) k/uL Creatinine 0.43 L (0.52-1.04) mg/dL Glucose 212 H (74-99) mg/dL POC Glucose (mg/dL) (75-99) mg/dL Calcium 7.2 L (8.4-10.2) mg/dL Phosphorus 2.0 L (2.5-4.5) mg/dL Total Protein 3.5 L (6.3-8.2) g/dL Albumin 1.6 L (3.5-5.0) g/dL Assessment and Plan (1) Acute blood loss anemia Current Visit: Yes Status: Acute Code(s): D62 - ACUTE POSTHEMORRHAGIC ANEMIA SNOMED Code(s): 397921887 (2) Paraesophageal hiatal hernia Current Visit: Yes Status: Acute Code(s): K44.9 - DIAPHRAGMATIC HERNIA WITHOUT OBSTRUCTION OR GANGRENE SNOMED Code(s): 0773846 (3) Diverticulitis of colon with perforation Current Visit: Yes Status: Acute Code(s): K57.20 - DVTRCLI OF LG INT W PERFORATION AND ABSCESS W/O BLEEDING SNOMED Code(s): 33721402 (4) Leukocytosis Current Visit: Yes Status: Acute Code(s): D72.829 - ELEVATED WHITE BLOOD CELL COUNT, UNSPECIFIED SNOMED Code(s): 972080278
[2021-07-22 16:43] LABS: Glucose,Whole Blood 203 mg/dL (75-99)
--- NOTE | 2021-07-22 17:45 | PN ---
PROGRESS NOTE DATE OF SERVICE: 07/22/2021 REASON FOR FOLLOWUP: Intraabdominal abscess from perforated diverticulitis. INTERVAL HISTORY: Patient is afebrile. The patient is breathing comfortably. The patient denies having any chest pain. Abdominal pain is currently controlled. No nausea, vomiting and no diarrhea has been reported. PHYSICAL EXAMINATION: Blood pressure 136/71, pulse of 79, temperature 97.2, he is 98% on 3 L nasal cannula. General description is an elderly female lying in bed in no distress. Respiratory system: Unlabored breathing. Decreased intensity in breath sounds. No wheeze. Heart S1, S2. Regular rate and rhythm. Abdomen: Soft, mildly distended. No guarding. No rigidity. LABS: Hemoglobin 8.1, white count 9.8, creatinine 0.43. DIAGNOSTIC IMPRESSION AND PLAN: Patient with intraabdominal abscess from perforated diverticulitis status post diverting colostomy. Abdominal culture with an E coli and anaerobes. Patient is on Zosyn. Can be transitioned to oral antibiotic on discharge as white count normalized. Continue supportive care. MMODL / IJN: [id number] /
[2021-07-22] MEDS: 1: MVI, ADULT NO.4 WITH VIT K 10 ML, TRACE (CONC-1ML/DOSE) 1 ML in AMINO ACID 5%-D20W+LY IV SCH ×3 (17:48)
[2021-07-22] MEDS: SODIUM CHLORIDE 0.9% 1,000 ML IV SCH ×2 (17:49→21:37)
[2021-07-22] MEDS: HYDROcodone/APAP 5-325MG 1 EACH TAB PO PRN (17:55)
[2021-07-22] MEDS: POTASSIUM PHOSPHATE 10 MMOL in SODIUM CHLORIDE 0.9% 100 ML IV SCH ×2 (17:56→19:26)
[2021-07-22 19:51] LABS: Glucose,Whole Blood 197 mg/dL (75-99)
[2021-07-22] MEDS: PRAVASTATIN SODIUM 40 MG TAB PO SCH (21:36)
[2021-07-22] MEDS: MAGNESIUM SULFATE-D5W PMX 1 GM in DEXTROSE/WATER 1 100ML.BAG IVPB SCH ×2 (21:37→23:21)
[2021-07-22] MEDS: SIMETHICONE 80 MG CHEWABLE PO PRN (21:37)
[2021-07-22] MEDS: PRAMIPEXOLE 1 MG TAB PO SCH (21:37)
--- NOTE | 2021-07-23 02:46 | P.PN ---
Subjective Progress Note Date: 07/22/21 Patient is an 80-year-old female came in with the complaint of upper abdominal discomfort patient does have history of hernia and the pain is related to be secondary to anemia, Gen. surgery evaluated the patient is planning on doing hemorrhoidal hernia repair/Adis fundoplication on Friday. Patient will be started on Protonix patient was on naproxen at home which will be held. Patient doesn't have any fever chills vomiting diarrhea. Bit nauseous 07/11/2021 Patient is seen and evaluated in room at bedside; status post repair of paraesophageal hernia with mesh; POD #2 Patient reports improvement this morning; does complain of pain; tolerating clear liquid diet well Vital signs are reviewed and reveal temperature of 97.4, pulse 89, respiration 18 and blood pressure 100/65 Lab review shows WBC 7.2, hemoglobin 9.3, platelet count of 464, sodium 144, potassium 4.0, BUN/creatinine of 13/0.80 and blood glucose of 158 Surgery on board and recommending to continue with IV dexamethasone for moderate obstruction noted on upper GI; patient will remain on IV fluids and a clear liquid diet Increase activity and PT/OT recommended 07/12/2021 Patient is seen and evaluated sitting up in bed; patient reports shortness of breath earlier in the day; was placed on O2 2-3 L per nasal cannula which improved breathing Does complain of chest congestion; we will hold off on IV fluids and order Lasix 40 mg IV 1 and order a chest x-ray We will signs are reviewed and reveal temperature of 97.5, pulse 88, respiration 28 and blood pressure 117/61. O2 saturation 96% on 2 L Patient is tolerating clear liquid diet fairly well and has been advanced to a full liquid diet; remains on IV dexamethasone for moderate obstruction on upper GI 07/13/2021 Patient is seen and evaluated; lying in bed; patient is status post laparoscopic repair of paraesophageal hernia with mesh; POD #4; episode of maroon-colored stool at night Vital signs reviewed reveal patient to be afebrile, blood pressure of 101/68, respiration 18 and heart rate of 19 with O2 saturation of 96% on 2 L Laboratory review shows a drop in hemoglobin from 9.3 down to 7.6 this morning; patient underwent EGD which reveals mild gastritis; no active bleeding; general surgery on board and recommending to continue to monitor labs closely. Possibility of colonoscopy if hemoglobin continues to drop; patient is status post transfusion with 1 unit of packed RBCs 07/14/2021 Patient is seen and evaluated; reports increasing abdominal pain; has been evaluated by surgery and is recommended CT of abdomen for further evaluation Vital signs temperature 97.7, pulse 85, respiration 22 and blood pressure 110/67 Lab review reveals an elevated white blood count of 21.7, hemoglobin of 8.5, platelets of 400, sodium 136, potassium 5.0, BUN/creatinine of 21/0.61 Patient is currently on IV antibiotics in form of Zosyn 3.375 g IV every 8 hours along with metronidazole 500 mg every 8 hours We will proceed with stat CT of the abdomen and consult ID for further recommendations 07/15/2021 Patient is seen and evaluated resting in bed; reports improved abdominal pain with oral [place] Vital signs are reviewed and stable with temperature of 98, pulse 72, respiration 20 and blood pressure 111/71 Lab review reveals WBC that remains elevated at 27.7, hemoglobin of 8.4 and platelet count of 369, sodium 136, potassium 5.4, BUN/creatinine of 46/0.85 CT of the abdomen completed reveals normal. Continue related to perforated si gmoid diverticulitis; patient underwent sigmoid colectomy with end colostomy; POD #1 Patient remains nothing by mouth or surgery recommendations; potassium elevated at 5.4; we will repeat stat potassium level and treat as needed; continue with IV antibiotics as ordered We will monitor CBC, CRP and pro-calcitonin 07/16/2021 Patient is seen in follow up this morning with family at the bedside. Ostomy nurse at the bedside educating as well. Patient reports to passing gas in the ostomy and general surgery following closely. Patient diet is being advanced as tolerated. Patient has some generalized pain although reports to feeling nauseated and dizzy with narcotics. Will continue with tylenol and lower dose of norco and discuss with nursing staff of avoiding narcotics if possible. PT/OT to evaluate as patient will likely need rehab for strength and mobility. social wo rk consulted for possible placement. Patient is continued on flagyl and Zosyn with infectious disease also following closely. Diflucan as well. Potassium elevated and will correct and repeat am labs. Encouraged increased activity as tolerated. 07/17/2021 She is seen in follow-up today states she is not feeling well and feels more short of breath. Hemoglobin was found to be 6.7 and will order a unit of PRBC. Surgery and ID following. Patient is having stool and gas noted in the ostomy. Patient states she is tired and having anxiety and wants to go home. Patient continued on full liquid diet and not eating much. Patient states she has no real appetite and feels worse today. Will transfuse 1 unit of PRBC and repeat am labs. Give one dose of IV lasix after transfusion. Patient continues on flagyl along with diflucan and zosyn and will continue. Preliminary showing ecoli and gram negative and awaiting finalized culture with sensitivities. Social work also following and working on possible ECF placement once stabilized. No active bleeding noted. Patient denies any previous transfusions. 07/18/2021 Patient is seen and evaluated this morning and is ill appearing, nauseated, lethargic, and is being closely monitored. Patient hemoglobin was 7.3 this morning and is noted to have maroon colored stools in the ostomy and is s/p transfusion of 1 unit of PRBC. Patient is found to be hypotensive and an A-team is being called as patient was briefly unresponsive and appears to have possibly had a syncopal event. Patient is bed bound currently as she has been extremely weak for PT/OT therapy. Patient is actively receiving another unit of PRBC as well. Patient given a bolus of IV normal saline and blood pressure slightly improved. Will continue to monitor bleeding and transfuse if 7. General surgery following and small bowel capsule study ordered although minimal staff to be able to go sit with patient for the 2 hour study and patient is currently receiving blood product. 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 Ateam ordered 2 additional units of PRBC today. WBC elevated today at 19.8 and ID following and patient continues of IV flagyl and zosyn. 07/19/2021 Patient is seen in follow-up this morning continues to be bleeding to the ostomy and has received multiple blood transfusions with multiple medical consultations including surgery, infectious disease, hematology following closely. Patient is being transferred to the selected unit for close monitoring as she continues to bleed. Patient is extremely lethargic and states she feels she is passing out frequently with position changes and movements. Hemoglobin is improved at 1.5 status 3 units of PRBCs. White blood count is elevated and again infectious disease is following. Patient underwent packed RBC this morning showing no definite areas of abnormal uptake with a questionable area within the transverse colon and splenic flexure that could be correlated with colonoscopy. Surgery is following closely and plans for colonoscopy once patient is more stable. Recommend H&H every 12 and transfuse if less than 7. Continue with IV fluids as well as patient is symptomatically hypotensive. 07/20/2021 Patient is seen this morning and is currently sitting up in the chair. Patient being followed closely by surgery and hematology. Patient has received PICC line and will initiate TPN. Monitor closely for further bleeding and transfuse if less than 7. Possible colonoscopy once stable. Blood pressure better controlled today. Patient current potassium is 3.0 and will replace per protocol. Patient also continues on gentle IV hydration along with IV antibiotics in the form of zosyn, fluconazole, and flagyl with ID following closely. Wound cultures show ecoli. 07/21/2021 Patient is seen and evaluated today and continues to be monitored by multiple medical consultations including infectious disease. Patient continues on IV fluconazole along with Flagyl and Zosyn wound cultures have finalized showing E. coli along with anaerobic gram-negative bacilli. Patient's hemoglobin Today is 8.7 and platelets are 152. Potassium found to be 2.9 and will replace per protocol and monitor closely. Patient is extremely weak and is working with physical therapy and states she has increased pain and pressure when attempting to sit up in the abdomen. Patient also has dizziness with position changes. Patient continues on 3 L [address] [place] and will decrease IV fluids to 75Ml per hour and will obtain chest xray and orthostatic vital signs. 07/22/2021 Patient is Seen and evaluated in follow-up this morning and continues to be followed by multiple medical consultations including surgery and ID. Patient continues on 3L via nc although patient deinies worsening shortness of breath . Chest xray shows stable effusions noted at the bases. Continue with incentive spirometer and will cut down the IV fluids. Repeat am labs. Hemoglobin is stable at 8.1 and will continue to monitor closely. Patient continues on TPN with surgery following and continued on clear liquids. Patient also continues on IV antibiotics and will transition to oral on discharge. PT/OT following and working with the patient. Labs: The CBC is 9.8, hemoglobin is 8.1, platelets are 137, sodium is 137, potassium 3.5, BUN 16, creatinine 0.43, calcium is 7.2, phosphorus is 2.0, magnesium 1.8 Review of systems: Constitutional: reports of fatigue, fever, or chills Cardiovascular: No reports of chest pain or palpitations Respiratory: reports of worsening shortness of breath GI: reports of nausea on occasion and dark stool in the ostomy : No reports of dysuria or retention, currently indwelling thapa catheter Neurovascular: reports of generalized weakness and dizziness with position changes. Active Medications Acetaminophen (Acetaminophen Tab 325 Mg Tab) 650 mg PO Q6HR PRN PRN Reason: Fever and/ or Pain Last Admin: 07/22/21 01:42 Dose: 650 mg Documented by: Hydrocodone Bitart/Acetaminophen (Hydrocodone/Apap 5-325mg 1 Each Tab) 0.5 each PO Q6HR PRN PRN Reason: Pain Last Admin: 07/21/21 20:22 Dose: 0.5 each Documented by: Piperacillin Sod/Tazobactam (Sod 3.375 gm/ Sodium Chloride) 100 mls @ 25 mls/hr IVPB Q8HR [facility] Last Admin: 07/22/21 12:05 Dose: 25 mls/hr Documented by: Fluconazole/Sodium Chloride (100 mg/ IV Solution) 50 mls @ 50 mls/hr IVPB DAILY [facility] Last Admin: 07/22/21 09:05 Dose: 50 mls/hr Documented by: Sodium Chloride (Saline 0.9%) 1,000 mls @ 75 mls/hr IV .[id number] [facility] Last Admin: 07/21/21 20:21 Dose: 100 mls/hr Documented by: Parenteral Vitamin Supplement 10 ml/ Zinc/Copper/Manganese/Selenium 1 ml/ Amino Ac/Electrol/Dextrose/Calcium 1,011 mls @ 55 mls/hr IV .BY DURATION [facility] Amino Ac/Electrol/Dextrose/Calcium (Clinimix E 5%-20% Solution) 1,000 mls @ 55 mls/hr IV .BY DURATION [facility] Last Admin: 07/21/21 20:21 Dose: 55 mls/hr Documented by: Amino Ac/Electrol/Dextrose/Calcium (Clinimix E 5%-20% Solution) 1,000 mls @ 55 mls/hr IV .BY DURATION [facility] Fat Emulsion Intravenous 500 (ml/ IV Solution) 500 mls @ 42 mls/hr IV Q7D [facility] Last Admin: 07/20/21 17:10 Dose: 42 mls/hr Documented by: Potassium Phosphate 10 mmol/ (Sodium Chloride) 103.3333 mls @ 50 mls/hr IV Q2H [facility] Stop: 07/22/21 14:59 Insulin Aspart (Insulin Aspart (Novolog) 100 Unit/Ml Vial) 0 unit SQ ACHS [facility]; Protocol Last Admin: 07/22/21 06:30 Dose: 4 unit Documented by: Levothyroxine Sodium (Levothyroxine 25 Mcg Tab) 25 mcg PO DAILY@0630 [facility] Last Admin: 07/22/21 06:30 Dose: 25 mcg Documented by: Metoclopramide HCl (Metoclopramide 5 Mg/Ml 2 Ml Vial) 5 mg IVP Q6HR PRN PRN Reason: Nausea And Vomiting Last Admin: 07/20/21 05:33 Dose: 5 mg Documented by: Metronidazole (Metronidazole 500 Mg Tab) 500 mg PO Q8HR [facility] Last Admin: 07/22/21 09:05 Dose: 500 mg Documented by: Miscellaneous Information (Potassium Replacement Protocol 1 Each Misc) 1 each MISCELLANE DAILY PRN; Protocol PRN Reason: Per Protocol Morphine Sulfate (Morphine Sulfate 4 Mg/Ml Syringe) 3 mg IVP Q4HR PRN PRN Reason: Pain Last Admin: 07/20/21 05:32 Dose: 3 mg Documented by: Multivitamins/Minerals (Vit A,C & I-Kvhelg-Ckinfhan 1 Each Tab) 1 each PO DAILY [facility] Last Admin: 07/22/21 09:07 Dose: 1 each Documented by: Naloxone HCl (Naloxone 0.4 Mg/Ml 1 Ml Vial) 0.2 mg IV Q2M PRN PRN Reason: Opioid Reversal Pantoprazole Sodium (Pantoprazole 40 Mg/10 Ml Vial) 40 mg IVP BID [facility] Last Admin: 07/22/21 09:05 Dose: 40 mg Documented by: Pramipexole Dihydrochloride (Pramipexole 1 Mg Tab) 1 mg PO [facility] Last Admin: 07/21/21 20:22 Dose: 1 mg Documented by: Pravastatin Sodium (Pravastatin Sodium 40 Mg Tab) 80 mg PO HS [facility] Last Admin: 07/21/21 20:22 Dose: 80 mg Documented by: Simethicone (Simethicone 80 Mg Chewable) 80 mg PO TID PRN PRN Reason: Abdominal Distention Last Admin: 07/18/21 22:10 Dose: 80 mg Documented by: Tamsulosin HCl (Tamsulosin 0.4 Mg Cap.Er.24h) 0.4 mg PO -BRKFST [facility] Last Admin: 07/22/21 09:06 Dose: 0.4 mg Documented by: Physical exam: GENERAL: The patient is alert and oriented x3, Well developed, well nourished. Temp is 97.2F, pulse is 79, respirations are 18, blood pressure is 136/71, oxygen saturation is 98% on 3 L via nasal cannula HEENT: Pupils are round and equally reacting to light. EOMI. No scleral icterus. No conjunctival pallor. Normocephalic, atraumatic. No pharyngeal erythema. No thyromegaly. CARDIOVASCULAR: S1 and S2 muffled PULMONARY: Diminished breath sounds bilaterally with no wheezing or crackles. ABDOMEN: Soft, tender, normoactive bowel sounds. No palpable organomegaly. Ostomy noted with dark stools MUSCULOSKELETAL: No joint swelling or deformity. EXTREMITIES: No cyanosis, clubbing, or pedal edema. NEUROLOGICAL: Gross neurological examination did not reveal any focal deficits. Diffuse weakness SKIN: No rashes. Assessment: -Epigastric abdominal pain: Secondary to gastoesophageal reflux disease, possible peptic ulcer disease secondary to hiatal hernia -Status post sigmoid colectomy with end colostomy secondary to perforated sigmoid diverticulitis -Acute GI bleed with acute blood loss anemia -Status post laparoscopic repair of paraesophageal hernia with mesh -diarrhea, probably secondary to large hernia, resolved -metabolic acidosis, secondary to above -hyperkalemia, currently hypokalemic -Hyperlipidemia -Hypertension, currently hypotensive -hypothyroidism -Hyperglycemia due to IV steroids -DVT prophylaxis -GI Prophylaxis -FULL CODE Plan: Recommend to continue with current medications and management. Surgery and infectious disease following closely secondary to peritonitis from a perforated diverticulitis resulting in diverting colostomy. Patient continues on IV Zosyn and Diflucan and flagyl and will transition to oral abx on discharge. Patient was started on clear liquids and has received her PICC and TPN infusing. Patient is extremely weak. Will continue with PT/OT daily. Hemoglobin stable today at 8.1. Will repeat am labs and monitor closely. Patient continues on 3L of 02 and chest xray shows bilateral pleural effusions and will decrease IV saline to 50ml/Hr. Recommend to continue close monitoring of bleeding and hemog lobin. Transfuse if 7 or less. Due to multiple complex medical issues, prognosis is guarded. Further recommendations to follow based on the clinical course of the patient. Social work following for possible rehab once stabilized and discharged. Objective - Vital Signs Vital signs: Vital Signs Temp 97.2 F L 07/22/21 04:00 Pulse 79 07/22/21 04:00 Resp 18 07/22/21 04:00 BP 136/71 07/22/21 04:00 Pulse Ox 98 07/22/21 04:00 Intake & Output 07/21/21 07/22/21 07/22/21 18:59 06:59 18:59 Intake Total 300 240 Balance 300 240 Weight 83.5 kg Intake: Oral 300 240 Other: Voiding Method Bedpan Bedpan # Voids 1 3 # Bowel Movements 0 1 - Labs CBC & Chem 7: 07/22/21 07:01 07/22/21 07:01 Labs: Abnormal Lab Results - Last 24 Hours (Table) 07/21/21 07/21/21 07/21/21 Range/Units 12:01 16:59 19:55 RBC (3.80-5.40) m/uL Hgb (11.4-16.0) gm/dL Hct (34.0-46.0) % RDW (11.5-15.5) % Plt Count (150-450) k/uL Neutrophils # (1.3-7.7) k/uL Lymphocytes # (1.0-4.8) k/uL Creatinine (0.52-1.04) mg/dL Glucose (74-99) mg/dL POC Glucose (mg/dL) 172 H 189 H 199 H (75-99) mg/dL Calcium (8.4-10.2) mg/dL Phosphorus (2.5-4.5) mg/dL Total Protein (6.3-8.2) g/dL Albumin (3.5-5.0) g/dL 07/22/21 07/22/21 07/22/21 Range/Units 06:06 07:01 07:01 RBC 2.56 L (3.80-5.40) m/uL Hgb 8.1 L (11.4-16.0) gm/dL Hct 25.0 L (34.0-46.0) % RDW 17.4 H (11.5-15.5) % Plt Count 137 L (150-450) k/uL Neutrophils # 8.9 H (1.3-7.7) k/uL Lymphocytes # 0.2 L (1.0-4.8) k/uL Creatinine 0.43 L (0.52-1.04) mg/dL Glucose 212 H (74-99) mg/dL POC Glucose (mg/dL) 268 H (75-99) mg/dL Calcium 7.2 L (8.4-10.2) mg/dL Phosphorus 2.0 L (2.5-4.5) mg/dL Total Protein 3.5 L (6.3-8.2) g/dL Albumin 1.6 L (3.5-5.0) g/dL
[2021-07-23 06:04] LABS: Glucose,Whole Blood 224 mg/dL (75-99)
[2021-07-23] MEDS: INSULIN ASPART (NovoLOG) 100 UNIT/ML VIAL SQ SCH ×4 (06:12→21:00)
[2021-07-23] MEDS: LEVOTHYROXINE 25 MCG TAB PO SCH (06:12)
[2021-07-23 08:46] LABS: Anisocytosis Slight; Basophils % (A) 0 %; Eosinophils # (A) 0.1 k/uL (0-0.7); Eosinophils % (A) 2 %; HCT 22.2 % (34.0-46.0); Hypochromasia Moderate; Lymphocytes # (A) 0.1 k/uL (1.0-4.8); Lymphocytes % (A) 2 %; MCH 31.1 pg (25.0-35.0); MCHC 31.3 g/dL (31.0-37.0); MCV 99.5 fL (80.0-100.0); Macrocytosis Slight; Mean Platelet Volume 8.4; Monocytes # (A) 0.4 k/uL (0-1.0); Monocytes % (A) 6 %; Neutrophils # (A) 6.1 k/uL (1.3-7.7); Neutrophils % (A) 90 %; Platelet Count 129 k/uL (150-450); Poikilocytosis Slight; RBC 2.23 m/uL (3.80-5.40); RDW 17.6 % (11.5-15.5); WBC 6.8 k/uL (3.8-10.6)
[2021-07-23] MEDS: metroNIDAZOLE 500 MG TAB PO SCH ×2 (09:30→16:32)
[2021-07-23] MEDS: TAMSULOSIN 0.4 MG CAP.ER.24H PO SCH (09:30)
[2021-07-23] MEDS: PANTOPRAZOLE 40 MG/10 ML VIAL IVP SCH ×3 (09:31→21:01)
[2021-07-23] MEDS: FLUCONAZOLE IN NACL,ISO-OSM 100 MG in SALINE 1 50ML.BAG IVPB SCH ×2 (09:32→13:33)
[2021-07-23] MEDS: PIPERACILLIN-TAZOBACTAM 3.375 GM in SODIUM CHLORIDE 0.9% 100 ML IVPB SCH ×3 (09:32→16:32)
[2021-07-23] MEDS: VIT A,C & E-LUTEIN-MINERALS 1 EACH TAB PO SCH (09:33)
[2021-07-23] MEDS: 1: MVI, ADULT NO.4 WITH VIT K 10 ML, TRACE (CONC-1ML/DOSE) 1 ML in AMINO ACID 5%-D20W+LY IV SCH ×6 (10:45→16:00)
--- NOTE | 2021-07-23 11:06 | P.PN ---
<ElizaGinny - Last Filed: 07/23/21 10:54> Subjective Progress Note Date: 07/23/21 CHIEF COMPLAINT: Large paraesophageal hernia HISTORY OF PRESENT ILLNESS: Patient is status post sigmoid colectomy with end colostomy for perforated sigmoid diverticulitis on 07/14/21. She is status post laparoscopic repair of paraesophageal hernia with mesh on 07/09/21. Patient has PICC line in place and receiving TPN. Her ostomy is functioning stool is very dark brown with maybe a slight hint of red. Hemoglobin today is 7.0 medicine service has ordered 1 unit of blood. She is currently tolerating clear liquid diet. Denies any abdominal pain. Denies any nausea or vomiting. Does report feeling weak. Only able to work minimally with physical therapy. Ultrasound of the thyroid had shown thyroidomegaly correlate for thyroiditis. No discrete thyroid nodules seen with certainty. Afebrile. Vitals stable. WBC normal 6.8 hemoglobin 7.0 platelets 129 albumin 1.6 thyroid studies in May 2021 within normal range PHYSICAL EXAM: VITAL SIGNS: Reviewed. GENERAL: Well-developed in no acute distress. HEENT: No sclera icterus. Extraocular movements grossly intact. Moist buccal mucosa. Head is atraumatic, normocephalic. ABDOMEN: Soft. Nondistended. Nontender. Incision sites with serosanguineous drainage. Ana are in place. Otherwise clean dry and intact. Ostomy with maroon stools. NEUROLOGIC: Alert and oriented. Cranial nerves II through XII grossly intact. Extremities edematous all 4 extremities with weeping ASSESSMENT: 1. Perforated sigmoid diverticulitis status post sigmoid colectomy with end colostomy 2. Large paraesophageal hernia containing colon, small bowel and stomach status post laparoscopic repair of paraesophageal hernia with mesh 3. Moderate obstruction status post hiatal hernia repair status post dexamethasone treatment. 4. Thyroidomegaly PLAN: -Colonoscopy recommended for further evaluation of the transverse colon and splenic flexure and questionable area noted on tagged RBC. However, patient is currently not stable to tolerate colonoscopy prep. -Continue to observe patient -Patient receiving 1 unit of blood for hemoglobin of 7.0 -Continue to monitor for bleeding -Continue to monitor hemoglobin -Continue TPN for nutrition support -Continue antibiotics -Encourage patient to increase activity level -SCDs to lower extremities Physician Fish Straightener note has been reviewed by physician. Signing provider agrees with the documented findings, assessment, and plan of care. Objective - Vital Signs Vital signs: Vital Signs Temp 97.3 F L 07/23/21 09:17 Pulse 77 07/23/21 09:17 Resp 18 07/23/21 09:17 BP 116/74 07/23/21 09:17 Pulse Ox 97 07/23/21 09:17 Intake & Output 07/22/21 07/23/21 07/23/21 18:59 06:59 18:59 Intake Total 300 240 240 Output Total 150 750 200 Balance 150 -510 40 Weight 84.5 kg Intake: Intake, IV Titration 300 Amount Fluconazole in NaCl,Iso- 50 Osm 100 mg In Saline 1 50ml.bag @ 50 mls/hr IVPB DAILY [facility] Rx#:[id number] Magnesium Sulfate-D5w Pmx 100 1 gm In Dextrose/Water 1 100ml.bag @ 100 mls/hr IVPB Q1H [facility] Rx#: [id number] Piperacillin-Tazobactam 3 100 .375 gm In Sodium Chloride 0.9% 100 ml @ 25 mls/hr IVPB Q8HR [facility] Rx# :[id number] Potassium Phosphate 10 50 mmol In Sodium Chloride 0 .9% 100 ml @ 50 mls/hr IV Q2H [facility] Rx#:[id number] Oral 240 240 Output: Urine 750 Stool 150 200 Other: Voiding Method Bedpan External Catheter # Voids 0 1 # Bowel Movements 1 - Labs CBC & Chem 7: 07/23/21 07:45 07/22/21 07:01 Labs: Abnormal Lab Results - Last 24 Hours (Table) 07/22/21 07/22/21 07/23/21 Range/Units 16:25 19:50 06:03 RBC (3.80-5.40) m/uL Hgb (11.4-16.0) gm/dL Hct (34.0-46.0) % RDW (11.5-15.5) % Plt Count (150-450) k/uL Lymphocytes # (1.0-4.8) k/uL POC Glucose (mg/dL) 203 H 197 H 224 H (75-99) mg/dL 07/23/21 Range/Units 07:45 RBC 2.23 L (3.80-5.40) m/uL Hgb 7.0 L (11.4-16.0) gm/dL Hct 22.2 L (34.0-46.0) % RDW 17.6 H (11.5-15.5) % Plt Count 129 L (150-450) k/uL Lymphocytes # 0.1 L (1.0-4.8) k/uL POC Glucose (mg/dL) (75-99) mg/dL <Mahad Quiros - Last Filed: 07/23/21 14:05> Subjective As above. Patient feels better today. More energy. Stool is brown in color. Hemoglobin has drifted down to 7.0. Agree with transfusion. Continue advancing diet as tolerated at this point. Hold endoscopy unless rebleeding occurs. Objective - Vital Signs Vital signs: Vital Signs Temp 97.9 F 07/23/21 13:40 Pulse 79 07/23/21 13:40 Resp 18 07/23/21 13:40 BP 102/64 07/23/21 13:40 Pulse Ox 2 L 07/23/21 13:30 Intake & Output 07/22/21 07/23/21 07/23/21 18:59 06:59 18:59 Intake Total 300 240 480 Output Total 150 750 200 Balance 150 -510 280 Weight 84.5 kg Intake: Intake, IV Titration 300 Amount Fluconazole in NaCl,Iso- 50 Osm 100 mg In Saline 1 50ml.bag @ 50 mls/hr IVPB DAILY [facility] Rx#:[id number] Magnesium Sulfate-D5w Pmx 100 1 gm In Dextrose/Water 1 100ml.bag @ 100 mls/hr IVPB Q1H [facility] Rx#: [id number] Piperacillin-Tazobactam 3 100 .375 gm In Sodium Chloride 0.9% 100 ml @ 25 mls/hr IVPB Q8HR [facility] Rx# :[id number] Potassium Phosphate 10 50 mmol In Sodium Chloride 0 .9% 100 ml @ 50 mls/hr IV Q2H [facility] Rx#:[id number] Oral 240 480 Blood Product 0 Rc As-1 Unit 0 [id number] Output: Urine 750 Stool 150 200 Other: Voiding Method Bedpan External Catheter External Catheter # Voids 0 1 # Bowel Movements 1 - Labs CBC & Chem 7: 07/23/21 07:45 07/23/21 10:18 Labs: Abnormal Lab Results - Last 24 Hours (Table) 07/22/21 07/22/21 07/23/21 Range/Units 16:25 19:50 06:03 RBC (3.80-5.40) m/uL Hgb (11.4-16.0) gm/dL Hct (34.0-46.0) % RDW (11.5-15.5) % Plt Count (150-450) k/uL Lymphocytes # (1.0-4.8) k/uL Sodium (137-145) mmol/L Creatinine (0.52-1.04) mg/dL Glucose (74-99) mg/dL POC Glucose (mg/dL) 203 H 197 H 224 H (75-99) mg/dL Calcium (8.4-10.2) mg/dL Phosphorus (2.5-4.5) mg/dL Total Protein (6.3-8.2) g/dL Albumin (3.5-5.0) g/dL Crossmatch 07/23/21 07/23/21 07/23/21 Range/Units 07:45 10:15 10:18 RBC 2.23 L (3.80-5.40) m/uL Hgb 7.0 L (11.4-16.0) gm/dL Hct 22.2 L (34.0-46.0) % RDW 17.6 H (11.5-15.5) % Plt Count 129 L (150-450) k/uL Lymphocytes # 0.1 L (1.0-4.8) k/uL Sodium 132 L (137-145) mmol/L Creatinine 0.36 L (0.52-1.04) mg/dL Glucose 205 H (74-99) mg/dL POC Glucose (mg/dL) (75-99) mg/dL Calcium 7.3 L (8.4-10.2) mg/dL Phosphorus 2.3 L (2.5-4.5) mg/dL Total Protein 3.8 L (6.3-8.2) g/dL Albumin 1.7 L (3.5-5.0) g/dL Crossmatch See Detail 07/23/21 Range/Units 11:48 RBC (3.80-5.40) m/uL Hgb (11.4-16.0) gm/dL Hct (34.0-46.0) % RDW (11.5-15.5) % Plt Count (150-450) k/uL Lymphocytes # (1.0-4.8) k/uL Sodium (137-145) mmol/L Creatinine (0.52-1.04) mg/dL Glucose (74-99) mg/dL POC Glucose (mg/dL) 240 H (75-99) mg/dL Calcium (8.4-10.2) mg/dL Phosphorus (2.5-4.5) mg/dL Total Protein (6.3-8.2) g/dL Albumin (3.5-5.0) g/dL Crossmatch Assessment and Plan (1) Abdominal pain Current Visit: Yes Status: Acute Code(s): R10.9 - UNSPECIFIED ABDOMINAL PAIN SNOMED Code(s): 40388480
[2021-07-23 11:12] LABS: ALT 10 U/L (4-34); AST 16 U/L (14-36); African American GFR (CKD) >90 (>60 ml/min/1.73 sqM); Albumin 1.7 g/dL (3.5-5.0); Alkaline Phosphatase 74 U/L (38-126); Anion Gap 4 mmol/L; Blood Urea Nitrogen 14 mg/dL (7-17); Calcium 7.3 mg/dL (8.4-10.2); Carbon Dioxide 27 mmol/L (22-30); Chloride 101 mmol/L (98-107); Glucose 205 mg/dL (74-99); Magnesium 2.2 mg/dL (1.6-2.3); Non-African American GFR(CKD) >90 (>60 ml/min/1.73 sqM); Phosphorus 2.3 mg/dL (2.5-4.5); Potassium 3.5 mmol/L (3.5-5.1); Sodium 132 mmol/L (137-145); Total Bilirubin 0.2 mg/dL (0.2-1.3); Total Protein 3.8 g/dL (6.3-8.2)
[2021-07-23 11:49] LABS: Glucose,Whole Blood 240 mg/dL (75-99)
[2021-07-23] MEDS: ACETAMINOPHEN TAB 325 MG TAB PO PRN (15:21)
[2021-07-23] MEDS: SODIUM CHLORIDE 0.9% 1,000 ML IV SCH (16:33)
[2021-07-23 16:59] LABS: Glucose,Whole Blood 243 mg/dL (75-99)
[2021-07-23 20:04] LABS: Glucose,Whole Blood 201 mg/dL (75-99)
[2021-07-23] MEDS: HYDROcodone/APAP 5-325MG 1 EACH TAB PO PRN (21:00)
[2021-07-23] MEDS: PRAMIPEXOLE 1 MG TAB PO SCH (21:02)
[2021-07-23] MEDS: PRAVASTATIN SODIUM 40 MG TAB PO SCH (21:02)
--- NOTE | 2021-07-23 23:10 | PN ---
PROGRESS NOTE DATE OF SERVICE: 07/23/2021 REASON FOR FOLLOWUP: Intraabdominal abscess from perforated diverticulitis. INTERVAL HISTORY: The patient is afebrile. The patient is breathing comfortably. She seems to be slightly upset. The patient mentioned she required further blood transfusion. The patient denies having any chest pain or shortness of breath. Currently on L nasal cannula. No worsening abdominal pain or diarrhea. PHYSICAL EXAMINATION: Blood pressure 117/61 with a pulse of 79, temperature 97.9. She is 98% on L nasal cannula. General description is an elderly female lying in bed in no distress. Respiratory system: Unlabored breathing, clear to auscultation anteriorly. Heart S1, S2. Regular rate and rhythm. Abdomen soft, non-tender. No guarding or rigidity. LABS: Hemoglobin is 7, white count of 6.8, creatinine 0.36. DIAGNOSTIC IMPRESSION AND PLAN: Patient with an intraabdominal abscess from perforated diverticulitis, abdominal culture with E coli and anaerobes. Patient is covered with Zosyn; to continue. In view of the decreased oral intake while inpatient: Once oral intake is improved, then patient will be ready for discharge. Will transition to oral antibiotics. Continue supportive care. MMODL / IJN: [id number] /
[2021-07-24] MEDS: PIPERACILLIN-TAZOBACTAM 3.375 GM in SODIUM CHLORIDE 0.9% 100 ML IVPB SCH ×5 (00:15→23:18)
[2021-07-24] MEDS: metroNIDAZOLE 500 MG TAB PO SCH ×4 (00:15→23:18)
--- NOTE | 2021-07-24 00:21 | P.PN ---
Subjective Progress Note Date: 07/23/21 Patient is an 80-year-old female came in with the complaint of upper abdominal discomfort patient does have history of hernia and the pain is related to be secondary to anemia, Gen. surgery evaluated the patient is planning on doing hemorrhoidal hernia repair/Adis fundoplication on Friday. Patient will be started on Protonix patient was on naproxen at home which will be held. Patient doesn't have any fever chills vomiting diarrhea. Bit nauseous 07/11/2021 Patient is seen and evaluated in room at bedside; status post repair of paraesophageal hernia with mesh; POD #2 Patient reports improvement this morning; does complain of pain; tolerating clear liquid diet well Vital signs are reviewed and reveal temperature of 97.4, pulse 89, respiration 18 and blood pressure 100/65 Lab review shows WBC 7.2, hemoglobin 9.3, platelet count of 464, sodium 144, potassium 4.0, BUN/creatinine of 13/0.80 and blood glucose of 158 Surgery on board and recommending to continue with IV dexamethasone for moderate obstruction noted on upper GI; patient will remain on IV fluids and a clear liquid diet Increase activity and PT/OT recommended 07/12/2021 Patient is seen and evaluated sitting up in bed; patient reports shortness of breath earlier in the day; was placed on O2 2-3 L per nasal cannula which improved breathing Does complain of chest congestion; we will hold off on IV fluids and order Lasix 40 mg IV 1 and order a chest x-ray We will signs are reviewed and reveal temperature of 97.5, pulse 88, respiration 28 and blood pressure 117/61. O2 saturation 96% on 2 L Patient is tolerating clear liquid diet fairly well and has been advanced to a full liquid diet; remains on IV dexamethasone for moderate obstruction on upper GI 07/13/2021 Patient is seen and evaluated; lying in bed; patient is status post laparoscopic repair of paraesophageal hernia with mesh; POD #4; episode of maroon-colored stool at night Vital signs reviewed reveal patient to be afebrile, blood pressure of 101/68, respiration 18 and heart rate of 19 with O2 saturation of 96% on 2 L Laboratory review shows a drop in hemoglobin from 9.3 down to 7.6 this morning; patient underwent EGD which reveals mild gastritis; no active bleeding; general surgery on board and recommending to continue to monitor labs closely. Possibility of colonoscopy if hemoglobin continues to drop; patient is status post transfusion with 1 unit of packed RBCs 07/14/2021 Patient is seen and evaluated; reports increasing abdominal pain; has been evaluated by surgery and is recommended CT of abdomen for further evaluation Vital signs temperature 97.7, pulse 85, respiration 22 and blood pressure 110/67 Lab review reveals an elevated white blood count of 21.7, hemoglobin of 8.5, platelets of 400, sodium 136, potassium 5.0, BUN/creatinine of 21/0.61 Patient is currently on IV antibiotics in form of Zosyn 3.375 g IV every 8 hours along with metronidazole 500 mg every 8 hours We will proceed with stat CT of the abdomen and consult ID for further recommendations 07/15/2021 Patient is seen and evaluated resting in bed; reports improved abdominal pain with oral [place] Vital signs are reviewed and stable with temperature of 98, pulse 72, respiration 20 and blood pressure 111/71 Lab review reveals WBC that remains elevated at 27.7, hemoglobin of 8.4 and platelet count of 369, sodium 136, potassium 5.4, BUN/creatinine of 46/0.85 CT of the abdomen completed reveals normal. Continue related to perforated si gmoid diverticulitis; patient underwent sigmoid colectomy with end colostomy; POD #1 Patient remains nothing by mouth or surgery recommendations; potassium elevated at 5.4; we will repeat stat potassium level and treat as needed; continue with IV antibiotics as ordered We will monitor CBC, CRP and pro-calcitonin 07/16/2021 Patient is seen in follow up this morning with family at the bedside. Ostomy nurse at the bedside educating as well. Patient reports to passing gas in the ostomy and general surgery following closely. Patient diet is being advanced as tolerated. Patient has some generalized pain although reports to feeling nauseated and dizzy with narcotics. Will continue with tylenol and lower dose of norco and discuss with nursing staff of avoiding narcotics if possible. PT/OT to evaluate as patient will likely need rehab for strength and mobility. social wo rk consulted for possible placement. Patient is continued on flagyl and Zosyn with infectious disease also following closely. Diflucan as well. Potassium elevated and will correct and repeat am labs. Encouraged increased activity as tolerated. 07/17/2021 She is seen in follow-up today states she is not feeling well and feels more short of breath. Hemoglobin was found to be 6.7 and will order a unit of PRBC. Surgery and ID following. Patient is having stool and gas noted in the ostomy. Patient states she is tired and having anxiety and wants to go home. Patient continued on full liquid diet and not eating much. Patient states she has no real appetite and feels worse today. Will transfuse 1 unit of PRBC and repeat am labs. Give one dose of IV lasix after transfusion. Patient continues on flagyl along with diflucan and zosyn and will continue. Preliminary showing ecoli and gram negative and awaiting finalized culture with sensitivities. Social work also following and working on possible ECF placement once stabilized. No active bleeding noted. Patient denies any previous transfusions. 07/18/2021 Patient is seen and evaluated this morning and is ill appearing, nauseated, lethargic, and is being closely monitored. Patient hemoglobin was 7.3 this morning and is noted to have maroon colored stools in the ostomy and is s/p transfusion of 1 unit of PRBC. Patient is found to be hypotensive and an A-team is being called as patient was briefly unresponsive and appears to have possibly had a syncopal event. Patient is bed bound currently as she has been extremely weak for PT/OT therapy. Patient is actively receiving another unit of PRBC as well. Patient given a bolus of IV normal saline and blood pressure slightly improved. Will continue to monitor bleeding and transfuse if 7. General surgery following and small bowel capsule study ordered although minimal staff to be able to go sit with patient for the 2 hour study and patient is currently receiving blood product. 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 Ateam ordered 2 additional units of PRBC today. WBC elevated today at 19.8 and ID following and patient continues of IV flagyl and zosyn. 07/19/2021 Patient is seen in follow-up this morning continues to be bleeding to the ostomy and has received multiple blood transfusions with multiple medical consultations including surgery, infectious disease, hematology following closely. Patient is being transferred to the selected unit for close monitoring as she continues to bleed. Patient is extremely lethargic and states she feels she is passing out frequently with position changes and movements. Hemoglobin is improved at 1.5 status 3 units of PRBCs. White blood count is elevated and again infectious disease is following. Patient underwent packed RBC this morning showing no definite areas of abnormal uptake with a questionable area within the transverse colon and splenic flexure that could be correlated with colonoscopy. Surgery is following closely and plans for colonoscopy once patient is more stable. Recommend H&H every 12 and transfuse if less than 7. Continue with IV fluids as well as patient is symptomatically hypotensive. 07/20/2021 Patient is seen this morning and is currently sitting up in the chair. Patient being followed closely by surgery and hematology. Patient has received PICC line and will initiate TPN. Monitor closely for further bleeding and transfuse if less than 7. Possible colonoscopy once stable. Blood pressure better controlled today. Patient current potassium is 3.0 and will replace per protocol. Patient also continues on gentle IV hydration along with IV antibiotics in the form of zosyn, fluconazole, and flagyl with ID following closely. Wound cultures show ecoli. 07/21/2021 Patient is seen and evaluated today and continues to be monitored by multiple medical consultations including infectious disease. Patient continues on IV fluconazole along with Flagyl and Zosyn wound cultures have finalized showing E. coli along with anaerobic gram-negative bacilli. Patient's hemoglobin Today is 8.7 and platelets are 152. Potassium found to be 2.9 and will replace per protocol and monitor closely. Patient is extremely weak and is working with physical therapy and states she has increased pain and pressure when attempting to sit up in the abdomen. Patient also has dizziness with position changes. Patient continues on 3 L [address] [place] and will decrease IV fluids to 75Ml per hour and will obtain chest xray and orthostatic vital signs. 07/22/2021 Patient is Seen and evaluated in follow-up this morning and continues to be followed by multiple medical consultations including surgery and ID. Patient continues on 3L via nc although patient deinies worsening shortness of breath . Chest xray shows stable effusions noted at the bases. Continue with incentive spirometer and will cut down the IV fluids. Repeat am labs. Hemoglobin is stable at 8.1 and will continue to monitor closely. Patient continues on TPN with surgery following and continued on clear liquids. Patient also continues on IV antibiotics and will transition to oral on discharge. PT/OT following and working with the patient. 07/23/2021 Patient is seen in follow up today with family members at the bedside. Patient hemoglobin is 7 today and ordered one unit of prbc. Surgery following and also ID and continued on IV antibiotics. Patient continues with TPN and discussed with surgery about the patient stating that she feels hungry and would like to advance diet. Will discuss with dietitian about weaning TPN and monitoring I&0 and tolerance of diet. Labs: hemoglobin is 7, bmp within normal limits Review of systems: Constitutional: reports of fatigue, fever, or chills Cardiovascular: No reports of chest pain or palpitations Respiratory: no reports of worsening shortness of breath GI: no reports of nausea or vomiting and asking for increase in diet : No reports of dysuria or retention, currently indwelling thapa catheter Neurovascular: reports of generalized weakness Active Medications Acetaminophen (Acetaminophen Tab 325 Mg Tab) 650 mg PO Q6HR PRN PRN Reason: Fever and/ or Pain Last Admin: 07/23/21 15:21 Dose: 650 mg Documented by: Hydrocodone Bitart/Acetaminophen (Hydrocodone/Apap 5-325mg 1 Each Tab) 0.5 each PO Q6HR PRN PRN Reason: Pain Last Admin: 07/23/21 21:00 Dose: 0.5 each Documented by: Piperacillin Sod/Tazobactam (Sod 3.375 gm/ Sodium Chloride) 100 mls @ 25 mls/hr IVPB Q8HR [facility] Last Admin: 07/23/21 16:32 Dose: 25 mls/hr Documented by: Fluconazole/Sodium Chloride (100 mg/ IV Solution) 50 mls @ 50 mls/hr IVPB DAILY [facility] Last Admin: 07/23/21 13:33 Dose: Not Given Documented by: Sodium Chloride (Saline 0.9%) 1,000 mls @ 50 mls/hr IV .Q20H [facility] Last Admin: 07/23/21 16:33 Dose: Not Given Documented by: Parenteral Vitamin Supplement 10 ml/ Zinc/Copper/Manganese/Selenium 1 ml/ Amino Ac/Electrol/Dextrose/Calcium 1,011 mls @ 55 mls/hr IV .BY DURATION [facility] Last Admin: 07/23/21 10:45 Dose: 55 mls/hr Documented by: Amino Ac/Electrol/Dextrose/Calcium (Clinimix E 5%-20% Solution) 1,000 mls @ 55 mls/hr IV .BY DURATION [facility] Last Admin: 07/21/21 20:21 Dose: 55 mls/hr Documented by: Amino Ac/Electrol/Dextrose/Calcium (Clinimix E 5%-20% Solution) 1,000 mls @ 55 mls/hr IV .BY DURATION [facility] Last Admin: 07/22/21 17:48 Dose: 55 mls/hr Documented by: Fat Emulsion Intravenous 500 (ml/ IV Solution) 500 mls @ 42 mls/hr IV Q7D [facility] Last Admin: 07/20/21 17:10 Dose: 42 mls/hr Documented by: Insulin Aspart (Insulin Aspart (Novolog) 100 Unit/Ml Vial) 0 unit SQ ACHS [facility]; Protocol Last Admin: 07/23/21 21:00 Dose: 2 unit Documented by: Levothyroxine Sodium (Levothyroxine 25 Mcg Tab) 25 mcg PO DAILY@0630 [facility] Last Admin: 07/23/21 06:12 Dose: 25 mcg Documented by: Metoclopramide HCl (Metoclopramide 5 Mg/Ml 2 Ml Vial) 5 mg IVP Q6HR PRN PRN Reason: Nausea And Vomiting Last Admin: 07/20/21 05:33 Dose: 5 mg Documented by: Metronidazole (Metronidazole 500 Mg Tab) 500 mg PO Q8HR [facility] Last Admin: 07/23/21 16:32 Dose: 500 mg Documented by: Miscellaneous Information (Potassium Replacement Protocol 1 Each Misc) 1 each MISCELLANE DAILY PRN; Protocol PRN Reason: Per Protocol Morphine Sulfate (Morphine Sulfate 4 Mg/Ml Syringe) 3 mg IVP Q4HR PRN PRN Reason: Pain Last Admin: 07/20/21 05:32 Dose: 3 mg Documented by: Multivitamins/Minerals (Vit A,C & B-Wlmclw-Dnkigfnz 1 Each Tab) 1 each PO DAILY [facility] Last Admin: 07/23/21 09:33 Dose: 1 each Documented by: Naloxone HCl (Naloxone 0.4 Mg/Ml 1 Ml Vial) 0.2 mg IV Q2M PRN PRN Reason: Opioid Reversal Pantoprazole Sodium (Pantoprazole 40 Mg/10 Ml Vial) 40 mg IVP BID [facility] Last Admin: 07/23/21 21:01 Dose: 40 mg Documented by: Pramipexole Dihydrochloride (Pramipexole 1 Mg Tab) 1 mg PO HS [facility] Last Admin: 07/23/21 21:02 Dose: 1 mg Documented by: Pravastatin Sodium (Pravastatin Sodium 40 Mg Tab) 80 mg PO HS [facility] Last Admin: 07/23/21 21:02 Dose: 80 mg Documented by: Simethicone (Simethicone 80 Mg Chewable) 80 mg PO TID PRN PRN Reason: Abdominal Distention Last Admin: 07/22/21 21:37 Dose: 80 mg Documented by: Tamsulosin HCl (Tamsulosin 0.4 Mg Cap.Er.24h) 0.4 mg PO PC-BRKFST [facility] Last Admin: 07/23/21 09:30 Dose: 0.4 mg Documented by: Physical exam: GENERAL: The patient is alert and oriented x3, Well developed, well nourished. HEENT: Pupils are round and equally reacting to light. EOMI. No scleral icterus. No conjunctival pallor. Normocephalic, atraumatic. No pharyngeal erythema. No thyromegaly. CARDIOVASCULAR: S1 and S2 muffled PULMONARY: Diminished breath sounds bilaterally with no wheezing or crackles. ABDOMEN: Soft,nontender, normoactive bowel sounds. No palpable organomegaly. Ostomy noted with stools MUSCULOSKELETAL: No joint swelling or deformity. EXTREMITIES: No cyanosis, clubbing, or pedal edema. NEUROLOGICAL: Gross neurological examination did not reveal any focal deficits. Diffuse weakness SKIN: No rashes. Assessment: -Epigastric abdominal pain: Secondary to gastoesophageal reflux disease, possible peptic ulcer disease secondary to hiatal hernia -Status post sigmoid colectomy with end colostomy secondary to perforated sigmoid diverticulitis -Acute GI bleed with acute blood loss anemia -Status post laparoscopic repair of paraesophageal hernia with mesh -diarrhea, probably secondary to large hernia, resolved -metabolic acidosis, secondary to above -hyperkalemia, currently hypokalemic -Hyperlipidemia -Hypertension, currently hypotensive -hypothyroidism -Hyperglycemia due to IV steroids -DVT prophylaxis -GI Prophylaxis -FULL CODE Plan: Recommend to continue with current medications and management. Surgery and infectious disease following closely secondary to peritonitis from a perforated diverticulitis resulting in diverting colostomy. Patient continues on IV Zosyn and Diflucan and flagyl and will transition to oral abx on discharge. Patient has tolerated diet on clear liquids and is continued with TPN infusing. Patient feeling hungry and asking advancement in diet. Will talk with dietitian with weaning TPN and monitor for advancement in diet. Patient hemoglobin 7 today and will give one unit of PRBC. No active bleeding noted and stool is brown in the o stomy. Patient is extremely weak. Will continue with PT/OT daily. Will repeat am labs and monitor closely. Transfuse if 7 or less. Due to multiple complex medical issues, prognosis is guarded. Social work following for possible rehab once stabilized and discharged. Objective - Vital Signs Vital signs: Vital Signs Temp 97.3 F L 07/23/21 09:17 Pulse 77 07/23/21 09:17 Resp 18 07/23/21 09:17 BP 116/74 07/23/21 09:17 Pulse Ox 97 07/23/21 09:17 Intake & Output 07/22/21 07/23/21 07/23/21 18:59 06:59 18:59 Intake Total 300 240 240 Output Total 150 750 Balance 150 -510 240 Weight 84.5 kg Intake: Intake, IV Titration 300 Amount Fluconazole in NaCl,Iso- 50 Osm 100 mg In Saline 1 50ml.bag @ 50 mls/hr IVPB DAILY [facility] Rx#:[id number] Magnesium Sulfate-D5w Pmx 100 1 gm In Dextrose/Water 1 100ml.bag @ 100 mls/hr IVPB Q1H [facility] Rx#: [id number] Piperacillin-Tazobactam 3 100 .375 gm In Sodium Chloride 0.9% 100 ml @ 25 mls/hr IVPB Q8HR [facility] Rx# :[id number] Potassium Phosphate 10 50 mmol In Sodium Chloride 0 .9% 100 ml @ 50 mls/hr IV Q2H [facility] Rx#:[id number] Oral 240 240 Output: Urine 750 Stool 150 Other: Voiding Method Bedpan External Catheter # Voids 0 1 # Bowel Movements 1 - Labs CBC & Chem 7: 07/23/21 07:45 07/23/21 10:18 Labs: Abnormal Lab Results - Last 24 Hours (Table) 07/22/21 07/22/21 07/23/21 Range/Units 16:25 19:50 06:03 RBC (3.80-5.40) m/uL Hgb (11.4-16.0) gm/dL Hct (34.0-46.0) % RDW (11.5-15.5) % Plt Count (150-450) k/uL Lymphocytes # (1.0-4.8) k/uL POC Glucose (mg/dL) 203 H 197 H 224 H (75-99) mg/dL 07/23/21 Range/Units 07:45 RBC 2.23 L (3.80-5.40) m/uL Hgb 7.0 L (11.4-16.0) gm/dL Hct 22.2 L (34.0-46.0) % RDW 17.6 H (11.5-15.5) % Plt Count 129 L (150-450) k/uL Lymphocytes # 0.1 L (1.0-4.8) k/uL POC Glucose (mg/dL) (75-99) mg/dL
[2021-07-24] MEDS: 1: MVI, ADULT NO.4 WITH VIT K 10 ML, TRACE (CONC-1ML/DOSE) 1 ML in AMINO ACID 5%-D20W+LY IV SCH ×9 (05:11→16:00)
[2021-07-24] MEDS: LEVOTHYROXINE 25 MCG TAB PO SCH (05:20)
[2021-07-24 06:24] LABS: Glucose,Whole Blood 159 mg/dL (75-99)
[2021-07-24] MEDS: INSULIN ASPART (NovoLOG) 100 UNIT/ML VIAL SQ SCH ×5 (06:53→23:17)
--- NOTE | 2021-07-24 09:38 | P.PN ---
<Ginny Kay - Last Filed: 07/24/21 09:30> Subjective Progress Note Date: 07/24/21 CHIEF COMPLAINT: Large paraesophageal hernia HISTORY OF PRESENT ILLNESS: Patient is status post sigmoid colectomy with end colostomy for perforated sigmoid diverticulitis on 07/14/21. She is status post laparoscopic repair of paraesophageal hernia with mesh on 07/09/21. patient is currently on a dysphagia chopped diet. She reports eating about half her eggs and a third of the pancakes. Denies any increase in abdominal pain. She does report some abdominal pressure intermittently. Ostomy is functioning. Denies any nausea or vomiting. Her stools are brown. She would like to get up and sit in chair today. Afebrile. Labs pending. Patient did receive a unit of blood yesterday for hemoglobin of 7.0. Patient requesting further ostomy teaching. PHYSICAL EXAM: VITAL SIGNS: Reviewed. GENERAL: Well-developed in no acute distress. HEENT: No sclera icterus. Extraocular movements grossly intact. Moist buccal mucosa. Head is atraumatic, normocephalic. ABDOMEN: Soft. Nondistended. Nontender. Incision sites with serosanguineous drainage. Ana are in place. Otherwise clean dry and intact. Ostomy with brown stool NEUROLOGIC: Alert and oriented. Cranial nerves II through XII grossly intact. Extremities edematous all 4 extremities with weeping ASSESSMENT: 1. Perforated sigmoid diverticulitis status post sigmoid colectomy with end colostomy 2. Large paraesophageal hernia containing colon, small bowel and stomach status post laparoscopic repair of paraesophageal hernia with mesh 3. Moderate obstruction status post hiatal hernia repair status post dexamethasone treatment. 4. Thyromegaly follow-up outpatient PLAN: -No plan for endoscopy at this time unless patient has rebleeding -Patient tolerating diet. Start weaning off TPN. -Patient requesting further ostomy teaching. Consult ostomy nurse -Continue to observe patient -Continue to monitor for bleeding -Continue to monitor hemoglobin -Continue antibiotics -Encourage patient to increase activity level -SCDs to lower extremities Physician Sailing Master note has been reviewed by physician. Signing provider agrees with the documented findings, assessment, and plan of care. Objective - Vital Signs Vital signs: Vital Signs Temp 97.9 F 07/24/21 04:00 Pulse 79 07/24/21 04:00 Resp 20 07/24/21 04:00 BP 113/61 07/24/21 04:00 Pulse Ox 97 07/24/21 04:00 Intake & Output 07/23/21 07/24/21 07/24/21 18:59 06:59 18:59 Intake Total 970 1000 240 Output Total 800 600 250 Balance 170 400 -10 Weight 84.5 kg 83 kg Intake: Intake, IV Titration 1000 Amount Amino Acid 5%-D20w+Lytes* 1000 E* 1,000 ml @ 55 mls/hr IV .BY DURATION [facility] Rx#: [id number] Oral 660 240 Blood Product 310 Rc As-1 Unit 310 [id number] Output: Urine 600 600 250 Stool 200 Other: Voiding Method External Catheter External Catheter - Labs CBC & Chem 7: 07/23/21 07:45 07/23/21 10:18 Labs: Abnormal Lab Results - Last 24 Hours (Table) 07/23/21 07/23/21 07/23/21 Range/Units 10:15 10:18 11:48 Sodium 132 L (137-145) mmol/L Creatinine 0.36 L (0.52-1.04) mg/dL Glucose 205 H (74-99) mg/dL POC Glucose (mg/dL) 240 H (75-99) mg/dL Calcium 7.3 L (8.4-10.2) mg/dL Phosphorus 2.3 L (2.5-4.5) mg/dL Total Protein 3.8 L (6.3-8.2) g/dL Albumin 1.7 L (3.5-5.0) g/dL Crossmatch See Detail 07/23/21 07/23/21 07/24/21 Range/Units 16:58 20:03 06:23 Sodium (137-145) mmol/L Creatinine (0.52-1.04) mg/dL Glucose (74-99) mg/dL POC Glucose (mg/dL) 243 H 201 H 159 H (75-99) mg/dL Calcium (8.4-10.2) mg/dL Phosphorus (2.5-4.5) mg/dL Total Protein (6.3-8.2) g/dL Albumin (3.5-5.0) g/dL Crossmatch <Mahad Quiros - Last Filed: 07/24/21 15:40> Subjective As above. Patient tolerating diet. Hemoglobin 9.7. Ostomy output brown in color. Continue supportive care. Continue antibiotics. Continue local wound care. Physical therapy working with patient. If hemoglobin stable patient may be transferred to ECF. Objective - Vital Signs Vital signs: Vital Signs Temp 98.0 F 07/24/21 11:47 Pulse 76 07/24/21 11:47 Resp 18 07/24/21 11:47 BP 109/57 07/24/21 11:47 Pulse Ox 98 07/24/21 11:47 Intake & Output 07/23/21 07/24/21 07/24/21 18:59 06:59 18:59 Intake Total 970 1000 440 Output Total 800 600 250 Balance 170 400 190 Weight 84.5 kg 83 kg 83 kg Intake: Intake, IV Titration 1000 Amount Amino Acid 5%-D20w+Lytes* 1000 E* 1,000 ml @ 55 mls/hr IV .BY DURATION [facility] Rx#: [id number] Oral 660 440 Blood Product 310 Rc As-1 Unit 310 [id number] Output: Urine 600 600 250 Stool 200 Other: Voiding Method External Catheter External Catheter External Catheter # Voids 1 - Labs CBC & Chem 7: 07/24/21 11:59 07/24/21 11:59 Labs: Abnormal Lab Results - Last 24 Hours (Table) 07/23/21 07/23/21 07/24/21 Range/Units 16:58 20:03 06:23 RBC (3.80-5.40) m/uL Hgb (11.4-16.0) gm/dL Hct (34.0-46.0) % RDW (11.5-15.5) % Sodium (137-145) mmol/L Creatinine (0.52-1.04) mg/dL Glucose (74-99) mg/dL POC Glucose (mg/dL) 243 H 201 H 159 H (75-99) mg/dL Calcium (8.4-10.2) mg/dL 07/24/21 07/24/21 07/24/21 Range/Units 11:58 11:59 11:59 RBC 3.01 L (3.80-5.40) m/uL Hgb 9.7 L D (11.4-16.0) gm/dL Hct 29.6 L (34.0-46.0) % RDW 16.6 H (11.5-15.5) % Sodium 130 L (137-145) mmol/L Creatinine 0.38 L (0.52-1.04) mg/dL Glucose 218 H (74-99) mg/dL POC Glucose (mg/dL) 235 H (75-99) mg/dL Calcium 7.3 L (8.4-10.2) mg/dL Assessment and Plan (1) Abdominal pain Current Visit: Yes Status: Acute Code(s): R10.9 - UNSPECIFIED ABDOMINAL PAIN SNOMED Code(s): 76312098
[2021-07-24] MEDS: PANTOPRAZOLE 40 MG/10 ML VIAL IVP SCH ×2 (09:44→20:52)
[2021-07-24] MEDS: TAMSULOSIN 0.4 MG CAP.ER.24H PO SCH (09:44)
[2021-07-24] MEDS: FLUCONAZOLE IN NACL,ISO-OSM 100 MG in SALINE 1 50ML.BAG IVPB SCH (09:45)
[2021-07-24] MEDS: VIT A,C & E-LUTEIN-MINERALS 1 EACH TAB PO SCH (09:46)
[2021-07-24] MEDS: SODIUM CHLORIDE 0.9% 1,000 ML IV SCH (11:44)
[2021-07-24 12:01] LABS: Glucose,Whole Blood 235 mg/dL (75-99)
[2021-07-24 12:17] LABS: Anisocytosis Slight; HCT 29.6 % (34.0-46.0); Hypochromasia Moderate; MCH 32.4 pg (25.0-35.0); MCHC 32.9 g/dL (31.0-37.0); MCV 98.3 fL (80.0-100.0); Macrocytosis Slight; Mean Platelet Volume 8.2; Platelet Count 166 k/uL (150-450); Poikilocytosis Slight; RBC 3.01 m/uL (3.80-5.40); RDW 16.6 % (11.5-15.5); WBC 9.9 k/uL (3.8-10.6)
[2021-07-24 12:18] LABS: HGB 9.7 gm/dL (11.4-16.0)
[2021-07-24 12:41] LABS: African American GFR (CKD) >90 (>60 ml/min/1.73 sqM); Anion Gap -1 mmol/L; Blood Urea Nitrogen 16 mg/dL (7-17); Calcium 7.3 mg/dL (8.4-10.2); Carbon Dioxide 29 mmol/L (22-30); Chloride 102 mmol/L (98-107); Glucose 218 mg/dL (74-99); Non-African American GFR(CKD) >90 (>60 ml/min/1.73 sqM); Phosphorus 2.5 mg/dL (2.5-4.5); Potassium 3.6 mmol/L (3.5-5.1); Sodium 130 mmol/L (137-145)
[2021-07-24] MEDS ORDERED: POTASSIUM CHLORIDE ER 20 MEQ TAB.ER PO SCH (14:00)
--- NOTE | 2021-07-24 14:24 | P.PN ---
Subjective Progress Note Date: 07/24/21 Patient is an 80-year-old female came in with the complaint of upper abdominal discomfort patient does have history of hernia and the pain is related to be secondary to anemia, Gen. surgery evaluated the patient is planning on doing hemorrhoidal hernia repair/Adis fundoplication on Friday. Patient will be started on Protonix patient was on naproxen at home which will be held. Patient doesn't have any fever chills vomiting diarrhea. Bit nauseous 07/11/2021 Patient is seen and evaluated in room at bedside; status post repair of paraesophageal hernia with mesh; POD #2 Patient reports improvement this morning; does complain of pain; tolerating clear liquid diet well Vital signs are reviewed and reveal temperature of 97.4, pulse 89, respiration 18 and blood pressure 100/65 Lab review shows WBC 7.2, hemoglobin 9.3, platelet count of 464, sodium 144, potassium 4.0, BUN/creatinine of 13/0.80 and blood glucose of 158 Surgery on board and recommending to continue with IV dexamethasone for moderate obstruction noted on upper GI; patient will remain on IV fluids and a clear liquid diet Increase activity and PT/OT recommended 07/12/2021 Patient is seen and evaluated sitting up in bed; patient reports shortness of breath earlier in the day; was placed on O2 2-3 L per nasal cannula which improved breathing Does complain of chest congestion; we will hold off on IV fluids and order Lasix 40 mg IV 1 and order a chest x-ray We will signs are reviewed and reveal temperature of 97.5, pulse 88, respiration 28 and blood pressure 117/61. O2 saturation 96% on 2 L Patient is tolerating clear liquid diet fairly well and has been advanced to a full liquid diet; remains on IV dexamethasone for moderate obstruction on upper GI 07/13/2021 Patient is seen and evaluated; lying in bed; patient is status post laparoscopic repair of paraesophageal hernia with mesh; POD #4; episode of maroon-colored stool at night Vital signs reviewed reveal patient to be afebrile, blood pressure of 101/68, respiration 18 and heart rate of 19 with O2 saturation of 96% on 2 L Laboratory review shows a drop in hemoglobin from 9.3 down to 7.6 this morning; patient underwent EGD which reveals mild gastritis; no active bleeding; general surgery on board and recommending to continue to monitor labs closely. Possibility of colonoscopy if hemoglobin continues to drop; patient is status post transfusion with 1 unit of packed RBCs 07/14/2021 Patient is seen and evaluated; reports increasing abdominal pain; has been evaluated by surgery and is recommended CT of abdomen for further evaluation Vital signs temperature 97.7, pulse 85, respiration 22 and blood pressure 110/67 Lab review reveals an elevated white blood count of 21.7, hemoglobin of 8.5, platelets of 400, sodium 136, potassium 5.0, BUN/creatinine of 21/0.61 Patient is currently on IV antibiotics in form of Zosyn 3.375 g IV every 8 hours along with metronidazole 500 mg every 8 hours We will proceed with stat CT of the abdomen and consult ID for further recommendations 07/15/2021 Patient is seen and evaluated resting in bed; reports improved abdominal pain with oral [place] Vital signs are reviewed and stable with temperature of 98, pulse 72, respiration 20 and blood pressure 111/71 Lab review reveals WBC that remains elevated at 27.7, hemoglobin of 8.4 and platelet count of 369, sodium 136, potassium 5.4, BUN/creatinine of 46/0.85 CT of the abdomen completed reveals normal. Continue related to perforated si gmoid diverticulitis; patient underwent sigmoid colectomy with end colostomy; POD #1 Patient remains nothing by mouth or surgery recommendations; potassium elevated at 5.4; we will repeat stat potassium level and treat as needed; continue with IV antibiotics as ordered We will monitor CBC, CRP and pro-calcitonin 07/16/2021 Patient is seen in follow up this morning with family at the bedside. Ostomy nurse at the bedside educating as well. Patient reports to passing gas in the ostomy and general surgery following closely. Patient diet is being advanced as tolerated. Patient has some generalized pain although reports to feeling nauseated and dizzy with narcotics. Will continue with tylenol and lower dose of norco and discuss with nursing staff of avoiding narcotics if possible. PT/OT to evaluate as patient will likely need rehab for strength and mobility. social wo rk consulted for possible placement. Patient is continued on flagyl and Zosyn with infectious disease also following closely. Diflucan as well. Potassium elevated and will correct and repeat am labs. Encouraged increased activity as tolerated. 07/17/2021 She is seen in follow-up today states she is not feeling well and feels more short of breath. Hemoglobin was found to be 6.7 and will order a unit of PRBC. Surgery and ID following. Patient is having stool and gas noted in the ostomy. Patient states she is tired and having anxiety and wants to go home. Patient continued on full liquid diet and not eating much. Patient states she has no real appetite and feels worse today. Will transfuse 1 unit of PRBC and repeat am labs. Give one dose of IV lasix after transfusion. Patient continues on flagyl along with diflucan and zosyn and will continue. Preliminary showing ecoli and gram negative and awaiting finalized culture with sensitivities. Social work also following and working on possible ECF placement once stabilized. No active bleeding noted. Patient denies any previous transfusions. 07/18/2021 Patient is seen and evaluated this morning and is ill appearing, nauseated, lethargic, and is being closely monitored. Patient hemoglobin was 7.3 this morning and is noted to have maroon colored stools in the ostomy and is s/p transfusion of 1 unit of PRBC. Patient is found to be hypotensive and an A-team is being called as patient was briefly unresponsive and appears to have possibly had a syncopal event. Patient is bed bound currently as she has been extremely weak for PT/OT therapy. Patient is actively receiving another unit of PRBC as well. Patient given a bolus of IV normal saline and blood pressure slightly improved. Will continue to monitor bleeding and transfuse if 7. General surgery following and small bowel capsule study ordered although minimal staff to be able to go sit with patient for the 2 hour study and patient is currently receiving blood product. 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 Ateam ordered 2 additional units of PRBC today. WBC elevated today at 19.8 and ID following and patient continues of IV flagyl and zosyn. 07/19/2021 Patient is seen in follow-up this morning continues to be bleeding to the ostomy and has received multiple blood transfusions with multiple medical consultations including surgery, infectious disease, hematology following closely. Patient is being transferred to the selected unit for close monitoring as she continues to bleed. Patient is extremely lethargic and states she feels she is passing out frequently with position changes and movements. Hemoglobin is improved at 1.5 status 3 units of PRBCs. White blood count is elevated and again infectious disease is following. Patient underwent packed RBC this morning showing no definite areas of abnormal uptake with a questionable area within the transverse colon and splenic flexure that could be correlated with colonoscopy. Surgery is following closely and plans for colonoscopy once patient is more stable. Recommend H&H every 12 and transfuse if less than 7. Continue with IV fluids as well as patient is symptomatically hypotensive. 07/20/2021 Patient is seen this morning and is currently sitting up in the chair. Patient being followed closely by surgery and hematology. Patient has received PICC line and will initiate TPN. Monitor closely for further bleeding and transfuse if less than 7. Possible colonoscopy once stable. Blood pressure better controlled today. Patient current potassium is 3.0 and will replace per protocol. Patient also continues on gentle IV hydration along with IV antibiotics in the form of zosyn, fluconazole, and flagyl with ID following closely. Wound cultures show ecoli. 07/21/2021 Patient is seen and evaluated today and continues to be monitored by multiple medical consultations including infectious disease. Patient continues on IV fluconazole along with Flagyl and Zosyn wound cultures have finalized showing E. coli along with anaerobic gram-negative bacilli. Patient's hemoglobin Today is 8.7 and platelets are 152. Potassium found to be 2.9 and will replace per protocol and monitor closely. Patient is extremely weak and is working with physical therapy and states she has increased pain and pressure when attempting to sit up in the abdomen. Patient also has dizziness with position changes. Patient continues on 3 L [address] [place] and will decrease IV fluids to 75Ml per hour and will obtain chest xray and orthostatic vital signs. 07/22/2021 Patient is Seen and evaluated in follow-up this morning and continues to be followed by multiple medical consultations including surgery and ID. Patient continues on 3L via nc although patient deinies worsening shortness of breath . Chest xray shows stable effusions noted at the bases. Continue with incentive spirometer and will cut down the IV fluids. Repeat am labs. Hemoglobin is stable at 8.1 and will continue to monitor closely. Patient continues on TPN with surgery following and continued on clear liquids. Patient also continues on IV antibiotics and will transition to oral on discharge. PT/OT following and working with the patient. 07/23/2021 Patient is seen in follow up today with family members at the bedside. Patient hemoglobin is 7 today and ordered one unit of prbc. Surgery following and also ID and continued on IV antibiotics. Patient continues with TPN and discussed with surgery about the patient stating that she feels hungry and would like to advance diet. Will discuss with dietitian about weaning TPN and monitoring I&0 and tolerance of diet. 07/24/2021 Patient is seen today sleeping although easily arousable stating she is feeling slightly better today although continues with weakness and will be going to ECF once stabilized. Patient is currently maintained on 3 L of oxygen saturation of 98% and discussed with nursing staff about weaning FiO2 as tolerated. Patient's blood pressure is stable and patient is afebrile. Stool in the ostomy is brown with no signs of bleeding noted. Diet has been advanced to full liquids and tolerating and TPN being weaned with possibility of discontinuing tomorrow. Labs: WBC is 9.9, hemoglobin is 9.7, platelets are 166, sodium is 130, potassium is 3 .6, creatinine 0.38, calcium is 7.3, phosphorus is 2.5, magnesium is 2.0 Review of systems: Constitutional: reports of fatigue, fever, or chills Cardiovascular: No reports of chest pain or palpitations Respiratory: no reports of worsening shortness of breath GI: no reports of nausea or vomiting and tolerating diet : No reports of dysuria or retention Neurovascular: reports of generalized weakness Active Medications Acetaminophen (Acetaminophen Tab 325 Mg Tab) 650 mg PO Q6HR PRN PRN Reason: Fever and/ or Pain Last Admin: 07/23/21 15:21 Dose: 650 mg Documented by: Hydrocodone Bitart/Acetaminophen (Hydrocodone/Apap 5-325mg 1 Each Tab) 0.5 each PO Q6HR PRN PRN Reason: Pain Last Admin: 07/23/21 21:00 Dose: 0.5 each Documented by: Piperacillin Sod/Tazobactam (Sod 3.375 gm/ Sodium Chloride) 100 mls @ 25 mls/hr IVPB Q8HR [facility] Last Admin: 07/24/21 11:42 Dose: 25 mls/hr Documented by: Fluconazole/Sodium Chloride (100 mg/ IV Solution) 50 mls @ 50 mls/hr IVPB DAILY [facility] Last Admin: 07/24/21 09:45 Dose: 50 mls/hr Documented by: Sodium Chloride (Saline 0.9%) 1,000 mls @ 50 mls/hr IV .Q20H [facility] Last Admin: 07/24/21 11:44 Dose: Not Given Documented by: Parenteral Vitamin Supplement 10 ml/ Zinc/Copper/Manganese/Selenium 1 ml/ Amino Ac/Electrol/Dextrose/Calcium 1,011 mls @ 30 mls/hr IV .BY DURATION [facility] Last Admin: 07/23/21 10:45 Dose: 55 mls/hr Documented by: Amino Ac/Electrol/Dextrose/Calcium (Clinimix E 5%-20% Solution) 1,000 mls @ 30 mls/hr IV .BY DURATION [facility] Last Admin: 07/24/21 13:07 Dose: Not Given Documented by: Amino Ac/Electrol/Dextrose/Calcium (Clinimix E 5%-20% Solution) 1,000 mls @ 30 mls/hr IV .BY DURATION [facility] Last Admin: 07/22/21 17:48 Dose: 55 mls/hr Documented by: Fat Emulsion Intravenous 500 (ml/ IV Solution) 500 mls @ 42 mls/hr IV Q7D [facility] Last Admin: 07/20/21 17:10 Dose: 42 mls/hr Documented by: Insulin Aspart (Insulin Aspart (Novolog) 100 Unit/Ml Vial) 0 unit SQ ACHS [facility]; Protocol Last Admin: 07/24/21 12:10 Dose: 3 unit Documented by: Levothyroxine Sodium (Levothyroxine 25 Mcg Tab) 25 mcg PO DAILY@0630 [facility] Last Admin: 07/24/21 05:20 Dose: 25 mcg Documented by: Metoclopramide HCl (Metoclopramide 5 Mg/Ml 2 Ml Vial) 5 mg IVP Q6HR PRN PRN Reason: Nausea And Vomiting Last Admin: 07/20/21 05:33 Dose: 5 mg Documented by: Metronidazole (Metronidazole 500 Mg Tab) 500 mg PO Q8HR [facility] Last Admin: 07/24/21 09:44 Dose: 500 mg Documented by: Miscellaneous Information (Potassium Replacement Protocol 1 Each Misc) 1 each MISCELLANE DAILY PRN; Protocol PRN Reason: Per Protocol Morphine Sulfate (Morphine Sulfate 4 Mg/Ml Syringe) 3 mg IVP Q4HR PRN PRN Reason: Pain Last Admin: 07/20/21 05:32 Dose: 3 mg Documented by: Multivitamins/Minerals (Vit A,C & V-Tuyare-Nzgyfvpx 1 Each Tab) 1 each PO DAILY [facility] Last Admin: 07/24/21 09:46 Dose: 1 each Documented by: Naloxone HCl (Naloxone 0.4 Mg/Ml 1 Ml Vial) 0.2 mg IV Q2M PRN PRN Reason: Opioid Reversal Pantoprazole Sodium (Pantoprazole 40 Mg/10 Ml Vial) 40 mg IVP BID [facility] Last Admin: 07/24/21 09:44 Dose: 40 mg Documented by: Pramipexole Dihydrochloride (Pramipexole 1 Mg Tab) 1 mg PO HS [facility] Last Admin: 07/23/21 21:02 Dose: 1 mg Documented by: Pravastatin Sodium (Pravastatin Sodium 40 Mg Tab) 80 mg PO HS [facility] Last Admin: 07/23/21 21:02 Dose: 80 mg Documented by: Simethicone (Simethicone 80 Mg Chewable) 80 mg PO TID PRN PRN Reason: Abdominal Distention Last Admin: 07/22/21 21:37 Dose: 80 mg Documented by: Tamsulosin HCl (Tamsulosin 0.4 Mg Cap.Er.24h) 0.4 mg PO PC-BRKFST [facility] Last Admin: 07/24/21 09:44 Dose: 0.4 mg Documented by: Physical exam: GENERAL: The patient is alert and oriented x3, Well developed, well nourished. HEENT: Pupils are round and equally reacting to light. EOMI. No scleral icterus. No conjunctival pallor. Normocephalic, atraumatic. No pharyngeal erythema. No thyromegaly. CARDIOVASCULAR: S1 and S2 muffled PULMONARY: Diminished breath sounds bilaterally with no wheezing or crackles. ABDOMEN: Soft,nontender, normoactive bowel sounds. No palpable organomegaly. Ostomy noted with brown stools no bleeding noted MUSCULOSKELETAL: No joint swelling or deformity. EXTREMITIES: No cyanosis, clubbing, or pedal edema. NEUROLOGICAL: Gross neurological examination did not reveal any focal deficits. Diffuse weakness SKIN: No rashes. Assessment: -Epigastric abdominal pain: Secondary to gastoesophageal reflux disease, possible peptic ulcer disease secondary to hiatal hernia -Status post sigmoid colectomy with end colostomy secondary to perforated sigmoid diverticulitis -Acute GI bleed with acute blood loss anemia, improved -Status post laparoscopic repair of paraesophageal hernia with mesh -diarrhea, probably secondary to large hernia, resolved -metabolic acidosis, secondary to above -hyperkalemia, currently hypokalemic -Hyperlipidemia -Hypertension, currently hypotensive -hypothyroidism -Hyperglycemia due to IV steroids -DVT prophylaxis -GI Prophylaxis -FULL CODE Plan: Recommend to continue with current medications and management. Surgery and infectious disease following closely secondary to peritonitis from a perforated diverticulitis resulting in diverting colostomy. Patient continues on IV Zosyn and Diflucan and flagyl and will transition to oral abx on discharge. Patient has tolerated diet and advancing to full liquids and TPN is being weaned. Patient hemoglobin 9.7 today status post one unit of PRBC. No active bleeding noted and stool is brown in the ostomy. Patient is extremely weak. Will continue with PT/OT daily. Will repeat am labs and monitor closely. Transfuse if 7 or less. Due to multiple complex medical issues, prognosis is guarded. Social work following for possible rehab once stabilized and discharged. possible discharge in 24-48 hours. Objective - Vital Signs Vital signs: Vital Signs Temp 97.9 F 07/24/21 04:00 Pulse 79 07/24/21 04:00 Resp 20 07/24/21 04:00 BP 113/61 07/24/21 04:00 Pulse Ox 97 07/24/21 04:00 Intake & Output 07/23/21 07/24/21 07/24/21 18:59 06:59 18:59 Intake Total 970 1000 Output Total 800 600 Balance 170 400 Weight 84.5 kg 83 kg Intake: Intake, IV Titration 1000 Amount Amino Acid 5%-D20w+Lytes* 1000 E* 1,000 ml @ 55 mls/hr IV .BY DURATION [facility] Rx#: [id number] Oral 660 Blood Product 310 Rc As-1 Unit 310 [id number] Output: Urine 600 600 Stool 200 Other: Voiding Method External Catheter External Catheter - Labs CBC & Chem 7: 07/24/21 11:59 07/24/21 11:59 Labs: Abnormal Lab Results - Last 24 Hours (Table) 07/23/21 07/23/21 07/23/21 Range/Units 10:15 10:18 11:48 Sodium 132 L (137-145) mmol/L Creatinine 0.36 L (0.52-1.04) mg/dL Glucose 205 H (74-99) mg/dL POC Glucose (mg/dL) 240 H (75-99) mg/dL Calcium 7.3 L (8.4-10.2) mg/dL Phosphorus 2.3 L (2.5-4.5) mg/dL Total Protein 3.8 L (6.3-8.2) g/dL Albumin 1.7 L (3.5-5.0) g/dL Crossmatch See Detail 07/23/21 07/23/21 07/24/21 Range/Units 16:58 20:03 06:23 Sodium (137-145) mmol/L Creatinine (0.52-1.04) mg/dL Glucose (74-99) mg/dL POC Glucose (mg/dL) 243 H 201 H 159 H (75-99) mg/dL Calcium (8.4-10.2) mg/dL Phosphorus (2.5-4.5) mg/dL Total Protein (6.3-8.2) g/dL Albumin (3.5-5.0) g/dL Crossmatch
[2021-07-24 14:28] VITALS: BMI 30.4
[2021-07-24 16:49] LABS: Glucose,Whole Blood 181 mg/dL (75-99)
[2021-07-24 20:35] LABS: Glucose,Whole Blood 237 mg/dL (75-99)
[2021-07-24] MEDS: PRAVASTATIN SODIUM 40 MG TAB PO SCH (20:52)
[2021-07-24] MEDS: PRAMIPEXOLE 1 MG TAB PO SCH (20:52)
--- NOTE | 2021-07-24 22:32 | PN ---
PROGRESS NOTE DATE OF SERVICE: 07/24/2021 REASON FOR FOLLOWUP: Intraabdominal abscess from perforated diverticulitis. INTERVAL HISTORY: The patient is afebrile. She mentioned breathing slightly comfortably. The patient denies having any chest pain, shortness of breath or cough. Abdominal pain is currently controlled. No nausea, vomiting or diarrhea. PHYSICAL EXAMINATION: Blood pressure 116/73 with a pulse of 89, temperature 97.4. She is 99% on L nasal cannula. General description is an elderly female lying in bed in no distress. Respiratory system: Unlabored breathing. Clear to auscultation anteriorly. Heart S1, S2. Regular rate and rhythm. Abdomen soft, no tenderness. No guarding or rigidity. LABS: Hemoglobin is 9.7, white count 9.9, creatinine 0.38. DIAGNOSTIC IMPRESSION AND PLAN: Patient with intraabdominal abscess and perforated diverticulitis, status post diverting colostomy. Patient's abdominal culture positive for E coli and anaerobes. Covered with Zosyn. Transition to oral antibiotic on discharge once his oral has improved. Continue with supportive care. MMODL / IJN: [id number] /
[2021-07-24 23:13] LABS: Glucose,Whole Blood 188 mg/dL (75-99)
[2021-07-25] MEDS: ACETAMINOPHEN TAB 325 MG TAB PO PRN (03:30)
[2021-07-25] MEDS ORDERED: 1: MVI, ADULT NO.4 WITH VIT K 10 ML, TRACE (CONC-1ML/DOSE) 1 ML in AMINO ACID 5%-D20W+LY IV SCH ×3 (06:00)
[2021-07-25 06:04] LABS: Glucose,Whole Blood 150 mg/dL (75-99)
[2021-07-25] MEDS: INSULIN ASPART (NovoLOG) 100 UNIT/ML VIAL SQ SCH ×2 (06:13→14:42)
[2021-07-25] MEDS: LEVOTHYROXINE 25 MCG TAB PO SCH (06:13)
[2021-07-25] MEDS: SODIUM CHLORIDE 0.9% 1,000 ML IV SCH (06:25)
[2021-07-25] MEDS: 1: MVI, ADULT NO.4 WITH VIT K 10 ML, TRACE (CONC-1ML/DOSE) 1 ML in AMINO ACID 5%-D20W+LY IV SCH ×3 (07:57)
[2021-07-25 08:24] LABS: African American GFR (CKD) >90 (>60 ml/min/1.73 sqM); Anion Gap 0 mmol/L; Blood Urea Nitrogen 15 mg/dL (7-17); Calcium 7.1 mg/dL (8.4-10.2); Carbon Dioxide 29 mmol/L (22-30); Chloride 102 mmol/L (98-107); Glucose 134 mg/dL (74-99); Non-African American GFR(CKD) >90 (>60 ml/min/1.73 sqM); Phosphorus 2.6 mg/dL (2.5-4.5); Potassium 3.8 mmol/L (3.5-5.1); Sodium 131 mmol/L (137-145)
[2021-07-25 08:28] LABS: Anisocytosis Slight; Basophils % (A) 0 %; Eosinophils # (A) 0.1 k/uL (0-0.7); Eosinophils % (A) 2 %; HCT 23.3 % (34.0-46.0); Hypochromasia Moderate; Lymphocytes # (A) 0.2 k/uL (1.0-4.8); Lymphocytes % (A) 3 %; MCH 32.1 pg (25.0-35.0); MCHC 32.1 g/dL (31.0-37.0); MCV 99.8 fL (80.0-100.0); Macrocytosis Slight; Mean Platelet Volume 8.8; Monocytes # (A) 0.4 k/uL (0-1.0); Monocytes % (A) 6 %; Neutrophils % (A) 89 %; Platelet Count 149 k/uL (150-450); Poikilocytosis Slight; RBC 2.34 m/uL (3.80-5.40); RDW 16.8 % (11.5-15.5); WBC 7.8 k/uL (3.8-10.6)
[2021-07-25 08:59] LABS: HGB 7.5 gm/dL (11.4-16.0)
[2021-07-25] MEDS ORDERED: FUROSEMIDE 10 MG/ML 2 ML VIAL IV ONE (09:59)
[2021-07-25] MEDS: FLUCONAZOLE IN NACL,ISO-OSM 100 MG in SALINE 1 50ML.BAG IVPB SCH (10:04)
[2021-07-25] MEDS: PIPERACILLIN-TAZOBACTAM 3.375 GM in SODIUM CHLORIDE 0.9% 100 ML IVPB SCH (10:04)
[2021-07-25] MEDS: TAMSULOSIN 0.4 MG CAP.ER.24H PO SCH (10:06)
[2021-07-25] MEDS: metroNIDAZOLE 500 MG TAB PO SCH ×2 (10:06→16:40)
[2021-07-25] MEDS: VIT A,C & E-LUTEIN-MINERALS 1 EACH TAB PO SCH (10:06)
[2021-07-25] MEDS: PANTOPRAZOLE 40 MG/10 ML VIAL IVP SCH (10:06)
--- NOTE | 2021-07-25 11:30 | P.PN ---
<Ginny Kay - Last Filed: 07/25/21 11:28> Subjective Progress Note Date: 07/25/21 CHIEF COMPLAINT: Large paraesophageal hernia HISTORY OF PRESENT ILLNESS: Patient is status post sigmoid colectomy with end colostomy for perforated sigmoid diverticulitis on 07/14/21. She is status post laparoscopic repair of paraesophageal hernia with mesh on 07/09/21. Patient's ostomy is functioning with dark brown stool. Her hemoglobin did drop from 9.7- 7.5. Medicine service has ordered 1 unit of blood. Patient is very weak. She is unable to stand on her own. Ostomy nurse at bedside for ostomy teaching. TPN is being weaned off today. She is tolerating diet. Eating a small amount of food. Denies any nausea or vomiting. Denies any abdominal pain. Afebrile. BP 4:00 this morning 92/56. No tachycardia. WBC 7.8 hemoglobin 7.5 platelets 149 sodium 131 potassium 3.8 creatinine 0.45 magnesium 2.0 PHYSICAL EXAM: VITAL SIGNS: Reviewed. GENERAL: Well-developed in no acute distress. HEENT: No sclera icterus. Extraocular movements grossly intact. Moist buccal mucosa. Head is atraumatic, normocephalic. ABDOMEN: Soft. Nondistended. Nontender. Incision sites with serosanguineous drainage. Ana are in place. Otherwise clean dry and intact. Ostomy with brown stool NEUROLOGIC: Alert and oriented. Cranial nerves II through XII grossly intact. Extremities edematous all 4 extremities with weeping ASSESSMENT: 1. Perforated sigmoid diverticulitis status post sigmoid colectomy with end colostomy 2. Large paraesophageal hernia containing colon, small bowel and stomach status post laparoscopic repair of paraesophageal hernia with mesh 3. Moderate obstruction status post hiatal hernia repair status post dexamethasone treatment. 4. GI bleed with acute blood loss anemia 5. Thyromegaly follow-up outpatient PLAN: -No plan for endoscopies -Agree with blood transfusion -Continue to observe patient -Continue to monitor for bleeding -Continue to monitor hemoglobin -Continue antibiotics -Encourage patient to increase activity level -SCDs to lower extremities -Patient will require ECF at discharge Physician Manager Division note has been reviewed by physician. Signing provider agrees with the documented findings, assessment, and plan of care. Objective - Vital Signs Vital signs: Vital Signs Temp 97.5 F L 07/25/21 04:00 Pulse 79 07/25/21 04:00 Resp 22 07/25/21 04:00 BP 92/56 07/25/21 04:00 Pulse Ox 97 07/25/21 04:00 Intake & Output 07/24/21 07/25/21 07/25/21 18:59 06:59 18:59 Intake Total 440 Output Total 550 500 Balance -110 -500 Weight 83 kg Intake: Oral 440 Output: Urine 550 500 Other: Voiding Method External Catheter External Catheter # Voids 1 - Labs CBC & Chem 7: 07/25/21 07:44 07/25/21 06:56 Labs: Abnormal Lab Results - Last 24 Hours (Table) 07/23/21 07/24/21 07/24/21 Range/Units 10:15 11:58 11:59 RBC (3.80-5.40) m/uL Hgb (11.4-16.0) gm/dL Hct (34.0-46.0) % RDW (11.5-15.5) % Plt Count (150-450) k/uL Lymphocytes # (1.0-4.8) k/uL Sodium 130 L (137-145) mmol/L Creatinine 0.38 L (0.52-1.04) mg/dL Glucose 218 H (74-99) mg/dL POC Glucose (mg/dL) 235 H (75-99) mg/dL Calcium 7.3 L (8.4-10.2) mg/dL Crossmatch See Detail 07/24/21 07/24/21 07/24/21 Range/Units 11:59 16:47 20:35 RBC 3.01 L (3.80-5.40) m/uL Hgb 9.7 L D (11.4-16.0) gm/dL Hct 29.6 L (34.0-46.0) % RDW 16.6 H (11.5-15.5) % Plt Count (150-450) k/uL Lymphocytes # (1.0-4.8) k/uL Sodium (137-145) mmol/L Creatinine (0.52-1.04) mg/dL Glucose (74-99) mg/dL POC Glucose (mg/dL) 181 H 237 H (75-99) mg/dL Calcium (8.4-10.2) mg/dL Crossmatch 07/24/21 07/25/21 07/25/21 Range/Units 23:12 06:01 06:56 RBC (3.80-5.40) m/uL Hgb (11.4-16.0) gm/dL Hct (34.0-46.0) % RDW (11.5-15.5) % Plt Count (150-450) k/uL Lymphocytes # (1.0-4.8) k/uL Sodium 131 L (137-145) mmol/L Creatinine 0.45 L (0.52-1.04) mg/dL Glucose 134 H (74-99) mg/dL POC Glucose (mg/dL) 188 H 150 H (75-99) mg/dL Calcium 7.1 L (8.4-10.2) mg/dL Crossmatch 07/25/21 Range/Units 07:44 RBC 2.34 L (3.80-5.40) m/uL Hgb 7.5 L D (11.4-16.0) gm/dL Hct 23.3 L (34.0-46.0) % RDW 16.8 H (11.5-15.5) % Plt Count 149 L (150-450) k/uL Lymphocytes # 0.2 L (1.0-4.8) k/uL Sodium (137-145) mmol/L Creatinine (0.52-1.04) mg/dL Glucose (74-99) mg/dL POC Glucose (mg/dL) (75-99) mg/dL Calcium (8.4-10.2) mg/dL Crossmatch <Mahad Quiros - Last Filed: 07/25/21 11:33> Subjective As above. Patient's hemoglobin did drop down to 7.5 today. No active bleeding noted. Continue diet as tolerated. Continue physical therapy. Objective - Vital Signs Vital signs: Vital Signs Temp 97.4 F L 07/25/21 09:45 Pulse 80 07/25/21 09:45 Resp 22 07/25/21 09:45 BP 94/59 07/25/21 09:45 Pulse Ox 97 07/25/21 09:45 Intake & Output 07/24/21 07/25/21 07/25/21 18:59 06:59 18:59 Intake Total 440 240 Output Total 550 500 750 Balance -110 500 -510 Weight 83 kg 82 kg Intake: Oral 440 240 Output: Urine 550 500 550 Stool 200 Other: Voiding Method External Catheter External Catheter External Catheter # Voids 1 - Labs CBC & Chem 7: 07/25/21 07:44 07/25/21 06:56 Labs: Abnormal Lab Results - Last 24 Hours (Table) 07/23/21 07/24/21 07/24/21 Range/Units 10:15 11:58 11:59 RBC (3.80-5.40) m/uL Hgb (11.4-16.0) gm/dL Hct (34.0-46.0) % RDW (11.5-15.5) % Plt Count (150-450) k/uL Lymphocytes # (1.0-4.8) k/uL Sodium 130 L (137-145) mmol/L Creatinine 0.38 L (0.52-1.04) mg/dL Glucose 218 H (74-99) mg/dL POC Glucose (mg/dL) 235 H (75-99) mg/dL Calcium 7.3 L (8.4-10.2) mg/dL Crossmatch See Detail 07/24/21 07/24/21 07/24/21 Range/Units 11:59 16:47 20:35 RBC 3.01 L (3.80-5.40) m/uL Hgb 9.7 L D (11.4-16.0) gm/dL Hct 29.6 L (34.0-46.0) % RDW 16.6 H (11.5-15.5) % Plt Count (150-450) k/uL Lymphocytes # (1.0-4.8) k/uL Sodium (137-145) mmol/L Creatinine (0.52-1.04) mg/dL Glucose (74-99) mg/dL POC Glucose (mg/dL) 181 H 237 H (75-99) mg/dL Calcium (8.4-10.2) mg/dL Crossmatch 07/24/21 07/25/21 07/25/21 Range/Units 23:12 06:01 06:56 RBC (3.80-5.40) m/uL Hgb (11.4-16.0) gm/dL Hct (34.0-46.0) % RDW (11.5-15.5) % Plt Count (150-450) k/uL Lymphocytes # (1.0-4.8) k/uL Sodium 131 L (137-145) mmol/L Creatinine 0.45 L (0.52-1.04) mg/dL Glucose 134 H (74-99) mg/dL POC Glucose (mg/dL) 188 H 150 H (75-99) mg/dL Calcium 7.1 L (8.4-10.2) mg/dL Crossmatch 07/25/21 Range/Units 07:44 RBC 2.34 L (3.80-5.40) m/uL Hgb 7.5 L D (11.4-16.0) gm/dL Hct 23.3 L (34.0-46.0) % RDW 16.8 H (11.5-15.5) % Plt Count 149 L (150-450) k/uL Lymphocytes # 0.2 L (1.0-4.8) k/uL Sodium (137-145) mmol/L Creatinine (0.52-1.04) mg/dL Glucose (74-99) mg/dL POC Glucose (mg/dL) (75-99) mg/dL Calcium (8.4-10.2) mg/dL Crossmatch Assessment and Plan (1) Abdominal pain Current Visit: Yes Status: Acute Code(s): R10.9 - UNSPECIFIED ABDOMINAL PAIN SNOMED Code(s): 25866398
[2021-07-25 12:03] LABS: Glucose,Whole Blood 281 mg/dL (75-99)
--- NOTE | 2021-07-25 12:05 | CDI ---
Documentation Clarification Form Date: 07/25/2021 11:18:23 AM From: Omaira Edwards RN, CCDS Admit Date: 07/05/2021 01:16:00 PM Patient Name: Tameka Perez Visit Number: [id number] Discharge Date: ATTENTION: The Clinical Documentation Specialists (CDI) and [facility] Coding Staff appreciate your assistance in clarifying documentation. Please respond to the clarification below the line at the bottom and electronically sign. The CDI & [facility] Coding staff will review the response and follow-up if needed. Please note: Queries are made part of the Legal Health Record. If you have any questions, please contact the author of this message via ITS. Dr. Sukhdev Beyer Acute blood loss anemia is documented in the progress notes starting on 07/18/21 and patient had a Sigmoid colectomy with end colostomy on 07/14/21. Additional clarification is requested regarding the relationship, if any, that exists between the diagnosis and the procedure. Patients Diagnosis: Pneumoperitoneum, Post-Operative Diagnosis: Perforated sigmoid diverticulitis Procedure performed: Sigmoid colectomy with end colostomy History/Risk Factors: Hiatal Hernia, Hypertension, Clinical Indicators: 80-year-old female to ED on 07/05/21 found large hiatal hernia with repair on 07/09/21. On 07/13 reports maroon-colored stools with drop of hemoglobin from 9.3-7.6 to 6.1 along with abdominal cramping. 07/14 CT abd/pelvis: Large pneumoperitoneum appears new compared to old exam. There are 2 larger diverticula on the anterior aspect of the mid sigmoid colon and these could be potential sources of the bowel leak. Treatment: Monitor CBC Daily Transfuse PRBC per orders (total =6 units) 07/14 Sigmoid colectomy with end colostomy NPO, (advance per surgery orders) Flagyl 500 MG IVPB 8 HRS (07/15-07/18 Cefazolin 2, 00 mg IVPB What relationship, if any, exists between the diagnosis of acute GI bleed with acute blood loss anemia and the procedure? [ ] Acute blood loss anemia is a complication of surgical procedure [ ] Acute blood loss anemia is an expected outcome of the surgical procedure [ ] Acute blood loss anemia is related to patients co-morbid condition(s) of perforated sigmoid diverticulitis & not a complication of the procedure [ ] Other please specify ____ [ ] Unable to determine (Template Last Revised: October 2020) -Acute GI bleed with acute blood loss anemia, able most likely a component of previous comorbid conditions and possibly secondary to diverticulitis with a diverticular perforation and not a complication from surgery Addendum Dictated By:Kath Bob Addendum Signed By: <Electronically signed by Kath CUEVAS > 07/25/21 1345 MTDAllyn
--- NOTE | 2021-07-25 12:31 | P.DS ---
Providers Date of admission: 07/05/21 13:16 Expected date of discharge: 07/25/21 Attending physician: Adriana Srivastava Consults: 07/05/21 13:30 Consult Physician Urgent Consulting Provider: Js Ryan Consult Reason/Comments: hiatal hernia Do you want consulting provider notified?: Yes 07/14/21 15:57 Consult Physician Stat Consulting Provider: Lukas Johnson Consult Reason/Comments: Elevated WBC, deteriorating condition Do you want consulting provider notified?: Yes 07/18/21 12:37 Consult Physician Urgent Consulting Provider: Andrew Payton Consult Reason/Comments: cold agultinate Do you want consulting provider notified?: Yes Primary care physician: Mary Schmitt Hospital Course: Final diagnosis -Epigastric abdominal pain: Secondary to gastoesophageal reflux disease, possible peptic ulcer disease secondary to hiatal hernia -Status post sigmoid colectomy with end colostomy secondary to perforated sigmoid diverticulitis -Acute GI bleed with acute blood loss anemia, improved, possible complication of surgical procedure -Status post laparoscopic repair of paraesophageal hernia with mesh -diarrhea, probably secondary to large hernia, resolved -Mild hyponatremia a possible complication of poor oral intake and TPN -metabolic acidosis, secondary to above -hyperkalemia, currently hypokalemic -Hyperlipidemia -Hypertension, currently hypotensive -hypothyroidism -Hyperglycemia due to IV steroids -DVT prophylaxis -GI Prophylaxis -FULL CODE Discharge disposition Patient is being discharged in a stable condition with guarded prognosis to [facility] for continued PT/OT therapy. Patient will follow-up with Dr. Schmitt in the outpatient setting upon discharge from [facility]. Patient is to follow-up closely with surgery in one week as scheduled. She will continue on oral Ceftin and Flagyl along with Diflucan for 1 week to complete the course. Total time taken is greater than 35 minutes. Hospital course This is an 80-year-old female who recently came in with complaints of upper abdominal discomfort with a history of hernia and was evaluated and underwent surgical intervention for hernia repair and also underwent sigmoid colectomy with end colostomy secondary to perforated sigmoid diverticulitis and was being closely followed by surgery. Patient will need an outpatient follow-up appointment in one week with surgeon. Patient also experienced some acute blood loss anemia a possible constipation of surgery and also with the known history of anemia requiring transfusions and will ultimately need an outpatient follow- up with surgery or GI for possible colonoscopy in the near future once more stable. No further bleeding noted and patient will be receiving 1 unit of PRBC for hemoglobin of 7.5 today prior to discharge. Recommend repeat labs closely to follow electrolytes and kidney functions along with hemoglobin. will Start iron tablets and recommend hematology follow-up outpatient. Patient was on TPN for a brief period for bowel rest and improved and is currently maintained on dysphagia 3 chopped diet and encouraged oral intake. Patient continues to be extremely weak and needs aggressive physical therapy. Patient also to continue with incentive spirometer at least 10 times every hour while awake. Wean FiO2 as tolerated. Patient currently maintained on 2-3 L via nasal cannula. Currently no reports of chest pain, shortness of breath, or palpitations. Patient is afebrile. No reports of nausea or vomiting and patient is tolerating diet. Patient will be going to [facility] today. Her prognosis. Physical exam: GENERAL: The patient is alert and oriented x3, Well developed, well nourished. HEENT: Pupils are round and equally reacting to light. EOMI. No scleral icterus. No conjunctival pallor. Normocephalic, atraumatic. No pharyngeal erythema. No thyromegaly. CARDIOVASCULAR: S1 and S2 muffled PULMONARY: Diminished breath sounds bilaterally with no wheezing or crackles. ABDOMEN: Soft,nontender, normoactive bowel sounds. No palpable organomegaly. Ostomy noted with brown stools no bleeding noted MUSCULOSKELETAL: No joint swelling or deformity. EXTREMITIES: No cyanosis, clubbing, mild pedal edema noted NEUROLOGICAL: Gross neurological examination did not reveal any focal deficits. Diffuse weakness SKIN: No rashes. Please refer to medication reconciliation sheet for a list of medications. Patient Condition at Discharge: Stable Plan - Discharge Summary Discharge Rx Participant: No New Discharge Prescriptions: New Cefuroxime Axetil [Ceftin] 500 mg PO BID 7 Days #14 tab Fluconazole [Diflucan] 100 mg PO DAILY 7 Days #7 tab metroNIDAZOLE [Flagyl] 500 mg PO Q8HR 7 Days #21 tab Tamsulosin [Flomax] 0.4 mg PO PC-BRKFST capsule Multivitamins, Thera [Multivitamin] 1 tab PO DAILY #30 tablet INSULIN ASPART (NovoLOG) [NovoLOG (formulary)] 0 unit SQ Q6HR ml Pantoprazole Sodium [Protonix] 40 mg PO BID #60 tab Acetaminophen Tab [Tylenol] 650 mg PO Q6HR PRN tab PRN Reason: Fever And/ Or Pain Zinc Oxide 20% Oint 1 applic TOPICAL BID gm Cefuroxime Axetil [Ceftin] 500 mg PO BID 1 Days #2 tab Simethicone Chew [Mylicon Chew] 80 mg PO TID PRN tab PRN Reason: Abdominal Distention Continue Levothyroxine Sodium [Synthroid] 25 mcg PO DAILY Pravastatin Sodium [Pravachol] 80 mg PO HS Pramipexole [Mirapex] 1 mg PO HS Vit C/E/Zn/Coppr/Lutein/Zeaxan [Preservision Areds 2 Softgel] 1 cap PO DAILY Discontinued Enalapril [Vasotec] 10 mg PO DAILY Meloxicam 15 mg PO DAILY Discharge Medication List Levothyroxine Sodium [Synthroid] 25 mcg PO DAILY 07/05/21 [History] Pramipexole [Mirapex] 1 mg PO HS 07/05/21 [History] Pravastatin Sodium [Pravachol] 80 mg PO HS 07/05/21 [History] Vit C/E/Zn/Coppr/Lutein/Zeaxan [Preservision Areds 2 Softgel] 1 cap PO DAILY 07/05/21 [History] Acetaminophen Tab [Tylenol] 650 mg PO Q6HR PRN tab 07/25/21 [Rx] Cefuroxime Axetil [Ceftin] 500 mg PO BID 1 Days #2 tab 07/25/21 [Rx] Cefuroxime Axetil [Ceftin] 500 mg PO BID 7 Days #14 tab 07/25/21 [Rx] Fluconazole [Diflucan] 100 mg PO DAILY 7 Days #7 tab 07/25/21 [Rx] INSULIN ASPART (NovoLOG) [NovoLOG (formulary)] 0 unit SQ Q6HR ml 07/25/21 [Rx] Multivitamins, Thera [Multivitamin] 1 tab PO DAILY #30 tablet 07/25/21 [Rx] Pantoprazole Sodium [Protonix] 40 mg PO BID #60 tab 07/25/21 [Rx] Simethicone Chew [Mylicon Chew] 80 mg PO TID PRN tab 07/25/21 [Rx] Tamsulosin [Flomax] 0.4 mg PO PC-BRKFST capsule 07/25/21 [Rx] Zinc Oxide 20% Oint 1 applic TOPICAL BID gm 07/25/21 [Rx] metroNIDAZOLE [Flagyl] 500 mg PO Q8HR 7 Days #21 tab 07/25/21 [Rx] Follow up Appointment(s)/Referral(s): Mary Schmitt DO [Primary Care Provider] - 1-2 days [facility], [NON-STAFF] - As Needed Js Ryan MD [STAFF PHYSICIAN] - 1 Week Ambulatory/Diagnostic Orders: Complete Blood Count w/diff [LAB.AMB] Time Frame: 3 Days, Location: None Selected Patient Instructions/Handouts: Diverticulitis (GEN), Colostomy Care (GEN) Activity/Diet/Wound Care/Special Instructions: Patient is going to [place] Activity as tolerated Continue medications as prescribed Continue with antibiotic therapy for 1 week and then may discontinue Recommend repeat labs in 2-3 days, CBC and BMP and magnesium Encourage aggressive physical therapy Slowly advance an increase diet as tolerated Patient be continued on dysphagia 3 chopped diet follow up surgery outpatient in one week. Continue to encourage incentive spirometer at least 10 times every hour while awake follow up with primary care provider upon discharge Continue ensure supplements 3 times a day with meals Recommend Accu-Cheks before meals and at bedtime and use sliding scale as needed NovoLog sliding scale 0-150 equals 0 units 151-200 equals 2 units 201-250 equals 4 units 251-300 equals 6 units 301-350 equals 8 units 351-400 equals 10 units Please notify provider if blood sugar is 400 or above Recommendations for Ostomy Care: Mrs Perez will have the following ostomy supplies for transition to Rehab on discharge as follows: Last pouchign appliance change: Convatec pouch with filter #[id number] (3) No sting prep pads (10) Ostomy powder (1) Annia seal (2) Entire pouching system is to be changed every 3-5 days until in a disposable pouching system The pouch should be emptied when it is 1/2 to 1/3 full while sitting on the toilet or straddling the toilet Discharge Disposition: TRANSFER TO SNF/ECF
--- NOTE | 2021-07-25 12:51 | CDI ---
Documentation Clarification Form Date: 07/25/2021 12:20:47 PM From: Omaira Edwards RN,CCDS Admit Date: 07/05/2021 01:16:00 PM Patient Name: Tameka Perez Visit Number: [id number] Discharge Date: ATTENTION: The Clinical Documentation Specialists (CDI) and [facility] Coding Staff appreciate your assistance in clarifying documentation. Please respond to the clarification below the line at the bottom and electronically sign. The CDI & [facility] Coding staff will review the response and follow-up if needed. Please note: Queries are made part of the Legal Health Record. If you have any questions, please contact the author of this message via ITS. Dr. Sukhdev Beyer Hypotension is documented on 07/18/21 and subsequent progress notes. Additional clarification regarding this diagnosis is requested. History/Risk Factors: Hiatal Hernia, Hypertension, Clinical Indicators: 80-year-old female on the morning of 07/18 ill appearing, nauseated, lethargic. Patient hemoglobin was 7.3 and had maroon colored stools in the ostomy and is s/p transfusion of 1 unit of PRBC. Patient found to be hypotensive and a A-team was called briefly unresponsive and appears to have a possible syncopal event. She is post sigmoid colectomy with end colostomy for a perforated sigmoid diverticulitis 07/18 VS: 80/51 90 16 97.5, 72/43 87 16, 79/45 77 16 07/18 HGB 7.3, 6.1 Treatment: Telemetry Monitoring Monitor Ostomy output Transfuse 2 additional units of PRBC (07/18 Total =3) .9NS 500 MLS @999 X2 Can the hypotension be further specified? [ ] Hypotension due to acute blood loss (further specify if shock) [ ] Orthostatic Hypotension [ ] Postural Hypotension [ ] Other Condition, please specify [ ] Unable to determine (Template Last Revised: October 2020) ___Presyncope most likely secondary to position changes and acute blood loss anemia with hypotension with hypotensive shock ruled out -Mild protein calorie malnutrition related to poor oral intake from recent Addendum Dictated By:Kath Bob Addendum Signed By: <Electronically signed by Kath CUEVAS > 07/25/21 1345 MTDD
--- NOTE | 2021-07-25 14:15 | PN ---
PROGRESS NOTE DATE OF SERVICE: 07/25/2021 REASON FOR FOLLOWUP: Abdominal abscess from perforated diverticulitis. INTERVAL HISTORY: The patient is afebrile. The patient is breathing comfortably. The patient denies having any chest pain or shortness of breath or cough. Abdominal pain is currently controlled. No vomiting. PHYSICAL EXAMINATION: Blood pressure is 94/59 with a pulse of 80, temperature 97.4. She is 97% on 2 L nasal cannula. General description is an elderly female lying in bed in no distress. Respiratory system: Unlabored breathing, clear to auscultation anteriorly. Heart S1, S2. Regular rate and rhythm. Abdomen soft, no tenderness. LABS: Hemoglobin 7.4, white count 7.8, creatinine 0.90. DIAGNOSTIC IMPRESSION AND PLAN: Patient with abdominal abscess from ruptured diverticulitis, status post diverting colostomy. Abdominal culture positive for E coli and anaerobes, sensitive pathogen. Plan is to finish therapy with oral Ceftin and Flagyl for about a week and close outpatient followup. Discussed with the nurse practitioner working on discharge. MMODL / TIMON: [id number] /
[2021-07-25 14:22] VITALS: RESP 16
[2021-07-25 16:33] VITALS: TEMP 97.4
[2021-07-25 16:35] VITALS: BP 97/51; PULSE 82
[2021-07-25] MEDS ORDERED: ZINC OXIDE 20% OINT 28.4 GM TUBE TOPICAL SCH (21:00)
== END 2021-07-25 17:56 | DRG 326 ==
LOC: EC 09:31 → 4SSUR 13:16 → 5NMEDONC 16:50 → 3SCARD 07-09 19:34 → 5NMEDONC 07-15 17:57 → 3SCARD 07-19 11:09
PROVIDERS: ADMIT Internal Medicine; ATTEND Internal Medicine
PROC: 0BUT4JZ Supplement Diaphragm with Synthetic Substitute, Percutaneous Endoscopic Approach (ICD-10-PCS; principal; 2021-07-09 07:30)
PROC: 0DJ08ZZ Inspection of Upper Intestinal Tract, Via Natural or Artificial Opening Endoscopic (ICD-10-PCS; 2021-07-13)
PROC: 30233N1 Transfusion of Nonautologous Red Blood Cells into Peripheral Vein, Percutaneous Approach (ICD-10-PCS; 2021-07-13)
PROC: 0DTN0ZZ Resection of Sigmoid Colon, Open Approach (ICD-10-PCS; 2021-07-14)
PROC: 0D1N0Z4 Bypass Sigmoid Colon to Cutaneous, Open Approach (ICD-10-PCS; 2021-07-14)
PROC: 02HV33Z Insertion of Infusion Device into Superior Vena Cava, Percutaneous Approach (ICD-10-PCS; 2021-07-20)
DX: K44.0 Diaphragmatic hernia with obstruction, without gangrene (principal); K65.1 Peritoneal abscess; K57.20 Diverticulitis of large intestine with perforation and abscess without bleeding; D59.12 Cold autoimmune hemolytic anemia; D62 Acute posthemorrhagic anemia; E44.1 Mild protein-calorie malnutrition; E87.1 Hypo-osmolality and hyponatremia; E87.2 Acidosis; K92.2 Gastrointestinal hemorrhage, unspecified; R10.9 Unspecified abdominal pain; B96.20 Unspecified Escherichia coli [E. coli] as the cause of diseases classified elsewhere; E03.9 Hypothyroidism, unspecified; Z68.30 Body mass index [BMI] 30.0-30.9, adult; E78.5 Hyperlipidemia, unspecified; E87.5 Hyperkalemia; E87.6 Hypokalemia; E87.70 Fluid overload, unspecified; F41.9 Anxiety disorder, unspecified; I10 Essential (primary) hypertension; I95.9 Hypotension, unspecified; K21.9 Gastro-esophageal reflux disease without esophagitis; K27.9 Peptic ulcer, site unspecified, unspecified as acute or chronic, without hemorrhage or perforation; K29.70 Gastritis, unspecified, without bleeding; R13.10 Dysphagia, unspecified; T38.0X5A Adverse effect of glucocorticoids and synthetic analogues, initial encounter; Z79.1 Long term (current) use of non-steroidal anti-inflammatories (NSAID); Z79.890 Hormone replacement therapy; Z79.899 Other long term (current) drug therapy; Z80.8 Family history of malignant neoplasm of other organs or systems; Z96.653 Presence of artificial knee joint, bilateral; Z88.5 Allergy status to narcotic agent; R73.9 Hyperglycemia, unspecified
CPT/HCPCS: 36415; 36573; 43235; 71045; 74019; 74176; 74177; 74210; 74240; 76536; 78278; 80048; 80053; 81001; 82150; 82247; 82272; 82330; 83010; 83605; 83690; 83735; 84100; 84132; 84478; 85025; 85027; 85045; 86157; 86850; 86900; 86901; 86920; 87040; 87070; 87075; 87077; 87186; 87205; 87324; 87493; 87635; 88307; 94760; 96374; 96375; 99285

== ENCOUNTER 2021-08-15 14:49 | Emergency (ER) | payer MEDICARE ==
[2021-08-15] MEDS ORDERED: SODIUM CHLORIDE 0.9% 1,000 ML IV STA (15:21)
[2021-08-15 16:40] LABS: Basophils % (A) 1 %; Eosinophils % (A) 2 %; HCT 33.1 % (34.0-46.0); Hypochromasia Slight; Lymphocytes # (A) 0.4 k/uL (1.0-4.8); Lymphocytes % (A) 14 %; MCH 30.7 pg (25.0-35.0); MCHC 31.8 g/dL (31.0-37.0); MCV 96.6 fL (80.0-100.0); Mean Platelet Volume 7.3; Monocytes # (A) 0.2 k/uL (0-1.0); Monocytes % (A) 6 %; Neutrophils # (A) 2.2 k/uL (1.3-7.7); Neutrophils % (A) 76 %; RBC 3.43 m/uL (3.80-5.40); RDW 15.7 % (11.5-15.5); WBC 2.8 k/uL (3.8-10.6)
[2021-08-15 16:43] LABS: HGB 10.5 gm/dL (11.4-16.0)
[2021-08-15 16:44] LABS: Platelet Count 337 k/uL (150-450)
[2021-08-15 16:54] LABS: ALT 22 U/L (4-34); AST 34 U/L (14-36); African American GFR (CKD) >90 (>60 ml/min/1.73 sqM); Albumin 2.8 g/dL (3.5-5.0); Alkaline Phosphatase 121 U/L (38-126); Amylase 47 U/L (30-110); Anion Gap 4 mmol/L; Blood Urea Nitrogen 16 mg/dL (7-17); Carbon Dioxide 30 mmol/L (22-30); Chloride 100 mmol/L (98-107); Glucose 132 mg/dL (74-99); Lipase 25 U/L (23-300); Non-African American GFR(CKD) >90 (>60 ml/min/1.73 sqM); Potassium 4.2 mmol/L (3.5-5.1); Sodium 134 mmol/L (137-145); Total Bilirubin 0.5 mg/dL (0.2-1.3); Total Protein 6.1 g/dL (6.3-8.2)
[2021-08-15 17:01] LABS: Appearance,Urine Clear (Clear); Bilirubin,Urine Negative (Negative); Blood,Urine Negative (Negative); Color,Urine Yellow; Glucose,Urine (UA) Negative (Negative); Ketones,Urine Negative (Negative); Leukocyte Esterase,Urine Trace (Negative); Mucus,Urine Rare /hpf; Nitrite,Urine Negative (Negative); PH, Urine 6.5 (5.0-8.0); Protein,Urine Negative (Negative); RBC,Urine 2 /hpf (0-5); Specific Gravity,Urine 1.011 (1.001-1.035); Squamous Epithelial Cell,Urine 3 /hpf (0-4); Urobilinogen,Urine <2.0 mg/dL (<2.0); WBC,Urine 5 /hpf (0-5)
--- NOTE | 2021-08-15 17:46 | CT ---
EXAMINATION TYPE: CT abdomen pelvis w con DATE OF EXAM: 08/15/2021 COMPARISON: 07/14/2021 HISTORY: abdominal pain, constipation post colonoscopy CT DLP: 879.2 mGycm Automated exposure control for dose reduction was used. TECHNIQUE: Helical acquisition of images was performed from the lung bases through the pelvis. CONTRAST: Performed without Oral Contrast and with IV Contrast, patient injected with 100 mL of Isovue 300. FINDINGS: LUNG BASES: Small to moderate bilateral pleural effusions with adjacent small bibasilar consolidation s. 11 mm benign left pleural calcification seen. LIVER/GB: No acute abnormality is appreciated. Cholelithiasis. PANCREAS: No significant abnormality is seen. SPLEEN: No significant abnormality is seen. ADRENALS: No significant abnormality is seen. KIDNEYS: No acute abnormality is seen. 2.5 cm simple right renal cyst. Right renal pelvic ectasia. FREE AIR: No free air is visualized. RETROPERITONEAL ADENOPATHY: None visualized REPRODUCTIVE ORGANS: No significant abnormality is seen URINARY BLADDER: No significant abnormality is seen. PELVIC ADENOPATHY: None visualized. OSSEOUS STRUCTURES: No acute abnormality is seen. Lumbar spondylosis with moderate levoconvex scolio sis. BOWEL: No bowel obstruction. Left ostomy noted. Prior post surgical changes involving the gastroesop hageal junction. Moderate hiatal hernia. OTHER: None IMPRESSION: PERSISTENT SMALL TO MODERATE BILATERAL PLEURAL EFFUSIONS WITH ADJACENT SMALL CONSOLIDATIONS. INTERVAL LEFT OSTOMY. OTHERWISE NO ACUTE ABNORMALITY OF THE ABDOMEN/PELVIS.
[2021-08-15 19:48] VITALS: RESP 18
--- NOTE | 2021-08-15 20:00 | ED ---
Abdominal Pain HPI - General Chief Complaint: Abdominal Pain Stated Complaint: Post op complications Time Seen by Provider: 08/15/21 15:02 Source: patient, RN notes reviewed Mode of arrival: EMS Limitations: no limitations - History of Present Illness Initial Comments: Patient is an 80-year-old female that presents to the emergency Department from facility due to a colostomy bag not having any production. Patient notes that she got a colostomy by Dr. Caal early July. She notes that she has no abdominal pain and distention. She is otherwise well-appearing. She notes that she got era out recently. She does have several small areas in her still healing but no signs or symptoms of infection. Patient was otherwise well- appearing in good spirits not sure why she was sent in. Patient denied any chest pain shortness of breath headache nausea vomiting diarrhea constipation fever fatigue chills. - Related Data Home Medications Medication Instructions Recorded Confirmed Levothyroxine Sodium [Synthroid] 25 mcg PO DAILY@0600 07/05/21 08/15/21 Pramipexole [Mirapex] 1 mg PO HS@209907/05/21 08/15/21 Vit C/E/Zn/Coppr/Lutein/Zeaxan 1 cap PO DAILY@0900 07/05/21 08/15/21 [Preservision Areds 2 Softgel] Atorvastatin [Lipitor] 20 mg PO HS@209908/15/21 08/15/21 Insulin Lispro [humaLOG Kwikpen] See Protocol SQ ACHS 08/15/21 08/15/21 Multivitamins, Thera [Multivitamin] 1 tab PO DAILY@0900 08/15/21 08/15/21 Omeprazole 20 mg PO BID@0600,209908/15/21 08/15/21 Ondansetron [Zofran] 4 mg PO TID PRN 08/15/21 08/15/21 Simethicone 180 mg PO Q8H PRN 08/15/21 08/15/21 Tamsulosin [Flomax] 0.4 mg PO HS@209908/15/21 08/15/21 diazePAM [Valium] 2 mg PO HS@209908/15/21 08/15/21 Previous Rx's Medication Instructions Recorded Acetaminophen Tab [Tylenol] 650 mg PO Q6HR PRN tab 07/25/21 Allergies Allergy/AdvReac Type Severity Reaction Status Date / Time codeine Allergy Itching Verified 08/15/21 16:22 Review of Systems ROS Statement: Those systems with pertinent positive or pertinent negative responses have been documented in the HPI. ROS Other: All systems not noted in ROS Statement are negative. Past Medical History Past Medical History: Hyperlipidemia, Hypertension, Osteoarthritis (OA), Thyroid Disorder Additional Past Medical History / Comment(s): Large hiatal hernia/was to follow with GI specialist, palpitations, anemia, goiter with radiation, hypothyroid, sinus allergies, diverticular disease. History of Any Multi-Drug Resistant Organisms: None Reported Past Surgical History: Joint Replacement, Tonsillectomy Additional Past Surgical History / Comment(s): Bilateral total knee arthroplast ies, several L breast benign biopsies, colonoscopy, D&C. Past Anesthesia/Blood Transfusion Reactions: No Reported Reaction Additional Past Anesthesia/Blood Transfusion Reaction / Comment(s): Pt has clausterphobia. Past Psychological History: No Psychological Hx Reported Smoking Status: Never smoker - Past Family History Father Family Medical History: Cancer Additional Family Medical History / Comment(s): Father of lung to brain cancer. Mother Additional Family Medical History / Comment(s): Mother had "heart problems" and was a "pre-diabetic" General Exam Limitations: no limitations General appearance: alert, in no apparent distress Head exam: Present: atraumatic, normocephalic, normal inspection Eye exam: Present: normal appearance, PERRL, EOMI. Absent: scleral icterus, conjunctival injection, periorbital swelling ENT exam: Present: normal exam, mucous membranes moist Neck exam: Present: normal inspection Respiratory exam: Present: normal lung sounds bilaterally. Absent: respiratory distress, wheezes, rales, rhonchi, stridor Cardiovascular Exam: Present: regular rate, normal rhythm, normal heart sounds. Absent: systolic murmur, diastolic murmur, rubs, gallop, clicks GI/Abdominal exam: Present: soft, normal bowel sounds. Absent: distended, tenderness, guarding, rebound, rigid Extremities exam: Present: normal inspection, full ROM, normal capillary refill. Absent: tenderness, pedal edema, joint swelling, calf tenderness Neurological exam: Present: alert, oriented X3 Psychiatric exam: Present: normal affect, normal mood Skin exam: Present: warm, dry, intact, normal color. Absent: rash Course Vital Signs 08/15/21 08/15/21 14:51 19:47 Temperature 98.5 F Pulse Rate 86 83 Respiratory 16 18 Rate Blood Pressure 129/71 104/66 O2 Sat by Pulse 97 96 Oximetry Medical Decision Making - Medical Decision Making 80-year-old female sent in by facility for a non-producing ostomy. Labs, CT of the abdomen and pelvis, 1 L normal saline ordered. Labs are unremarkable and within baseline limits. CT negative for any acute process other than a chronic small mild to moderate pleural effusion. 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 Covid test ordered and is negative. Case discussed with Dr. Nieves. - Lab Data Result diagrams: 08/15/21 16:34 08/15/21 16:34 Lab Results 08/15/21 08/15/21 08/15/21 Range/Units 16:34 16:34 16:34 WBC 2.8 L (3.8-10.6) k/uL RBC 3.43 L (3.80-5.40) m/uL Hgb 10.5 L D (11.4-16.0) gm/dL Hct 33.1 L (34.0-46.0) % MCV 96.6 (80.0-100.0) fL MCH 30.7 (25.0-35.0) pg MCHC 31.8 (31.0-37.0) g/dL RDW 15.7 H (11.5-15.5) % Plt Count 337 D (150-450) k/uL MPV 7.3 Neutrophils % 76 % Lymphocytes % 14 % Monocytes % 6 % Eosinophils % 2 % Basophils % 1 % Neutrophils # 2.2 (1.3-7.7) k/uL Lymphocytes # 0.4 L (1.0-4.8) k/uL Monocytes # 0.2 (0-1.0) k/uL Eosinophils # 0.0 (0-0.7) k/uL Basophils # 0.0 (0-0.2) k/uL Hypochromasia Slight Sodium 134 L (137-145) mmol/L Potassium 4.2 (3.5-5.1) mmol/L Chloride 100 (98-107) mmol/L Carbon Dioxide 30 (22-30) mmol/L Anion Gap 4 mmol/L BUN 16 (7-17) mg/dL Creatinine 0.45 L (0.52-1.04) mg/dL Est GFR (CKD-EPI)AfAm >90 (>60 ml/min/1.73 sqM) Est GFR (CKD-EPI)NonAf >90 (>60 ml/min/1.73 sqM) Glucose 132 H (74-99) mg/dL Plasma Lactic Acid Colin 0.7 (0.7-2.0) mmol/L Calcium 9.0 (8.4-10.2) mg/dL Total Bilirubin 0.5 (0.2-1.3) mg/dL AST 34 (14-36) U/L ALT 22 (4-34) U/L Alkaline Phosphatase 121 (38-126) U/L Total Protein 6.1 L (6.3-8.2) g/dL Albumin 2.8 L (3.5-5.0) g/dL Amylase 47 (30-110) U/L Lipase 25 (23-300) U/L Urine Color Urine Appearance (Clear) Urine pH (5.0-8.0) Ur Specific [place] (1.001-1.035) Urine Protein (Negative) Urine Glucose (UA) (Negative) Urine Ketones (Negative) Urine Blood (Negative) Urine Nitrite (Negative) Urine Bilirubin (Negative) Urine Urobilinogen (<2.0) mg/dL Ur Leukocyte Esterase (Negative) Urine RBC (0-5) /hpf Urine WBC (0-5) /hpf Ur Squamous Epith Cells (0-4) /hpf Urine Mucus (None) /hpf Coronavirus (PCR) (Not Detectd) 08/15/21 08/15/21 Range/Units 18:46 Unknown WBC (3.8-10.6) k/uL RBC (3.80-5.40) m/uL Hgb (11.4-16.0) gm/dL Hct (34.0-46.0) % MCV (80.0-100.0) fL MCH (25.0-35.0) pg MCHC (31.0-37.0) g/dL RDW (11.5-15.5) % Plt Count (150-450) k/uL MPV Neutrophils % % Lymphocytes % % Monocytes % % Eosinophils % % Basophils % % Neutrophils # (1.3-7.7) k/uL Lymphocytes # (1.0-4.8) k/uL Monocytes # (0-1.0) k/uL Eosinophils # (0-0.7) k/uL Basophils # (0-0.2) k/uL Hypochromasia Sodium (137-145) mmol/L Potassium (3.5-5.1) mmol/L Chloride (98-107) mmol/L Carbon Dioxide (22-30) mmol/L Anion Gap mmol/L BUN (7-17) mg/dL Creatinine (0.52-1.04) mg/dL Est GFR (CKD-EPI)AfAm (>60 ml/min/1.73 sqM) Est GFR (CKD-EPI)NonAf (>60 ml/min/1.73 sqM) Glucose (74-99) mg/dL Plasma Lactic Acid Colin (0.7-2.0) mmol/L Calcium (8.4-10.2) mg/dL Total Bilirubin (0.2-1.3) mg/dL AST (14-36) U/L ALT (4-34) U/L Alkaline Phosphatase (38-126) U/L Total Protein (6.3-8.2) g/dL Albumin (3.5-5.0) g/dL Amylase (30-110) U/L Lipase (23-300) U/L Urine Color Yellow Urine Appearance Clear (Clear) Urine pH 6.5 (5.0-8.0) Ur Specific [place] 1.011 (1.001-1.035) Urine Protein Negative (Negative) Urine Glucose (UA) Negative (Negative) Urine Ketones Negative (Negative) Urine Blood Negative (Negative) Urine Nitrite Negative (Negative) Urine Bilirubin Negative (Negative) Urine Urobilinogen <2.0 (<2.0) mg/dL Ur Leukocyte Esterase Trace H (Negative) Urine RBC 2 (0-5) /hpf Urine WBC 5 (0-5) /hpf Ur Squamous Epith Cells 3 (0-4) /hpf Urine Mucus Rare H (None) /hpf Coronavirus (PCR) Not Detected (Not Detectd) - Radiology Data Radiology results: report reviewed, image reviewed CT of the abdomen and pelvis: Persistent small to moderate bilateral pleural effusions with adjacent small consolidations. Interval ostomy. Otherwise no acute abnormality of the abdomen. Disposition Clinical Impression: Abdominal pain Disposition: HOME SELF-CARE Condition: Stable Instructions (If sedation given, give patient instructions): Abdominal Pain (ED) Additional Instructions: Please return to the Emergency Department if symptoms worsen or any other concerns. Is patient prescribed a controlled substance at d/c from ED?: No Referrals: Mary Faria DO [Primary Care Provider] - 1-2 days Time of Disposition: 20:00
[2021-08-15 21:07] VITALS: BP 141/87; PULSE 77; TEMP 98.7
== END 2021-08-15 22:07 | disposition home or self-care (01) ==
LOC: EC 14:49
DX: R10.9 Unspecified abdominal pain (principal); E78.5 Hyperlipidemia, unspecified; I10 Essential (primary) hypertension; M19.90 Unspecified osteoarthritis, unspecified site; E07.9 Disorder of thyroid, unspecified; Z20.822 Contact with and (suspected) exposure to COVID-19; Z79.4 Long term (current) use of insulin; Z88.5 Allergy status to narcotic agent; Z96.653 Presence of artificial knee joint, bilateral
CPT/HCPCS: 99284; 96360; 36415; 80053; 82150; 83605; 83690; 85025; 81001; 87635; 74177; Q9967

== ENCOUNTER 2021-10-15 13:59 | Emergency (ER) | payer MEDICARE ==
[2021-10-15] MEDS ORDERED: ONDANSETRON 4 MG/2 ML VIAL IVP STA (15:07)
[2021-10-15] MEDS ORDERED: IBUPROFEN IV 600 MG in SODIUM CHLORIDE 0.9% 250 ML IV STA (15:07)
[2021-10-15] MEDS ORDERED: ACETAMINOPHEN TAB 500 MG TAB PO STA (15:07)
[2021-10-15] MEDS ORDERED: SODIUM CHLORIDE 0.9% 500 ML 500 ML IV SCH (15:15)
--- NOTE | 2021-10-15 15:29 | ED ---
General Adult HPI - General Chief complaint: Nausea/Vomiting/Diarrhea Stated complaint: Weakness Time Seen by Provider: 10/15/21 14:25 Source: patient, EMS, RN notes reviewed, old records reviewed Mode of arrival: EMS Limitations: no limitations - History of Present Illness Initial comments: This is an 80-year-old female who presents emergency department stating that she started vomiting yesterday morning he has been continued vomiting and presents to the patient states she's been unable to keep any food down and she is feeling very weak and lightheaded when she stands. Patient denies any abdominal pain. Patient denies any chest pain palpitations difficulty breathing shortest breath per patient did not realize she had a fever until I took it was 100.4. Patient denies any history of coughing or upper respiratory infection. Patient denies any diarrhea. Patient denies any recent antibiotic use. Patient is complaining she still nauseous and she is feeling weak. - Related Data Home Medications Medication Instructions Recorded Confirmed Levothyroxine Sodium [Synthroid] 25 mcg PO DAILY 07/05/21 10/15/21 Pramipexole [Mirapex] 1 mg PO HS 07/05/21 10/15/21 Cholecalciferol [Vitamin D3 (25 25 mcg PO DAILY 10/15/21 10/15/21 Mcg = 1000 Iu)] Enalapril Maleate 10 mg PO DAILY 10/15/21 10/15/21 Ferrous Sulfate [Feosol] 325 mg PO DAILY 10/15/21 10/15/21 Folic Acid 0.8 mg PO DAILY 10/15/21 10/15/21 Meloxicam 15 mg PO DAILY PRN 10/15/21 10/15/21 Pantoprazole [Protonix] 40 mg PO BID PRN 10/15/21 10/15/21 Pravastatin Sodium [Pravachol] 80 mg PO HS 10/15/21 10/15/21 Vit C/E/Zn/Coppr/Lutein/Zeaxan 1 cap PO BID 10/15/21 10/15/21 [Preservision Areds 2 Softgel] Previous Rx's Medication Instructions Recorded Cephalexin [Keflex] 500 mg PO Q6HR #28 cap 10/15/21 Allergies Allergy/AdvReac Type Severity Reaction Status Date / Time codeine Allergy Itching Verified 10/15/21 16:00 Review of Systems ROS Statement: Those systems with pertinent positive or pertinent negative responses have been documented in the HPI. ROS Other: All systems not noted in ROS Statement are negative. Past Medical History Past Medical History: Hyperlipidemia, Hypertension, Osteoarthritis (OA), Thyroid Disorder Additional Past Medical History / Comment(s): Large hiatal hernia/was to follow with GI specialist, palpitations, anemia, goiter with radiation, hypothyroid, sinus allergies, diverticular disease. History of Any Multi-Drug Resistant Organisms: None Reported Past Surgical History: Joint Replacement, Tonsillectomy Additional Past Surgical History / Comment(s): Bilateral total knee arthroplasties, several L breast benign biopsies, colonoscopy, D&C. Past Anesthesia/Blood Transfusion Reactions: No Reported Reaction Additional Past Anesthesia/Blood Transfusion Reaction / Comment(s): Pt has clausterphobia. Past Psychological History: No Psychological Hx Reported Smoking Status: Never smoker Past Alcohol Use History: None Reported Past Drug Use History: None Reported - Past Family History Father Family Medical History: Cancer Additional Family Medical History / Comment(s): Father of lung to brain cancer. Mother Additional Family Medical History / Comment(s): Mother had "heart problems" and was a "pre-diabetic" General Exam - General Exam Comments Initial Comments: GENERAL: Patient is well-developed and well-nourished. Patient is nontoxic and well- hydrated and is in mild distress. ENT: Neck is soft and supple. No significant lymphadenopathy is noted. Oropharynx is clear. Moist mucous membranes. Neck has full range of motion without eliciting any pain. EYES: The sclera were anicteric and conjunctiva were pink and moist. Extraocular movements were intact and pupils were equal round and reactive to light. Eyelids were unremarkable. PULMONARY: Unlabored respirations. Good breath sounds bilaterally. No audible rales rhonchi or wheezing was noted. CARDIOVASCULAR: There is a regular rate and rhythm without any murmurs gallops or rubs. ABDOMEN: Soft and nontender with normal bowel sounds. SKIN: Skin is clear with no lesions or rashes and otherwise unremarkable. NEUROLOGIC: Patient is alert and oriented x3. Cranial nerves II through XII are grossly intact. Motor and sensory are also intact. Normal speech, volume and content. Symmetrical smile. MUSCULOSKELETAL: Normal extremities with adequate strength and full range of motion. No lower extremity swelling or edema. No calf tenderness. LYMPHATICS: No significant lymphadenopathy is noted PSYCHIATRIC: Normal psychiatric evaluation. Limitations: no limitations Course Vital Signs 10/15/21 10/15/21 14:21 17:49 Temperature 100.6 F H 98.7 F Pulse Rate 96 91 Respiratory 18 140 H Rate Blood Pressure 106/52 102/50 O2 Sat by Pulse 97 98 Oximetry Medical Decision Making - Medical Decision Making EKG shows sinus rhythm at 95 bpm DC interval 100 QRS 170 QT interval 347 QTC is 400. Patient's EKG shows no ST segment elevation or depression. - Lab Data Result diagrams: 10/15/21 15:21 10/15/21 15:21 Lab Results 10/15/21 10/15/21 10/15/21 Range/Units 15:21 15:21 15:21 WBC 11.4 H (3.8-10.6) k/uL RBC 3.86 (3.80-5.40) m/uL Hgb 11.2 L (11.4-16.0) gm/dL Hct 35.2 (34.0-46.0) % MCV 91.2 (80.0-100.0) fL MCH 29.0 (25.0-35.0) pg MCHC 31.8 (31.0-37.0) g/dL RDW 14.7 (11.5-15.5) % Plt Count 225 (150-450) k/uL MPV 8.7 Neutrophils % 91 % Lymphocytes % 3 % Monocytes % 5 % Eosinophils % 0 % Basophils % 0 % Neutrophils # 10.3 H (1.3-7.7) k/uL Lymphocytes # 0.4 L (1.0-4.8) k/uL Monocytes # 0.6 (0-1.0) k/uL Eosinophils # 0.0 (0-0.7) k/uL Basophils # 0.0 (0-0.2) k/uL PT 11.0 (9.0-12.0) sec INR 1.0 (<1.2) APTT 26.2 (22.0-30.0) sec Sodium (137-145) mmol/L Potassium (3.5-5.1) mmol/L Chloride (98-107) mmol/L Carbon Dioxide (22-30) mmol/L Anion Gap mmol/L BUN (7-17) mg/dL Creatinine (0.52-1.04) mg/dL Est GFR (CKD-EPI)AfAm (>60 ml/min/1.73 sqM) Est GFR (CKD-EPI)NonAf (>60 ml/min/1.73 sqM) Glucose (74-99) mg/dL Plasma Lactic Acid Colin (0.7-2.0) mmol/L Calcium (8.4-10.2) mg/dL Total Bilirubin (0.2-1.3) mg/dL AST (14-36) U/L ALT (4-34) U/L Alkaline Phosphatase (38-126) U/L Total Protein (6.3-8.2) g/dL Albumin (3.5-5.0) g/dL Urine Color Yellow Urine Appearance Cloudy H (Clear) Urine pH 5.0 (5.0-8.0) Ur Specific [place] 1.023 (1.001-1.035) Urine Protein 1+ H (Negative) Urine Glucose (UA) Negative (Negative) Urine Ketones Trace H (Negative) Urine Blood Negative (Negative) Urine Nitrite Negative (Negative) Urine Bilirubin 1+ H (Negative) Urine Urobilinogen 2.0 (<2.0) mg/dL Ur Leukocyte Esterase Moderate H (Negative) Urine RBC 5 (0-5) /hpf Urine WBC 22 H (0-5) /hpf Ur Squamous Epith Cells 3 (0-4) /hpf Urine Bacteria Rare H (None) /hpf Hyaline Casts 48 H (0-2) /lpf Urine Mucus Rare H (None) /hpf Coronavirus (PCR) (Not Detectd) 10/15/21 10/15/21 10/15/21 Range/Units 15:21 15:21 15:21 WBC (3.8-10.6) k/uL RBC (3.80-5.40) m/uL Hgb (11.4-16.0) gm/dL Hct (34.0-46.0) % MCV (80.0-100.0) fL MCH (25.0-35.0) pg MCHC (31.0-37.0) g/dL RDW (11.5-15.5) % Plt Count (150-450) k/uL MPV Neutrophils % % Lymphocytes % % Monocytes % % Eosinophils % % Basophils % % Neutrophils # (1.3-7.7) k/uL Lymphocytes # (1.0-4.8) k/uL Monocytes # (0-1.0) k/uL Eosinophils # (0-0.7) k/uL Basophils # (0-0.2) k/uL PT (9.0-12.0) sec INR (<1.2) APTT (22.0-30.0) sec Sodium 135 L (137-145) mmol/L Potassium 3.8 (3.5-5.1) mmol/L Chloride 100 (98-107) mmol/L Carbon Dioxide 27 (22-30) mmol/L Anion Gap 8 mmol/L BUN 43 H (7-17) mg/dL Creatinine 1.46 H (0.52-1.04) mg/dL Est GFR (CKD-EPI)AfAm 39 (>60 ml/min/1.73 sqM) Est GFR (CKD-EPI)NonAf 34 (>60 ml/min/1.73 sqM) Glucose 159 H (74-99) mg/dL Plasma Lactic Acid Colin 1.9 (0.7-2.0) mmol/L Calcium 9.0 (8.4-10.2) mg/dL Total Bilirubin 1.1 (0.2-1.3) mg/dL AST 22 (14-36) U/L ALT 10 (4-34) U/L Alkaline Phosphatase 70 (38-126) U/L Total Protein 6.8 (6.3-8.2) g/dL Albumin 3.7 (3.5-5.0) g/dL Urine Color Urine Appearance (Clear) Urine pH (5.0-8.0) Ur Specific [place] (1.001-1.035) Urine Protein (Negative) Urine Glucose (UA) (Negative) Urine Ketones (Negative) Urine Blood (Negative) Urine Nitrite (Negative) Urine Bilirubin (Negative) Urine Urobilinogen (<2.0) mg/dL Ur Leukocyte Esterase (Negative) Urine RBC (0-5) /hpf Urine WBC (0-5) /hpf Ur Squamous Epith Cells (0-4) /hpf Urine Bacteria (None) /hpf Hyaline Casts (0-2) /lpf Urine Mucus (None) /hpf Coronavirus (PCR) Not Detected (Not Detectd) Disposition Clinical Impression: Acute vomiting, Urinary tract infection Disposition: HOME SELF-CARE Instructions (If sedation given, give patient instructions): Urinary Tract Infection in Women (ED), Acute Nausea and Vomiting (ED) Additional Instructions: Patient should increase by mouth intake. Patient's take Keflex as prescribed. Patient's take Zofran when necessary for nausea or vomiting Prescriptions: Cephalexin [Keflex] 500 mg PO Q6HR #28 cap Is patient prescribed a controlled substance at d/c from ED?: No Referrals: Mary Faria DO [Primary Care Provider] - 1-2 days Time of Disposition: 18:11
[2021-10-15 15:50] LABS: Albumin 3.7 g/dL (3.5-5.0); Potassium 3.8 mmol/L (3.5-5.1); Total Bilirubin 1.1 mg/dL (0.2-1.3); Total Protein 6.8 g/dL (6.3-8.2)
[2021-10-15 15:51] LABS: Partial Thromboplastin Time 26.2 sec (22.0-30.0)
[2021-10-15 16:09] LABS: Basophils % (A) 0 %; Eosinophils % (A) 0 %; HCT 35.2 % (34.0-46.0); HGB 11.2 gm/dL (11.4-16.0); Lymphocytes # (A) 0.4 k/uL (1.0-4.8); Lymphocytes % (A) 3 %; MCHC 31.8 g/dL (31.0-37.0); MCV 91.2 fL (80.0-100.0); Mean Platelet Volume 8.7; Monocytes # (A) 0.6 k/uL (0-1.0); Monocytes % (A) 5 %; Neutrophils # (A) 10.3 k/uL (1.3-7.7); Neutrophils % (A) 91 %; Platelet Count 225 k/uL (150-450); RBC 3.86 m/uL (3.80-5.40); RDW 14.7 % (11.5-15.5); WBC 11.4 k/uL (3.8-10.6)
--- NOTE | 2021-10-15 16:17 | XR ---
EXAMINATION TYPE: XR chest 2V DATE OF EXAM: 10/15/2021 COMPARISON: Chest x-ray 07/22/2021 HISTORY: Fever, nausea and vomiting TECHNIQUE: Frontal and lateral views of the chest are obtained. FINDINGS: There is patchy density present at the left lung base than on the right. Patient is rotate d. There is blunting the left costophrenic angle. No evident pneumothorax. Cardiac mediastinal silhou ette appears prominently. Left-sided PICC line is been removed. Calcification superimposed over the l eft upper lobe are again noted. Prominent lung volumes suggest underlying COPD. Calcified left hilar nodes present. There is a hiatal hernia with partial intrathoracic stomach or dilated distal esophagu s. IMPRESSION: There may be basilar atelectasis, difficult to exclude effusion, correlate for pneumonia . Evidence of old granulomatous disease.
[2021-10-15 17:45] LABS: Appearance,Urine Cloudy (Clear); Bacteria,Urine Rare /hpf; Bilirubin,Urine 1+ (Negative); Blood,Urine Negative (Negative); Color,Urine Yellow; Glucose,Urine (UA) Negative (Negative); Hyaline Casts,Urine 48 /lpf (0-2); Ketones,Urine Trace (Negative); Leukocyte Esterase,Urine Moderate (Negative); Mucus,Urine Rare /hpf; Nitrite,Urine Negative (Negative); Protein,Urine 1+ (Negative); RBC,Urine 5 /hpf (0-5); Specific Gravity,Urine 1.023 (1.001-1.035); Squamous Epithelial Cell,Urine 3 /hpf (0-4); WBC,Urine 22 /hpf (0-5)
[2021-10-15 17:52] VITALS: BP 102/50; PULSE 91; RESP 140; TEMP 98.7
[2021-10-15] MEDS ORDERED: cefTRIAXone IN SWFI 1,000 MG/10 ML SYRINGE IVP STA (18:09)
[2021-10-15] MEDS ORDERED: ONDANSETRON 4 MG ODT STARTER PACK 2 TAB BTL PO STA (18:11)
== END 2021-10-15 19:05 | disposition home or self-care (01) ==
LOC: EC 13:59
DX: N39.0 Urinary tract infection, site not specified (principal); R11.10 Vomiting, unspecified; Z20.822 Contact with and (suspected) exposure to COVID-19; I10 Essential (primary) hypertension; E78.5 Hyperlipidemia, unspecified; M19.90 Unspecified osteoarthritis, unspecified site; E03.9 Hypothyroidism, unspecified; Z79.890 Hormone replacement therapy; Z79.899 Other long term (current) drug therapy
CPT/HCPCS: 36415; 93005; 80053; 83605; 85025; 85610; 85730; 81001; 87040; 87086; 87635; 71046; 96374; 96375 ×2; 99285; J2405; J0696; S0119; J1741

== ENCOUNTER → 2022-01-18 | Outpatient (CLI) | payer MEDICARE ==
[2022-01-18 14:27] LABS: Basophils # (A) 0.04 X 10*3/uL (0.00-0.10); Basophils % (A) 0.9 %; Eosinophils # (A) 0.17 X 10*3/uL (0.04-0.35); Eosinophils % (A) 3.8 %; HGB 11.9 g/dL (12.0-15.0); Immature Grans, Automated 0.2 %; Lymphocytes # (A) 0.79 X 10*3/uL (0.90-5.00); Lymphocytes % (A) 17.7 %; MCH 28.4 pg (27.0-32.0); MCHC 31.3 g/dL (32.0-37.0); MCV 90.7 fL (80.0-97.0); Mean Platelet Volume 10.8 fL (9.5-12.2); Monocytes # (A) 0.37 X 10*3/uL (0.20-1.00); Monocytes % (A) 8.3 %; NRBC Per 100 WBC 0 /100 WBCS (0.0-0.0); Neutrophils # (A) 3.08 X 10*3/uL (1.80-7.70); Neutrophils % (A) 69.1 %; Platelet Count 245 X 10*3/uL (140-440); RBC 4.19 X 10*6/uL (4.10-5.20); RDW 14.6 % (11.5-14.5); WBC 4.46 X 10*3/uL (4.50-10.00)
[2022-01-18 14:46] LABS: Potassium 4.2 mmol/L (3.5-5.5)
== END | disposition home or self-care (01) ==
LOC: LABPAT 08:57
PROVIDERS: ATTEND Surgery
DX: Z01.818 Encounter for other preprocedural examination (principal); K57.33 Diverticulitis of large intestine without perforation or abscess with bleeding
CPT/HCPCS: 80051; 85025; 93005

== ENCOUNTER 2022-01-28 09:55 | Day surgery (SDC) | payer MEDICARE ==
[2022-01-23 15:16] VITALS: BMI 23.3
[~2022-01-28 09:55] MED LIST: LACTATED RINGERS 1,000 ML IV SCH; LIDOCAINE 1% (10MG/ML) FOR IV START INTRADERMA PRN
[2022-01-28 10:21] VITALS: TEMP 98.2
[2022-01-28] MEDS ORDERED: PROPOFOL 10 MG/ML 20 ML VIAL IV ONE (11:07)
--- NOTE | 2022-01-28 11:09 | P.GSHP ---
History of Present Illness H&P Date: 01/28/22 Chief Complaint: History of diverticulitis This is a 81-year-old female presents today for colonoscopy. Patient has previous History of diverticulitis. Past Medical History Past Medical History: Hyperlipidemia, Hypertension, Osteoarthritis (OA), Thyroid Disorder Additional Past Medical History / Comment(s): hx hiatal hernia, palpitations, anemia, goiter with radiation,diverticular disease. History of Any Multi-Drug Resistant Organisms: None Reported Past Surgical History: Bowel Resection, Joint Replacement, Tonsillectomy Additional Past Surgical History / Comment(s): Bilateral knee replacements, several L breast benign biopsies, colonoscopy, D&C. hiatal hernia surgery then 3-4 days post op had bowel resection with colostomy 07/2021(d/t bleeding/infection), serafin cataracts Past Anesthesia/Blood Transfusion Reactions: No Reported Reaction Additional Past Anesthesia/Blood Transfusion Reaction / Comment(s): Pt has claustrophobia. Smoking Status: Never smoker - Past Family History Father Family Medical History: Cancer Additional Family Medical History / Comment(s): lung Mother Additional Family Medical History / Comment(s): Mother had "heart problems" and was a "pre-diabetic" Medications and Allergies Home Medications Medication Instructions Recorded Confirmed Type Levothyroxine Sodium [Synthroid] 25 mcg PO DAILY 07/05/21 01/28/22 History Pramipexole [Mirapex] 1 mg PO HS 07/05/21 01/28/22 History Cholecalciferol [Vitamin D3 (25 25 mcg PO DAILY 10/15/21 01/28/22 History Mcg = 1000 Iu)] Enalapril Maleate 10 mg PO DAILY 10/15/21 01/28/22 History Ferrous Sulfate [Feosol] 325 mg PO MOWEFR 10/15/21 01/28/22 History Folic Acid 0.4 mg PO 1200 10/15/21 01/28/22 History Meloxicam 15 mg PO DAILY 10/15/21 01/28/22 History Pravastatin Sodium [Pravachol] 80 mg PO HS 10/15/21 01/28/22 History Vit C/E/Zn/Coppr/Lutein/Zeaxan 1 cap PO BID 10/15/21 01/28/22 History [Preservision Areds 2 Softgel] Allergies Allergy/AdvReac Type Severity Reaction Status Date / Time codeine Allergy Itching Verified 01/28/22 10:16 latex Allergy Itching Verified 01/28/22 10:16 Surgical - Exam Vital Signs Temp Pulse Resp BP Pulse Ox 98.2 F 87 18 177/74 97 01/28/22 10:13 01/28/22 10:13 01/28/22 10:13 01/28/22 10:13 01/28/22 10:13 - General well developed, well nourished, no distress - Eyes PERRL - ENT normal pinna - Neck no masses - Respiratory normal expansion - Cardiovascular Rhythm: regular - Abdomen Abdomen: soft, non tender Assessment and Plan Assessment: History of diverticulitis. We'll perform colonoscopy.
--- NOTE | 2022-01-28 11:17 | P.OP ---
Date of Procedure: 01/28/22 Preoperative Diagnosis: Diverticulitis Postoperative Diagnosis: Diverticulosis Poor colon prep Procedure(s) Performed: Colonoscopy Anesthesia: MAC Surgeon: Js Ryan Pathology: none sent Condition: stable Disposition: PACU Description of Procedure: Patient's placed on the endoscopy table in the lateral position. She received IV sedation. The digital rectal exam was performed which revealed external hemorrhoids. There was a large amount stool in rectal vault. Possible colonoscope was then placed patient anus passed into the colon. In the; there was a large amount stool prevented the scope from being advanced. This point the scope was withdrawn. The visualized sigmoid colon had a few scattered diverticula. The rectum appeared normal. Scope was withdrawn for patient. Patient will need to be reprepped for colonoscopy.
[2022-01-28 11:49] VITALS: BP 145/77; PULSE 68; RESP 20
[2022-01-28] MEDS ORDERED: NA PHOS,M-B/NA PHOS,DI-BA 133 ML ENEMA RECTAL ONE ×2 (12:04→12:15)
== END 2022-01-28 12:30 | disposition home or self-care (01) ==
LOC: ORWHC2ENDO 09:55
PROVIDERS: ATTEND Surgery
DX: K57.30 Diverticulosis of large intestine without perforation or abscess without bleeding (principal); E78.5 Hyperlipidemia, unspecified; I10 Essential (primary) hypertension; M19.90 Unspecified osteoarthritis, unspecified site; E07.9 Disorder of thyroid, unspecified; R00.2 Palpitations; D64.9 Anemia, unspecified; Z97.2 Presence of dental prosthetic device (complete) (partial); Z92.3 Personal history of irradiation; Z90.49 Acquired absence of other specified parts of digestive tract; Z96.653 Presence of artificial knee joint, bilateral; Z98.42 Cataract extraction status, left eye; Z98.41 Cataract extraction status, right eye; F40.240 Claustrophobia; Z80.1 Family history of malignant neoplasm of trachea, bronchus and lung; Z82.49 Family history of ischemic heart disease and other diseases of the circulatory system; Z79.1 Long term (current) use of non-steroidal anti-inflammatories (NSAID); Z79.890 Hormone replacement therapy; Z79.899 Other long term (current) drug therapy; Z88.5 Allergy status to narcotic agent; Z91.040 Latex allergy status
CPT/HCPCS: 45378; J2704

== ENCOUNTER 2022-01-29 06:38 | Inpatient (IN) | payer MEDICARE ==
[2022-01-23 15:50] VITALS: BMI 23.3
[~2022-01-29 06:38] MED LIST changes: +ACETAMINOPHEN TAB 500 MG TAB PO PRN; +DEXAMETHASONE SOD PHOSPHATE 4 MG/ML 1 ML VIAL IV ONE; +HEPARIN SODIUM,PORCINE/PF 5,000 UNIT/0.5 ML SYRINGE SQ PRN; -LACTATED RINGERS 1,000 ML IV SCH; +MIDAZOLAM 2 MG/2 ML VIAL IV PRN; +ONDANSETRON 4 MG/2 ML VIAL IVP ONE; +metroNIDAZOLE-NS PMX 500 MG in SALINE 1 100ML.BAG IVPB PRN
[2022-01-29] MEDS: LACTATED RINGERS 1,000 ML IV SCH ×2 (07:55→08:49)
--- NOTE | 2022-01-29 08:02 | P.GSHP ---
History of Present Illness H&P Date: 01/29/22 Chief Complaint: History of perforated diverticulitis This 81-year-old female who has a colostomy for previous history of perforated diverticula is. Patient presents today for reversal of colostomy. Past Medical History Past Medical History: Hyperlipidemia, Hypertension, Osteoarthritis (OA), Thyroid Disorder Additional Past Medical History / Comment(s): hx hiatal hernia, palpitations, anemia, goiter with radiation,diverticular disease. History of Any Multi-Drug Resistant Organisms: None Reported Past Surgical History: Bowel Resection, Joint Replacement, Tonsillectomy Additional Past Surgical History / Comment(s): Bilateral knee replacements, several L breast benign biopsies, colonoscopy, D&C. hiatal hernia surgery then 3-4 days post op had bowel resection with colostomy 07/2021(d/t bleeding/infection), serafin cataracts Past Anesthesia/Blood Transfusion Reactions: No Reported Reaction Additional Past Anesthesia/Blood Transfusion Reaction / Comment(s): Pt has claustrophobia. Smoking Status: Never smoker - Past Family History Father Family Medical History: Cancer Additional Family Medical History / Comment(s): lung Mother Additional Family Medical History / Comment(s): Mother had "heart problems" and was a "pre-diabetic" Medications and Allergies Home Medications Medication Instructions Recorded Confirmed Type Levothyroxine Sodium [Synthroid] 25 mcg PO DAILY 07/05/21 01/29/22 History Pramipexole [Mirapex] 1 mg PO HS 07/05/21 01/29/22 History Cholecalciferol [Vitamin D3 (25 25 mcg PO DAILY 10/15/21 01/28/22 History Mcg = 1000 Iu)] Enalapril Maleate 10 mg PO DAILY 10/15/21 01/29/22 History Ferrous Sulfate [Feosol] 325 mg PO MOWEFR 10/15/21 01/28/22 History Folic Acid 0.4 mg PO 1200 10/15/21 01/29/22 History Meloxicam 15 mg PO DAILY 10/15/21 01/28/22 History Pravastatin Sodium [Pravachol] 80 mg PO HS 10/15/21 01/29/22 History Vit C/E/Zn/Coppr/Lutein/Zeaxan 1 cap PO BID 10/15/21 01/28/22 History [Preservision Areds 2 Softgel] Allergies Allergy/AdvReac Type Severity Reaction Status Date / Time codeine Allergy Itching Verified 01/29/22 07:29 latex Allergy Itching Verified 01/29/22 07:29 Surgical - Exam Vital Signs Temp Pulse Resp BP Pulse Ox 98.5 F 72 16 137/62 100 01/29/22 07:39 01/29/22 07:39 01/29/22 07:39 01/29/22 07:39 01/29/22 07:39 - General well developed, well nourished, no distress - Eyes PERRL - ENT normal pinna - Neck no masses - Respiratory normal expansion - Cardiovascular Rhythm: regular - Abdomen Colostomy left lower quadrant Abdomen: soft, non tender Assessment and Plan Assessment: History of perforated diverticula is. We'll perform reversal colostomy.
[2022-01-29] MEDS ORDERED: NALOXONE 0.4 MG/ML 1 ML VIAL IV PRN ×2 (08:48→08:49)
[2022-01-29] MEDS ORDERED: ROCURONIUM 10 MG/ML (5 ML VIAL) IV ONE (08:49)
[2022-01-29] MEDS ORDERED: PROPOFOL 10 MG/ML 20 ML VIAL IV ONE (08:49)
[2022-01-29] MEDS ORDERED: fentaNYL (PF) 50 MCG/ML 2 ML AMP ONE (08:49)
[2022-01-29] MEDS ORDERED: NEOSTIGMINE 1 MG/ML 10 ML VIAL ONE (08:49)
[2022-01-29] MEDS ORDERED: ePHEDrine 50 MG/ML 1 ML VIAL ONE (08:49)
[2022-01-29] MEDS ORDERED: LIDOCAINE 2% INJ 20 MG/ML (2 ML VIAL) ONE (08:49)
[2022-01-29] MEDS ORDERED: GLYCOPYRROLATE 0.2 MG/ML 2 ML VIAL ONE (08:49)
[2022-01-29] MEDS ORDERED: LACTATED RINGERS 1,000 ML IV ONE ×3 (09:43→13:39)
[2022-01-29] MEDS ORDERED: KETOROLAC 15 MG/ML 1 ML VIAL IVP PRN (10:11)
[2022-01-29] MEDS ORDERED: METOCLOPRAMIDE 5 MG/ML 2 ML VIAL IVP PRN (10:11)
[2022-01-29] MEDS ORDERED: ONDANSETRON 4 MG/2 ML VIAL IVP PRN (10:11)
[2022-01-29] MEDS: ROPIVACAINE 250 MG, fentaNYL (PF) 625 MCG in SODIUM CHLORIDE 0.9% 188 ML EPIDURAL PRN ×2 (10:19→15:56)
--- NOTE | 2022-01-29 10:20 | P.OP ---
Date of Procedure: 01/29/22 Preoperative Diagnosis: History of perforated diverticulitis Postoperative Diagnosis: History of perforated diverticulitis Incisional hernia Parastomal hernia Procedure(s) Performed: Reversal colostomy Partial colectomy Repair of parastomal hernia Repair of incisional hernia Anesthesia: YANNI Surgeon: Js Ryan Estimated Blood Loss (ml): 25 Pathology: other (Left colon) Condition: stable Disposition: PACU Description of Procedure: DESCRIPTION OF PROCEDURE: The patient's placed on the operative table in supine position. She received general endotracheal anesthesia. She was then placed in dorsal lithotomy position. Her abdomen was prepped and draped in sterile fashion. The patient had an obvious incisional hernia and parastomal hernia. The skin was incised in midline. Using left cautery and subcutaneous tissue divided. The fascia was then divided in the midline. The hernia was entered. The Bookwalter tract with wound. Next the abdomen was explored. The patient a large parastomal hernia. The colon and small bowel reduced. The colon was then transected with a GI stapler at the fascial level. The fascia of the peritoneal hernia was then closed using #1 Eitan fix suture. Next the distal colon was examined. There appeared to be diverticular changes of the distal colon. An enterotomy was then made in the colon. The anvil for the 25 mm EEA stapler was placed into the colon. The colon was then transected and then the anvil was driven through the staple line. The distal colon was then divided by dividing the mesentery the bowel. Specimens of pathology. The rectal stump was examined. The rectal stump was then freed. The adhesions to small bowel were lysed. At this point the system placed the anal dilator the patient's anus. And then the stapler was placed into the anus. The stapler was positioned and the spike was returned through the anterior rectal wall. To the rectum by connecting the anvil to the stapler. Stay was a fire to close. The stapler was withdrawn. 2 intact tissue rings were withdrawn. A hydroureter was then used to occlude the bowel. And then the rectum was inflated with air. There is no incision any leakage. The abdomen was irrigated is no bleeding seen. The fascia was closed loop 1. The hernia was closed her fascial repair. And then skin was closed with era. Patient top she will was sent to recovery in stable condition.
[2022-01-29] MEDS: HYDROmorphone 0.5 MG/0.5 ML SYRINGE IVP PRN ×2 (10:34→10:46)
[2022-01-29] MEDS: HYDROmorphone 1 MG/ML 1 ML SYRINGE IVP PRN (20:21)
[2022-01-29] MEDS: ALVIMOPAN 12 MG CAPSULE PO SCH (20:22)
[2022-01-29] MEDS: PRAVASTATIN SODIUM 80 MG TAB PO SCH (20:22)
[2022-01-29] MEDS: FAMOTIDINE 20 MG/2 ML VIAL IV SCH (20:22)
--- NOTE | 2022-01-29 20:46 | CONS ---
CONSULTATION DATE OF SERVICE: 01/29/2022 REASON FOR CONSULTATION: Advice regarding hypertension and multiple medical issues, requested by surgery, Dr. Ryan. HISTORY OF PRESENT ILLNESS: This 81-year-old woman with a past medical history of hypertension, hyperlipidemia being followed by Dr. Faria in the outpatient setting, underwent reversal of colostomy and partial colectomy, repair of hernia, repair of incisional hernia by Dr. Ryan. Patient complaining of severe pain. Epidural has been adjusted. There is no history of fever, rigors. No history of headache, loss of consciousness or seizures. PAST MEDICAL HISTORY: Include hypertension and hyperlipidemia. MEDICATIONS: Reviewed and include: Enalapril 10 mg. the rest of the medication doses are reviewed. ALLERGIES: CODEINE AND LATEX. FAMILY HISTORY: History of lung cancer. SOCIAL HISTORY: No history of smoking, alcohol. REVIEW OF SYSTEMS: 14-point review of systems is negative except as mentioned earlier. PHYSICAL EXAMINATION: Pulse is 70. Blood pressure 128/53, respiratory rate 14. HEENT: Conjunctivae normal. NECK: No JVD. CARDIOVASCULAR: S1, S2 muffled. RESPIRATORY: Breath sounds diminished in the bases. No rhonchi. No crackles. ABDOMEN: Soft, status post surgery. Bowel sounds diminished. LEGS are no edema. No swelling. NERVOUS SYSTEM: No focal deficits. LABS: The preop labs are reviewed. Hemoglobin is 11. Coags are normal. ASSESSMENT: 1. Status post reversal of colostomy. 2. Hypertension. 3. Hyperlipidemia. 4. degenerative joint disease. RECOMMENDATIONS AND DISCUSSION: This 81-year-old woman who presented after surgery, has multiple medical issues. I recommend resuming the home medication. Monitor closely. Pain medications. DVT prophylaxis. We will follow. Proton pump inhibitors will be followed. We will follow the patient closely. The patient may be asked to follow with Dr. Faria closely after discharge. Thank you Dr. Ryan. MMODL / IJN: [id number] / [facility]
[2022-01-29] MEDS: D5-0.45% NACL WITH KCL 20MEQ/L 1,000 ML IV SCH ×2 (23:50→23:53)
[2022-01-30] MEDS: D5-0.45% NACL WITH KCL 20MEQ/L 1,000 ML IV SCH ×3 (05:55→17:12)
--- NOTE | 2022-01-30 07:01 | P.PN ---
Progress Note - Text Progress Note Date: 01/30/22 POD 1 from colostomy reversal, epidural catheter not working well. requiring IV meds all day yesterday. will d/c catheter today. order placed. grzegorz murguia MD.
[2022-01-30] MEDS: LACTATED RINGERS 1,000 ML IV SCH (07:32)
[2022-01-30] MEDS: ALVIMOPAN 12 MG CAPSULE PO SCH ×2 (08:39→22:02)
[2022-01-30] MEDS: lisinopriL 10 MG TAB PO SCH (08:39)
[2022-01-30] MEDS: LEVOTHYROXINE 25 MCG TAB PO SCH (08:39)
[2022-01-30] MEDS: FAMOTIDINE 20 MG/2 ML VIAL IV SCH ×2 (08:57→22:02)
[2022-01-30 09:06] LABS: HCT 31.8 % (37.2-46.3); MCH 27.7 pg (27.0-32.0); MCHC 31.4 g/dL (32.0-37.0); MCV 88.1 fL (80.0-97.0); Mean Platelet Volume 11.3 fL (9.5-12.2); NRBC Per 100 WBC 0 /100 WBCS (0.0-0.0); Platelet Count 225 X 10*3/uL (140-440); RBC 3.61 X 10*6/uL (4.10-5.20); WBC 11.34 X 10*3/uL (4.50-10.00)
[2022-01-30] MEDS: ROPIVACAINE 250 MG, fentaNYL (PF) 625 MCG in SODIUM CHLORIDE 0.9% 188 ML EPIDURAL PRN (09:14)
--- NOTE | 2022-01-30 09:14 | P.ANPRN ---
Procedure Note - Anesthesia - Epidural/Spinal Epidural Time Out Performed: Yes Date of Procedure: 01/29/22 Procedure Start Time: 07:49 Procedure Stop Time: 08:01 Location of Patient: PreOp Indication: Acute Post-Operative Pain, Requested by Surgeon (Dr Ryan) Sedation Type: Sedate with meaningful contact maintained Preparation: Sterile Dressing Position: Sitting Catheter: Indwelling Needle Guage: 18 Injectate: Test Dose Lidocaine1.5% w/1:200,000 epi (3cc without response) Blood Aspirated: No Pain Paresthesia on Injection Noted: No Events: Uneventful and Well Tolerated
[2022-01-30 09:16] LABS: African American GFR (CKD) 94.2 (60.0-200.0); Anion Gap 10.2 mmol/L (10.00-18.00); BUN/Creat Ratio 29.71 Ratio (12.00-20.00); Blood Urea Nitrogen 20.8 mg/dL (9.0-27.0); Calcium 8.5 mg/dL (8.7-10.3); Carbon Dioxide 25.8 mmol/L (20.0-27.5); Non-African American GFR(CKD) 81.3 (60.0-200.0); Potassium 4.1 mmol/L (3.5-5.5)
--- NOTE | 2022-01-30 15:27 | P.PN ---
Subjective Progress Note Date: 01/30/22 CHIEF COMPLAINT: History of perforated diverticulitis HISTORY OF PRESENT ILLNESS: Patient is status post reversal of colostomy, partial colectomy, repair of parastomal hernia and repair of incisional hernia. Postop day #1. Patient reports her pain is controlled. She has epidural at 10. For catheter in place. She denies any nausea or vomiting. Does report a small amount of flatus. Denies any bowel movement. Afebrile. Currently on clear liquids. PHYSICAL EXAM: VITAL SIGNS: Reviewed. GENERAL: Well-developed in no acute distress. HEENT: No sclera icterus. Extraocular movements grossly intact. Moist buccal mucosa. Head is atraumatic, normocephalic. ABDOMEN: Soft. Nondistended. Incision site clean dry and intact. The gauze bandage that showed some blood saturation. NEUROLOGIC: Alert and oriented. Cranial nerves II through XII grossly intact. ASSESSMENT: 1. History of perforated diverticulitis, Incisional hernia, Parastomal hernia status post reversal of colostomy, partial colectomy, repair of parastomal hernia and repair of incisional hernia PLAN: -Continue epidural for pain control -Continue supportive care -Continue clear liquid diet -Encouraged patient to increase activity level -Encouraged patient to use incentive spirometer -PT OT on consult -Change incisional dressing to optifoam -GI prophylaxis Pepcid and DVT prophylaxis subcu heparin Physician Vegetable Harvest Worker note has been reviewed by physician. Signing provider agrees with the documented findings, assessment, and plan of care. Objective - Vital Signs Vital signs: Vital Signs Temp 98.2 F 01/30/22 08:00 Pulse 64 01/30/22 08:00 Resp 18 01/30/22 08:00 BP 116/66 01/30/22 08:00 Pulse Ox 93 L 01/30/22 08:00 FiO2 Intake & Output 01/29/22 01/30/22 01/30/22 18:59 06:59 18:59 Intake Total 3100 100 Output Total 450 Balance 2650 100 Weight 61.6 kg Intake: IV 2300 Intake, IV Titration 100 Amount Ropivacaine 250 mg 100 fentaNYL (PF) 625 mcg In Sodium Chloride 0.9% 188 ml @ Per Protocol EPIDURAL .Q0M PRN Rx#: [id number] Oral 800 Output: Urine 350 Estimated Blood Loss 100 Other: Voiding Method Indwelling Catheter Indwelling Catheter - Labs CBC & Chem 7: 01/30/22 04:27 01/30/22 04:27 Labs: Abnormal Lab Results - Last 24 Hours (Table) 01/30/22 01/30/22 Range/Units 04:27 04:27 WBC 11.34 H (4.50-10.00) X 10*3/uL RBC 3.61 L (4.10-5.20) X 10*6/uL Hgb 10.0 L (12.0-15.0) g/dL Hct 31.8 L (37.2-46.3) % MCHC 31.4 L (32.0-37.0) g/dL BUN/Creatinine Ratio 29.71 H (12.00-20.00) Ratio Glucose 204 H (70-110) mg/dL Calcium 8.5 L (8.7-10.3) mg/dL
--- NOTE | 2022-01-30 15:51 | P.PN ---
Subjective Progress Note Date: 01/30/22 This is an 81-year-old female who was recently admitted under surgical services and underwent reversal of colostomy with partial colectomy, repair of multiple hernias and repair of incisional hernia and is being closely monitored. Patient continues on epidural pain pump and weaning although continues with significant pain. Patient reports her pain has improved from last night although continues with some abdominal discomfort. She continues with indwelling Diego catheter and will remove once epidural has been removed. Patient denies nausea or vomiting and is tolerating clear liquid diet. Patient denies chest pain or shortness of breath and patient is afebrile. WBC mild reactive at 11.34 and recommend repeat labs in the morning. Repeat labs ordered for a.m. Encourage incentive spirometer use at the bedside and increased activity as tolerated. She reports the passing some gas with no reports of bowel movement as of yet. Review of systems: Constitutional: No reports of fatigue, fever, or chills Cardiovascular: No reports of chest pain or palpitations Respiratory: No reports of shortness of breath or cough GI: No reports of nausea, no reports of of vomiting, patient is passing gas : No reports of dysuria or retention Neurovascular: reports of generalized weakness, reports right hip pain All medications have been reviewed Active Medications Alvimopan (Alvimopan 12 Mg Capsule) 12 mg PO BID [facility] Stop: 02/05/22 09:01 Last Admin: 01/30/22 08:39 Dose: 12 mg Famotidine (Famotidine 20 Mg/2 Ml Vial) 20 mg IV BID [facility] Last Admin: 01/30/22 08:57 Dose: 20 mg Heparin Sodium (Porcine) (Heparin Sodium,Porcine/Pf 5,000 Unit/0.5 Ml Syringe) 5,000 unit SQ Q12HR [facility] Hydromorphone HCl (Hydromorphone 1 Mg/Ml 1 Ml Syringe) 1 mg IVP Q3HR PRN PRN Reason: Severe Pain Last Admin: 01/29/22 20:21 Dose: 1 mg Lactated Ringer's (Lactated Ringers) 1,000 mls @ 20 mls/hr IV .Q24H [facility] Last Admin: 01/30/22 07:32 Dose: Not Given Ropivacaine 250 mg/ Fentanyl Citrate 625 mcg/ Sodium Chloride 250 mls @ 0 mls/hr EPIDURAL .Q0M PRN; Protocol PRN Reason: Breakthrough Pain Last Admin: 01/30/22 09:14 Dose: 10 mls/hr Potassium Chloride/Dextrose/Sod Cl (D5%-1/2ns-Kcl 20 Meq/L Iv Solution) 1,000 mls @ 125 mls/hr IV .Q8H [facility] Last Admin: 01/30/22 08:57 Dose: 125 mls/hr Ketorolac Tromethamine (Ketorolac 15 Mg/Ml 1 Ml Vial) 15 mg IVP Q6HR PRN PRN Reason: Mild to Moderate Pain Stop: 01/31/22 10:12 Last Admin: 01/29/22 16:29 Dose: 15 mg Levothyroxine Sodium (Levothyroxine 25 Mcg Tab) 25 mcg PO 629 [facility] Last Admin: 01/30/22 08:39 Dose: 25 mcg Lidocaine HCl (Lidocaine 1% (10mg/Ml) For Iv Start) 0.1 ml INTRADERMA PER PROTOCOL PRN PRN Reason: IV Start Lisinopril (Lisinopril 10 Mg Tab) 10 mg PO DAILY [facility] Last Admin: 01/30/22 08:39 Dose: 10 mg Metoclopramide HCl (Metoclopramide 5 Mg/Ml 2 Ml Vial) 10 mg IVP Q6HR PRN PRN Reason: Nausea and Vomiting Naloxone HCl (Naloxone 0.4 Mg/Ml 1 Ml Vial) 0.2 mg IV Q2M PRN PRN Reason: Opioid Reversal Naloxone HCl (Naloxone 0.4 Mg/Ml 1 Ml Vial) 0.2 mg IV Q2M PRN PRN Reason: Opioid Reversal Ondansetron HCl (Ondansetron 4 Mg/2 Ml Vial) 4 mg IVP Q8HR PRN PRN Reason: Nausea And Vomiting Pravastatin Sodium (Pravastatin Sodium 80 Mg Tab) 80 mg PO HS [facility] Last Admin: 01/29/22 20:22 Dose: 80 mg PHYSICAL EXAMINATION: GENERAL: The patient is alert and oriented x4, Well developed, well nourished. HEENT: Pupils are round and equally reacting to light. EOMI. no scleral icterus. No conjunctival pallor. Normocephalic, atraumatic. No pharyngeal erythema. No thyromegaly. CARDIOVASCULAR: S1 and S2 muffled PULMONARY: diminished breath sounds bilaterally with no wheezing or rhonchi noted. ABDOMEN: soft. Mildly tender on exam. non-distended, normoactive bowel sounds. No palpable organomegaly. MUSCULOSKELETAL: No joint swelling or deformity. EXTREMITIES: No cyanosis, clubbing, or pedal edema. NEUROLOGICAL: Gross neurological examination did not reveal any focal deficits. SKIN: No rashes. Assessment: Status post reversal of colostomy, partial colectomy, repair of parastomal hernia and repair of incisional hernia History of perforated diverticulitis Hypertension Hyperlipidemia Degenerative joint disease GI prophylaxis DVT prophylaxis Full code Plan: Recommend to continue with current medications and management per surgical services. Patient continues on epidural pain pump with anesthesia following with possible weaning and discontinuing tomorrow. Patient continues with indwelling Diego catheter and report still a small amount of gas but no bowel movement as of yet. Patient reports she will be getting up soon with physical therapy and encouraged activity as tolerated. Patient currently maintained on clear liquid diet and will continue until advanced per surgical services. Appropriate home medications resumed and recommend to monitor blood pressures closely as they've been on the softer side. Patient with incentive spirometer at the bedside and encourage the patient to continue using at least 10 times every hour while awake. Surgical dressing is dry and intact and will continue with local wound care. Patient tolerating diet with no reports of nausea or vomiting noted. We will continue to follow with surgery during hospitalization. Thank you for this consultation. Recommend repeat a.m. labs. The impression and plan of care has been dictated by Kath Bob, nurse practitioner as directed. MD Salvador I have performed a history and examination and MDM of this patient, discussed the same with the dictator, and agree with the dictator's assessment and plan as written ,documented as a scribe. Based on total visit time, I have performed more than 50% of the visit. Any additional findings or plans will be noted. Objective - Vital Signs Vital signs: Vital Signs Temp 98.2 F 01/30/22 03:30 Pulse 65 01/30/22 03:30 Resp 14 01/30/22 03:30 BP 110/56 01/30/22 03:30 Pulse Ox 95 01/30/22 03:30 FiO2 Intake & Output 01/29/22 01/30/22 01/30/22 18:59 06:59 18:59 Intake Total 3100 Output Total 450 Balance 2650 Weight 61.6 kg Intake: IV 2300 Oral 800 Output: Urine 350 Estimated Blood Loss 100 Other: Voiding Method Indwelling Catheter - Labs CBC & Chem 7: 01/30/22 04:27 01/30/22 04:27 Labs: Abnormal Lab Results - Last 24 Hours (Table) 01/30/22 Range/Units 04:27 WBC 11.34 H (4.50-10.00) X 10*3/uL RBC 3.61 L (4.10-5.20) X 10*6/uL Hgb 10.0 L (12.0-15.0) g/dL Hct 31.8 L (37.2-46.3) % MCHC 31.4 L (32.0-37.0) g/dL
[2022-01-30] MEDS: HEPARIN SODIUM,PORCINE/PF 5,000 UNIT/0.5 ML SYRINGE SQ SCH (22:02)
[2022-01-30] MEDS: PRAVASTATIN SODIUM 80 MG TAB PO SCH (22:02)
[2022-01-31] MEDS: D5-0.45% NACL WITH KCL 20MEQ/L 1,000 ML IV SCH ×3 (02:07→18:27)
[2022-01-31] MEDS: LEVOTHYROXINE 25 MCG TAB PO SCH (07:54)
--- NOTE | 2022-01-31 08:47 | P.PN ---
Progress Note - Text Progress Note Date: 01/31/22 (07) Anesthesia Postop day #2 Status post colostomy reversal with epidural day #3 Patient seen and examined. Doing well. Mild pruritus. No nausea or vomiting. VAS 2 out of 10. . Ropivacaine [0.1%] with fentanyl 5 mcg/mL at currently paused an hour. Objective: Vital signs reviewed Lungs: Good chest excursion Abdomen: Appears nondistended Other: [Epidural Site Intact without induration. Dressing intact] Neuro: [No apparent motor block]. [Sensory within normal limits]. Assessment: Status post colostomy reversal postop day #2 Plan: Continue current care with your medical management. Anticipate discontinued tomorrow.
[2022-01-31] MEDS: ROPIVACAINE 250 MG, fentaNYL (PF) 625 MCG in SODIUM CHLORIDE 0.9% 188 ML EPIDURAL PRN (08:52)
[2022-01-31] MEDS: LACTATED RINGERS 1,000 ML IV SCH (08:58)
[2022-01-31 09:26] LABS: Basophils # (A) 0.02 X 10*3/uL (0.00-0.10); Basophils % (A) 0.3 %; Eosinophils # (A) 0.03 X 10*3/uL (0.04-0.35); Eosinophils % (A) 0.4 %; HCT 34.3 % (37.2-46.3); HGB 10.7 g/dL (12.0-15.0); Immature Grans, Automated 0.3 %; Lymphocytes # (A) 0.93 X 10*3/uL (0.90-5.00); Lymphocytes % (A) 13.1 %; MCH 28.1 pg (27.0-32.0); MCHC 31.2 g/dL (32.0-37.0); Mean Platelet Volume 11.4 fL (9.5-12.2); Monocytes # (A) 0.69 X 10*3/uL (0.20-1.00); Monocytes % (A) 9.7 %; NRBC Per 100 WBC 0 /100 WBCS (0.0-0.0); Neutrophils # (A) 5.39 X 10*3/uL (1.80-7.70); Neutrophils % (A) 76.2 %; Platelet Count 209 X 10*3/uL (140-440); RBC 3.81 X 10*6/uL (4.10-5.20); RDW 14.6 % (11.5-14.5); WBC 7.08 X 10*3/uL (4.50-10.00)
[2022-01-31] MEDS: diphenhydrAMINE 25 MG CAP PO PRN ×2 (11:14→18:27)
[2022-01-31] MEDS: FAMOTIDINE 20 MG/2 ML VIAL IV SCH ×2 (11:44→21:37)
[2022-01-31] MEDS: ALVIMOPAN 12 MG CAPSULE PO SCH ×2 (11:50→21:37)
[2022-01-31] MEDS: HEPARIN SODIUM,PORCINE/PF 5,000 UNIT/0.5 ML SYRINGE SQ SCH ×2 (11:51→21:37)
[2022-01-31] MEDS: lisinopriL 10 MG TAB PO SCH (11:51)
--- NOTE | 2022-01-31 14:42 | P.PN ---
Subjective Progress Note Date: 01/31/22 CHIEF COMPLAINT: History of perforated diverticulitis HISTORY OF PRESENT ILLNESS: Patient is status post reversal of colostomy, partial colectomy, repair of parastomal hernia and repair of incisional hernia. Postop day #2. Patient reports her pain is controlled with epidural. She denies any nausea or vomiting. She reports having flatus. She is requesting increased diet. Afebrile. WBC is 7.08 Hgb 10.7 platelets 209 PHYSICAL EXAM: VITAL SIGNS: Reviewed. GENERAL: Well-developed in no acute distress. HEENT: No sclera icterus. Extraocular movements grossly intact. Moist buccal mucosa. Head is atraumatic, normocephalic. ABDOMEN: Soft. Nondistended. Incisional dressing with a small area of blood saturation at the distal aspect NEUROLOGIC: Alert and oriented. Cranial nerves II through XII grossly intact. ASSESSMENT: 1. History of perforated diverticulitis, Incisional hernia, Parastomal hernia status post reversal of colostomy, partial colectomy, repair of parastomal hernia and repair of incisional hernia PLAN: -Advance diet to full liquids -Continue epidural for pain control -Continue supportive care -Encouraged patient to increase activity level -Encouraged patient to use incentive spirometer -GI prophylaxis Pepcid and DVT prophylaxis subcu heparin Physician Store Host note has been reviewed by physician. Signing provider agrees with the documented findings, assessment, and plan of care. Objective - Vital Signs Vital signs: Vital Signs Temp 98.4 F 01/31/22 14:17 Pulse 98 01/31/22 14:21 Resp 18 01/31/22 14:21 BP 146/72 01/31/22 14:17 Pulse Ox 98 01/31/22 14:17 FiO2 Intake & Output 01/30/22 01/31/22 01/31/22 18:59 06:59 18:59 Intake Total 1000 1700 236.333 Output Total 4000 2310 Balance 1000 -2300 -2073.667 Intake: Intake, IV Titration 1250 236.333 Amount D5-0.45% NaCl with KCl 1250 20Meq/l 1,000 ml @ 125 mls/hr IV .Q8H [facility] Rx#: [id number] Ropivacaine 250 mg 236.333 fentaNYL (PF) 625 mcg In Sodium Chloride 0.9% 188 ml @ Per Protocol EPIDURAL .Q0M PRN Rx#: [id number] Oral 1000 450 Output: Urine 4000 2310 Uretheral (Diego) 3000 Other: Voiding Method Indwelling Catheter Indwelling Catheter Indwelling Catheter - Labs CBC & Chem 7: 01/31/22 04:20 01/30/22 04:27 Labs: Abnormal Lab Results - Last 24 Hours (Table) 01/31/22 Range/Units 04:20 RBC 3.81 L (4.10-5.20) X 10*6/uL Hgb 10.7 L (12.0-15.0) g/dL Hct 34.3 L (37.2-46.3) % MCHC 31.2 L (32.0-37.0) g/dL RDW 14.6 H (11.5-14.5) % Eosinophils # 0.03 L (0.04-0.35) X 10*3/uL
[2022-01-31] MEDS: PRAVASTATIN SODIUM 80 MG TAB PO SCH (21:37)
[2022-02-01] MEDS: diphenhydrAMINE 25 MG CAP PO PRN ×2 (00:25→06:29)
--- NOTE | 2022-02-01 02:07 | P.PN ---
Subjective Progress Note Date: 01/31/22 This is an 81-year-old female who was recently admitted under surgical services and underwent reversal of colostomy with partial colectomy, repair of multiple hernias and repair of incisional hernia and is being closely monitored. Patient continues on epidural pain pump and weaning although continues with significant pain. Patient reports her pain has improved from last night although continues with some abdominal discomfort. She continues with indwelling Thapa catheter and will remove once epidural has been removed. Patient denies nausea or vomiting and is tolerating clear liquid diet. Patient denies chest pain or shortness of breath and patient is afebrile. WBC mild reactive at 11.34 and recommend repeat labs in the morning. Repeat labs ordered for a.m. Encourage incentive spirometer use at the bedside and increased activity as tolerated. She reports the passing some gas with no reports of bowel movement as of yet. 01/31/2022 Patient is seen today and sitting up in the chair. Patient reports able to get up and walk with assistance. Patient continues with epidural pain pump and thapa catheter and will likely [id number] in am. Patient is tolerating clear liquids and requesting increase in diet. Patient is reporting to passing gas but no bowel movement. Encourage incentive spirometer use and increased activity as tolerated. Patient is abebrile and denies chest pain or shortness of breath. WBC has normalized. Review of systems: Constitutional: No reports of fatigue, fever, or chills Cardiovascular: No reports of chest pain or palpitations Respiratory: No reports of shortness of breath or cough GI: No reports of nausea, no reports of of vomiting, patient is passing gas : No reports of dysuria or retention Neurovascular: reports of generalized weakness All medications have been reviewed PHYSICAL EXAMINATION: GENERAL: The patient is alert and oriented x4, Well developed, well nourished. HEENT: Pupils are round and equally reacting to light. EOMI. no scleral icterus. No conjunctival pallor. Normocephalic, atraumatic. No pharyngeal erythema. No thyromegaly. CARDIOVASCULAR: S1 and S2 muffled PULMONARY: diminished breath sounds bilaterally with no wheezing or rhonchi noted. ABDOMEN: soft. Mildly tender on exam. non-distended, normoactive bowel sounds. No palpable organomegaly. MUSCULOSKELETAL: No joint swelling or deformity. EXTREMITIES: No cyanosis, clubbing, or pedal edema. NEUROLOGICAL: Gross neurological examination did not reveal any focal deficits. SKIN: No rashes. Assessment: Status post reversal of colostomy, partial colectomy, repair of parastomal hernia and repair of incisional hernia History of perforated diverticulitis Hypertension Hyperlipidemia Degenerative joint disease GI prophylaxis DVT prophylaxis Full code Plan: Recommend to continue with current medications and management per surgical services. Patient continues on epidural pain pump with anesthesia following with possible weaning and discontinuing tomorrow. Patient continues with indwelling Thapa catheter. no bowel movement as of yet. Patient reports she has been getting up with physical therapy and staff and encouraged activity as tolerated. Patient currently maintained on clear liquid diet and will continue until advanced per surgical services. Patient is reporting feeling more hungry. Appropriate home medications resumed. Patient with incentive spirometer at the bedside and encourage the patient to continue using at least 10 times every hour while awake. Surgical dressing is dry and intact and will continue with local wound care. Patient tolerating diet with no reports of nausea or vomiting noted. We will continue to follow with surgery during hospitalization. Thank you for this consultation. repeat a.m. labs ordered. The impression and plan of care has been dictated by nurse Dang prac titioner as directed. MD Salvador I have performed a history and examination and MDM of this patient, discussed the same with the dictator, and agree with the dictator's assessment and plan as written ,documented as a scribe. Based on total visit time, I have performed more than 50% of the visit. Any additional findings or plans will be noted. Objective - Vital Signs Vital signs: Vital Signs Temp 98.2 F 01/31/22 08:10 Pulse 83 01/31/22 09:06 Resp 17 01/31/22 09:06 BP 150/77 01/31/22 08:10 Pulse Ox 98 01/31/22 01:58 FiO2 Intake & Output 01/30/22 01/31/22 01/31/22 18:59 06:59 18:59 Intake Total 1000 1700 236.333 Output Total 4000 1010 Balance 1000 -2300 -773.667 Intake: Intake, IV Titration 1250 236.333 Amount D5-0.45% NaCl with KCl 1250 20Meq/l 1,000 ml @ 125 mls/hr IV .Q8H [facility] Rx#: [id number] Ropivacaine 250 mg 236.333 fentaNYL (PF) 625 mcg In Sodium Chloride 0.9% 188 ml @ Per Protocol EPIDURAL .Q0M PRN Rx#: [id number] Oral 1000 450 Output: Urine 4000 1010 Uretheral (Thapa) 3000 Other: Voiding Method Indwelling Catheter Indwelling Catheter Indwelling Catheter - Labs CBC & Chem 7: 01/31/22 04:20 01/30/22 04:27 Labs: Abnormal Lab Results - Last 24 Hours (Table) 01/31/22 Range/Units 04:20 RBC 3.81 L (4.10-5.20) X 10*6/uL Hgb 10.7 L (12.0-15.0) g/dL Hct 34.3 L (37.2-46.3) % MCHC 31.2 L (32.0-37.0) g/dL RDW 14.6 H (11.5-14.5) % Eosinophils # 0.03 L (0.04-0.35) X 10*3/uL
[2022-02-01] MEDS: D5-0.45% NACL WITH KCL 20MEQ/L 1,000 ML IV SCH ×3 (02:20→21:27)
[2022-02-01] MEDS: ROPIVACAINE 250 MG, fentaNYL (PF) 625 MCG in SODIUM CHLORIDE 0.9% 188 ML EPIDURAL PRN (04:51)
[2022-02-01] MEDS: LEVOTHYROXINE 25 MCG TAB PO SCH (05:39)
[2022-02-01] MEDS: LACTATED RINGERS 1,000 ML IV SCH (07:23)
[2022-02-01 07:37] LABS: African American GFR (CKD) >90 (>60 ml/min/1.73 sqM); Anion Gap 5 mmol/L; Blood Urea Nitrogen 8 mg/dL (7-17); Calcium 8.8 mg/dL (8.4-10.2); Carbon Dioxide 27 mmol/L (22-30); Chloride 103 mmol/L (98-107); Glucose 123 mg/dL (74-99); Non-African American GFR(CKD) 82 (>60 ml/min/1.73 sqM); Potassium 4.6 mmol/L (3.5-5.1); Sodium 135 mmol/L (137-145)
[2022-02-01] MEDS: lisinopriL 10 MG TAB PO SCH (08:13)
[2022-02-01] MEDS: HEPARIN SODIUM,PORCINE/PF 5,000 UNIT/0.5 ML SYRINGE SQ SCH ×2 (08:13→21:51)
[2022-02-01] MEDS: ALVIMOPAN 12 MG CAPSULE PO SCH (08:13)
[2022-02-01] MEDS: FAMOTIDINE 20 MG/2 ML VIAL IV SCH (08:13)
--- NOTE | 2022-02-01 10:23 | P.PN ---
Progress Note - Text 02/01 622am 81-year-old female status post explore lap by Dr. Ryan. Patient seen and evaluated for postop pain control, patient has an epidural with solution running at 10 mL an hour with a VAS of 2 no motor or sensory deficit noted plan to DC the epidural
--- NOTE | 2022-02-01 10:38 | P.PN ---
Progress Note - Text Progress Note Date: 02/01/22 Patient feels slightly better. She still has some mild nausea. She's had minimal flatus. On exam vital signs are stable. Abdomen soft. Incision is clean dry tach. Patient will have her epidural removed today. We will start using Dilaudid and oxycodone pills for pain relief. The patient was instructed to slowly start clear liquid diet. Once her nausea is improved she can be advanced.
[2022-02-01] MEDS: HYDROmorphone 1 MG/ML 1 ML SYRINGE IVP PRN ×2 (18:17→21:55)
[2022-02-01] MEDS: FAMOTIDINE 20 MG TAB PO SCH (21:51)
[2022-02-01] MEDS: PRAVASTATIN SODIUM 80 MG TAB PO SCH (21:51)
[2022-02-02] MEDS: HYDROmorphone 1 MG/ML 1 ML SYRINGE IVP PRN ×3 (01:25→19:04)
[2022-02-02] MEDS: oxyCODONE-APAP 5-325MG 1 EACH TAB PO PRN ×4 (04:27→22:05)
--- NOTE | 2022-02-02 05:54 | P.PN ---
Subjective Progress Note Date: 02/01/22 This is an 81-year-old female who was recently admitted under surgical services and underwent reversal of colostomy with partial colectomy, repair of multiple hernias and repair of incisional hernia and is being closely monitored. Patient continues on epidural pain pump and weaning although continues with significant pain. Patient reports her pain has improved from last night although continues with some abdominal discomfort. She continues with indwelling Thapa catheter and will remove once epidural has been removed. Patient denies nausea or vomiting and is tolerating clear liquid diet. Patient denies chest pain or shortness of breath and patient is afebrile. WBC mild reactive at 11.34 and recommend repeat labs in the morning. Repeat labs ordered for a.m. Encourage incentive spirometer use at the bedside and increased activity as tolerated. She reports the passing some gas with no reports of bowel movement as of yet. 01/31/2022 Patient is seen today and sitting up in the chair. Patient reports able to get up and walk with assistance. Patient continues with epidural pain pump and thapa catheter and will likely [id number] in am. Patient is tolerating clear liquids and requesting increase in diet. Patient is reporting to passing gas but no bowel movement. Encourage incentive spirometer use and increased activity as tolerated. Patient is abebrile and denies chest pain or shortness of breath. WBC has normalized. 02/01/2022 Patient evaluated today and having increased abdominal bloating and minimal gas. No bowel movement as of yet and maintained on clear liquids. Patient continues on epidural and will continue for now. Possible removal tomorrow. Patient labs reviewed. Encouraged increased activity as tolerated. Patient is afebrile and denies chest pain or shortness of breath. Review of systems: Constitutional: No reports of fatigue, fever, or chills Cardiovascular: No reports of chest pain or palpitations Respiratory: No reports of shortness of breath or cough GI: No reports of nausea, no reports of of vomiting, patient is passing gas : No reports of dysuria or retention Neurovascular: reports of generalized weakness All medications have been reviewed PHYSICAL EXAMINATION: GENERAL: The patient is alert and oriented x4, Well developed, well nourished. HEENT: Pupils are round and equally reacting to light. EOMI. no scleral icterus. No conjunctival pallor. Normocephalic, atraumatic. No pharyngeal erythema. No thyromegaly. CARDIOVASCULAR: S1 and S2 muffled PULMONARY: diminished breath sounds bilaterally with no wheezing or rhonchi noted. ABDOMEN: soft. Mildly tender on exam. mildly distended, normoactive bowel sounds. No palpable organomegaly. MUSCULOSKELETAL: No joint swelling or deformity. EXTREMITIES: No cyanosis, clubbing, or pedal edema. NEUROLOGICAL: Gross neurological examination did not reveal any focal deficits. SKIN: No rashes. Assessment: Status post reversal of colostomy, partial colectomy, repair of parastomal hernia and repair of incisional hernia History of perforated diverticulitis Hypertension Hyperlipidemia Degenerative joint disease GI prophylaxis DVT prophylaxis Full code Plan: Recommend to continue with current medications and management per surgical services. Patient continues on epidural pain pump with anesthesia following with possible weaning and discontinuing tomorrow. Patient continues with indwelling Thapa catheter. no bowel movement as of yet. Patient reports increased bloating and not really passing gas. Encourage increased activity and continue clear liquids for now. Patient currently maintained on clear liquid diet and will continue until advanced per surgical services. Appropriate home medications resumed. Patient with incentive spirometer at the bedside and encou rage the patient to continue using at least 10 times every hour while awake. Surgical dressing is dry and intact and will continue with local wound care. We will continue to follow with surgery during hospitalization. Thank you for this consultation. The impression and plan of care has been dictated by Kath Bob, nurse practitioner as directed. MD Salvador I have performed a history and examination and MDM of this patient, discussed the same with the dictator, and agree with the dictator's assessment and plan as written ,documented as a scribe. Based on total visit time, I have performed more than 50% of the visit. Any additional findings or plans will be noted. Objective - Vital Signs Vital signs: Vital Signs Temp 98.1 F 02/02/22 02:00 Pulse 78 02/02/22 02:00 Resp 16 02/02/22 02:00 BP 109/67 02/02/22 02:00 Pulse Ox 97 02/02/22 02:00 FiO2 Intake & Output 02/01/22 02/01/22 02/02/22 06:59 18:59 06:59 Intake Total 796.234 3415 Output Total 1000 1600 Balance -800.167 -520 Intake: Intake, IV Titration 199.833 Amount Ropivacaine 250 mg 199.833 fentaNYL (PF) 625 mcg In Sodium Chloride 0.9% 188 ml @ Per Protocol EPIDURAL .Q0M PRN Rx#: [id number] Oral 1080 Output: Urine 1000 1600 Other: Voiding Method Indwelling Catheter Indwelling Catheter # Voids 1 # Bowel Movements 0 - Labs CBC & Chem 7: 01/31/22 04:20 02/01/22 06:08 Labs: Abnormal Lab Results - Last 24 Hours (Table) 02/01/22 Range/Units 06:08 Sodium 135 L (137-145) mmol/L Glucose 123 H (74-99) mg/dL
[2022-02-02] MEDS: LACTATED RINGERS 1,000 ML IV SCH (06:02)
[2022-02-02] MEDS: LEVOTHYROXINE 25 MCG TAB PO SCH (06:04)
[2022-02-02] MEDS: lisinopriL 10 MG TAB PO SCH (09:22)
[2022-02-02] MEDS: HEPARIN SODIUM,PORCINE/PF 5,000 UNIT/0.5 ML SYRINGE SQ SCH ×2 (09:23→21:27)
[2022-02-02] MEDS: FAMOTIDINE 20 MG TAB PO SCH ×2 (09:23→21:27)
[2022-02-02] MEDS: D5-0.45% NACL WITH KCL 20MEQ/L 1,000 ML IV SCH ×2 (09:34→22:06)
--- NOTE | 2022-02-02 11:29 | P.PN ---
Progress Note - Text Progress Note Date: 02/02/22 Patient's feeling better. Her pain is improved. She's had a bowel movement. On exam vital signs are stable. Abdomen soft. Incision is clean and intact. Status post reversal colostomy. Patient will have her diet advanced to full liquids.
[2022-02-02] MEDS: PRAVASTATIN SODIUM 80 MG TAB PO SCH (21:27)
--- NOTE | 2022-02-03 02:37 | P.PN ---
Subjective Progress Note Date: 02/02/22 This is an 81-year-old female who was recently admitted under surgical services and underwent reversal of colostomy with partial colectomy, repair of multiple hernias and repair of incisional hernia and is being closely monitored. Patient continues on epidural pain pump and weaning although continues with significant pain. Patient reports her pain has improved from last night although continues with some abdominal discomfort. She continues with indwelling Thapa catheter and will remove once epidural has been removed. Patient denies nausea or vomiting and is tolerating clear liquid diet. Patient denies chest pain or shortness of breath and patient is afebrile. WBC mild reactive at 11.34 and recommend repeat labs in the morning. Repeat labs ordered for a.m. Encourage incentive spirometer use at the bedside and increased activity as tolerated. She reports the passing some gas with no reports of bowel movement as of yet. 01/31/2022 Patient is seen today and sitting up in the chair. Patient reports able to get up and walk with assistance. Patient continues with epidural pain pump and thapa catheter and will likely [id number] in am. Patient is tolerating clear liquids and requesting increase in diet. Patient is reporting to passing gas but no bowel movement. Encourage incentive spirometer use and increased activity as tolerated. Patient is abebrile and denies chest pain or shortness of breath. WBC has normalized. 02/01/2022 Patient evaluated today and having increased abdominal bloating and minimal gas. No bowel movement as of yet and maintained on clear liquids. Patient continues on epidural and will continue for now. Possible removal tomorrow. Patient labs reviewed. Encouraged increased activity as tolerated. Patient is afebrile and denies chest pain or shortness of breath. 02/02/2022 Patient reports improvement in abdominal discomfort and bloating and is passing gas. Small scant amount of stool noted. Per surgery diet is being advanced to full liquid and encouraged increased activity. Epidural pain pump and thapa removed. Patient is afebrile and denies chest pain or shortness of breath. Will follow with surgery. Review of systems: Constitutional: No reports of fatigue, fever, or chills Cardiovascular: No reports of chest pain or palpitations Respiratory: No reports of shortness of breath or cough GI: No reports of nausea, no reports of of vomiting, patient is passing gas : No reports of dysuria or retention Neurovascular: reports of generalized weakness All medications have been reviewed PHYSICAL EXAMINATION: GENERAL: The patient is alert and oriented x4, Well developed, well nourished. HEENT: Pupils are round and equally reacting to light. EOMI. no scleral icterus. No conjunctival pallor. Normocephalic, atraumatic. No pharyngeal erythema. No thyromegaly. CARDIOVASCULAR: S1 and S2 muffled PULMONARY: diminished breath sounds bilaterally with no wheezing or rhonchi noted. ABDOMEN: soft. less tender on exam. non distended, normoactive bowel sounds. No palpable organomegaly. MUSCULOSKELETAL: No joint swelling or deformity. EXTREMITIES: No cyanosis, clubbing, or pedal edema. NEUROLOGICAL: Gross neurological examination did not reveal any focal deficits. SKIN: No rashes. Assessment: Status post reversal of colostomy, partial colectomy, repair of parastomal hernia and repair of incisional hernia History of perforated diverticulitis Hypertension Hyperlipidemia Degenerative joint disease GI prophylaxis DVT prophylaxis Full code Plan: Recommend to continue with current medications and management per surgical services. Patient reports to passing some gas and had a very small bowel movement. Epidural pump removed and thapa removed. Encourage increased activity and continue with full liquids. Patient with incentive spirometer at the bedside and encourage the patient to continue using at least 10 times every hour while awake. Surgical dressing is dry and intact and will continue with local wound care. We will continue to follow with surgery during hospitalization. Thank you for this consultation. The impression and plan of care has been dictated by Kath Bob, nurse practitioner as directed. MD Salvador I have performed a history and examination and MDM of this patient, discussed the same with the dictator, and agree with the dictator's assessment and plan as written ,documented as a scribe. Based on total visit time, I have performed more than 50% of the visit. Any additional findings or plans will be noted. Objective - Vital Signs Vital signs: Vital Signs Temp 98.3 F 02/02/22 08:00 Pulse 82 02/02/22 08:00 Resp 14 02/02/22 08:00 BP 104/60 02/02/22 08:00 Pulse Ox 97 02/02/22 08:00 FiO2 Intake & Output 02/01/22 02/02/22 02/02/22 18:59 06:59 18:59 Intake Total 1080 1100 Output Total 1600 Balance -520 1100 Intake: Intake, IV Titration 900 Amount D5-0.45% NaCl with KCl 900 20Meq/l 1,000 ml @ 75 mls /hr IV .[id number] [facility] Rx#: [id number] Oral 1080 200 Output: Urine 1600 Other: Voiding Method Indwelling Catheter # Voids 6 2 # Bowel Movements 1 - Labs CBC & Chem 7: 01/31/22 04:20 02/01/22 06:08
[2022-02-03] MEDS: HYDROmorphone 1 MG/ML 1 ML SYRINGE IVP PRN ×4 (03:01→15:31)
[2022-02-03] MEDS: LACTATED RINGERS 1,000 ML IV SCH (05:36)
[2022-02-03] MEDS: LEVOTHYROXINE 25 MCG TAB PO SCH (05:47)
[2022-02-03] MEDS: HEPARIN SODIUM,PORCINE/PF 5,000 UNIT/0.5 ML SYRINGE SQ SCH ×2 (07:19→21:17)
[2022-02-03] MEDS: lisinopriL 10 MG TAB PO SCH (07:19)
[2022-02-03] MEDS: FAMOTIDINE 20 MG TAB PO SCH ×2 (07:19→21:17)
[2022-02-03] MEDS: D5-0.45% NACL WITH KCL 20MEQ/L 1,000 ML IV SCH (09:40)
--- NOTE | 2022-02-03 10:18 | P.PN ---
Progress Note - Text Progress Note Date: 02/03/22 Patient slowly improving. She has some minimal contact with the pain. She's had flatus and a bowel movement. On exam vital signs are stable. Abdomen is soft. Incisions are clean and intact. Status post reversal colostomy. Patient can receive supportive care. She will have her diet advanced as tolerated
[2022-02-03] MEDS: oxyCODONE-APAP 5-325MG 1 EACH TAB PO PRN (13:17)
[2022-02-03 13:27] LABS: Basophils % (A) 0 %; Eosinophils # (A) 0.4 k/uL (0-0.7); Eosinophils % (A) 7 %; HCT 35.6 % (34.0-46.0); HGB 11.5 gm/dL (11.4-16.0); Lymphocytes # (A) 0.7 k/uL (1.0-4.8); Lymphocytes % (A) 13 %; MCH 28.7 pg (25.0-35.0); MCHC 32.3 g/dL (31.0-37.0); MCV 88.7 fL (80.0-100.0); Mean Platelet Volume 7.8; Monocytes # (A) 0.3 k/uL (0-1.0); Monocytes % (A) 6 %; Neutrophils # (A) 3.8 k/uL (1.3-7.7); Neutrophils % (A) 72 %; Platelet Count 300 k/uL (150-450); RBC 4.01 m/uL (3.80-5.40); RDW 14.3 % (11.5-15.5); WBC 5.3 k/uL (3.8-10.6)
[2022-02-03 13:32] LABS: African American GFR (CKD) >90 (>60 ml/min/1.73 sqM); Anion Gap 7 mmol/L; Blood Urea Nitrogen 10 mg/dL (7-17); Calcium 9.2 mg/dL (8.4-10.2); Carbon Dioxide 26 mmol/L (22-30); Chloride 102 mmol/L (98-107); Glucose 134 mg/dL (74-99); Magnesium 1.8 mg/dL (1.6-2.3); Non-African American GFR(CKD) 83 (>60 ml/min/1.73 sqM); Potassium 4.4 mmol/L (3.5-5.1); Sodium 135 mmol/L (137-145)
[2022-02-03] MEDS: BACLOFEN 10 MG TAB PO SCH ×2 (16:19→21:17)
--- NOTE | 2022-02-03 19:02 | P.PN ---
Subjective Progress Note Date: 02/03/22 This is an 81-year-old female who was recently admitted under surgical services and underwent reversal of colostomy with partial colectomy, repair of multiple hernias and repair of incisional hernia and is being closely monitored. Patient continues on epidural pain pump and weaning although continues with significant pain. Patient reports her pain has improved from last night although continues with some abdominal discomfort. She continues with indwelling Thapa catheter and will remove once epidural has been removed. Patient denies nausea or vomiting and is tolerating clear liquid diet. Patient denies chest pain or shortness of breath and patient is afebrile. WBC mild reactive at 11.34 and recommend repeat labs in the morning. Repeat labs ordered for a.m. Encourage incentive spirometer use at the bedside and increased activity as tolerated. She reports the passing some gas with no reports of bowel movement as of yet. 01/31/2022 Patient is seen today and sitting up in the chair. Patient reports able to get up and walk with assistance. Patient continues with epidural pain pump and thapa catheter and will likely [id number] in am. Patient is tolerating clear liquids and requesting increase in diet. Patient is reporting to passing gas but no bowel movement. Encourage incentive spirometer use and increased activity as tolerated. Patient is abebrile and denies chest pain or shortness of breath. WBC has normalized. 02/01/2022 Patient evaluated today and having increased abdominal bloating and minimal gas. No bowel movement as of yet and maintained on clear liquids. Patient continues on epidural and will continue for now. Possible removal tomorrow. Patient labs reviewed. Encouraged increased activity as tolerated. Patient is afebrile and denies chest pain or shortness of breath. 02/02/2022 Patient reports improvement in abdominal discomfort and bloating and is passing gas. Small scant amount of stool noted. Per surgery diet is being advanced to full liquid and encouraged increased activity. Epidural pain pump and thapa removed. Patient is afebrile and denies chest pain or shortness of breath. Will follow with surgery. 02/03/2022 Patient is evaluated today and reports to continued restless legs and also not a lot of sleep last night and will add restoril. Patient tolerated full liquid diet and plan is for regular diet for dinner. Patient is up and voiding and thapa removed. Patient having bowel movements. Patient denies chest pain or shortness of breath and will continue with current medications. Recommend follow up labs and replace electrolytes per protocol. Review of systems: Constitutional: No reports of fatigue, fever, or chills Cardiovascular: No reports of chest pain or palpitations Respiratory: No reports of shortness of breath or cough GI: No reports of nausea, no reports of of vomiting, patient is passing gas : No reports of dysuria or retention Neurovascular: no reports of generalized weakness, reports restless legs. All medications have been reviewed PHYSICAL EXAMINATION: GENERAL: The patient is alert and oriented x4, Well developed, well nourished. HEENT: Pupils are round and equally reacting to light. EOMI. no scleral icterus. No conjunctival pallor. Normocephalic, atraumatic. No pharyngeal erythema. No thyromegaly. CARDIOVASCULAR: S1 and S2 muffled PULMONARY: diminished breath sounds bilaterally with no wheezing or rhonchi noted. ABDOMEN: soft. less tender on exam. non distended, normoactive bowel sounds. No palpable organomegaly. MUSCULOSKELETAL: No joint swelling or deformity. EXTREMITIES: No cyanosis, clubbing, or pedal edema. NEUROLOGICAL: Gross neurological examination did not reveal any focal deficits. SKIN: No rashes. Assessment: Status post reversal of colostomy, partial colectomy, repair of parastomal hernia and repair of incisional hernia History of perforated diverticulitis Hypertension Hyperlipidemia Degenerative joint disease Restless legs GI prophylaxis DVT prophylaxis Full code Plan: Recommend to continue with current medications and management per surgical services. Patient reports to passing gas and having bowel movement. Patient tolerated full liquid diet and is being advanced to regular diet. Recommend repeat labs. Encourage increased activity and continue with full liquids. Patient with incentive spirometer at the bedside and encourage the patient to c ontinue using at least 10 times every hour while awake. Patient with difficulty in sleeping and will add restoril prn. Surgical dressing is dry and intact and will continue with local wound care. We will continue to follow with surgery during hospitalization. Thank you for this consultation. The impression and plan of care has been dictated by Kath Bob, nurse practitioner as directed. MD Salvador I have performed a history and examination and MDM of this patient, discussed the same with the dictator, and agree with the dictator's assessment and plan as written ,documented as a scribe. Based on total visit time, I have performed more than 50% of the visit. Any additional findings or plans will be noted. Objective - Vital Signs Vital signs: Vital Signs Temp 98.4 F 02/03/22 14:00 Pulse 85 02/03/22 14:00 Resp 20 02/03/22 14:00 BP 133/70 02/03/22 14:00 Pulse Ox 99 02/03/22 14:00 FiO2 Intake & Output 02/02/22 02/03/22 02/03/22 18:59 06:59 18:59 Intake Total 100 Balance 100 Intake: Oral 100 Other: # Voids 6 1 # Bowel Movements 1 1 - Labs CBC & Chem 7: 02/03/22 13:10 02/03/22 13:10 Labs: Abnormal Lab Results - Last 24 Hours (Table) 02/03/22 02/03/22 Range/Units 13:10 13:10 Lymphocytes # 0.7 L (1.0-4.8) k/uL Sodium 135 L (137-145) mmol/L Glucose 134 H (74-99) mg/dL
[2022-02-03] MEDS: HYDROcodone/APAP 7.5-325MG 1 EACH TAB PO PRN (19:15)
[2022-02-03] MEDS: PRAVASTATIN SODIUM 80 MG TAB PO SCH (21:16)
[2022-02-03] MEDS: TEMAZEPAM 15 MG CAP PO PRN (23:09)
[2022-02-04] MEDS: HYDROcodone/APAP 7.5-325MG 1 EACH TAB PO PRN ×4 (02:59→23:11)
[2022-02-04] MEDS: D5-0.45% NACL WITH KCL 20MEQ/L 1,000 ML IV SCH ×2 (03:01→16:19)
[2022-02-04] MEDS: LEVOTHYROXINE 25 MCG TAB PO SCH (05:47)
[2022-02-04] MEDS: LACTATED RINGERS 1,000 ML IV SCH (07:07)
[2022-02-04] MEDS: FAMOTIDINE 20 MG TAB PO SCH ×2 (07:49→20:48)
[2022-02-04] MEDS: lisinopriL 10 MG TAB PO SCH (07:49)
[2022-02-04] MEDS: BACLOFEN 10 MG TAB PO SCH ×2 (07:50→20:48)
[2022-02-04] MEDS: HEPARIN SODIUM,PORCINE/PF 5,000 UNIT/0.5 ML SYRINGE SQ SCH ×2 (07:50→20:48)
--- NOTE | 2022-02-04 10:14 | P.PN ---
Progress Note - Text Progress Note Date: 02/04/22 Patient feels better. Pain is improved on she's had flatus and bowel movement. On exam vital signs are stable. Abdomen soft. Incisions is clean and intact. Patient will shower today. We dysphagia discharge home tomorrow.
--- NOTE | 2022-02-04 11:43 | P.PN ---
Subjective Progress Note Date: 02/04/22 This is an 81-year-old female who was recently admitted under surgical services and underwent reversal of colostomy with partial colectomy, repair of multiple hernias and repair of incisional hernia and is being closely monitored. Patient continues on epidural pain pump and weaning although continues with significant pain. Patient reports her pain has improved from last night although continues with some abdominal discomfort. She continues with indwelling Thapa catheter and will remove once epidural has been removed. Patient denies nausea or vomiting and is tolerating clear liquid diet. Patient denies chest pain or shortness of breath and patient is afebrile. WBC mild reactive at 11.34 and recommend repeat labs in the morning. Repeat labs ordered for a.m. Encourage incentive spirometer use at the bedside and increased activity as tolerated. She reports the passing some gas with no reports of bowel movement as of yet. 01/31/2022 Patient is seen today and sitting up in the chair. Patient reports able to get up and walk with assistance. Patient continues with epidural pain pump and thapa catheter and will likely [id number] in am. Patient is tolerating clear liquids and requesting increase in diet. Patient is reporting to passing gas but no bowel movement. Encourage incentive spirometer use and increased activity as tolerated. Patient is abebrile and denies chest pain or shortness of breath. WBC has normalized. 02/01/2022 Patient evaluated today and having increased abdominal bloating and minimal gas. No bowel movement as of yet and maintained on clear liquids. Patient continues on epidural and will continue for now. Possible removal tomorrow. Patient labs reviewed. Encouraged increased activity as tolerated. Patient is afebrile and denies chest pain or shortness of breath. 02/02/2022 Patient reports improvement in abdominal discomfort and bloating and is passing gas. Small scant amount of stool noted. Per surgery diet is being advanced to full liquid and encouraged increased activity. Epidural pain pump and thapa removed. Patient is afebrile and denies chest pain or shortness of breath. Will follow with surgery. 02/03/2022 Patient is evaluated today and reports to continued restless legs and also not a lot of sleep last night and will add restoril. Patient tolerated full liquid diet and plan is for regular diet for dinner. Patient is up and voiding and thapa removed. Patient having bowel movements. Patient denies chest pain or shortness of breath and will continue with current medications. Recommend follow up labs and replace electrolytes per protocol. 02/04/2022 Patient is seen today and tolerating regular diet and having gas and bowel movements. Abdominal pain is less intense and per nursing staff, patient was able to shower today. Encourage increase activity as tolerated and continue with incentive spirometer use. Anticipate possible discharge in 24-48 hours per surgery. Patient is afebrile and denies any chest pain or shortness of breath. Labs reviewed and within normal limits. Magnesium is 1.8 Review of systems: Constitutional: No reports of fatigue, fever, or chills Cardiovascular: No reports of chest pain or palpitations Respiratory: No reports of shortness of breath or cough GI: No reports of nausea, no reports of of vomiting, patient is passing gas and having bowel movements : No reports of dysuria or retention Neurovascular: no reports of generalized weakness, reports improvment in restless legs. All medications have been reviewed PHYSICAL EXAMINATION: GENERAL: The patient is alert and oriented x4, Well developed, well nourished. HEENT: Pupils are round and equally reacting to light. EOMI. no scleral icterus. No conjunctival pallor. Normocephalic, atraumatic. No pharyngeal erythema. No thyromegaly. CARDIOVASCULAR: S1 and S2 muffled PULMONARY: diminished breath sounds bilaterally with no wheezing or rhonchi noted. ABDOMEN: soft. less tender on exam. non distended, normoactive bowel sounds. No palpable organomegaly. MUSCULOSKELETAL: No joint swelling or deformity. EXTREMITIES: No cyanosis, clubbing, or pedal edema. NEUROLOGICAL: Gross neurological examination did not reveal any focal deficits. SKIN: No rashes. Assessment: Status post reversal of colostomy, partial colectomy, repair of parastomal hernia and repair of incisional hernia History of perforated diverticulitis Hypertension Hyperlipidemia Degenerative joint disease Restless legs GI prophylaxis DVT prophylaxis Full code Plan: Recommend to continue with current medications and management per surgical services. Patient reports to passing gas and having bowel movement. Patient tolerated regular diet. Encourage increased activity as tolerated. Patient with incentive spirometer at the bedside and encourage the patient to continue using at least 10 times every hour while awake. Surgical dressing is dry and intact and will continue with local wound care. We will continue to follow with surgery during hospitalization. Thank you for this consultation. Possible discharge from surgery in 24 hours. The impression and plan of care has been dictated as a scribe by Kath Bob, nurse practitioner as directed. MD Salvador I have performed a history and examination and MDM of this patient, discussed the same with the dictator, and has been documented as a scribe. Based on total visit time, I have performed more than 50% of the visit. Any additional findings or plans will be noted. Objective - Vital Signs Vital signs: Vital Signs Temp 97.9 F 02/04/22 07:47 Pulse 67 02/04/22 07:47 Resp 16 02/04/22 07:47 BP 121/53 02/04/22 07:47 Pulse Ox 98 02/04/22 07:47 FiO2 Intake & Output 02/03/22 02/04/22 02/04/22 18:59 06:59 18:59 Intake Total 1400 Balance 1400 Intake: Intake, IV Titration 900 Amount D5-0.45% NaCl with KCl 900 20Meq/l 1,000 ml @ 75 mls /hr IV .[id number] Rx#: [id number] Oral 500 Other: # Voids 6 # Bowel Movements 1 - Labs CBC & Chem 7: 02/03/22 13:10 02/03/22 13:10 Labs: Abnormal Lab Results - Last 24 Hours (Table) 02/03/22 02/03/22 Range/Units 13:10 13:10 Lymphocytes # 0.7 L (1.0-4.8) k/uL Sodium 135 L (137-145) mmol/L Glucose 134 H (74-99) mg/dL
[2022-02-04] MEDS: PRAVASTATIN SODIUM 80 MG TAB PO SCH (20:48)
[2022-02-04] MEDS: TEMAZEPAM 15 MG CAP PO PRN (23:11)
[2022-02-05] MEDS: FAMOTIDINE 20 MG TAB PO SCH (07:59)
[2022-02-05] MEDS: traMADol 50 MG TAB PO PRN ×2 (07:59→13:55)
[2022-02-05] MEDS: lisinopriL 10 MG TAB PO SCH (07:59)
[2022-02-05] MEDS: BACLOFEN 10 MG TAB PO SCH (08:00)
[2022-02-05] MEDS: LACTATED RINGERS 1,000 ML IV SCH (08:00)
[2022-02-05] MEDS: HEPARIN SODIUM,PORCINE/PF 5,000 UNIT/0.5 ML SYRINGE SQ SCH ×2 (08:00→08:02)
[2022-02-05] MEDS: D5-0.45% NACL WITH KCL 20MEQ/L 1,000 ML IV SCH (08:00)
[2022-02-05] MEDS: LEVOTHYROXINE 25 MCG TAB PO SCH (08:00)
[2022-02-05 14:48] VITALS: BP 111/63; PULSE 70; RESP 15; TEMP 98.5
== END 2022-02-05 15:25 | disposition home health service (06) | DRG 331 ==
LOC: 2ORMAIN 06:38 → 4SSUR 15:54
PROVIDERS: ADMIT Surgery; ATTEND Surgery
PROC: 0DQM0ZZ Repair Descending Colon, Open Approach (ICD-10-PCS; principal; 2022-01-29 08:35)
PROC: 0WQF0ZZ Repair Abdominal Wall, Open Approach (ICD-10-PCS; principal; 2022-01-29 08:35)
DX: Z43.3 Encounter for attention to colostomy (principal); E78.5 Hyperlipidemia, unspecified; K43.2 Incisional hernia without obstruction or gangrene; K43.5 Parastomal hernia without obstruction or gangrene; K57.30 Diverticulosis of large intestine without perforation or abscess without bleeding; G25.81 Restless legs syndrome; I10 Essential (primary) hypertension; M19.90 Unspecified osteoarthritis, unspecified site; Z79.890 Hormone replacement therapy; Z79.1 Long term (current) use of non-steroidal anti-inflammatories (NSAID); Z79.899 Other long term (current) drug therapy; Z96.653 Presence of artificial knee joint, bilateral; Z88.5 Allergy status to narcotic agent; Z91.040 Latex allergy status
CPT/HCPCS: 80048; 83735; 85025; 85027; 86850; 86900; 86901; 88307; 94760

== ENCOUNTER 2022-02-15 16:37 | Inpatient (IN) | payer MEDICARE ==
[2022-02-15] MEDS ORDERED: ONDANSETRON 4 MG/2 ML VIAL IVP STA (17:42)
[2022-02-15] MEDS ORDERED: ACETAMINOPHEN IV (For NPO) 1,000 MG in EMPTY BAG 1 BAG IVPB STA (17:43)
--- NOTE | 2022-02-15 17:50 | ED ---
General Adult HPI - General Chief complaint: Recheck/Abnormal Lab/Rx Stated complaint: Vomiting,PO Surgery Time Seen by Provider: 02/15/22 17:27 Source: patient, RN notes reviewed Mode of arrival: ambulatory Limitations: no limitations - History of Present Illness Initial comments: Patient is a pleasant 81-year-old female presenting to the emergency department with nausea and vomiting and abdominal discomfort. Onset of symptoms was last night, worse today. Decreased ability to tolerate oral intake. No constipation or diarrhea. Patient is 2 weeks postop colostomy reversal. Patient has been doing fine for the past 2 weeks up until last night. Patient has mild rhinorrhea however that is chronic. - Related Data Home Medications Medication Instructions Recorded Confirmed Levothyroxine Sodium [Synthroid] 25 mcg PO DAILY 07/05/21 01/29/22 Pramipexole [Mirapex] 1 mg PO HS 07/05/21 01/29/22 Cholecalciferol [Vitamin D3 (25 25 mcg PO DAILY 10/15/21 01/28/22 Mcg = 1000 Iu)] Enalapril Maleate 10 mg PO DAILY 10/15/21 01/29/22 Ferrous Sulfate [Feosol] 325 mg PO MOWEFR 10/15/21 01/28/22 Folic Acid 0.4 mg PO 1200 10/15/21 01/29/22 Pravastatin Sodium [Pravachol] 80 mg PO HS 10/15/21 01/29/22 Vit C/E/Zn/Coppr/Lutein/Zeaxan 1 cap PO BID 10/15/21 01/28/22 [Preservision Areds 2 Softgel] Previous Rx's Medication Instructions Recorded Acetaminophen Tab [Tylenol] 650 mg PO Q6H #30 tab 02/05/22 Docusate [Colace] 100 mg PO BID #20 capsule 02/05/22 Famotidine [Pepcid] 20 mg PO BID 30 Days #60 tab 02/05/22 Ibuprofen [Motrin] 600 mg PO Q6HR PRN #40 tab 02/05/22 LORazepam [Ativan] 0.5 mg PO BID PRN 3 Days #6 tab 02/05/22 oxyCODONE HCL [OxyIR] 5 mg PO Q6H PRN 3 Days #10 tab 02/05/22 rOPINIRole HCL [Requip] 1 mg PO TID 30 Days #90 tab 02/05/22 Allergies Allergy/AdvReac Type Severity Reaction Status Date / Time codeine Allergy Itching Verified 02/15/22 17:00 latex Allergy Itching Verified 02/15/22 17:00 Review of Systems ROS Statement: Those systems with pertinent positive or pertinent negative responses have been documented in the HPI. ROS Other: All systems not noted in ROS Statement are negative. Constitutional: Reports: fever Eyes: Denies: eye pain ENT: Denies: ear pain Respiratory: Denies: cough, dyspnea Cardiovascular: Denies: chest pain Endocrine: Reports: fatigue Gastrointestinal: Reports: as per HPI, abdominal pain, nausea, vomiting Genitourinary: Denies: dysuria Musculoskeletal: Denies: back pain Skin: Denies: rash Neurological: Denies: weakness Past Medical History Past Medical History: Hyperlipidemia, Hypertension, Osteoarthritis (OA), Thyroid Disorder Additional Past Medical History / Comment(s): hx hiatal hernia, heart palpitations, anemia, goiter with radiation, diverticular disease History of Any Multi-Drug Resistant Organisms: None Reported Past Surgical History: Bowel Resection, Joint Replacement, Tonsillectomy Additional Past Surgical History / Comment(s): Bilateral knee replacements, several L breast benign biopsies, colonoscopy, D&C. hiatal hernia surgery then 3-4 days post op had bowel resection with colostomy 07/2021 (r/t bleeding/infection), serafin cataracts Past Anesthesia/Blood Transfusion Reactions: No Reported Reaction Additional Past Anesthesia/Blood Transfusion Reaction / Comment(s): Pt has claustrophobia Past Psychological History: Anxiety, Depression Smoking Status: Never smoker Past Alcohol Use History: Rare Past Drug Use History: None Reported - Past Family History Father Family Medical History: Cancer Additional Family Medical History / Comment(s): lung Mother Additional Family Medical History / Comment(s): Mother had "heart problems" and was a "pre-diabetic" General Exam Limitations: no limitations General appearance: alert, in no apparent distress Head exam: Present: normocephalic Eye exam: Present: normal appearance Neck exam: Present: normal inspection Respiratory exam: Present: normal lung sounds bilaterally Cardiovascular Exam: Present: regular rate, normal rhythm GI/Abdominal exam: Present: soft, tenderness (Mild to moderate diffuse tenderness). Absent: distended, guarding, rebound, rigid Extremities exam: Present: normal inspection. Absent: pedal edema, calf tenderness Neurological exam: Present: alert Psychiatric exam: Present: normal affect, normal mood Skin exam: Present: normal color Course Vital Signs 02/15/22 02/15/22 16:58 19:00 Temperature 101.4 F H 99.5 F Pulse Rate 102 H Respiratory 20 Rate Blood Pressure 124/51 O2 Sat by Pulse 97 Oximetry - Reevaluation(s) Reevaluation #1: 02/15/22 20:55 Patient does meet sepsis criteria diagnosed at 2054. Blood culture and lactic acid have already been ordered. IV antibiotics will be ordered. EKG Findings - EKG Comments: EKG Findings:: Sinus rhythm rate 83. NC 146. QRS 102. QT 383. QTC 423. Normal axis. Normal QRS. No acute ST change. Medical Decision Making - Medical Decision Making Patient reevaluated and somewhat improved. No nausea. Patient and family updated on results and plan. Case was discussed with Dr. Angela, who will admit covering Dr. Ryan. She does recommend antibiotics - Lab Data Result diagrams: 02/15/22 18:14 02/15/22 18:14 Lab Results 02/15/22 02/15/22 02/15/22 Range/Units 18:14 18:14 18:14 WBC 16.0 H (3.8-10.6) k/uL RBC 4.07 (3.80-5.40) m/uL Hgb 11.4 (11.4-16.0) gm/dL Hct 35.7 (34.0-46.0) % MCV 87.6 (80.0-100.0) fL MCH 28.0 (25.0-35.0) pg MCHC 31.9 (31.0-37.0) g/dL RDW 14.3 (11.5-15.5) % Plt Count 236 (150-450) k/uL MPV 7.7 Neutrophils % 97 % Lymphocytes % 1 % Monocytes % 1 % Eosinophils % 1 % Basophils % 0 % Neutrophils # 15.4 H (1.3-7.7) k/uL Lymphocytes # 0.1 L (1.0-4.8) k/uL Monocytes # 0.2 (0-1.0) k/uL Eosinophils # 0.1 (0-0.7) k/uL Basophils # 0.0 (0-0.2) k/uL PT 11.5 (9.0-12.0) sec INR 1.1 (<1.2) APTT 25.1 (22.0-30.0) sec Sodium 138 (137-145) mmol/L Potassium 3.7 (3.5-5.1) mmol/L Chloride 102 (98-107) mmol/L Carbon Dioxide 28 (22-30) mmol/L Anion Gap 8 mmol/L BUN 24 H (7-17) mg/dL Creatinine 0.79 (0.52-1.04) mg/dL Est GFR (CKD-EPI)AfAm 82 (>60 ml/min/1.73 sqM) Est GFR (CKD-EPI)NonAf 71 (>60 ml/min/1.73 sqM) Glucose 165 H (74-99) mg/dL Plasma Lactic Acid Colin (0.7-2.0) mmol/L Calcium 9.4 (8.4-10.2) mg/dL Total Bilirubin 0.8 (0.2-1.3) mg/dL AST 26 (14-36) U/L ALT 16 (4-34) U/L Alkaline Phosphatase 114 (38-126) U/L Total Protein 7.0 (6.3-8.2) g/dL Albumin 3.8 (3.5-5.0) g/dL Coronavirus (PCR) (Not Detectd) Influenza Type A RNA (Not Detectd) Influenza Type B (PCR) (Not Detectd) 02/15/22 02/15/22 02/15/22 Range/Units 18:14 18:14 18:14 WBC (3.8-10.6) k/uL RBC (3.80-5.40) m/uL Hgb (11.4-16.0) gm/dL Hct (34.0-46.0) % MCV (80.0-100.0) fL MCH (25.0-35.0) pg MCHC (31.0-37.0) g/dL RDW (11.5-15.5) % Plt Count (150-450) k/uL MPV Neutrophils % % Lymphocytes % % Monocytes % % Eosinophils % % Basophils % % Neutrophils # (1.3-7.7) k/uL Lymphocytes # (1.0-4.8) k/uL Monocytes # (0-1.0) k/uL Eosinophils # (0-0.7) k/uL Basophils # (0-0.2) k/uL PT (9.0-12.0) sec INR (<1.2) APTT (22.0-30.0) sec Sodium (137-145) mmol/L Potassium (3.5-5.1) mmol/L Chloride (98-107) mmol/L Carbon Dioxide (22-30) mmol/L Anion Gap mmol/L BUN (7-17) mg/dL Creatinine (0.52-1.04) mg/dL Est GFR (CKD-EPI)AfAm (>60 ml/min/1.73 sqM) Est GFR (CKD-EPI)NonAf (>60 ml/min/1.73 sqM) Glucose (74-99) mg/dL Plasma Lactic Acid Colin 1.1 (0.7-2.0) mmol/L Calcium (8.4-10.2) mg/dL Total Bilirubin (0.2-1.3) mg/dL AST (14-36) U/L ALT (4-34) U/L Alkaline Phosphatase (38-126) U/L Total Protein (6.3-8.2) g/dL Albumin (3.5-5.0) g/dL Coronavirus (PCR) Not Detected (Not Detectd) Influenza Type A RNA Not Detected (Not Detectd) Influenza Type B (PCR) Not Detected (Not Detectd) - Radiology Data Radiology results: report reviewed (CT abdomen pelvis concerning for cholelithiasis and dilated common bile duct), image reviewed (Chest x-ray shows no acute process) Critical Care Time Critical Care Time: Yes Total Critical Care Time: 33 Disposition Clinical Impression: Cholecystitis, Sepsis Disposition: ADMITTED IP TO THIS HOSP Is patient prescribed a controlled substance at d/c from ED?: No Referrals: Mary Faria DO [Primary Care Provider] - 1-2 days Time of Disposition: 20:55
[2022-02-15 18:46] LABS: Basophils % (A) 0 %; Eosinophils # (A) 0.1 k/uL (0-0.7); Eosinophils % (A) 1 %; HCT 35.7 % (34.0-46.0); HGB 11.4 gm/dL (11.4-16.0); Lymphocytes # (A) 0.1 k/uL (1.0-4.8); Lymphocytes % (A) 1 %; MCHC 31.9 g/dL (31.0-37.0); MCV 87.6 fL (80.0-100.0); Mean Platelet Volume 7.7; Monocytes # (A) 0.2 k/uL (0-1.0); Monocytes % (A) 1 %; Neutrophils # (A) 15.4 k/uL (1.3-7.7); Neutrophils % (A) 97 %; Platelet Count 236 k/uL (150-450); RBC 4.07 m/uL (3.80-5.40); RDW 14.3 % (11.5-15.5)
[2022-02-15] MEDS: SODIUM CHLORIDE 0.9% 1,000 ML IV SCH (18:55)
[2022-02-15 18:57] LABS: INR 1.1 (<1.2); Partial Thromboplastin Time 25.1 sec (22.0-30.0); Prothrombin Time 11.5 sec (9.0-12.0)
[2022-02-15 18:58] LABS: Albumin 3.8 g/dL (3.5-5.0); Calcium 9.4 mg/dL (8.4-10.2); Potassium 3.7 mmol/L (3.5-5.1); Total Bilirubin 0.8 mg/dL (0.2-1.3)
--- NOTE | 2022-02-15 19:01 | XR ---
EXAMINATION TYPE: XR chest 2V DATE OF EXAM: 02/15/2022 COMPARISON: 10/15/2021 HISTORY: Shortness of breath TECHNIQUE: Frontal and lateral views of the chest are obtained. FINDINGS: Scattered senescent parenchymal changes noted. Hyperinflation compatible with COPD. No evidence for infiltrate. No evidence for atelectasis. Heart size is stable. Mediastinal structures are stable and grossly unremarkable. No evidence for hilar prominence. Degenerative changes dorsal spine. IMPRESSION: 1. No evidence for acute pulmonary disease.
--- NOTE | 2022-02-15 20:44 | CT ---
EXAMINATION TYPE: CT abdomen pelvis w con DATE OF EXAM: 02/15/2022 COMPARISON: 08/15/2021 HISTORY: Post op pain, fever, recent ostomy reversal. CT DLP: 747.5 mGycm CONTRAST: CT scan of the abdomen and pelvis is performed without Oral Contrast and with IV Contrast, patient in jected with 100 mL of Isovue 300. FINDINGS: LUNG BASES-: No visible nodule. No infiltrate. There is a small pericardial effusion noted. Fixed hi atal hernia. LIVER/GB: Small gallstones identified. The gallbladder is mildly hydropic. The gallbladder is dilated at 9 mm. No definite gallbladder wall thickening or pericholecystic fluid at this time. No space occ upying hepatic lesion. PANCREAS: No inflammation. No distinct mass. SPLEEN: No splenic enlargement. No lesion seen. ADRENALS: No nodule. No thickening. KIDNEYS/BLADDER: No hydronephrosis. No nephrolithiasis. Simple cyst right kidney is unchanged. Urin neyda bladder grossly unremarkable. BOWEL: Midline skin era are noted. There is also a left lower quadrant ostomy closure with revers al. Moderate fecal stasis noted throughout. I do not see evidence for free air or abscess. Sigmoid an astomosis appears unremarkable. GENITAL ORGANS: No gross abnormality. LYMPH NODES: No greater than 1cm abdominal or pelvic lymph nodes are appreciated. AORTA: No significant abnormality. OSSEOUS STRUCTURES: No significant abnormality is seen. OTHER: No significant additional abnormality is seen. IMPRESSION: 1. There is a separate workMidline skin era are noted. There is also a left lower quadrant ostomy closure with reversal. Moderate fecal stasis noted throughout. I do not see evidence for free air or abscess. 2. Gallbladder hydrops with cholelithiasis and CBD dilatation. No gallbladder wall thickening or daniel cholecystic fluid at this time.
[2022-02-15] MEDS ORDERED: NALOXONE 0.4 MG/ML 1 ML VIAL IV PRN (20:56)
[2022-02-15] MEDS ORDERED: HYDROmorphone 1 MG/ML 1 ML SYRINGE IVP PRN (20:56)
[2022-02-15] MEDS ORDERED: ACETAMINOPHEN TAB 325 MG TAB PO PRN (20:56)
[2022-02-15] MEDS ORDERED: HYDROmorphone 0.5 MG/0.5 ML SYRINGE IVP PRN (20:56)
[2022-02-15 21:49] LABS: Appearance,Urine Clear (Clear); Bacteria,Urine Rare /hpf; Bilirubin,Urine Negative (Negative); Blood,Urine Moderate (Negative); Color,Urine Yellow; Glucose,Urine (UA) Negative (Negative); Hyaline Casts,Urine 1 /lpf (0-2); Ketones,Urine 1+ (Negative); Leukocyte Esterase,Urine Small (Negative); Mucus,Urine Moderate /hpf; Nitrite,Urine Negative (Negative); PH, Urine 5.5 (5.0-8.0); Protein,Urine 1+ (Negative); RBC,Urine 14 /hpf (0-5); Squamous Epithelial Cell,Urine 2 /hpf (0-4); WBC,Urine 8 /hpf (0-5)
[2022-02-15] MEDS ORDERED: SODIUM CHLORIDE 0.9% 1,000 ML IV ONE (22:09)
[2022-02-15 22:27] LABS: Specific Gravity,Urine 1.048 (1.001-1.035)
[2022-02-15] MEDS: PRAMIPEXOLE 1 MG TAB PO SCH (23:32)
[2022-02-16] MEDS: PIPERACILLIN-TAZOBACTAM 3.375 GM in SODIUM CHLORIDE 0.9% 100 ML IVPB STA ×2 (00:23→00:24)
[2022-02-16] MEDS: SODIUM CHLORIDE 0.9% 1,000 ML IV SCH ×6 (00:32→19:18)
[2022-02-16] MEDS: ONDANSETRON 4 MG/2 ML VIAL IVP PRN ×2 (00:32→08:25)
[2022-02-16] MEDS: PANTOPRAZOLE 40 MG/10 ML VIAL IV SCH (05:07)
[2022-02-16 06:01] LABS: ALT 16 U/L (4-34); AST 24 U/L (14-36); African American GFR (CKD) 84 (>60 ml/min/1.73 sqM); Albumin 2.8 g/dL (3.5-5.0); Alkaline Phosphatase 92 U/L (38-126); Amylase 62 U/L (30-110); Anion Gap 3 mmol/L; Blood Urea Nitrogen 27 mg/dL (7-17); Calcium 8.2 mg/dL (8.4-10.2); Carbon Dioxide 25 mmol/L (22-30); Chloride 109 mmol/L (98-107); Glucose 137 mg/dL (74-99); Lipase <10 U/L (23-300); Non-African American GFR(CKD) 73 (>60 ml/min/1.73 sqM); Potassium 3.4 mmol/L (3.5-5.1); Sodium 137 mmol/L (137-145); Total Bilirubin 0.7 mg/dL (0.2-1.3); Total Protein 5.5 g/dL (6.3-8.2)
[2022-02-16 06:10] LABS: Basophils % (A) 0 %; Eosinophils # (A) 0.5 k/uL (0-0.7); Eosinophils % (A) 3 %; HCT 29.4 % (34.0-46.0); Lymphocytes # (A) 0.2 k/uL (1.0-4.8); Lymphocytes % (A) 1 %; MCH 28.8 pg (25.0-35.0); MCHC 32.6 g/dL (31.0-37.0); MCV 88.2 fL (80.0-100.0); Mean Platelet Volume 7.8; Monocytes # (A) 0.3 k/uL (0-1.0); Monocytes % (A) 2 %; Neutrophils # (A) 14.4 k/uL (1.3-7.7); Neutrophils % (A) 94 %; Platelet Count 195 k/uL (150-450); RBC 3.33 m/uL (3.80-5.40); RDW 14.4 % (11.5-15.5); WBC 15.4 k/uL (3.8-10.6)
[2022-02-16 06:21] LABS: HGB 9.6 gm/dL (11.4-16.0)
--- NOTE | 2022-02-16 08:10 | US ---
EXAMINATION TYPE: US gallbladder DATE OF EXAM: 02/16/2022 COMPARISON: CT CLINICAL HISTORY: Right upper quadrant pain. RUQ pain, N&V, abnormal CT EXAM MEASUREMENTS: Liver Length: 11.9 cm Gallbladder Wall: 0.3 cm CBD: 0.9 cm Right Kidney: 11.3 x 6.0 x 4.7 cm Pancreas: Obscured by bowel gas Liver: wnl Gallbladder: Hydropic with gallstones, wall thickness upper limits of normal Evidence for sonographic Hong's sign: Yes CBD: ?wnl for pt's age Right Kidney: Cyst mid= 4.1 x 2.8 x 3.6 cm IMPRESSION: 1. gallbladder hydrops with cholelithiasis. Sonographic Hong's sign noted. No pericholecystic fluid or wall thickening. Common bile duct is at the upper limits of normal for the patient's age group.
[2022-02-16] MEDS: PIPERACILLIN-TAZOBACTAM 3.375 GM in SODIUM CHLORIDE 0.9% 100 ML IVPB SCH ×2 (08:28→17:05)
[2022-02-16] MEDS ORDERED: FAMOTIDINE 20 MG TAB PO SCH (09:00)
[2022-02-16] MEDS: LEVOTHYROXINE 25 MCG TAB PO SCH (13:57)
[2022-02-16] MEDS ORDERED: SODIUM CHLORIDE 0.9% 1,000 ML IV ONE (14:43)
--- NOTE | 2022-02-16 14:43 | P.GSHP ---
History of Present Illness H&P Date: 02/16/22 CHIEF COMPLAINT: Abdominal pain HISTORY OF PRESENT ILLNESS: The patient is a 81 year old female status post colostomy reversal 2 weeks ago. She reports doing well 3 days ago when she developed acute onset nausea and vomiting. Patient presents with history of hiatal hernia repair where she has difficulty vomiting. She was brought in by her daughter to the emergency room after being unable to contact her surgeon yesterday afternoon after 3:30 PM. Patient reports eating cereal prior to her abdominal pain evening, 3 days ago. Patient reports pain of the left lower quadrant. No pain of the right upper quadrant. Patient reports moderate constipation. PAST MEDICAL HISTORY: See list and reviewed PAST SURGICAL HISTORY: See list and reviewed MEDICATIONS: See list and reviewed ALLERGIES: See list and reviewed SOCIAL HISTORY: See list and reviewed FAMILY HISTORY: See list and reviewed REVIEW OF ORGAN SYSTEMS: CONSTITUTIONAL: No fevers or chills. No recent weight loss. EYES: Denies any trouble with vision. No glasses. HEENT: No difficulties with hearing. No nosebleeds. No difficulty swallowing. RESPIRATORY: Denies pneumonia. Denies any troubles with breathing or dyspnea on exertion. CARDIOVASCULAR: Has hyperlidemia. Has hypertensive heart disease. GASTROINTESTINAL: Denies fatty food intolerance. Has change in bowel habits and gas bloat. Has gastroesophageal reflux disease. Has diverticular disease. GENITOURINARY: Denies any blood in urine or increased urinary frequency. NEUROLOGICAL: Denies any numbness or tingling along the distal extremities. No seizure disorders or headaches. MUSCULOSKELETAL: Has back pain, stiffness or joint arthritis. SKIN: No current skin cancer. No rash. PSYCHIATRIC: Has anxiety and depression. ENDOCRINE: Has hypothyroidism. Has goiter. Denies any blood sugar glucose intolerance. HEME/LYMPHATIC: Denies any lumps and bumps around the neck. No recent deep venous thrombosis. Has anemia. ALLERGY/IMMUNOLOGY: No immunoglobulin therapy. No immune deficiencies. BREAST: Denies current breast lumps, pain or nipple discharge. PHYSICAL EXAM: VITALS: Reviewed CONSTITUTIONAL: Well developed and in no acute distress. EYES: Conjuctivae without sclera icterus. Extraocular movements grossly intact. HEAD, EARS, NOSE, THROAT: Moist buccal mucosa. Head is atraumatic, normocephalic. Hears conversational speech. No nasal drainage. NECK: Supple. No JV distention. No thyroidomegaly. RESPIRATORY: Non-labored respirations and equal bilateral excursions. No gross wheezes. CARDIOVASCULAR: Palpable 2+ radial pulses. ABDOMEN: Tender at left lower quadrant pain. No peritonitis. LYMPH: No neck lymphadenopathy. MUSCULOSKELETAL: No clubbing or cyanosis. SKIN: Warm and well perfused with good skin turgor. NEUROLOGIC: Cranial nerves II through XII grossly intact. No focal or lateralizing signs. PSYCH: Appropriate affect. Alert and oriented to person, place and time. Displays appropriate insight. CLINCAL LABS: Reviewed. WBC 16.0 on admission down to 15.4. Hgb down 11.4 to 9.6, anemia. IMAGING: Independently reviewed. CT of the abdomen and pelvis reviewed with moderate stool burden, dilated large gallbladder and recurrent hiatal hernia. RADIOLOGY: Report reviewed of CT with moderate stool, dilated CBD and gallbladder. Ultrasound of the gallbladder reviewed with gallstones and dilated gallbladder. No gallbladder wall thickening. RECORDS: previous old records reviewed with recent colostomy reversal ASSESSMENT: 1. Abdominal pain 2. Constipation 3. Hydrops gallbladder 4. Leukocytosis PLAN: 1. Recommend IV fluid hydration 1 to 2 L due to dehydration and nothing eaten for the past 2 days 2. Antinausea medications prescribed 3. May have popsicles and advanced to liquid diet as nausea improved 4. At this time, no acute surgical intervention due to recent surgery 5. Continue IV antibiotics for leukocytosis. ADVANCE DIRECTIVE: Past Medical History Past Medical History: Hyperlipidemia, Hypertension, Osteoarthritis (OA), Thyroid Disorder Additional Past Medical History / Comment(s): hx hiatal hernia, heart palpitations, anemia, goiter with radiation, diverticular disease History of Any Multi-Drug Resistant Organisms: None Reported Past Surgical History: Bowel Resection, Joint Replacement Additional Past Surgical History / Comment(s): Bilateral knee replacements, several L breast benign biopsies, colonoscopy, D&C. hiatal hernia surgery then 3-4 days post op had bowel resection with colostomy 07/2021 (r/t bleeding/infection),; ostomy reversal 01/29/22. serafin cataracts Past Anesthesia/Blood Transfusion Reactions: No Reported Reaction Additional Past Anesthesia/Blood Transfusion Reaction / Comment(s): Pt has claustrophobia Past Psychological History: Anxiety, Depression Additional Psychological History / Comment(s): . Smoking Status: Never smoker Past Alcohol Use History: Rare Past Drug Use History: None Reported - Past Family History Father Family Medical History: Cancer Additional Family Medical History / Comment(s): lung Mother Additional Family Medical History / Comment(s): Mother had "heart problems" and was a "pre-diabetic" Medications and Allergies Home Medications Medication Instructions Recorded Confirmed Type Levothyroxine Sodium [Synthroid] 25 mcg PO DAILY 07/05/21 02/15/22 History Pramipexole [Mirapex] 1 mg PO HS 07/05/21 02/15/22 History Cholecalciferol [Vitamin D3 (25 25 mcg PO DAILY 10/15/21 02/15/22 History Mcg = 1000 Iu)] Enalapril Maleate 10 mg PO DAILY 10/15/21 02/15/22 History Ferrous Sulfate [Feosol] 325 mg PO MOWEFR 10/15/21 02/15/22 History Folic Acid 0.4 mg PO 1200 10/15/21 02/15/22 History Pravastatin Sodium [Pravachol] 80 mg PO HS 10/15/21 02/15/22 History Vit C/E/Zn/Coppr/Lutein/Zeaxan 1 cap PO BID 10/15/21 02/15/22 History [Preservision Areds 2 Softgel] Famotidine [Pepcid] 20 mg PO BID 30 Days #60 tab 02/05/22 02/15/22 Rx Ibuprofen [Motrin] 600 mg PO Q6HR PRN #40 tab 02/05/22 02/15/22 Rx rOPINIRole HCL [Requip] 1 mg PO TID 30 Days #90 tab 02/05/22 02/15/22 Rx Acetaminophen Tab [Tylenol] 650 mg PO Q6H PRN 02/15/22 02/15/22 History Docusate [Colace] 100 mg PO BID PRN 02/15/22 02/15/22 History Allergies Allergy/AdvReac Type Severity Reaction Status Date / Time codeine Allergy Itching Verified 02/15/22 21:23 latex Allergy Itching Verified 02/15/22 21:23 Surgical - Exam Vital Signs Temp Pulse Resp BP Pulse Ox 101.4 F H 102 H 20 124/51 97 02/15/22 16:58 02/15/22 16:58 02/15/22 16:58 02/15/22 16:58 02/15/22 16:58 Results - Labs 02/16/22 05:39 02/16/22 05:39 Abnormal Lab Results - Last 24 Hours (Table) 02/15/22 02/15/22 02/15/22 Range/Units 18:14 18:14 18:14 WBC 16.0 H (3.8-10.6) k/uL RBC (3.80-5.40) m/uL Hgb (11.4-16.0) gm/dL Hct (34.0-46.0) % Neutrophils # 15.4 H (1.3-7.7) k/uL Lymphocytes # 0.1 L (1.0-4.8) k/uL Potassium (3.5-5.1) mmol/L Chloride (98-107) mmol/L BUN 24 H (7-17) mg/dL Glucose 165 H (74-99) mg/dL Calcium (8.4-10.2) mg/dL Total Protein (6.3-8.2) g/dL Albumin (3.5-5.0) g/dL Lipase (23-300) U/L Ur Specific [place] 1.048 H (1.001-1.035) Urine Protein 1+ H (Negative) Urine Ketones 1+ H (Negative) Urine Blood Moderate H (Negative) Ur Leukocyte Esterase Small H (Negative) Urine RBC 14 H (0-5) /hpf Urine WBC 8 H (0-5) /hpf Urine Bacteria Rare H (None) /hpf Urine Mucus Moderate H (None) /hpf 02/16/22 02/16/22 Range/Units 05:39 05:39 WBC 15.4 H (3.8-10.6) k/uL RBC 3.33 L (3.80-5.40) m/uL Hgb 9.6 L D (11.4-16.0) gm/dL Hct 29.4 L (34.0-46.0) % Neutrophils # 14.4 H (1.3-7.7) k/uL Lymphocytes # 0.2 L (1.0-4.8) k/uL Potassium 3.4 L (3.5-5.1) mmol/L Chloride 109 H (98-107) mmol/L BUN 27 H (7-17) mg/dL Glucose 137 H (74-99) mg/dL Calcium 8.2 L (8.4-10.2) mg/dL Total Protein 5.5 L (6.3-8.2) g/dL Albumin 2.8 L (3.5-5.0) g/dL Lipase <10 L (23-300) U/L Ur Specific [place] (1.001-1.035) Urine Protein (Negative) Urine Ketones (Negative) Urine Blood (Negative) Ur Leukocyte Esterase (Negative) Urine RBC (0-5) /hpf Urine WBC (0-5) /hpf Urine Bacteria (None) /hpf Urine Mucus (None) /hpf Diabetes panel 02/15/22 02/16/22 Range/Units 18:14 05:39 Sodium 138 137 (137-145) mmol/L Potassium 3.7 3.4 L (3.5-5.1) mmol/L Chloride 102 109 H (98-107) mmol/L Carbon Dioxide 28 25 (22-30) mmol/L BUN 24 H 27 H (7-17) mg/dL Creatinine 0.79 0.77 (0.52-1.04) mg/dL Glucose 165 H 137 H (74-99) mg/dL Calcium 9.4 8.2 L (8.4-10.2) mg/dL AST 26 24 (14-36) U/L ALT 16 16 (4-34) U/L Alkaline Phosphatase 114 92 (38-126) U/L Total Protein 7.0 5.5 L (6.3-8.2) g/dL Albumin 3.8 2.8 L (3.5-5.0) g/dL Calcium panel 02/15/22 02/16/22 Range/Units 18:14 05:39 Calcium 9.4 8.2 L (8.4-10.2) mg/dL Albumin 3.8 2.8 L (3.5-5.0) g/dL Pituitary panel 02/15/22 02/16/22 Range/Units 18:14 05:39 Sodium 138 137 (137-145) mmol/L Potassium 3.7 3.4 L (3.5-5.1) mmol/L Chloride 102 109 H (98-107) mmol/L Carbon Dioxide 28 25 (22-30) mmol/L BUN 24 H 27 H (7-17) mg/dL Creatinine 0.79 0.77 (0.52-1.04) mg/dL Glucose 165 H 137 H (74-99) mg/dL Calcium 9.4 8.2 L (8.4-10.2) mg/dL Adrenal panel 02/15/22 02/16/22 Range/Units 18:14 05:39 Sodium 138 137 (137-145) mmol/L Potassium 3.7 3.4 L (3.5-5.1) mmol/L Chloride 102 109 H (98-107) mmol/L Carbon Dioxide 28 25 (22-30) mmol/L BUN 24 H 27 H (7-17) mg/dL Creatinine 0.79 0.77 (0.52-1.04) mg/dL Glucose 165 H 137 H (74-99) mg/dL Calcium 9.4 8.2 L (8.4-10.2) mg/dL Total Bilirubin 0.8 0.7 (0.2-1.3) mg/dL AST 26 24 (14-36) U/L ALT 16 16 (4-34) U/L Alkaline Phosphatase 114 92 (38-126) U/L Total Protein 7.0 5.5 L (6.3-8.2) g/dL Albumin 3.8 2.8 L (3.5-5.0) g/dL
[2022-02-16] MEDS ORDERED: Potassium Replacement Protocol 1 EACH MISC MISCELLANE PRN (14:48)
[2022-02-16] MEDS ORDERED: Magnesium Replacement Protocol 1 EACH MISC MISCELLANE PRN (15:16)
[2022-02-16] MEDS: POTASSIUM CHLORIDE 10 MEQ in WATER FOR INJECTION 1 100ML.BAG IVPB SCH ×4 (16:51→22:57)
[2022-02-16] MEDS: ONDANSETRON 4 MG/2 ML VIAL IVP SCH (17:15)
--- NOTE | 2022-02-16 18:38 | P.CONS ---
History of Present Illness - History of Present Illness This is a pleasant 81 years old female with past medical history of Hyperlipi demia, Hypertension, Osteoarthritis , hypothyroidism, Patient presents because of abdominal pain and vomiting. Patient was recently in this hospital 01/29-02/08 for repair of incisional hernia and parastomal hernia and reverse her colostomy and partial colectomy for his history of perforated diverticulitis. This time presents because she was not feeling well and she has recurrent vomiting since night about 2 days ago and yesterday in the emergency room. She describes her abdominal pain as pressure sensation rather than pain and she points to 2 areas in the suprapubic and right upper quadrant area. She has little bowel movement earlier but now she is passing only gases. She was complaining of from dysuria yesterday She denies chest pain or dyspnea, no headache or weakness or dizziness. She denies smoking, alcohol and illicit drugs On admission patient had a fever of 101.4. Rest of Vitas looks stable. Blood pressure on the low side 84/39 overnight improved this morning. Labs showed leukocytosis was 16,000, rest of CBC, INR, BMP and liver enzymes were unremarkable. Urine analysis showing concentrated sample, Cordarone and influenza virus is negative. EKG showed normal sinus rhythm at [address]-T changes CT of the abdomen and pelvis: Gallbladder hydrops with cholelithiasis and CBD dilatation. No gallbladder wall thickening or pericholecystic fluid Chest x-ray: No acute process Patient was started on Zosyn on normal saline at 1 30 mL/h Review of Systems Review of systems CONSTITUTIONAL: No fever, no malaise, no fatigue. HEENT: No recent visual problems or hearing problems. Denied any sore throat. CARDIOVASCULAR: No orthopnea, PND, no palpitations, no syncope. PULMONARY: No shortness of breath, no cough, no hemoptysis. GASTROINTESTINAL: No diarrhea, . Normoactive bowel sounds. NEUROLOGICAL: No headaches, no weakness, no numbness. HEMATOLOGICAL: Denies any bleeding or petechiae. GENITOURINARY: Denies requency, or urgency. MUSCULOSKELETAL/RHEUMATOLOGICAL: Denies any joint pain, swelling, or any muscle pain. ENDOCRINE: Denies any polyuria or polydipsia. Past Medical History Past Medical History: Hyperlipidemia, Hypertension, Osteoarthritis (OA), Thyroid Disorder Additional Past Medical History / Comment(s): hx hiatal hernia, heart palpitations, anemia, goiter with radiation, diverticular disease History of Any Multi-Drug Resistant Organisms: None Reported Past Surgical History: Bowel Resection, Joint Replacement Additional Past Surgical History / Comment(s): Bilateral knee replacements, several L breast benign biopsies, colonoscopy, D&C. hiatal hernia surgery then 3-4 days post op had bowel resection with colostomy 07/2021 (r/t bleedi ng/infection),; ostomy reversal 01/29/22. serafin cataracts Past Anesthesia/Blood Transfusion Reactions: No Reported Reaction Additional Past Anesthesia/Blood Transfusion Reaction / Comm: Pt has claustrophobia Past Psychological History: Anxiety, Depression Additional Psychological History / Comment(s): . Smoking Status: Never smoker Past Alcohol Use History: Rare Past Drug Use History: None Reported - Past Family History Father Family Medical History: Cancer Additional Family Medical History / Comment(s): lung Mother Additional Family Medical History / Comment(s): Mother had "heart problems" and was a "pre-diabetic" Medications and Allergies Home Medications Medication Instructions Recorded Confirmed Type Levothyroxine Sodium [Synthroid] 25 mcg PO DAILY 07/05/21 02/15/22 History Pramipexole [Mirapex] 1 mg PO HS 07/05/21 02/15/22 History Cholecalciferol [Vitamin D3 (25 25 mcg PO DAILY 10/15/21 02/15/22 History Mcg = 1000 Iu)] Enalapril Maleate 10 mg PO DAILY 10/15/21 02/15/22 History Ferrous Sulfate [Feosol] 325 mg PO MOWEFR 10/15/21 02/15/22 History Folic Acid 0.4 mg PO 1200 10/15/21 02/15/22 History Pravastatin Sodium [Pravachol] 80 mg PO HS 10/15/21 02/15/22 History Vit C/E/Zn/Coppr/Lutein/Zeaxan 1 cap PO BID 10/15/21 02/15/22 History [Preservision Areds 2 Softgel] Famotidine [Pepcid] 20 mg PO BID 30 Days #60 tab 02/05/22 02/15/22 Rx Ibuprofen [Motrin] 600 mg PO Q6HR PRN #40 tab 02/05/22 02/15/22 Rx rOPINIRole HCL [Requip] 1 mg PO TID 30 Days #90 tab 02/05/22 02/15/22 Rx Acetaminophen Tab [Tylenol] 650 mg PO Q6H PRN 02/15/22 02/15/22 History Docusate [Colace] 100 mg PO BID PRN 02/15/22 02/15/22 History Allergies Allergy/AdvReac Type Severity Reaction Status Date / Time codeine Allergy Itching Verified 02/15/22 21:23 latex Allergy Itching Verified 02/15/22 21:23 Physical Exam Vitals: Vital Signs Temp Pulse Pulse Resp BP BP Pulse Ox 02/16/22 12:40 98.9 F 70 19 100/55 97 02/16/22 05:10 99.2 F 86 18 108/55 94 L 02/16/22 00:00 98.1 F 83 18 104/63 98 02/15/22 22:47 97.6 F 75 18 101/64 96 02/15/22 22:06 67 18 84/39 94 L 02/15/22 19:00 99.5 F Intake and Output 02/16/22 02/16/22 02/16/22 06:59 14:59 22:59 Output Total 100 400 10 Balance -100 -400 -10 Output: Urine 400 Emesis 100 Oral Regurgitation 10 Other: Weight 64 kg GENERAL: The patient is alert and oriented x3, not in any acute distress. Well developed, well nourished. HEENT: Pupils are round and equally reacting to light. EOMI. No scleral icterus. No conjunctival pallor. Normocephalic, atraumatic. No pharyngeal erythema. No thyromegaly. CARDIOVASCULAR: S1 and S2 present. No murmurs, rubs, or gallops. PULMONARY: Chest is clear to auscultation, no wheezing or crackles. -ABDOMEN: Soft, old suprapubic tenderness, nondistended, normoactive bowel sounds. No palpable organomegaly. MUSCULOSKELETAL: No joint swelling or deformity. EXTREMITIES: No cyanosis, clubbing, or pedal edema. NEUROLOGICAL: Gross neurological examination did not reveal any focal deficits. SKIN: No rashes. no petechiae. Results CBC & Chem 7: 02/16/22 05:39 02/16/22 05:39 Labs: Abnormal Lab Results - Last 24 Hours (Table) 02/15/22 02/15/22 02/15/22 Range/Units 18:14 18:14 18:14 WBC 16.0 H (3.8-10.6) k/uL RBC (3.80-5.40) m/uL Hgb (11.4-16.0) gm/dL Hct (34.0-46.0) % Neutrophils # 15.4 H (1.3-7.7) k/uL Lymphocytes # 0.1 L (1.0-4.8) k/uL Potassium (3.5-5.1) mmol/L Chloride (98-107) mmol/L BUN 24 H (7-17) mg/dL Glucose 165 H (74-99) mg/dL Calcium (8.4-10.2) mg/dL Magnesium (1.6-2.3) mg/dL Total Protein (6.3-8.2) g/dL Albumin (3.5-5.0) g/dL Lipase (23-300) U/L Ur Specific [place] 1.048 H (1.001-1.035) Urine Protein 1+ H (Negative) Urine Ketones 1+ H (Negative) Urine Blood Moderate H (Negative) Ur Leukocyte Esterase Small H (Negative) Urine RBC 14 H (0-5) /hpf Urine WBC 8 H (0-5) /hpf Urine Bacteria Rare H (None) /hpf Urine Mucus Moderate H (None) /hpf 02/16/22 02/16/22 02/16/22 Range/Units 05:39 05:39 05:39 WBC 15.4 H (3.8-10.6) k/uL RBC 3.33 L (3.80-5.40) m/uL Hgb 9.6 L D (11.4-16.0) gm/dL Hct 29.4 L (34.0-46.0) % Neutrophils # 14.4 H (1.3-7.7) k/uL Lymphocytes # 0.2 L (1.0-4.8) k/uL Potassium 3.4 L (3.5-5.1) mmol/L Chloride 109 H (98-107) mmol/L BUN 27 H (7-17) mg/dL Glucose 137 H (74-99) mg/dL Calcium 8.2 L (8.4-10.2) mg/dL Magnesium 1.5 L (1.6-2.3) mg/dL Total Protein 5.5 L (6.3-8.2) g/dL Albumin 2.8 L (3.5-5.0) g/dL Lipase <10 L (23-300) U/L Ur Specific [place] (1.001-1.035) Urine Protein (Negative) Urine Ketones (Negative) Urine Blood (Negative) Ur Leukocyte Esterase (Negative) Urine RBC (0-5) /hpf Urine WBC (0-5) /hpf Urine Bacteria (None) /hpf Urine Mucus (None) /hpf Assessment and Plan Assessment: Dilated gallbladder mildly hydropic with gallstones, suspicious for acute cholecystitis Acute urinary tract infection Sepsis secondary to above with leukocytosis and fever Hypertension Hyperlipidemia Hypothyroidism History of osteoarthritis History of perforated diverticulitis, Status post reversal of colostomy, partial colectomy, repair of parastomal hernia and repair of incisional hernia Hypertension Hyperlipidemia Degenerative joint disease Restless legs Plan: This is a pleasant 81 Years old female with acute cholecystitis and sepsis Continue with aggressive hydration Continue with Zosyn follow-up culture results Checked with ultrasound Surgery primary care team to address gallbladder diseaseAt bedtime for HIDA scan Labs and medication were reviewed.. Continue same treatment. Continue with symptomatic treatment. Resume home medication. Monitor lytes and vitals. DVT and GI prophylaxis. Further recommendations as per clinical course of the marita miner DVT prophylaxis: Subcutaneous heparin GI Prophylaxis: Pepcid PT/OT: Pending Prognosis is guarded
--- NOTE | 2022-02-16 21:12 | US ---
EXAMINATION TYPE: US renals and bladder DATE OF EXAM: 02/16/2022 COMPARISON: CT, US CLINICAL HISTORY: UTI. UTI. EXAM MEASUREMENTS: Right Kidney: 11.6 x 5.5 x 5.3 cm Left Kidney: 11.9 x 4.9 x 4.6 cm Right Kidney: Anechoic area seen at mid: 4.0 x 3.3 x 3.7 cm. Left Kidney: No hydronephrosis or masses seen Bladder: Patient has catheter in place. Unable to evaluate. Bilateral Jets seen: No IMPRESSION: There is a 4 cm cortical cyst interpolar right kidney. No solid renal mass. No evidence of renal obst ruction. Urinary bladder was mostly empty during the exam. There is catheter in the bladder.
[2022-02-16] MEDS: HEPARIN SODIUM,PORCINE/PF 5,000 UNIT/0.5 ML SYRINGE SQ SCH (21:41)
[2022-02-16] MEDS: PRAMIPEXOLE 1 MG TAB PO SCH (21:42)
[2022-02-16] MEDS: PRAVASTATIN SODIUM 80 MG TAB PO SCH (21:42)
[2022-02-17] MEDS: ONDANSETRON 4 MG/2 ML VIAL IVP SCH ×2 (00:17→05:36)
[2022-02-17] MEDS: PIPERACILLIN-TAZOBACTAM 3.375 GM in SODIUM CHLORIDE 0.9% 100 ML IVPB SCH ×4 (00:17→23:47)
[2022-02-17] MEDS: SODIUM CHLORIDE 0.9% 1,000 ML IV SCH ×3 (00:20→15:11)
[2022-02-17] MEDS: LEVOTHYROXINE 25 MCG TAB PO SCH (05:36)
[2022-02-17] MEDS: HEPARIN SODIUM,PORCINE/PF 5,000 UNIT/0.5 ML SYRINGE SQ SCH ×2 (07:55→21:18)
[2022-02-17] MEDS: PANTOPRAZOLE 40 MG/10 ML VIAL IV SCH (07:56)
[2022-02-17 09:25] LABS: African American GFR (CKD) 99.1 (60.0-200.0); Anion Gap 8.6 mmol/L (10.00-18.00); BUN/Creat Ratio 43.33 Ratio (12.00-20.00); Calcium 8.1 mg/dL (8.7-10.3); Carbon Dioxide 23.4 mmol/L (20.0-27.5); Magnesium 1.8 mg/dL (1.5-2.4); Non-African American GFR(CKD) 85.5 (60.0-200.0); Potassium 3.7 mmol/L (3.5-5.5)
[2022-02-17 10:21] LABS: Basophils # (A) 0.02 X 10*3/uL (0.00-0.10); Basophils % (A) 0.2 %; Eosinophils # (A) 1.17 X 10*3/uL (0.04-0.35); Eosinophils % (A) 13.4 %; HCT 27.9 % (37.2-46.3); HGB 8.8 g/dL (12.0-15.0); Immature Grans, Automated 0.3 %; Lymphocytes # (A) 0.33 X 10*3/uL (0.90-5.00); Lymphocytes % (A) 3.8 %; MCH 28.9 pg (27.0-32.0); MCHC 31.5 g/dL (32.0-37.0); MCV 91.5 fL (80.0-97.0); Mean Platelet Volume 11.3 fL (9.5-12.2); Monocytes # (A) 0.24 X 10*3/uL (0.20-1.00); Monocytes % (A) 2.7 %; NRBC Per 100 WBC 0 /100 WBCS (0.0-0.0); Neutrophils # (A) 6.97 X 10*3/uL (1.80-7.70); Neutrophils % (A) 79.6 %; Platelet Count 186 X 10*3/uL (140-440); RBC 3.05 X 10*6/uL (4.10-5.20); WBC 8.76 X 10*3/uL (4.50-10.00)
[2022-02-17] MEDS: PROMETHAZINE 25 MG TAB PO PRN ×3 (12:07→23:47)
[2022-02-17] MEDS: DOCUSATE 100 MG CAP PO PRN (12:11)
[2022-02-17] MEDS ORDERED: SODIUM CHLORIDE 0.9% 1,000 ML IV ONE (13:42)
--- NOTE | 2022-02-17 13:43 | P.PN ---
Subjective Progress Note Date: 02/17/22 CHIEF COMPLAINT: Abdominal pain HISTORY OF PRESENT ILLNESS: The patient is a 81 year old female status post colostomy reversal 2 weeks ago. She was re-admitted due to abdominal pain. Patient continues to have dark urine. She had persistent nausea yesterday. She was on scheduled Zofran without relief. Medication adjusted by the medicine team. Nausea has improved today. She is keeping now clear liquid. She still has signs of dehydration with dark urine. REVIEW OF ORGAN SYSTEMS: No fevers or chills. Denies pneumonia. Has gastroesophageal reflux disease. Has diverticular disease. PHYSICAL EXAM: VITALS: Reviewed CONSTITUTIONAL: Well developed and in no acute distress. EYES: Conjuctivae without sclera icterus. Extraocular movements grossly intact. HEAD, EARS, NOSE, THROAT: Moist buccal mucosa. Head is atraumatic, normocephalic. Hears conversational speech. No nasal drainage. RESPIRATORY: Non-labored respirations and equal bilateral excursions. No gross wheezes. CARDIOVASCULAR: Palpable 2+ radial pulses. ABDOMEN: Tender at left lower quadrant pain. No peritonitis. MUSCULOSKELETAL: No clubbing or cyanosis. SKIN: Warm and well perfused with good skin turgor. NEUROLOGIC: Cranial nerves II through XII grossly intact. No focal or lateralizing signs. PSYCH: Appropriate affect. Alert and oriented to person, place and time. Displays appropriate insight. CLINCAL LABS: Reviewed. WBC 16.0 on admission down to 15.4, today normal 8.76. Hgb down 11.4 to 9.6, now 8.8 ASSESSMENT: 1. Abdominal pain 2. Constipation 3. Hydrops gallbladder 4. Leukocytosis 5. Dehydration PLAN: 1. We'll give fluid bolus. 2. Will advance diet to full liquid diet. Objective - Vital Signs Vital signs: Vital Signs Temp 98.2 F 02/17/22 05:00 Pulse 81 02/17/22 05:00 Resp 16 02/17/22 05:00 BP 122/66 02/17/22 05:00 Pulse Ox 96 02/17/22 05:00 FiO2 Intake & Output 02/16/22 02/17/22 02/17/22 18:59 06:59 18:59 Intake Total 2024 1150 Output Total 440 30 Balance 1585 1120 Intake: Intake, IV Titration 2024 1100 Amount Piperacillin-Tazobactam 3 100 .375 gm In Sodium Chloride 0.9% 100 ml @ 25 mls/hr IVPB Q8HR [facility] Rx# :[id number] Potassium Chloride 10 meq 100 In Water For Injection 1 100ml.bag @ 100 mls/hr IVPB Q1HR [facility] Rx#: [id number] Sodium Chloride 0.9% 1, 100 000 ml @ 115 mls/hr IV . Q8H42M [facility] Rx#:[id number] Sodium Chloride 0.9% 1, 825 1000 000 ml @ 125 mls/hr IV . Q8H [facility] Rx#:[id number] Sodium Chloride 0.9% 1, 1000 000 ml @ 999 mls/hr IV . Q1H1M [facility] Rx#:[id number] Oral 50 Output: Urine 400 Emesis 30 30 Oral Regurgitation 10 Other: Voiding Method Indwelling Catheter Indwelling Catheter # Voids 2 - Labs CBC & Chem 7: 02/17/22 06:25 02/17/22 06:25 Labs: Abnormal Lab Results - Last 24 Hours (Table) 02/16/22 02/17/22 02/17/22 Range/Units 05:39 06:25 06:25 RBC 3.05 L (4.10-5.20) X 10*6/uL Hgb 8.8 L (12.0-15.0) g/dL Hct 27.9 L (37.2-46.3) % MCHC 31.5 L (32.0-37.0) g/dL RDW 15.0 H (11.5-14.5) % Lymphocytes # 0.33 L (0.90-5.00) X 10*3/uL Eosinophils # 1.17 H (0.04-0.35) X 10*3/uL Chloride 111 H (96-109) mmol/L Anion Gap 8.60 L (10.00-18.00) mmol/L BUN/Creatinine Ratio 43.33 H (12.00-20.00) Ratio Calcium 8.1 L (8.7-10.3) mg/dL Magnesium 1.5 L (1.6-2.3) mg/dL Microbiology - Last 24 Hours (Table) 02/16/22 23:10 Urine Culture - Preliminary Urine,Catheterized 02/15/22 18:15 Blood Culture - Preliminary Blood No Growth after 24 hours 02/15/22 18:30 Blood Culture - Preliminary Blood No Growth after 24 hours
--- NOTE | 2022-02-17 18:03 | P.PN ---
Subjective This is a pleasant 81 years old female with past medical history of Hyperlipidemia, Hypertension, Osteoarthritis , hypothyroidism, Patient presents because of abdominal pain and vomiting. Patient was recently in this hospital 01/29-02/08 for repair of incisional hernia and parastomal hernia and reverse her colostomy and partial colectomy for his h istory of perforated diverticulitis. This time presents because she was not feeling well and she has recurrent vomiting since night about 2 days ago and yesterday in the emergency room. She describes her abdominal pain as pressure sensation rather than pain and she points to 2 areas in the suprapubic and right upper quadrant area. She has little bowel movement earlier but now she is passing only gases. She was complaining of from dysuria yesterday She denies chest pain or dyspnea, no headache or weakness or dizziness. She denies smoking, alcohol and illicit drugs On admission patient had a fever of 101.4. Rest of Vitas looks stable. Blood pressure on the low side 84/39 overnight improved this morning. Labs showed leukocytosis was 16,000, rest of CBC, INR, BMP and liver enzymes we re unremarkable. Urine analysis showing concentrated sample, Cordarone and influenza virus is negative. EKG showed normal sinus rhythm at [address]-T changes CT of the abdomen and pelvis: Gallbladder hydrops with cholelithiasis and CBD dilatation. No gallbladder wall thickening or pericholecystic fluid Chest x-ray: No acute process Patient was started on Zosyn on normal saline at 1 30 mL/h 02/17/2022 Patient looks better than yesterday, she is comfortable and not in distress. She still concerned about her abdominal complaints and pain. She has no more fever. Low blood pressure improved with IV hydration. She has evidence of urinary retention and Diego catheter was placed. Patient will benefit from urology evaluation as an outpatient. Follow-up recommendation with Dr. Proctor is placed in her discharge instructions. She remains on IV fluids. Also she is on Zosyn. Surgery team on the case and currently she is on liquid diet. She has some mild right upper quadrant discomfort. Her nausea is not controlled with Zofran which is wished to Phenergan. Objective - Vital Signs Vital signs: Vital Signs Temp 98.2 F 02/17/22 05:00 Pulse 81 02/17/22 05:00 Resp 16 02/17/22 05:00 BP 122/66 07/17/22 05:00 Pulse Ox 96 02/17/22 05:00 FiO2 Intake & Output 02/16/22 02/17/22 02/17/22 18:59 06:59 18:59 Intake Total 2024 1150 Output Total 440 30 Balance 1585 1120 Intake: Intake, IV Titration 2024 1100 Amount Piperacillin-Tazobactam 3 100 .375 gm In Sodium Chloride 0.9% 100 ml @ 25 mls/hr IVPB Q8HR [facility] Rx# :[id number] Potassium Chloride 10 meq 100 In Water For Injection 1 100ml.bag @ 100 mls/hr IVPB Q1HR [facility] Rx#: [id number] Sodium Chloride 0.9% 1, 100 000 ml @ 115 mls/hr IV . Q8H42M [facility] Rx#:[id number] Sodium Chloride 0.9% 1, 825 1000 000 ml @ 125 mls/hr IV . Q8H [facility] Rx#:[id number] Sodium Chloride 0.9% 1, 1000 000 ml @ 999 mls/hr IV . Q1H1M [facility] Rx#:[id number] Oral 50 Output: Urine 400 Emesis 30 30 Oral Regurgitation 10 Other: Voiding Method Indwelling Catheter # Voids 2 - Exam GENERAL: The patient is alert and oriented x3, not in any acute distress. Well developed, well nourished. HEENT: Pupils are round and equally reacting to light. EOMI. No scleral icterus. No conjunctival pallor. Normocephalic, atraumatic. No pharyngeal erythema. No thyromegaly. CARDIOVASCULAR: S1 and S2 present. No murmurs, rubs, or gallops. PULMONARY: Chest is clear to auscultation, no wheezing or crackles. -ABDOMEN: Soft, mild RUQ tenderness, no suprapubic tenderness, nondistended, normoactive bowel sounds. No palpable organomegaly. MUSCULOSKELETAL: No joint swelling or deformity. EXTREMITIES: No cyanosis, clubbing, or pedal edema. NEUROLOGICAL: Gross neurological examination did not reveal any focal deficits. SKIN: No rashes. no petechiae. - Labs CBC & Chem 7: 02/17/22 06:25 02/17/22 06:25 Labs: Abnormal Lab Results - Last 24 Hours (Table) 02/16/22 02/17/22 02/17/22 Range/Units 05:39 06:25 06:25 RBC 3.05 L (4.10-5.20) X 10*6/uL Hgb 8.8 L (12.0-15.0) g/dL Hct 27.9 L (37.2-46.3) % MCHC 31.5 L (32.0-37.0) g/dL RDW 15.0 H (11.5-14.5) % Lymphocytes # 0.33 L (0.90-5.00) X 10*3/uL Eosinophils # 1.17 H (0.04-0.35) X 10*3/uL Chloride 111 H (96-109) mmol/L Anion Gap 8.60 L (10.00-18.00) mmol/L BUN/Creatinine Ratio 43.33 H (12.00-20.00) Ratio Calcium 8.1 L (8.7-10.3) mg/dL Magnesium 1.5 L (1.6-2.3) mg/dL Microbiology - Last 24 Hours (Table) 02/15/22 18:15 Blood Culture - Preliminary Blood No Growth after 24 hours 02/15/22 18:30 Blood Culture - Preliminary Blood No Growth after 24 hours Assessment and Plan Assessment: Dilated gallbladder mildly hydropic with gallstones, suspicious for acute cholecystitis Acute urinary tract infection Acute urinary retention. Status post Diego catheter Sepsis secondary to above with leukocytosis and fever Hypertension Hyperlipidemia Hypothyroidism History of osteoarthritis History of perforated diverticulitis, Status post reversal of colostomy, partial colectomy, repair of parastomal hernia and repair of incisional hernia Hypertension Hyperlipidemia Degenerative joint disease Restless legs Plan: This is a pleasant 81 Years old female with acute cholecystitis and sepsis Continue with aggressive hydration Continue with Zosyn follow-up culture results Continue with Diego catheter and follow-up with Dr. Proctor as an outpatient Surgery management of gallbladder disease procedure primary team Labs and medication were reviewed.. Continue same treatment. Continue with symptomatic treatment. Resume home medication. Monitor lytes and vitals. DVT and GI prophylaxis. Further recommendations as per clinical course of the patient DVT prophylaxis: Subcutaneous heparin GI Prophylaxis: Pepcid PT/OT: Pending Prognosis is guarded
[2022-02-17] MEDS: PRAMIPEXOLE 1 MG TAB PO SCH (21:18)
[2022-02-17] MEDS: PRAVASTATIN SODIUM 80 MG TAB PO SCH (21:18)
[2022-02-18] MEDS: DOCUSATE 100 MG CAP PO PRN (03:24)
[2022-02-18] MEDS: LEVOTHYROXINE 25 MCG TAB PO SCH (05:51)
[2022-02-18] MEDS ORDERED: PROMETHAZINE 25 MG TAB PO PRN (07:17)
[2022-02-18] MEDS: PIPERACILLIN-TAZOBACTAM 3.375 GM in SODIUM CHLORIDE 0.9% 100 ML IVPB SCH ×3 (08:00→23:54)
[2022-02-18] MEDS: PANTOPRAZOLE 40 MG TABLET PO SCH (08:00)
[2022-02-18] MEDS: HEPARIN SODIUM,PORCINE/PF 5,000 UNIT/0.5 ML SYRINGE SQ SCH ×2 (08:00→20:57)
[2022-02-18] MEDS: SODIUM CHLORIDE 0.9% 1,000 ML IV SCH ×4 (08:01→23:55)
[2022-02-18 11:13] LABS: Basophils % (A) 0 %; Eosinophils # (A) 0.5 k/uL (0-0.7); Eosinophils % (A) 11 %; HCT 31.1 % (34.0-46.0); HGB 10.1 gm/dL (11.4-16.0); Hypochromasia Slight; Lymphocytes # (A) 0.4 k/uL (1.0-4.8); Lymphocytes % (A) 8 %; MCH 29.6 pg (25.0-35.0); MCHC 32.5 g/dL (31.0-37.0); MCV 91.3 fL (80.0-100.0); Mean Platelet Volume 7.8; Monocytes # (A) 0.2 k/uL (0-1.0); Monocytes % (A) 3 %; Neutrophils # (A) 3.5 k/uL (1.3-7.7); Neutrophils % (A) 75 %; Platelet Count 194 k/uL (150-450); RBC 3.41 m/uL (3.80-5.40); RDW 14.5 % (11.5-15.5); WBC 4.6 k/uL (3.8-10.6)
[2022-02-18 11:29] LABS: African American GFR (CKD) >90 (>60 ml/min/1.73 sqM); Anion Gap 6 mmol/L; Blood Urea Nitrogen 14 mg/dL (7-17); Calcium 8.2 mg/dL (8.4-10.2); Carbon Dioxide 22 mmol/L (22-30); Chloride 109 mmol/L (98-107); Glucose 136 mg/dL (74-99); Magnesium 1.6 mg/dL (1.6-2.3); Non-African American GFR(CKD) 84 (>60 ml/min/1.73 sqM); Potassium 3.3 mmol/L (3.5-5.1); Sodium 137 mmol/L (137-145)
[2022-02-18] MEDS ORDERED: POTASSIUM CHLORIDE ER 20 MEQ TAB.ER PO STA ×2 (14:23→17:23)
--- NOTE | 2022-02-18 14:25 | P.PN ---
Subjective Progress Note Date: 02/18/22 CHIEF COMPLAINT: Abdominal pain HISTORY OF PRESENT ILLNESS: The patient is a 81 year old female status post colostomy reversal 2 weeks ago. She was re-admitted due to abdominal pain. Patient reports that she is feeling weak. However she was able to work with physical therapy. Denies any nausea or vomiting. She has been able to have a bowel movement. She's tolerating full liquid diet. Afebrile. WBC is 4.6 hemoglobin 10.1 and platelets 194 sodium 137 potassium is 3.3 creatinine 0.64 magnesium 1.6 PHYSICAL EXAM: VITAL SIGNS: Reviewed. GENERAL: Well-developed in no acute distress. HEENT: No sclera icterus. Extraocular movements grossly intact. Moist buccal mucosa. Head is atraumatic, normocephalic. ABDOMEN: Soft. Nondistended. NEUROLOGIC: Alert and oriented. Cranial nerves II through XII grossly intact. ASSESSMENT: 1. Abdominal pain 2. Constipation 3. Hydrops gallbladder 4. Leukocytosis 5. Dehydration 6. Hypokalemia and hypomagnesemia PLAN: -Continue full liquid diet -Replace magnesium and potassium -Continue IV fluids -Continue supportive care -No acute surgical intervention planned due to recent abdominal surgery Physician Yarn Mercerizer Operator note has been reviewed by physician. Signing provider agrees with the documented findings, assessment, and plan of care. Objective - Vital Signs Vital signs: Vital Signs Temp 98.3 F 02/18/22 11:29 Pulse 62 02/18/22 11:29 Resp 14 02/18/22 11:29 BP 123/64 02/18/22 11:29 Pulse Ox 98 02/18/22 11:29 FiO2 Intake & Output 02/17/22 02/18/22 02/18/22 18:59 06:59 18:59 Intake Total 2375 200 Output Total 1000 800 450 Balance 1375 -600 -450 Intake: Intake, IV Titration 2375 Amount Sodium Chloride 0.9% 1, 1375 000 ml @ 125 mls/hr IV . Q8H [facility] Rx#:[id number] Sodium Chloride 0.9% 1, 1000 000 ml @ 999 mls/hr IV . Q1H1M [facility] Rx#:[id number] Oral 200 Output: Urine 1000 800 450 Other: Voiding Method Indwelling Catheter Indwelling Catheter Indwelling Catheter # Bowel Movements 1 - Labs CBC & Chem 7: 02/18/22 10:30 02/18/22 10:30 Labs: Abnormal Lab Results - Last 24 Hours (Table) 02/18/22 02/18/22 Range/Units 10:30 10:30 RBC 3.41 L (3.80-5.40) m/uL Hgb 10.1 L (11.4-16.0) gm/dL Hct 31.1 L (34.0-46.0) % Lymphocytes # 0.4 L (1.0-4.8) k/uL Potassium 3.3 L (3.5-5.1) mmol/L Chloride 109 H (98-107) mmol/L Glucose 136 H (74-99) mg/dL Calcium 8.2 L (8.4-10.2) mg/dL Microbiology - Last 24 Hours (Table) 02/16/22 23:10 Urine Culture - Final Urine,Catheterized 02/15/22 18:30 Blood Culture - Preliminary Blood No Growth after 48 hours 02/15/22 18:15 Blood Culture - Preliminary Blood No Growth after 48 hours
[2022-02-18] MEDS: MAGNESIUM SULFATE-D5W PMX 1 GM in DEXTROSE/WATER 1 100ML.BAG IVPB SCH ×2 (14:53→15:55)
--- NOTE | 2022-02-18 17:26 | P.PN ---
Subjective Progress Note Date: 02/18/22 This is a pleasant 81 years old female with past medical history of Hyperlipidemia, Hypertension, Osteoarthritis , hypothyroidism, Patient presents because of abdominal pain and vomiting. Patient was recently in this hospital 01/29-02/08 for repair of incisional hernia and parastomal hernia and reverse her colostomy and partial colectomy for his history of perforated diverticulitis. This time presents because she was not feeling well and she has recurrent vomiting since night about 2 days ago and yesterday in the emergency room. She describes her abdominal pain as pressure sensation rather than pain and she points to 2 areas in the suprapubic and right upper quadrant area. She has little bowel movement earlier but now she is passing only gases. She was complaining of from dysuria yesterday She denies chest pain or dyspnea, no headache or weakness or dizziness. She denies smoking, alcohol and illicit drugs On admission patient had a fever of 101.4. Rest of Vitas looks stable. Blood pressure on the low side 84/39 overnight improved this morning. Labs showed leukocytosis was 16,000, rest of CBC, INR, BMP and liver enzymes were unremarkable. Urine analysis showing concentrated sample, Cordarone and influenza virus is negative. EKG showed normal sinus rhythm at [address]-T changes CT of the abdomen and pelvis: Gallbladder hydrops with cholelithiasis and CBD dilatation. No gallbladder wall thickening or pericholecystic fluid Chest x-ray: No acute process Patient was started on Zosyn on normal saline at 1 30 mL/h 02/17/2022 Patient looks better than yesterday, she is comfortable and not in distress. She still concerned about her abdominal complaints and pain. She has no more fever. Low blood pressure improved with IV hydration. She has evidence of urinary retention and Diego catheter was placed. Patient will benefit from urology evaluation as an outpatient. Follow-up recommendation with Dr. Proctor is placed in her discharge instructions. She remains on IV fluids. Also she is on Zosyn. Surgery team on the case and currently she is on liquid diet. She has some mild right upper quadrant discomfort. Her nausea is not controlled with Zofran which is wished to Phenergan. 02/18/2022 Patient evaluated today sitting up in the chair. She reports nausea has mildly improved with the increase in phenergan. She is on full liquid diet and states she would like some toast or crackers and she thinks that may help with nausea. No surgical intervention planned. Electrolytes will be replaced today. She continues on IV fluids. Potassium 3.3 today, magnesium 1.6. Afebrile, blood pressure 123/64, 98% pulse oximeter, heart rate 62. Review of Systems Constitutional: Denied any fatigue denied any fever. Cardio vascular: denied any chest pain, palpitations Gastrointestinal: denied any vomiting, no diarrhea. Continues with Incisional abdominal pain. Continues with nausea. Pulmonary: Denied any shortness of breath cough Neurologic denied any new focal deficits All inpatient medications were reviewed and appropriate changes in these medications as dictated in the interval history and assessment and plan. Physical Examination GENERAL: The patient is alert and oriented x3, not in any acute distress. Well developed, well nourished. HEENT: Pupils are round and equally reacting to light. EOMI. No scleral icterus. No conjunctival pallor. Normocephalic, atraumatic. No pharyngeal erythema. No thyromegaly. CARDIOVASCULAR: S1 and S2 present. No murmurs, rubs, or gallops. PULMONARY: Chest is clear to auscultation, no wheezing or crackles. -ABDOMEN: Soft, mild RUQ tenderness, no suprapubic tenderness, nondistended, normoactive bowel sounds. No palpable organomegaly. MUSCULOSKELETAL: No joint swelling or deformity. EXTREMITIES: No cyanosis, clubbing, or pedal edema. NEUROLOGICAL: Gross neurological examination did not reveal any focal deficits. SKIN: No rashes. no petechiae. Assessment and Plan Assessment Dilated gallbladder mildly hydropic with gallstones, suspicious for acute cholecystitis Acute urinary tract infection Acute urinary retention. Status post Diego catheter Sepsis secondary to above with leukocytosis and fever Hypertension Hyperlipidemia Hypothyroidism History of osteoarthritis History of perforated diverticulitis, Status post reversal of colostomy, partial colectomy, repair of parastomal hernia and repair of incisional hernia Hypertension Hyperlipidemia Degenerative joint disease Restless legs GI Prophylaxis DVT Prophylaxis Full Code Plan Continue with IV antibiotics, IV fluids, cultures are negative so far. Continue with antiemetics Diet as per primary Replace electrolytes and repeat labs in the morning No plans for surgical intervention from primary Thank you Kindly for this consultation The impression and plan of care has been dictated by Nolvia Frias, Nurse Practitioner as directed. Dr. Asha MD I have performed a history and physical examination and medical decision making of this patient, discussed the same with the dictator, and agree with the dictators assessment and plan as written, documented as a scribe. Based on total visit time, I have performed more than 50% of this visit. Objective - Vital Signs Vital signs: Vital Signs Temp 98.1 F 02/18/22 05:00 Pulse 67 02/18/22 05:00 Resp 18 02/18/22 05:00 BP 123/63 02/18/22 05:00 Pulse Ox 95 02/18/22 05:00 FiO2 Intake & Output 02/17/22 02/18/22 02/18/22 18:59 06:59 18:59 Intake Total 2375 200 Output Total 1000 800 Balance 1375 -600 Intake: Intake, IV Titration 2375 Amount Sodium Chloride 0.9% 1, 1375 000 ml @ 125 mls/hr IV . Q8H [facility] Rx#:[id number] Sodium Chloride 0.9% 1, 1000 000 ml @ 999 mls/hr IV . Q1H1M [facility] Rx#:[id number] Oral 200 Output: Urine 1000 800 Other: Voiding Method Indwelling Catheter Indwelling Catheter # Bowel Movements 1 - Labs CBC & Chem 7: 02/18/22 10:30 02/18/22 10:30 Labs: Abnormal Lab Results - Last 24 Hours (Table) 02/17/22 02/17/22 Range/Units 06:25 06:25 RBC 3.05 L (4.10-5.20) X 10*6/uL Hgb 8.8 L (12.0-15.0) g/dL Hct 27.9 L (37.2-46.3) % MCHC 31.5 L (32.0-37.0) g/dL RDW 15.0 H (11.5-14.5) % Lymphocytes # 0.33 L (0.90-5.00) X 10*3/uL Eosinophils # 1.17 H (0.04-0.35) X 10*3/uL Chloride 111 H (96-109) mmol/L Anion Gap 8.60 L (10.00-18.00) mmol/L BUN/Creatinine Ratio 43.33 H (12.00-20.00) Ratio Calcium 8.1 L (8.7-10.3) mg/dL Microbiology - Last 24 Hours (Table) 02/15/22 18:30 Blood Culture - Preliminary Blood No Growth after 48 hours 02/15/22 18:15 Blood Culture - Preliminary Blood No Growth after 48 hours 02/16/22 23:10 Urine Culture - Preliminary Urine,Catheterized Assessment and Plan Time with Patient: Less than 30
[2022-02-18] MEDS: PRAVASTATIN SODIUM 80 MG TAB PO SCH (20:56)
[2022-02-18] MEDS: PRAMIPEXOLE 1 MG TAB PO SCH (20:56)
[2022-02-19] MEDS: LEVOTHYROXINE 25 MCG TAB PO SCH (05:31)
[2022-02-19] MEDS: PANTOPRAZOLE 40 MG TABLET PO SCH (08:35)
[2022-02-19] MEDS: PIPERACILLIN-TAZOBACTAM 3.375 GM in SODIUM CHLORIDE 0.9% 100 ML IVPB SCH ×3 (08:35→23:57)
[2022-02-19] MEDS: HEPARIN SODIUM,PORCINE/PF 5,000 UNIT/0.5 ML SYRINGE SQ SCH ×2 (08:35→23:57)
[2022-02-19] MEDS: DOCUSATE 100 MG CAP PO PRN (08:40)
[2022-02-19 10:53] LABS: Magnesium 1.9 mg/dL (1.5-2.4)
[2022-02-19 10:54] LABS: African American GFR (CKD) 105.2 (60.0-200.0); Anion Gap 11.6 mmol/L (10.00-18.00); Blood Urea Nitrogen 7.5 mg/dL (9.0-27.0); Calcium 8.2 mg/dL (8.7-10.3); Carbon Dioxide 21.4 mmol/L (20.0-27.5); Non-African American GFR(CKD) 90.8 (60.0-200.0); Potassium 3.8 mmol/L (3.5-5.5)
--- NOTE | 2022-02-19 13:13 | P.PN ---
Subjective Progress Note Date: 02/19/22 CHIEF COMPLAINT: Abdominal pain HISTORY OF PRESENT ILLNESS: The patient is a 81 year old female status post colostomy reversal 2 weeks ago. She was re-admitted due to abdominal pain. Patient reports improvement in her abdominal pain. She denies any nausea or vomiting. She is requesting advancement of her diet. She is sick of the full liquids. She reports having bowel movements. Afebrile. Sodium 139 potassium 3.8 creatinine 0.5 magnesium 1.9 Patient seen and examined with Dr. brian PHYSICAL EXAM: VITAL SIGNS: Reviewed. GENERAL: Well-developed in no acute distress. HEENT: No sclera icterus. Extraocular movements grossly intact. Moist buccal mucosa. Head is atraumatic, normocephalic. ABDOMEN: Soft. Nondistended. Abdominal incision some scabbing noted in the mid incision. No drainage. NEUROLOGIC: Alert and oriented. Cranial nerves II through XII grossly intact. ASSESSMENT: 1. Abdominal pain 2. Constipation 3. Hydrops gallbladder 4. Leukocytosis improved 5. Dehydration 6. Hypokalemia and hypomagnesemia improved PLAN: -Advance diet to low fiber -Hep-Lock IV -Continue supportive care -No surgical intervention planned during this admission -Cholecystectomy in the future after patient recovers from her recent surgery -Anticipate discharge tomorrow -We'll have nursing staff finish removing era from incision sites Physician Senior Bioinformatics Specialist note has been reviewed by physician. Signing provider agrees with the documented findings, assessment, and plan of care. Objective - Vital Signs Vital signs: Vital Signs Temp 98.2 F 02/19/22 11:17 Pulse 65 02/19/22 11:17 Resp 18 02/19/22 11:17 BP 155/74 02/19/22 11:17 Pulse Ox 98 02/19/22 11:17 FiO2 Intake & Output 02/18/22 02/19/22 02/19/22 18:59 06:59 18:59 Intake Total 800 Output Total 1100 1600 525 Balance -1100 -800 -525 Intake: Intake, IV Titration 800 Amount Piperacillin-Tazobactam 3 100 .375 gm In Sodium Chloride 0.9% 100 ml @ 25 mls/hr IVPB Q8HR [facility] Rx# :[id number] Sodium Chloride 0.9% 1, 700 000 ml @ 75 mls/hr IV . [id number] [facility] Rx#:[id number] Output: Urine 1100 1600 525 Other: Voiding Method Indwelling Catheter Indwelling Catheter Indwelling Catheter # Bowel Movements 1 - Labs CBC & Chem 7: 02/18/22 10:30 02/19/22 07:00 Labs: Abnormal Lab Results - Last 24 Hours (Table) 02/19/22 Range/Units 07:00 BUN 7.5 L (9.0-27.0) mg/dL Creatinine 0.5 L (0.6-1.5) mg/dL Calcium 8.2 L (8.7-10.3) mg/dL Microbiology - Last 24 Hours (Table) 02/15/22 18:30 Blood Culture - Preliminary Blood No Growth after 72 hours 02/15/22 18:15 Blood Culture - Preliminary Blood No Growth after 72 hours 02/16/22 23:10 Urine Culture - Final Urine,Catheterized
[2022-02-19] MEDS ORDERED: MAGNESIUM SULFATE-D5W PMX 1 GM in DEXTROSE/WATER 1 100ML.BAG IVPB ONE (13:26)
[2022-02-19] MEDS ORDERED: POTASSIUM CHLORIDE ER 20 MEQ TAB.ER PO STA (13:26)
--- NOTE | 2022-02-19 13:27 | P.PN ---
Subjective Progress Note Date: 02/19/22 This is a pleasant 81 years old female with past medical history of Hyperlipidemia, Hypertension, Osteoarthritis , hypothyroidism, Patient presents because of abdominal pain and vomiting. Patient was recently in this hospital 01/29-02/08 for repair of incisional hernia and parastomal hernia and reverse her colostomy and partial colectomy for his history of perforated diverticulitis. This time presents because she was not feeling well and she has recurrent vomiting since night about 2 days ago and yesterday in the emergency room. She describes her abdominal pain as pressure sensation rather than pain and she points to 2 areas in the suprapubic and right upper quadrant area. She has little bowel movement earlier but now she is passing only gases. She was complaining of from dysuria yesterday She denies chest pain or dyspnea, no headache or weakness or dizziness. She denies smoking, alcohol and illicit drugs On admission patient had a fever of 101.4. Rest of Vitas looks stable. Blood pressure on the low side 84/39 overnight improved this morning. Labs showed leukocytosis was 16,000, rest of CBC, INR, BMP and liver enzymes were unremarkable. Urine analysis showing concentrated sample, Cordarone and influenza virus is negative. EKG showed normal sinus rhythm at [address]-T changes CT of the abdomen and pelvis: Gallbladder hydrops with cholelithiasis and CBD dilatation. No gallbladder wall thickening or pericholecystic fluid Chest x-ray: No acute process Patient was started on Zosyn on normal saline at 1 30 mL/h 02/17/2022 Patient looks better than yesterday, she is comfortable and not in distress. She still concerned about her abdominal complaints and pain. She has no more fever. Low blood pressure improved with IV hydration. She has evidence of urinary retention and Diego catheter was placed. Patient will benefit from urology evaluation as an outpatient. Follow-up recommendation with Dr. Proctor is placed in her discharge instructions. She remains on IV fluids. Also she is on Zosyn. Surgery team on the case and currently she is on liquid diet. She has some mild right upper quadrant discomfort. Her nausea is not controlled with Zofran which is wished to Phenergan. 02/18/2022 Patient evaluated today sitting up in the chair. She reports nausea has mildly improved with the increase in phenergan. She is on full liquid diet and states she would like some toast or crackers and she thinks that may help with nausea. No surgical intervention planned. Electrolytes will be replaced today. She continues on IV fluids. Potassium 3.3 today, magnesium 1.6. Afebrile, blood pressure 123/64, 98% pulse oximeter, heart rate 62. 02/19/2022 Patient evaluated today, she states she had normal soft BM last night. Main discomfort is midline era which are catching on her gown with ambulation. States she felt hungry this AM but does not like the full liquid diet and that is contributing to her nausea. She would like something more solid to eat. Discu ssed with surgery. Labs today showing potassium 3.8, magnesium 1.9 T-Max 99.4 over night. Blood pressure 154/82, 96% room air. Fluids decreased to 75 mls per hour yesterday, she continues on IV zosyn. Urine culture is negative. Review of Systems Constitutional: Denied any fatigue denied any fever. Cardio vascular: denied any chest pain, palpitations Gastrointestinal: denied any vomiting, no diarrhea. Continues with Incisional abdominal pain. Continues with nausea. Pulmonary: Denied any shortness of breath cough Neurologic denied any new focal deficits All inpatient medications were reviewed and appropriate changes in these medications as dictated in the interval history and assessment and plan. Physical Examination GENERAL: The patient is alert and oriented x3, not in any acute distress. Well developed, well nourished. HEENT: Pupils are round and equally reacting to light. EOMI. No scleral icterus. No conjunctival pallor. Normocephalic, atraumatic. No pharyngeal erythema. No thyromegaly. CARDIOVASCULAR: S1 and S2 present. No murmurs, rubs, or gallops. PULMONARY: Chest is clear to auscultation, no wheezing or crackles. -ABDOMEN: Soft, mild RUQ tenderness, no suprapubic tenderness, nondistended, normoactive bowel sounds. No palpable organomegaly. Postsurgical with midline era. MUSCULOSKELETAL: No joint swelling or deformity. EXTREMITIES: No cyanosis, clubbing, or pedal edema. NEUROLOGICAL: Gross neurological examination did not reveal any focal deficits. SKIN: No rashes. no petechiae. Assessment and Plan Assessment Dilated gallbladder mildly hydropic with gallstones, suspicious for acute cholecystitis Asymptomatic bacteriruea, with negative urine culture Acute urinary retention. Status post Diego catheter Sepsis secondary to above with leukocytosis and fever, resolved Hypertension Hyperlipidemia Hypothyroidism History of osteoarthritis History of perforated diverticulitis, Status post reversal of colostomy, partial colectomy, repair of parastomal hernia and repair of incisional hernia Hypertension Hyperlipidemia Degenerative joint disease Restless legs GI Prophylaxis DVT Prophylaxis Full Code Plan Continue with IV antibiotics, IV fluids, cultures are negative so far. Continue with antiemetics Diet as per primary Replace electrolytes and repeat labs in the morning No plans for surgical intervention from primary Thank you Kindly for this consultation The impression and plan of care has been dictated by Nolvia Frias Nurse Practitioner as directed. Dr. Asha MD I have performed a history and physical examination and medical decision making of this patient, discussed the same with the dictator, and agree with the dictators assessment and plan as written, documented as a scribe. Based on total visit time, I have performed more than 50% of this visit. Objective - Vital Signs Vital signs: Vital Signs Temp 98.9 F 02/19/22 04:39 Pulse 66 02/19/22 04:39 Resp 18 02/19/22 04:39 BP 154/82 02/19/22 04:39 Pulse Ox 96 02/19/22 04:39 FiO2 Intake & Output 02/18/22 02/19/22 02/19/22 18:59 06:59 18:59 Intake Total 800 Output Total 1100 1600 525 Balance -1100 -800 -525 Intake: Intake, IV Titration 800 Amount Piperacillin-Tazobactam 3 100 .375 gm In Sodium Chloride 0.9% 100 ml @ 25 mls/hr IVPB Q8HR [facility] Rx# :[id number] Sodium Chloride 0.9% 1, 700 000 ml @ 75 mls/hr IV . [id number] [facility] Rx#:[id number] Output: Urine 1100 1600 525 Other: Voiding Method Indwelling Catheter Indwelling Catheter Indwelling Catheter # Bowel Movements 1 - Labs CBC & Chem 7: 02/18/22 10:30 02/19/22 07:00 Labs: Abnormal Lab Results - Last 24 Hours (Table) 02/18/22 02/18/22 Range/Units 10:30 10:30 RBC 3.41 L (3.80-5.40) m/uL Hgb 10.1 L (11.4-16.0) gm/dL Hct 31.1 L (34.0-46.0) % Lymphocytes # 0.4 L (1.0-4.8) k/uL Potassium 3.3 L (3.5-5.1) mmol/L Chloride 109 H (98-107) mmol/L Glucose 136 H (74-99) mg/dL Calcium 8.2 L (8.4-10.2) mg/dL Microbiology - Last 24 Hours (Table) 02/15/22 18:30 Blood Culture - Preliminary Blood No Growth after 72 hours 02/15/22 18:15 Blood Culture - Preliminary Blood No Growth after 72 hours 02/16/22 23:10 Urine Culture - Final Urine,Catheterized Assessment and Plan Time with Patient: Less than 30
[2022-02-19 22:57] VITALS: RESP 16
[2022-02-19] MEDS: PRAVASTATIN SODIUM 80 MG TAB PO SCH (23:57)
[2022-02-19] MEDS: PRAMIPEXOLE 1 MG TAB PO SCH (23:57)
[2022-02-20] MEDS: LEVOTHYROXINE 25 MCG TAB PO SCH (06:10)
[2022-02-20] MEDS: HEPARIN SODIUM,PORCINE/PF 5,000 UNIT/0.5 ML SYRINGE SQ SCH (07:36)
[2022-02-20] MEDS: PANTOPRAZOLE 40 MG TABLET PO SCH (07:36)
[2022-02-20] MEDS: PIPERACILLIN-TAZOBACTAM 3.375 GM in SODIUM CHLORIDE 0.9% 100 ML IVPB SCH (07:37)
[2022-02-20 09:50] LABS: African American GFR (CKD) 99.1 (60.0-200.0); Albumin 2.9 g/dL (3.8-4.9); Albumin/Globulin Ratio 1.26 (1.60-3.17); Anion Gap 10.2 mmol/L (10.00-18.00); Blood Urea Nitrogen 6.6 mg/dL (9.0-27.0); Calcium 8.4 mg/dL (8.7-10.3); Carbon Dioxide 23.8 mmol/L (20.0-27.5); Globulin 2.3 g/dL (1.6-3.3); Non-African American GFR(CKD) 85.5 (60.0-200.0); Potassium 3.7 mmol/L (3.5-5.5); Total Bilirubin 0.4 mg/dL (0.30-1.20); Total Protein 5.2 g/dL (6.2-8.2)
[2022-02-20 12:50] VITALS: BP 115/67; PULSE 71; TEMP 98.6
--- NOTE | 2022-02-20 14:00 | P.DS ---
Providers Date of admission: 02/15/22 20:56 Expected date of discharge: 02/20/22 Attending physician: Js Ryan Consults: 02/15/22 20:56 Consult Physician Routine Consulting Provider: Sukhdev Beyer Consult Reason/Comments: medical care Do you want consulting provider notified?: Yes Primary care physician: Mary Faria Hospital Course: Discharge diagnosis 1. Abdominal pain 2. Constipation 3. Hydrops gallbladder and cholelithiasis 4. Leukocytosis improved 5. Dehydration 6. Hypokalemia and hypomagnesemia improved Hospital course This is a 81-year-old female status post colostomy reversal 2 weeks ago. Patient presented to the hospital with nausea and vomiting. She had been having constipation. She reports no pain in the right upper quadrant. Patient did have elevated white count. She was given IV fluids and antibiotics. Abdominal ultrasound had shown gallstones and dilated gallbladder. No gallbladder wall thickening. And she did have a positive Hong sign. Patient's symptoms improved. She tolerated advancement of diet. White count has normalized. She is no having abdominal pain. She has been having bowel movements. She's been up and ambulating. She is afebrile. She is stable for discharge. Also note that era were removed during this admission. There is minimal clearish drainage and a slight opening to the top layer of the midline incision from her recent colostomy reversal. Patient will continue on by mouth antibiotics. She is stable for discharge. Please refer to chart for any further details. Physician Electrical Maintenance Mechanic note has been reviewed by physician. Signing provider agrees with the documented findings, assessment, and plan of care. Patient Condition at Discharge: Stable Plan - Discharge Summary New Discharge Prescriptions: New Amoxic-Pot Clav 875-125Mg [Augmentin 875-125] 1 tab PO Q12HR 5 Days #10 tab No Action Levothyroxine Sodium [Synthroid] 25 mcg PO DAILY Enalapril Maleate 10 mg PO DAILY Ferrous Sulfate [Feosol] 325 mg PO MOWEFR Vit C/E/Zn/Coppr/Lutein/Zeaxan [Preservision Areds 2 Softgel] 1 cap PO BID Pramipexole [Mirapex] 1 mg PO HS Cholecalciferol [Vitamin D3 (25 Mcg = 1000 Iu)] 25 mcg PO DAILY Folic Acid 0.4 mg PO 1200 Pravastatin Sodium [Pravachol] 80 mg PO HS Famotidine [Pepcid] 20 mg PO BID 30 Days #60 tab rOPINIRole HCL [Requip] 1 mg PO TID 30 Days #90 tab Ibuprofen [Motrin] 600 mg PO Q6HR PRN #40 tab PRN Reason: Pain Acetaminophen Tab [Tylenol] 650 mg PO Q6H PRN PRN Reason: Pain Docusate [Colace] 100 mg PO BID PRN PRN Reason: Constipation Discharge Medication List Levothyroxine Sodium [Synthroid] 25 mcg PO DAILY 07/05/21 [History] Pramipexole [Mirapex] 1 mg PO HS 07/05/21 [History] Cholecalciferol [Vitamin D3 (25 Mcg = 1000 Iu)] 25 mcg PO DAILY 10/15/21 [History] Enalapril Maleate 10 mg PO DAILY 10/15/21 [History] Ferrous Sulfate [Feosol] 325 mg PO MOWEFR 10/15/21 [History] Folic Acid 0.4 mg PO 1200 10/15/21 [History] Pravastatin Sodium [Pravachol] 80 mg PO HS 10/15/21 [History] Vit C/E/Zn/Coppr/Lutein/Zeaxan [Preservision Areds 2 Softgel] 1 cap PO BID 10/15/21 [History] Famotidine [Pepcid] 20 mg PO BID 30 Days #60 tab 02/05/22 [Rx] Ibuprofen [Motrin] 600 mg PO Q6HR PRN #40 tab 02/05/22 [Rx] rOPINIRole HCL [Requip] 1 mg PO TID 30 Days #90 tab 02/05/22 [Rx] Acetaminophen Tab [Tylenol] 650 mg PO Q6H PRN 02/15/22 [History] Docusate [Colace] 100 mg PO BID PRN 02/15/22 [History] Amoxic-Pot Clav 875-125Mg [Augmentin 875-125] 1 tab PO Q12HR 5 Days #10 tab 02/20/22 [Rx] Follow up Appointment(s)/Referral(s): Mary Faria DO [Primary Care Provider] - 1-2 days [facility], [NON-STAFF] - 1 Week Tucker Elam MD [STAFF PHYSICIAN] - 1 Week (4-year-old urinary retention, urologist) Js Ryan MD [STAFF PHYSICIAN] - 1 Week Patient Instructions/Handouts: Cholecystitis (ED) Activity/Diet/Wound Care/Special Instructions: Medicine service to completed discharge med rec Low fat diet Activity as tolerated Discharge Disposition: HOME WITH HOME HEALTH SERVICES
--- NOTE | 2022-02-20 14:04 | P.PN ---
Subjective Progress Note Date: 02/20/22 This is a pleasant 81 years old female with past medical history of Hyperlipidemia, Hypertension, Osteoarthritis , hypothyroidism, Patient presents because of abdominal pain and vomiting. Patient was recently in this hospital 01/29-02/08 for repair of incisional hernia and parastomal hernia and reverse her colostomy and partial colectomy for his history of perforated diverticulitis. This time presents because she was not feeling well and she has recurrent vomiting since night about 2 days ago and yesterday in the emergency room. She describes her abdominal pain as pressure sensation rather than pain and she points to 2 areas in the suprapubic and right upper quadrant area. She has little bowel movement earlier but now she is passing only gases. She was complaining of from dysuria yesterday She denies chest pain or dyspnea, no headache or weakness or dizziness. She denies smoking, alcohol and illicit drugs On admission patient had a fever of 101.4. Rest of Vitas looks stable. Blood pressure on the low side 84/39 overnight improved this morning. Labs showed leukocytosis was 16,000, rest of CBC, INR, BMP and liver enzymes were unremarkable. Urine analysis showing concentrated sample, Cordarone and influenza virus is negative. EKG showed normal sinus rhythm at [address]-T changes CT of the abdomen and pelvis: Gallbladder hydrops with cholelithiasis and CBD dilatation. No gallbladder wall thickening or pericholecystic fluid Chest x-ray: No acute process Patient was started on Zosyn on normal saline at 1 30 mL/h 02/17/2022 Patient looks better than yesterday, she is comfortable and not in distress. She still concerned about her abdominal complaints and pain. She has no more fever. Low blood pressure improved with IV hydration. She has evidence of urinary retention and Diego catheter was placed. Patient will benefit from urology evaluation as an outpatient. Follow-up recommendation with Dr. Proctor is placed in her discharge instructions. She remains on IV fluids. Also she is on Zosyn. Surgery team on the case and currently she is on liquid diet. She has some mild right upper quadrant discomfort. Her nausea is not controlled with Zofran which is wished to Phenergan. 02/18/2022 Patient evaluated today sitting up in the chair. She reports nausea has mildly improved with the increase in phenergan. She is on full liquid diet and states she would like some toast or crackers and she thinks that may help with nausea. No surgical intervention planned. Electrolytes will be replaced today. She continues on IV fluids. Potassium 3.3 today, magnesium 1.6. Afebrile, blood pressure 123/64, 98% pulse oximeter, heart rate 62. 02/19/2022 Patient evaluated today, she states she had normal soft BM last night. Main discomfort is midline era which are catching on her gown with ambulation. States she felt hungry this AM but does not like the full liquid diet and that is contributing to her nausea. She would like something more solid to eat. Dis cussed with surgery. Labs today showing potassium 3.8, magnesium 1.9 T-Max 99.4 over night. Blood pressure 154/82, 96% room air. Fluids decreased to 75 mls per hour yesterday, she continues on IV zosyn. Urine culture is negative. 02/20/2022 Patient Is seen in follow-up today currently sitting up in the bed anticipating discharge today. Patient is questioning and has had multiple questions for surgical team about her gallbladder and findings. Patient is maintained on antibiotics and we'll transition to oral antibiotics and follow-up with surgery in the outpatient setting to discuss possible future cholecystectomy. Encouraged increase activity as tolerated and getting up out of the bed more often. Patient requesting advance in diet and being advanced to low fiber recommend continue with this diet for the next few days. Encourage the patient follow-up with primary care provider as well. Labs within normal limits today and patient anticipates discharge today. Patient is afebrile denies any chest pain or shortness of breath. Review of Systems Constitutional: Denied any fatigue denied any fever. Cardio vascular: denied any chest pain, palpitations Gastrointestinal: denied any vomiting, no diarrhea. Continues with Incisional abdominal pain. Continues with nausea. Pulmonary: Denied any shortness of breath cough Neurologic denied any new focal deficits All inpatient medications were reviewed and appropriate changes in these medications as dictated in the interval history and assessment and plan. Physical Examination GENERAL: The patient is alert and oriented x3, not in any acute distress. Well developed, well nourished. HEENT: Pupils are round and equally reacting to light. EOMI. No scleral icterus. No conjunctival pallor. Normocephalic, atraumatic. No pharyngeal erythema. No thyromegaly. CARDIOVASCULAR: S1 and S2 present. No murmurs, rubs, or gallops. PULMONARY: Chest is clear to auscultation, no wheezing or crackles. ABDOMEN: Soft, no tenderness on palpation, no suprapubic tenderness, nondistended, normoactive bowel sounds. No palpable organomegaly. Postsurgical with midline era. MUSCULOSKELETAL: No joint swelling or deformity. EXTREMITIES: No cyanosis, clubbing, or pedal edema. NEUROLOGICAL: Gross neurological examination did not reveal any focal deficits. SKIN: No rashes. no petechiae. Assessment: Dilated gallbladder mildly hydropic with gallstones, suspicious for acute cholecystitis Asymptomatic bacteriruea, with negative urine culture Acute urinary retention. Status post Diego catheter Sepsis secondary to above with leukocytosis and fever, resolved Hypertension Hyperlipidemia Hypothyroidism History of osteoarthritis History of perforated diverticulitis, Status post reversal of colostomy, partial colectomy, repair of parastomal hernia and repair of incisional hernia Hypertension Hyperlipidemia Degenerative joint disease Restless legs GI Prophylaxis DVT Prophylaxis Full Code Plan: Patient being transitioned oral antibiotics and cultures remain negative Recommend continue with anti-emetics as needed Diet is being advanced and patient tolerating with plans for possible discharge today Recommend outpatient follow-up with primary care provider Continue current low fat diet per surgery recommendations Recommend follow-up with surgery outpatient Thank you Kindly for this consultation The impression and plan of care has been dictated by Kath Bob, Nurse Practitioner as directed. Dr. Atif MD I have performed a history and examination and MDM of this patient, discussed the same with the dictator, and agree with the dictator's assessment and plan as written ,documented as a scribe. Based on total visit time, I have performed more than 50% of the visit. Objective - Vital Signs Vital signs: Vital Signs Temp 98.3 F 02/20/22 05:00 Pulse 70 02/20/22 07:50 Resp 16 02/20/22 05:00 BP 140/68 02/20/22 07:50 Pulse Ox 93 L 02/20/22 05:00 FiO2 Intake & Output 02/19/22 02/20/22 02/20/22 18:59 06:59 18:59 Intake Total 900 Output Total 2727 4114 Balance -1826 -2500 Intake: Intake, IV Titration 900 Amount Sodium Chloride 0.9% 1, 900 000 ml @ 75 mls/hr IV . [id number] [facility] Rx#:[id number] Output: Urine 2725 2500 Stool 1 Other: Voiding Method Indwelling Catheter Indwelling Catheter - Labs CBC & Chem 7: 02/18/22 10:30 02/20/22 05:45 Labs: Abnormal Lab Results - Last 24 Hours (Table) 02/19/22 Range/Units 07:00 BUN 7.5 L (9.0-27.0) mg/dL Creatinine 0.5 L (0.6-1.5) mg/dL Calcium 8.2 L (8.7-10.3) mg/dL Microbiology - Last 24 Hours (Table) 02/15/22 18:30 Blood Culture - Preliminary Blood No Growth after 96 hours 02/15/22 18:15 Blood Culture - Preliminary Blood No Growth after 96 hours
--- NOTE | 2022-02-21 11:17 | CDI ---
Documentation Clarification Form Date: 02/21/22 From: Alicia Galvin Admit Date: 02/15/2022 08:56:00 PM Patient Name: Tameka Perez Visit Number: [id number] Discharge Date: 02/20/2022 03:04:00 PM ATTENTION: The Clinical Documentation Specialists (CDI) and [facility] Coding Staff appreciate your assistance in clarifying documentation. Please respond to the clarification below the line at the bottom and electronically sign. The CDI & [facility] Coding staff will review the response and follow-up if needed. Please note: Queries are made part of the Legal Health Record. If you have any questions, please contact the author of this message via ITS. Dr. Ibis Caruso, Sepsis was ruled in by ED, but is not noted in your subsequent documentation. Clarification is requested. History/Risk Factors: Recent colostomy reversal, anemia, HLD, HTN, RLS, GERD, urine retention, Clinical Indicators: T 101.4, P 102, R 20, BP 124/51 & 84/39, O2 Sat 94, WBC 16.0, Neutrophils 15.4, RAFA 24, Glucose 165, Lactic acid 1.1 Treatment: IV fluids, IV Acetaminophen, IV Zoysn Please clarify if the patient had sepsis is: [ x ] Sepsis confirmed, remains under treatment [ ] Sepsis ruled out [ ] Other condition, please specify [ ] Unable to determine 02/21/22 @ 1725 [facility]
== END 2022-02-20 15:04 | disposition home health service (06) | DRG 872 ==
LOC: EC 16:37 → 5NMEDONC 20:56
PROVIDERS: ADMIT Surgery; ATTEND Surgery
DX: A41.9 Sepsis, unspecified organism (principal); K80.00 Calculus of gallbladder with acute cholecystitis without obstruction; K82.1 Hydrops of gallbladder; Z20.822 Contact with and (suspected) exposure to COVID-19; E78.5 Hyperlipidemia, unspecified; I10 Essential (primary) hypertension; E03.9 Hypothyroidism, unspecified; E87.6 Hypokalemia; E83.42 Hypomagnesemia; G25.81 Restless legs syndrome; K21.9 Gastro-esophageal reflux disease without esophagitis; E86.0 Dehydration; D64.9 Anemia, unspecified; R33.9 Retention of urine, unspecified; K59.00 Constipation, unspecified; K57.90 Diverticulosis of intestine, part unspecified, without perforation or abscess without bleeding; R82.71 Bacteriuria; F40.240 Claustrophobia; M19.90 Unspecified osteoarthritis, unspecified site; Z79.890 Hormone replacement therapy; Z79.899 Other long term (current) drug therapy; Z96.653 Presence of artificial knee joint, bilateral; Z92.3 Personal history of irradiation; Z86.59 Personal history of other mental and behavioral disorders; Z88.5 Allergy status to narcotic agent; Z91.040 Latex allergy status; Z80.1 Family history of malignant neoplasm of trachea, bronchus and lung; Z82.49 Family history of ischemic heart disease and other diseases of the circulatory system
CPT/HCPCS: 36415; 71046; 74177; 76705; 76770; 80048; 80053; 81001; 82150; 83605; 83690; 83735; 85025; 85610; 85730; 87040; 87086; 87502; 87635; 93005; 96365; 96375; 99291

== ENCOUNTER → 2022-04-18 | Outpatient (CLI) | payer MEDICARE ==
--- NOTE | 2022-04-19 19:16 | MM ---
Reason for Exam: Screening (asymptomatic). Last screening mammogram was performed 12 month(s) ago. Patient History: Menarche at age 11. First Full-Term at age 25. Hysterectomy at age 68. Postmenopausal. Patient has history of breast feeding. Estrogen for 4 years from age 59 until age 63. Unspecified Hormone for 20 years from age 45 until age 65. 02/06/2006, Excisional Biopsy on the Left side. 1981, Benign Excisional Biopsy on the left side. 01/15/2006, High risk Core Biopsy on the left side. 04/08/2000, Excisional Biopsy on the Left side. Maternal aunt had breast cancer. Risk Values: Arline 5 year model risk: 3.0%. NCI Lifetime model risk: 4.2%. Prior Study Comparison: 12/10/2016 Bilateral Screening Mammogram, [facility]. 01/26/2018 Bilateral Screening Mammogram, [facility]. 01/28/2019 Bilateral Screening Mammogram, [facility]. 03/07/2020 Bilateral Screening Mammogram, [facility]. 04/13/2021 Bilateral Screening Mammogram, [facility]. Tissue Density: The breast tissue is heterogeneously dense. This may lower the sensitivity of mammography. Findings: Analyzed By CAD. Benign-appearing calcifications bilaterally. There is no suspicious group of microcalcifications or new suspicious mass in either breast. Overall Assessment: Benign, BI-RAD 2 Management: Screening Mammogram of both breasts in 1 year. A clinical breast exam by your physician is recommended on an annual basis and results should be correlated with mammographic findings. Electronically signed and approved by: Yannick Zavaleta DO
== END | disposition home or self-care (01) ==
LOC: RADMAMWWP 13:03
PROVIDERS: ATTEND Family Medicine
DX: Z12.31 Encounter for screening mammogram for malignant neoplasm of breast (principal); Z78.0 Asymptomatic menopausal state; Z80.3 Family history of malignant neoplasm of breast
CPT/HCPCS: 77063; 77067